=== PATIENT | female | born 1955 | race Two or more races ===

== ENCOUNTER 2016-04-08 18:48 | Emergency (ER) | payer OTHER ==
[~2016-04-08] VITALS: Ht 162.6 cm; Wt 81.6 kg
[~2016-04-08 18:48] MED LIST: ASPI81TA2 PO; ATOR40TA59 PO; CLOP75TA27 PO; DESV50TA PO; HYDR-971 PO; ISOS30TA4 PO; LOSA50TA6 PO; METO10TA81 PO; METO25TA9 PO; MONT10TA9 PO; NITR0.4T6 SL; NITR100C62 PO; NITR100C63 PO; RANI150T2 PO; TIOT18CA IH; TRAM50TA PO; XOPENEX HFA15 GM IH; [UNRECOGNIZED DRUG - OTHER]; renexa PO
[2016-04-08 19:21] VITALS: BP 150/93
[2016-04-08] MEDS ORDERED: IPRATRPIUM/ALBUTEROL 0.5/2.5MG 3 ML NEBU. NEB PRN (20:45)
[2016-04-08] MEDS ORDERED: methylPREDNISolone SOD SUCC PF 125 MG/2 ML VIAL. IV ONE (21:00)
--- NOTE | 2016-04-08 22:15 | PHYS DOC ---
General Chief Complaint: SHORTNESS OF BREATH Stated Complaint: COUGHING SOA Time Seen by MD: 20:20 Source: patient Problems: History of Present Illness Initial Comments Patient here for chest discomfort shortness of breath. Patient says it started Friday when she was in [place]. She went to a local ER there ever received morphine for chest discomfort, and told her problems were related to altitude. She is here now but still continues to Of diffuse soreness and muscle aches throughout the chest as well as shortness of breath. She says her pain is really not coming from her heart as far she can tell, is really more from just the trouble breathing or shortness of breath. She's had no distinct fever or chills. There is no runny nose. She does have some earache and sore throat especially with cough. She has a very copious dry cough. There is no other chest discomfort as described. She's had no nausea vomiting or abdominal pain. No change amount of bladder habits. She denies any acute focal extremity or neurologic complaints. Patient is been using albuterol neurologic treatments home without help. She notes no other increasing or decreasing factors noted nothing else for this home. She has grandchildren at home have similar URI symptoms. Patient states when she gets like this usually she does much better when she gets a shot of steroids. Patient's past medical history is remarkable for asthma, COPD, hypertension, depression, and she has a stent in her heart. She is currently a nonsmoker and nonuser of ethanol. Allergies: Coded Allergies: No Known Drug Allergies (Unverified , 04/01/14) Past Medical History Medical History: asthma, COPD, heart disease, hypertension Surgical History: no surgical history Psychosocial History: depression Family History Significant Family History: no pertinent family hx Social History Smoker: non-smoker Alcohol: none Review of Systems All Other Systems: Reviewed and Negative Physical Exam General Appearance: WD/WN, mild distress Ear, Nose, Throat: normal ENT inspection, normal pharynx Neck: full range of motion, supple, normal inspection Respiratory: lungs clear, no respiratory distress, no accessory muscle use Cardiovascular: regular rate, rhythm, no edema, no gallop Gastrointestinal: non tender, soft, no organomegaly Back: no CVA tenderness, no vertebral tenderness Extremities: non-tender, normal inspection, no pedal edema Neurologic/Psychiatric: alert, normal mood/affect, oriented x 3 Skin: normal color Lymphatic: no adenopathy Comments Generally this is a well-developed well-nourished female who looks to be mildly uncomfortable, and will with severe cough. Vitals are as noted. Pertinent findings on physical exam shows the ears and throat to be clear. Chest shows diminished breath sounds throughout. No focal wheezes rales or rhonchi. There is no retractions or tachypnea. She verbalizes. She is no acute respiratory distress. Cardiovascular exam shows regular rate and rhythm without murmur. The abdomen is soft and nontender without masses or organomegaly. There is no perineal findings. Back shows no CVA tenderness. X-rays show no redness cord asymmetry or signs of DVT. Neurologic exam finds patient awake alert and cooperative. Remainder of physical exam is clinically unremarkable. Orders, Labs, Meds Old charts note multiple prior ER visits for variety of issues including hypokalemia, asthma, flank pain, back pain, UTI, COPD, an insect bite. She is most recently admitted to the hospital in March 2014 for chest pain. She had negative cardiac enzymes, she had a negative echocardiogram. CT scan shows small hiatal hernia. CT scan of the head shows a small meningioma. Discharge diagnosis was of atypical chest pain as well as hypertension and depression. EKG shows a sinus rhythm at 95. Normal axis. No acute ST or T-wave changes. Chest x-ray shows no acute changes per the emergency physician. 2200 Patient resting comfortably ER. She says she feels much better looks much more comfortable as well. Her breath sounds are much improved as well. She says that she usually gets much better when given steroids as she was tonight. I discussed with the patient is sounds like she probably had for baseline asthma or COPD with a superimposed viral URI. I discussed with her that she feels better, I think we can certainly O go home. She is fairly no acute respiratory distress and is very agreeable to discharge. She uses albuterol home and I will go ahead and write her prescription DuoNeb solution to trial. She does not use steroids. I'll go ahead and give her 5 days worth of redness own. We'll also prescribe some Tussionex for her cough and URI symptoms, as I think that most of her chest soreness and achiness is related increased work of breathing and cough. She says this is much improved after her nebulizer treatments as well. She does voice understanding of the need to follow up with primary care or return to the ER sooner as needed if worse in any way. She looks well, in no acute discomfort or distress, and okay for discharge home at this time. RAYRAY KRAMER MD Apr 08, 2016 20:36
--- NOTE | 2016-04-08 23:25 | EKG ---
[address] [address] Test Date: 2016-04-08 Test Time: 19:36:20 Pat Name: SHIRA SARAVIA Department: Room: Gender: F Weather Algorithm Scientist: MARYANNE : 1955 Requested By: RAYRAY KRAMER Order Number: [id number] Reading MD: Adryan Styles Measurements Intervals [place] Rate: 95 P: -30 [place]: 134 QRS: 4 QRSD: 74 T: 34 QT: 328 QTc: 415 Interpretive Statements SINUS RHYTHM Electronically Signed On 04-09-2016 7:45:54 SQL ARCHITECT by Adryan Styles
--- NOTE | 2016-04-09 07:51 | RAD ---
Exam performed: One view chest. Indication: Cough, congestion, shortness of air and chest discomfort today Date of Service: 04/08/2016 10:36 PM Comparison: None available. Single AP upright portable view chest findings: Cardiomediastinal silhouette is within limits of normal. No acute infiltrates, effusion or pneumothorax is detected. The bony structures are normal. Impression: No acute cardiopulmonary process is detected.
== END 2016-04-08 22:30 | disposition home or self-care (01) ==
LOC: ER 18:54
DX: J06.9 Acute upper respiratory infection, unspecified (principal); R07.89 Other chest pain; J45.909 Unspecified asthma, uncomplicated; J44.9 Chronic obstructive pulmonary disease, unspecified; I10 Essential (primary) hypertension; H92.09 Otalgia, unspecified ear
CPT/HCPCS: 71010; 93005; 94640; 96374; 99284; J2930; J7620

== ENCOUNTER 2016-10-01 12:45 | Emergency (ER) | payer OTHER ==
[~2016-10-01 12:45] MED LIST changes: +ASPI-630 PO; -ASPI81TA2 PO; -CLOP75TA27 PO; +CLOP75TA57 PO; +NITR0.4T22 SL; -NITR0.4T6 SL
[2016-10-01] MEDS: ASPIRIN 81 MG TAB.CHEW PO ONE (13:00)
[2016-10-01 13:18] LABS: BASO # 0.1 x10^3/uL (0.0-0.2); BASO % 0 % (0-3); EOS % 0 % (0-3); HEMATOCRIT 38.6 % (36.0-47.0); HEMOGLOBIN 12.1 g/dL (12.0-15.5); LYMPH # 1.8 x10^3/uL (1.0-4.8); LYMPH % 11 % (24-48); MEAN CORPUSCULAR HEMOGLOBIN 25 pg (25-35); MEAN CORPUSCULAR HGB CONC 32 g/dL (31-37); MEAN CORPUSCULAR VOLUME 80 fL (79-100); MONO # 0.5 x10^3/uL (0.0-1.1); MONO % 3 % (0-9); NEUT # 13.7 x10^3uL (1.8-7.7); NEUT % 85 % (31-73); PLATELET COUNT 325 x10^3/uL (140-400); RED BLOOD COUNT 4.82 x10^6/uL (3.50-5.40); RED CELL DISTRIBUTION WIDTH 22.5 % (11.5-14.5); WHITE BLOOD COUNT 16.1 x10^3/uL (4.0-11.0)
--- NOTE | 2016-10-01 13:18 | PHYS DOC ---
Past History Past Medical History: Asthma, CAD, COPD Past Surgical History: Other Smoking: Cigarettes, Less than 1pk/day Alcohol Use: None Drug Use: None Adult General HPI HPI Patient is a 61 year old F who presents with chest pain and a headache. Patient states that this morning she woke up and was having chest heaviness and pressure in the central hard of her chest that was nonradiating and has a day progressed she developed a headache. Patient denies any shortness of breath. Patient denies any fevers. Patient denies any nausea/vomiting/diarrhea. Patient states the chest pain does not get worse with exertion. She states she has a previous stent that splint placed which was a couple years ago and is currently on Plavix. Review of Systems Review of Systems GEN: Denies fevers, chills, sweats HEENT: Denies blurred vision, sore throat CV: chest pain RESP: Denies shortness of air, cough GI: Denies n/v/d NEURO: Denies confusion, dizziness MSK: Denies weakness, joint pain/swelling Current Medications Current Medications Current Medications Medications (Trade) Dose Ordered Sig/Kian Start Time Stop Time Status Last Admin Dose Admin Aspirin (Children'S Aspirin) 324 mg 1X ONCE 10/01/16 13:10 10/01/16 13:11 DC Iohexol (Omnipaque 300 Mg/ml) 75 ml 1X ONCE 10/01/16 13:30 10/01/16 13:31 Allergies Allergies Allergies Coded Allergies Type Severity Reaction Last Updated Verified No Known Drug Allergies 04/01/14 No Physical Exam Physical Exam GEN.: No apparent distress. Alert and oriented. HEENT: Head is normocephalic, atraumatic NECK: Supple. LUNGS: CTAB. HEART: RRR, S1, S2 present. Peripheral pulses intact ABDOMEN: Soft, nontender. Positive bowel sounds. EXTREMITIES: Without any cyanosis. NEUROLOGIC: Normal speech, normal tone PSYCHIATRIC: Normal affect, normal mood. SKIN: No ulcerations Current Patient Data Vital Signs Laboratory Tests Test 10/01/16 13:08 White Blood Count 16.1 x10^3/uL Red Blood Count 4.82 x10^6/uL Hemoglobin 12.1 g/dL Hematocrit 38.6 % Mean Corpuscular Volume 80 fL Mean Corpuscular Hemoglobin 25 pg Mean Corpuscular Hemoglobin Concent 32 g/dL Red Cell Distribution Width 22.5 % Platelet Count 325 x10^3/uL Neutrophils (%) (Auto) 85 % Lymphocytes (%) (Auto) 11 % Monocytes (%) (Auto) 3 % Eosinophils (%) (Auto) 0 % Basophils (%) (Auto) 0 % Neutrophils # (Auto) 13.7 x10^3uL Lymphocytes # (Auto) 1.8 x10^3/uL Monocytes # (Auto) 0.5 x10^3/uL Eosinophils # (Auto) 0.0 x10^3/uL Basophils # (Auto) 0.1 x10^3/uL Segmented Neutrophils % 81 % Band Neutrophils % 6 % Lymphocytes % 11 % Monocytes % 2 % Platelet Estimate Adequate Sodium Level 143 mmol/L Potassium Level 4.1 mmol/L Chloride Level 106 mmol/L Carbon Dioxide Level 24 mmol/L Anion Gap 13 Blood Urea Nitrogen 16 mg/dL Creatinine 1.2 mg/dL Estimated GFR (Cockcroft-Gault) 46.0 BUN/Creatinine Ratio 13 Glucose Level 143 mg/dL Calcium Level 9.1 mg/dL Total Bilirubin 0.2 mg/dL Aspartate Amino Transf (AST/SGOT) 13 U/L Alanine Aminotransferase (ALT/SGPT) 31 U/L Alkaline Phosphatase 104 U/L Troponin I Quantitative < 0.017 ng/mL Total Protein 6.7 g/dL Albumin 3.9 g/dL Albumin/Globulin Ratio 1.4 Current Medications Medications (Trade) Dose Ordered Sig/Kian Route PRN Reason Start Time Stop Time Status Last Admin Dose Admin Aspirin (Children'S Aspirin) 324 mg 1X ONCE PO 10/01/16 13:10 10/01/16 13:11 DC 10/01/16 13:00 Iohexol (Omnipaque 300 Mg/ml) 75 ml 1X ONCE IV 10/01/16 13:30 10/01/16 13:31 DC Morphine Sulfate (Morphine 4mg Syringe) 4 mg 1X ONCE IV 10/01/16 14:00 10/01/16 14:01 DC 10/01/16 13:51 EKG EKG 1258: EKG shows normal sinus rhythm rate of 95 no STEMI [] Radiology/Procedures Radiology/Procedures History: Chest pain Comparison is made to a study from 04/08/2016. The heart appears to be within normal limits in size. There is tortuosity of the thoracic aorta. The pulmonary vascularity is normal. No pulmonary infiltrates are seen. There is no evidence of pleural fluid. IMPRESSION: 1. Mild tortuosity of the thoracic aorta. 2. No acute cardiopulmonary abnormality is detected.[] CTA of the chest with contrast, 10/01/2016: History: Chest pain Multidetector CT imaging was performed following an IV bolus injection of iodinated contrast material. Multiplanar reconstructions were produced including coronal MIP images. The central pulmonary arteries are well opacified and no filling defects are seen to suggest pulmonary emboli. There is mild calcific plaquing of the thoracic aorta without evidence of aneurysm. There are mild scattered coronary artery calcifications. No mediastinal or hilar adenopathy is seen. Mild bibasilar and dependent linear and groundglass opacities are probably due to atelectasis and/or scarring. No pulmonary mass or significant consolidation is seen. There is no evidence of pleural fluid. IMPRESSION: 1. No CT evidence of central pulmonary emboli. 2. Mild calcific plaquing of the aorta and coronary arteries. Course & Med Decision Making Course & Med Decision Making Pertinent Labs and Imaging studies reviewed. (See chart for details) ED course: Patient was seen and examined the emergency room CBC, CMP, troponin, EKG, chest x-ray, CT angios of the chest were ordered 1444: Patient was reexamined and chest pain and headache and resolved and the patient is pain-free. Recommended based on patient's cardiac risk factors to be admitted hospital for further cardiac workup which will include serial troponins and serial EKGs and the possible need for a provocative test such as a stress test or heart catheterization. Patient declined admission under seen all risks including and disability elected go home and follow-up with her family doctor. MDM: After reviewing the chart, CC/HPI/PMH, physical exam, [lab results], [ radiological results], I do not believe the patient having acute LA, PE, thoracic aortic dissection. Given the patient's significant cardiac risk factors I recommended patient be admitted hospital for cardiac workup in which she declined understanding all the risks including and disability. Strongly Urged the patient that his symptoms get worse to return to the emergency room immediately. Additional verbal discharge instructions were provided to the patient and that if symptoms get worse or any new symptoms arise that are worrisome to the patient she is to return to the emergency room immediately [] Dragon Disclaimer Dragon Disclaimer This chart was dictated in whole or in part using Voice Recognition software in a busy, high-work load, and often noisy Emergency Department environment. It may contain unintended and wholly unrecognized errors or omissions. Departure Departure: Impression: Primary Impression: Chest pain Additional Impression: Headache Disposition: 01 HOME, SELF-CARE Condition: IMPROVED Referrals: ELTON PECK DO (PCP) Patient Instructions: Chest Pain (Nonspecific), [id number] Additional Instructions: Please follow up with her family doctor one to 2 days Problem Qualifiers ROOPA NEWSOME DO Oct 01, 2016 13:18
[2016-10-01] MEDS ORDERED: IOHEXOL 300 MG/ML 75 ML VIAL. IV ONE (13:30)
[2016-10-01 13:32] LABS: ALBUMIN 3.9 g/dL (3.4-5.0); ALBUMIN/GLOBULIN RATIO 1.4 (1.0-1.7); CALCIUM 9.1 mg/dL (8.5-10.1); CREATININE 1.2 mg/dL (0.6-1.0); POTASSIUM 4.1 mmol/L (3.5-5.1); TOTAL BILIRUBIN 0.2 mg/dL (0.2-1.0); TOTAL PROTEIN 6.7 g/dL (6.4-8.2)
[2016-10-01] MEDS: MORPHINE SULFATE 4 MG/ML DISP.SYRIN. IV ONE (13:51)
[2016-10-01 13:55] VITALS: BP 127/90
[2016-10-01 14:01] LABS: % BANDS 6 % (0-9); % LYMPHS 11 % (24-48); % MONOS 2 % (0-10); % SEGS 81 % (35-66); PLT ESTIMATE ADEQUATE (ADEQUATE)
--- NOTE | 2016-10-01 14:38 | RAD ---
CTA of the chest with contrast, 10/01/2016: History: Chest pain Multidetector CT imaging was performed following an IV bolus injection of iodinated contrast material. Multiplanar reconstructions were produced including coronal MIP images. The central pulmonary arteries are well opacified and no filling defects are seen to suggest pulmonary emboli. There is mild calcific plaquing of the thoracic aorta without evidence of aneurysm. There are mild scattered coronary artery calcifications. No mediastinal or hilar adenopathy is seen. Mild bibasilar and dependent linear and groundglass opacities are probably due to atelectasis and/or scarring. No pulmonary mass or significant consolidation is seen. There is no evidence of pleural fluid. IMPRESSION: 1. No CT evidence of central pulmonary emboli. 2. Mild calcific plaquing of the aorta and coronary arteries. PQRS Compliance Statement: One or more of the following individualized dose reduction techniques were utilized for this examination: 1. Automated exposure control 2. Adjustment of the mA and/or kV according to patient size 3. Use of iterative reconstruction technique
--- NOTE | 2016-10-01 15:16 | EKG ---
[address] [address] Test Date: 2016-10-01 Test Time: 12:55:53 Pat Name: SHIRA SARAVIA Department: Room: Gender: F Applications Developer: DEVIN : 1955 Requested By: ROOPA NEWSOME Order Number: [id number] Reading MD: Adryan Styles Measurements Intervals [place] Rate: 95 P: 28 MS: 172 QRS: 0 QRSD: 78 T: 4 QT: 354 QTc: 448 Interpretive Statements SINUS RHYTHM Electronically Signed On 10-03-2016 8:49:55 CDT by Adryan Styles
== END 2016-10-01 15:04 | disposition home or self-care (01) ==
LOC: ER 12:45
DX: R07.89 Other chest pain (principal); R51 Headache; I25.10 Atherosclerotic heart disease of native coronary artery without angina pectoris; J44.9 Chronic obstructive pulmonary disease, unspecified; F17.210 Nicotine dependence, cigarettes, uncomplicated
CPT/HCPCS: 36415; 71010; 71275; 80053; 84484; 85007; 85027; 93005; 96374; 99285; J2270

== ENCOUNTER 2017-01-07 20:45 | Emergency (ER) | payer OTHER ==
[~2017-01-07] VITALS: Ht 162.6 cm; Wt 84.1 kg
[~2017-01-07 20:45] MED LIST changes: +METO-239 PO; -METO25TA9 PO
[2017-01-07] MEDS ORDERED: DEXAMETHASONE 4 MG TABLET PO ONE (21:45)
[2017-01-07 22:24] LABS: BASO # 0.1 x10^3/uL (0.0-0.2); BASO % 1 % (0-3); EOS # 0.2 x10^3/uL (0.0-0.7); EOS % 3 % (0-3); HEMATOCRIT 39.9 % (36.0-47.0); HEMOGLOBIN 13.7 g/dL (12.0-15.5); LYMPH % 28 % (24-48); MEAN CORPUSCULAR HEMOGLOBIN 31 pg (25-35); MEAN CORPUSCULAR HGB CONC 34 g/dL (31-37); MEAN CORPUSCULAR VOLUME 91 fL (79-100); MONO # 0.5 x10^3/uL (0.0-1.1); MONO % 8 % (0-9); NEUT # 4.4 x10^3uL (1.8-7.7); NEUT % 61 % (31-73); PLATELET COUNT 320 x10^3/uL (140-400); RED BLOOD COUNT 4.38 x10^6/uL (3.50-5.40); RED CELL DISTRIBUTION WIDTH 16.6 % (11.5-14.5); WHITE BLOOD COUNT 7.1 x10^3/uL (4.0-11.0)
[2017-01-07] MEDS ORDERED: methylPREDNISolone SOD SUCC PF 125 MG/2 ML VIAL. IV ONE (22:30)
[2017-01-07] MEDS ORDERED: IPRATRPIUM/ALBUTEROL 0.5/2.5MG 3 ML NEBU. NEB ONE (22:30)
[2017-01-07 22:41] LABS: CALCIUM 9.2 mg/dL (8.5-10.1); CREATININE 1.4 mg/dL (0.6-1.0); GFR 38.5; POTASSIUM 3.8 mmol/L (3.5-5.1)
[2017-01-07] MEDS ORDERED: methylPREDNISolone SOD SUCC PF 125 MG/2 ML VIAL. ONE (23:16)
[2017-01-07] MEDS ORDERED: ACETAMINOPHEN 500 MG TABLET PO ONE (23:30)
--- NOTE | 2017-01-07 23:44 | ED.ADGEN ---
Past History Past Medical History: Asthma, COPD Past Surgical History: Other Smoking: Cigarettes, Less than 1pk/day Alcohol Use: None Drug Use: None Adult General HPI HPI Patient is a 61-year-old woman, with a history of COPD, CAD, status post placement of one stent several years ago, who presents to the emergency department with a complaint of chest tightness for the past 5 days. Patient states that she's been experiencing "my bronchials getting tighter", with development of chest pain over the past 5 days. She denies any fevers or chills , states she is expressing an operative cough, and pain that radiates from the front of her chest through the size. She states that her used a new lacquer, on Friday, and she believes may have triggered her symptoms, along with the recent weather changes. She denies any nausea or vomiting, any focal weakness, numbness or tingling, states she has typical mild swelling of the extremities for which she takes diuretics, but no change of her typical. No history of DVT or PE, no recent travel or surgery, no urinary complaints. Patient states she is experiencing back pain and headache currently. No neck pain. No injuries. No drugs or alcohol. Patient states his used her albuterol neb at home without relief. Last dose of medication was about 5 hours prior to arrival in the ED. She states previously she's been treated with steroids and with DuoNeb with good effect. Review of Systems Review of Systems Constitutional: Denies fever or chills [] Eyes: Denies change in visual acuity, redness, or eye pain [] HENT: Denies nasal congestion or sore throat [] Respiratory: Cough is nonproductive, shortness of breath with chest tightness. Cardiovascular: No additional information not addressed in HPI [] GI: Denies abdominal pain, nausea, vomiting, bloody stools or diarrhea [] : Denies dysuria or hematuria [] Musculoskeletal: Denies back pain or joint pain [] Integument: Denies rash or skin lesions [] Neurologic: Denies focal weakness or sensory changes, frontal headache. Endocrine: Denies polyuria or polydipsia [] Current Medications Current Medications Current Medications Medications (Trade) Dose Ordered Sig/Kian Start Time Stop Time Status Last Admin Dose Admin Acetaminophen (Tylenol) 1,000 mg 1X ONCE 01/07/17 23:30 01/07/17 23:32 DC 01/07/17 23:28 1,000 MG Albuterol/ Ipratropium (Duoneb) 3 ml 1X ONCE 01/07/17 22:30 01/07/17 22:31 DC 01/07/17 22:30 3 ML Dexamethasone (Decadron) 4 mg 1X ONCE 01/07/17 21:45 01/07/17 21:53 DC Methylprednisolone Sodium Succinate (SOLU-Medrol 125MG VIAL) 125 mg STK-MED ONCE 01/07/17 23:16 01/07/17 23:17 DC Allergies Allergies Allergies Coded Allergies Type Severity Reaction Last Updated Verified No Known Drug Allergies 04/01/14 No Physical Exam Physical Exam Constitutional: Well developed, well nourished, no acute distress, non-toxic appearance. [] HENT: Normocephalic, atraumatic, bilateral external ears normal, oropharynx moist, no oral exudates, nose normal. [] Eyes: PERRLA, EOMI, conjunctiva normal, no discharge. [] Neck: Normal range of motion, no tenderness, supple, no stridor. [] Cardiovascular:Heart rate regular rhythm, no murmur, S1, S2. No rubs or gallops. [] Lungs & Thorax: Mildly diminished breath sounds at bases, no rhonchi, rales, or significant wheezing identified. No chest wall crepitus. Patient states that she has tenderness throughout her entire back and anterior chest.[] No lesions identified. Abdomen: Bowel sounds normal, soft, no tenderness, no rebound, no rigidity, no guarding, no masses, no pulsatile masses. [] Skin: Warm, dry, no erythema, no rash. [] Back: No tenderness, no CVA tenderness. [] Extremities: No tenderness, no cyanosis, no clubbing, ROM intact, no edema. Negative Homans sign.[] Neurologic: Alert and oriented X 3, normal motor function, normal sensory function, no focal deficits noted. [] Psychologic: Affect normal, judgement normal, mood normal. [] Current Patient Data Vital Signs Vital Signs Date Time Temp Pulse Resp B/P (MAP) Pulse Ox O2 Delivery O2 Flow Rate FiO2 01/07/17 21:47 98.0 89 22 100 Room Air Lab Results Laboratory Tests Test 01/07/17 22:05 01/08/17 00:54 White Blood Count 7.1 x10^3/uL (4.0-11.0) Red Blood Count 4.38 x10^6/uL (3.50-5.40) Hemoglobin 13.7 g/dL (12.0-15.5) Hematocrit 39.9 % (36.0-47.0) Mean Corpuscular Volume 91 fL (79-100) Mean Corpuscular Hemoglobin 31 pg (25-35) Mean Corpuscular Hemoglobin Concent 34 g/dL (31-37) Red Cell Distribution Width 16.6 % (11.5-14.5) H Platelet Count 320 x10^3/uL (140-400) Neutrophils (%) (Auto) 61 % (31-73) Lymphocytes (%) (Auto) 28 % (24-48) Monocytes (%) (Auto) 8 % (0-9) Eosinophils (%) (Auto) 3 % (0-3) Basophils (%) (Auto) 1 % (0-3) Neutrophils # (Auto) 4.4 x10^3uL (1.8-7.7) Lymphocytes # (Auto) 2.0 x10^3/uL (1.0-4.8) Monocytes # (Auto) 0.5 x10^3/uL (0.0-1.1) Eosinophils # (Auto) 0.2 x10^3/uL (0.0-0.7) Basophils # (Auto) 0.1 x10^3/uL (0.0-0.2) Sodium Level 142 mmol/L (136-145) Potassium Level 3.8 mmol/L (3.5-5.1) Chloride Level 105 mmol/L (98-107) Carbon Dioxide Level 27 mmol/L (21-32) Anion Gap 10 (6-14) Blood Urea Nitrogen 18 mg/dL (7-20) Creatinine 1.4 mg/dL (0.6-1.0) H Estimated GFR (Cockcroft-Gault) 38.5 Glucose Level 147 mg/dL (70-99) H Calcium Level 9.2 mg/dL (8.5-10.1) Troponin I Quantitative < 0.017 ng/mL (0-0.055) QO-Agh-K-Type Natriuretic Peptide 77 pg/mL (0-124) Lipase 121 U/L (73-393) POC Troponin I 0.00 ng/ml (<0.08) EKG EKG EC: Sinus rhythm, heart rate 94 bpm, upright axis, QTC of 448, TN 110, QRS of 78, no ST elevations or depressions, no evidence of acute ST abnormalities. As interpreted by me.[] Radiology/Procedures Radiology/Procedures Chest x-ray: Two-view: Normal cardiopulmonary silhouette, no infiltrates, no effusions, no pneumothorax, no soft tissue or bony abnormalities identified. As interpreted by me.[] Course & Med Decision Making Course & Med Decision Making Pertinent Labs and Imaging studies reviewed. (See chart for details) Patient with oxygen saturations 100%, respiratory rate is in the 20s, mildly labored. No significant wheezing identified. Patient did receive DuoNeb, and Solu-Medrol in the ED. Along with Tylenol for her headache. Reevaluation states that she is still feeling slightly sore in her back, however her chest tightness is resolved, as is her headache. Patient with a heart score of 2, I did discuss these findings with the patient, examination, history, and patient report is consistent with this being an exacerbation of her COPD, do not believe that this is consistent with a concerning cardiac or other pulmonary etiology. Repeat troponin obtained, also negative. I did review the heart score with patient and at bedside, patient states that she is feeling completely better at this time, and is ready to be discharged home. She she does have all medications at home, therefore we will discharge her with a short course of prednisone, patient follow-up with a primary care provider for additional evaluation as needed, and to return to the ED for any new or concerning symptoms as discussed. Patient voiced understanding and agreement with plan as stated, discharged home in stable condition with plan as above. Final Impression Final Impression [] Problems: Dragon Disclaimer Dragon Disclaimer This electronic medical record was generated, in whole or in part, using a voice recognition dictation system. Departure: Impression: Primary Impression: COPD exacerbation Disposition: 01 HOME, SELF-CARE Condition: IMPROVED Scripts Prednisone (PREDNISONE) 20 Mg Tablet 2 TAB PO [id number], #8 TAB Prov: LOUIS PAZ DO 01/08/17 LOUIS PAZ DO Jan 07, 2017 23:44
--- NOTE | 2017-01-08 00:27 | EKG ---
[address] [address] Test Date: 2017-01-07 Test Time: 21:55:47 Pat Name: SHIRA SARAVIA Department: Room: Gender: F Director Apparel: TREVOR : 1955 Requested By: LOUIS PAZ Order Number: [id number] Reading MD: Measurements Intervals [place] Rate: 94 P: 180 NM: 110 QRS: 6 QRSD: 78 T: 24 QT: 354 QTc: 448 Interpretive Statements SINUS RHYTHM NORMAL ECG RI6.01 No previous ECG available for comparison
[2017-01-08] MEDS ORDERED: PRED20TA PO (00:52)
[2017-01-08 01:22] VITALS: BP 109/74
--- NOTE | 2017-01-08 08:41 | RAD ---
Chest, 2 views, 01/07/2017: History: Shortness of breath, chest pain Comparison is made to a study from 10/01/2016. The heart size and pulmonary vascularity are normal. There is mild tortuosity of the thoracic aorta. No pulmonary infiltrates are seen. There is no evidence of pleural fluid. IMPRESSION: 1. Tortuous aorta. 2. No acute abnormality is detected.
== END 2017-01-08 01:13 | disposition home or self-care (01) ==
LOC: ER 20:45
DX: J44.1 Chronic obstructive pulmonary disease with (acute) exacerbation (principal); M54.9 Dorsalgia, unspecified; R51 Headache; I25.10 Atherosclerotic heart disease of native coronary artery without angina pectoris; F17.210 Nicotine dependence, cigarettes, uncomplicated
CPT/HCPCS: 36415; 71020; 80048; 83690; 83880; 84484; 85025; 93005; 94640; 96374; 99285; J2930; J7620

== ENCOUNTER 2017-03-21 11:33 | Emergency (ER) | payer OTHER ==
[~2017-03-21] VITALS: Ht 154.9 cm; Wt 83.9 kg
[~2017-03-21 11:33] MED LIST changes: +PRED20TA PO
[2017-03-21 12:30] LABS: BASO # 0.1 x10^3/uL (0.0-0.2); BASO % 1 % (0-3); EOS # 0.1 x10^3/uL (0.0-0.7); EOS % 2 % (0-3); HEMATOCRIT 41.4 % (36.0-47.0); LYMPH # 2.8 x10^3/uL (1.0-4.8); LYMPH % 40 % (24-48); MEAN CORPUSCULAR HEMOGLOBIN 31 pg (25-35); MEAN CORPUSCULAR HGB CONC 34 g/dL (31-37); MEAN CORPUSCULAR VOLUME 91 fL (79-100); MONO # 0.5 x10^3/uL (0.0-1.1); MONO % 7 % (0-9); NEUT # 3.5 x10^3uL (1.8-7.7); NEUT % 50 % (31-73); PLATELET COUNT 427 x10^3/uL (140-400); RED BLOOD COUNT 4.55 x10^6/uL (3.50-5.40); RED CELL DISTRIBUTION WIDTH 15.3 % (11.5-14.5)
[2017-03-21] MEDS ORDERED: PROCHLORPERAZINE 10 MG/2 ML VIAL. IV ONE (12:30)
[2017-03-21] MEDS ORDERED: ACETAMINOPHEN 500 MG TABLET PO ONE (12:30)
--- NOTE | 2017-03-21 12:31 | EKG ---
[address] [address] Test Date: 2017-03-21 Test Time: 12:08:46 Pat Name: SHIRA SARAVIA Department: Room: Gender: F Surveillance Director: DEVIN : 1955 Requested By: WILLIAMS GABRIEL Order Number: [id number] Reading MD: Ravi Bui Measurements Intervals [place] Rate: 88 P: -22 [place]: 150 QRS: 0 QRSD: 76 T: 34 QT: 372 QTc: 454 Interpretive Statements SINUS RHYTHM LEFTWARD AXIS NO SPECIFIC ECG ABNORMALITIES Electronically Signed On 03-25-2017 16:30:35 LEGISLATIVE ASSISTANT by Ravi Bui
[2017-03-21 12:38] LABS: ALBUMIN/GLOBULIN RATIO 1.1 (1.0-1.7); CALCIUM 9.6 mg/dL (8.5-10.1); GFR 56.7; POTASSIUM 3.9 mmol/L (3.5-5.1); TOTAL BILIRUBIN 0.4 mg/dL (0.2-1.0); TOTAL PROTEIN 7.5 g/dL (6.4-8.2)
--- NOTE | 2017-03-21 14:05 | PHYS DOC ---
Past History Past Medical History: Asthma, COPD Past Surgical History: Other Smoking: Cigarettes, Less than 1pk/day Alcohol Use: None Drug Use: None Adult General Chief Complaint Chief Complaint: MULTIPLE COMPLAINTS HPI HPI Patient is a 61 year old F who presents with headache and tingling of the lower extremities bilaterally below the knee. She states that these symptoms started yesterday. The tingling in her lower extremities was associated with tingling in the hands and was present prior to the development of her headache. Her headache is bilateral temporal and dull in nature. She feels that her headache is constant with fluctuating intensity. She does have a history of headaches that recur weekly to monthly however she states that those headaches are more generalized and less intense. She did travel to [place] recently and did not have any symptoms other than mild leg swelling which resolved during her trip. She denied any other associated symptoms. She denies any other exacerbating or alleviating factors. Review of Systems Review of Systems Constitutional: Denies fever or chills [] Eyes: Denies change in visual acuity, redness, or eye pain [] HENT: Denies nasal congestion or sore throat [] Respiratory: Denies cough or shortness of breath [] Cardiovascular: No additional information not addressed in HPI [] GI: Denies abdominal pain, nausea, vomiting, bloody stools or diarrhea [] : Denies dysuria or hematuria [] Musculoskeletal: Denies back pain or joint pain [] Integument: Denies rash or skin lesions [] Neurologic: Denies focal weakness Endocrine: Denies polyuria or polydipsia [] All other systems were reviewed and found to be within normal limits, except as documented in this note. Family History Family History No pertinent family medical history was reported Current Medications Current Medications Current medications were reviewed Current Medications Medications (Trade) Dose Ordered Sig/Kian Start Time Stop Time Status Last Admin Dose Admin Acetaminophen (Tylenol) 1,000 mg 1X ONCE 03/21/17 12:30 03/21/17 12:31 DC 03/21/17 12:23 1,000 MG Prochlorperazine Edisylate (Compazine) 10 mg 1X ONCE 03/21/17 12:30 03/21/17 12:31 DC 03/21/17 12:23 10 MG Allergies Allergies Allergies Coded Allergies Type Severity Reaction Last Updated Verified No Known Drug Allergies 1/23/15 No Physical Exam Physical Exam Constitutional: Well developed, well nourished, no acute distress, non-toxic appearance. [] HENT: Normocephalic, atraumatic, Eyes: EOMI, conjunctiva normal, no discharge. [] Neck: Normal range of motion, no tenderness, supple, no stridor. [] Cardiovascular:Heart rate regular rhythm, no murmur [] Lungs & Thorax: Bilateral breath sounds clear to auscultation [] Abdomen: Bowel sounds normal, soft, no tenderness, no masses, no pulsatile masses. [] Skin: Warm, dry, no erythema, no rash. [] Back: No tenderness, no CVA tenderness. [] Extremities: No tenderness, no cyanosis, no clubbing, ROM intact, no edema. [] Neurologic: Alert and oriented X 3, normal motor function, normal sensory function, no focal deficits noted. [] Normal reflexes in the lower extremity is bilaterally Psychologic: Affect normal, judgement normal, mood normal. [] Current Patient Data Vital Signs Vital Signs Date Time Temp Pulse Resp B/P (MAP) Pulse Ox O2 Delivery O2 Flow Rate FiO2 03/21/17 13:37 91 18 105/69 (81) 99 Room Air 03/21/17 13:04 98.1 Lab Results Laboratory Tests Test 03/21/17 12:00 White Blood Count 7.0 x10^3/uL (4.0-11.0) Red Blood Count 4.55 x10^6/uL (3.50-5.40) Hemoglobin 14.0 g/dL (12.0-15.5) Hematocrit 41.4 % (36.0-47.0) Mean Corpuscular Volume 91 fL (79-100) Mean Corpuscular Hemoglobin 31 pg (25-35) Mean Corpuscular Hemoglobin Concent 34 g/dL (31-37) Red Cell Distribution Width 15.3 % (11.5-14.5) H Platelet Count 427 x10^3/uL (140-400) H Neutrophils (%) (Auto) 50 % (31-73) Lymphocytes (%) (Auto) 40 % (24-48) Monocytes (%) (Auto) 7 % (0-9) Eosinophils (%) (Auto) 2 % (0-3) Basophils (%) (Auto) 1 % (0-3) Neutrophils # (Auto) 3.5 x10^3uL (1.8-7.7) Lymphocytes # (Auto) 2.8 x10^3/uL (1.0-4.8) Monocytes # (Auto) 0.5 x10^3/uL (0.0-1.1) Eosinophils # (Auto) 0.1 x10^3/uL (0.0-0.7) Basophils # (Auto) 0.1 x10^3/uL (0.0-0.2) Sodium Level 141 mmol/L (136-145) Potassium Level 3.9 mmol/L (3.5-5.1) Chloride Level 103 mmol/L (98-107) Carbon Dioxide Level 26 mmol/L (21-32) Anion Gap 12 (6-14) Blood Urea Nitrogen 12 mg/dL (7-20) Creatinine 1.0 mg/dL (0.6-1.0) Estimated GFR (Cockcroft-Gault) 56.7 BUN/Creatinine Ratio 12 (6-20) Glucose Level 110 mg/dL (70-99) H Lactic Acid Level 2.5 mmol/L (0.4-2.0) H Calcium Level 9.6 mg/dL (8.5-10.1) Total Bilirubin 0.4 mg/dL (0.2-1.0) Aspartate Amino Transferase (AST) 24 U/L (15-37) Alanine Aminotransferase (ALT) 48 U/L (14-59) Alkaline Phosphatase 85 U/L (46-116) Total Protein 7.5 g/dL (6.4-8.2) Albumin 4.0 g/dL (3.4-5.0) Albumin/Globulin Ratio 1.1 (1.0-1.7) EKG EKG Normal sinus rhythm. No QRS interval changes. No ST segment changes noted. Radiology/Procedures Radiology/Procedures Imaging was declined Course & Med Decision Making Course & Med Decision Making Pertinent Labs and Imaging studies reviewed. (See chart for details) [] Dragon Disclaimer Dragon Disclaimer This electronic medical record was generated, in whole or in part, using a voice recognition dictation system. Departure Departure: Impression: Primary Impression: Headache Disposition: 01 HOME, SELF-CARE Condition: STABLE Referrals: ELTON PECK DO (PCP) Patient Instructions: Migraine Headache Additional Instructions: Leydi was seen in the emergency department for headache and tingling in her hands and feet. No emergency medical condition was found on history or physical exam. She did have normal labs. Her symptoms did improve with Tylenol. She is advised follow-up with her primary care doctor in the next 3-5 days. She is also advised to return to the emergency room if she develops now worsening symptoms, in particular weakness or shortness of breath Problem Qualifiers Primary Impression: Headache Headache type: unspecified Headache chronicity pattern: unspecified pattern Intractability: not intractable Qualified Codes: R51 - Headache WILLIAMS GABRIEL MD Mar 21, 2017 14:05
[2017-03-21 14:30] VITALS: BP 119/87
== END 2017-03-21 14:30 | disposition home or self-care (01) ==
LOC: ER 11:33
DX: R51 Headache (principal); R20.2 Paresthesia of skin; J44.9 Chronic obstructive pulmonary disease, unspecified; F17.210 Nicotine dependence, cigarettes, uncomplicated
CPT/HCPCS: 36415; 80053; 83605; 85025; 93005; 96374; 99285; J0780

== ENCOUNTER → 2017-05-06 | Outpatient (CLI) | payer OTHER | END | disposition home or self-care (01) | LOC: SURG 12:27 | PROVIDERS: ATTEND Anesthesiology | DX: M51.36 Other intervertebral disc degeneration, lumbar region (principal); M47.816 Spondylosis without myelopathy or radiculopathy, lumbar region; J44.9 Chronic obstructive pulmonary disease, unspecified; Z87.891 Personal history of nicotine dependence | CPT/HCPCS: 99204 ==

== ENCOUNTER 2018-03-06 11:40 | Inpatient (IN) | payer OTHER ==
[~2018-03-06] VITALS: Ht 162.6 cm; Wt 86.2 kg
[~2018-03-06 11:40] MED LIST changes: +HYDR-3165 PO; -HYDR-971 PO; -LOSA50TA6 PO; +LOSA50TA86 PO
--- NOTE | 2018-03-06 11:55 | PHYS DOC ---
Past History Past Medical History: Asthma, CAD, COPD, High Cholesterol, Hypertension Past Surgical History: Other Smoking: Quit Greater Than 1 Year Alcohol Use: None Drug Use: None Adult General Chief Complaint Chief Complaint: CHEST PAIN HPI HPI Patient is a 62 year old female who presents with complaining of chest pain and palpitation. Patient states she has had left upper chest sharp pain with radiation to left shoulder for the last 4 days as a constant pain with shortness of breath, nausea, agitation. Patient rated her pain 7/10 and states the pain getting worse with activity. Patient had Patient was seen by her seo manager today because of this pain and has abnormal EKG and sent here for evaluation. Patient had a recent air traveling by airplane to [place] but denies leg pain and history of DVT and PE. Patient has history of coronary artery disease and stent placement, hypertension, dyslipidemia, family history of coronary artery disease. Review of Systems Review of Systems Constitutional: Denies fever or chills [] Eyes: Denies change in visual acuity, redness, or eye pain [] HENT: Denies nasal congestion or sore throat [] Respiratory: Denies cough, reports shortness of breath [] Cardiovascular: No additional information not addressed in HPI [] GI: Denies abdominal pain, nausea, vomiting, bloody stools or diarrhea [] : Denies dysuria or hematuria [] Musculoskeletal: Denies back pain or joint pain [] Integument: Denies rash or skin lesions [] Neurologic: Denies headache, focal weakness or sensory changes [] Endocrine: Denies polyuria or polydipsia [] All other systems were reviewed and found to be within normal limits, except as documented in this note. Allergies Allergies Allergies Coded Allergies Type Severity Reaction Last Updated Verified No Known Drug Allergies 04/01/14 No Physical Exam Physical Exam Constitutional: Well developed, well nourished, mild distress, non-toxic appearance. [] HENT: Normocephalic, atraumatic, oropharynx moist, no oral exudates, nose normal. [] Eyes: PERRLA, EOMI, conjunctiva normal, no discharge. [] Neck: Normal range of motion, no tenderness, supple, no stridor. [] Cardiovascular:Heart rate regular rhythm, no murmur [] Lungs & Thorax: Bilateral breath sounds clear to auscultation, left chest wall reproducible pain[] Abdomen: Bowel sounds normal, soft, no tenderness, no masses, no pulsatile masses. [] Skin: Warm, dry, no erythema, no rash. [] Back: No tenderness, no CVA tenderness. [] Extremities: No tenderness, no cyanosis, no clubbing, ROM intact, no edema. [] Neurologic: Alert and oriented X 3, normal motor function, normal sensory function, no focal deficits noted. [] Psychologic: Affect normal, judgement normal, mood normal. [] EKG EKG EKG interpreted by me. EKG at 1152 showed normal sinus rhythm at rate of 76, PACs, left conroy axis, no acute ST and T-wave abnormalities. Radiology/Procedures Radiology/[place] [address] IMAGING REPORT Signed PATIENT: SHIRA SARAVIA ACCOUNT: [id number] : 1955 LOCATION: ER AGE: 62 SEX: F EXAM STATUS: REG ER ORD. PHYSICIAN: AIMEE SPENCER MD REASON: palpitation PROCEDURE: PORTABLE CHEST 1V EXAM: CHEST 1 VIEW History: Heart palpitations COMPARISON: 01/07/2017 TECHNIQUE: Single portable radiograph of the chest FINDINGS: The cardiac silhouette is unremarkable. The lungs are clear bilaterally. The costophrenic sulci are clear and well demarcated. Cardiac heart monitor identified. IMPRESSION: No radiographic evidence of an acute cardiopulmonary process. Electronically signed by: Avelino Flores MD (03/06/2018 12:13 PM) [place] [id number] DICTATED AND SIGNED BY: AVELINO FLORES MD DATE: 03/06/18 1211 CC: AIMEE SPENCER MD; ELTON PECK DO ~ Course & Med Decision Making Course & Med Decision Making Pertinent Labs and Imaging studies reviewed. (See chart for details) Evaluation of patient in ER showed 62-year-old female patient with multiple cardiac affect and complaining of chest pain for the last 4 days with shortness of breath and palpitation and history of recent traveling by airplane. Patient had unremarkable EKG and labs and d-dimer. Because of multiple cardiac risk factor plan to admit patient. Patient did not want transfer to [facility] as recommended by her seo manager and wants to stay in this hospital. Dr. Mckenzie accepted admission at 1345. Dragon Disclaimer Dragon Disclaimer This electronic medical record was generated, in whole or in part, using a voice recognition dictation system. Departure Departure: Impression: Primary Impression: Acute chest pain Disposition: ADMITTED INPATIENT (at 1345) Admitting Physician: Shayne Mckenzie (Dr. Leonardo accepted admission at 1345) Condition: IMPROVED Referrals: ELTON PECK DO (PCP) AIMEE SPENCER MD Mar 06, 2018 11:55
[2018-03-06 12:10] LABS: BASO # 0.1 x10^3/uL (0.0-0.2); BASO % 1 % (0-3); EOS % 0 % (0-3); HEMOGLOBIN 13.4 g/dL (12.0-15.5); LYMPH # 1.9 x10^3/uL (1.0-4.8); LYMPH % 27 % (24-48); MEAN CORPUSCULAR HEMOGLOBIN 29 pg (25-35); MEAN CORPUSCULAR HGB CONC 33 g/dL (31-37); MEAN CORPUSCULAR VOLUME 87 fL (79-100); MONO # 0.5 x10^3/uL (0.0-1.1); MONO % 7 % (0-9); NEUT # 4.4 x10^3uL (1.8-7.7); NEUT % 64 % (31-73); PLATELET COUNT 376 x10^3/uL (140-400); RED BLOOD COUNT 4.62 x10^6/uL (3.50-5.40); RED CELL DISTRIBUTION WIDTH 17.5 % (11.5-14.5); WHITE BLOOD COUNT 6.9 x10^3/uL (4.0-11.0)
[2018-03-06 12:30] LABS: ALBUMIN 3.8 g/dL (3.4-5.0); ALBUMIN/GLOBULIN RATIO 1.1 (1.0-1.7); CREATININE 1.3 mg/dL (0.6-1.0); GFR 41.8; MAGNESIUM 1.8 mg/dL (1.8-2.4); POTASSIUM 3.6 mmol/L (3.5-5.1); TOTAL BILIRUBIN 0.4 mg/dL (0.2-1.0); TOTAL PROTEIN 7.3 g/dL (6.4-8.2)
[2018-03-06] MEDS ORDERED: ASPIRIN 81 MG TAB.CHEW PO ONE (12:50)
[2018-03-06] MEDS ORDERED: KETOROLAC 30 MG/ML VIAL. IV ONE (13:40)
--- NOTE | 2018-03-06 13:58 | RAD ---
EXAM: CHEST 1 VIEW History: Heart palpitations COMPARISON: 01/07/2017 TECHNIQUE: Single portable radiograph of the chest FINDINGS: The cardiac silhouette is unremarkable. The lungs are clear bilaterally. The costophrenic sulci are clear and well demarcated. Cardiac heart monitor identified. IMPRESSION: No radiographic evidence of an acute cardiopulmonary process. Electronically signed by: Avelino Flores MD (03/06/2018 12:13 PM) [place] [id number]
[2018-03-06 16:08] VITALS: BP 125/72
[2018-03-06] MEDS ORDERED: NITROGLYCERIN SUBLINGUAL 0.4 MG BOTTLE OF 25. SL PRN ×2 (16:45)
[2018-03-06] MEDS ORDERED: traMADol 50 MG TABLET PO PRN (16:45)
[2018-03-06] MEDS ORDERED: NON FORMULARY ITEM (Levalbuterol Tartrate (Xopenex Hfa) 2 PUFF) IH SCH (16:45)
--- NOTE | 2018-03-06 17:05 | HP ---
ADMIT DATE: 03/06/2018 HISTORY OF PRESENT ILLNESS: The patient is a 62-year-old female patient originally from is [place] and who apparently was seen at her reference data expert's office complaining of chest pain that associated with palpitation and shortness of breath. The pain started on when she was in [place], for which she took sublingual nitroglycerin. She flow last night and back home. She was seen by her reference data expert today because of this pain and she has an abnormal EKG and therefore she was sent to Emergency [facility] of [facility] for evaluation. The patient did have a recent traveling by airplane from [place], but denies any leg pain on history of DVT or PE. Did have history of coronary artery disease and stent deployment. Other medical problems include hypertension and hyperlipidemia. She was extensively evaluated in the Emergency Room. She had an EKG and lab work including cardiac enzyme, which was troponin less than 0.017. Her D-dimer was less than 0.19 and the patient was admitted to be monitored to do two more sets of cardiac enzyme, check a lipid profile to consult the cardiology team. PAST MEDICAL HISTORY: Significant for hypertension, hyperlipidemia, chronic obstructive pulmonary disease, morbid obesity with obstructive sleep apnea, recurrent UTIs, had had a stress test done about 8 months ago, it was unremarkable. PAST SURGICAL HISTORY: Significant for bilateral cataract extraction, 2 C-sections, tummy tuck, breast reduction surgery, total abdominal hysterectomy, bilateral salpingo-oophorectomy. She has had colonoscopy and polypectomy. She has also had internal and external hemorrhoids. ALLERGIES: She has no known drug allergies. MEDICATIONS: She gets her medication from [facility] and from [facility]. Unfortunately, she did not have her list of medication with her. We have to call [facility] and probably will not be able to get anything from [place]. FAMILY HISTORY: She has 1 older sister at age of 33 because of lung cancer. One younger sister to 5 years old because of typhoid fever. Her father in his 80s because of lymphoma/leukemia. Her mother in her 80s because of end-stage renal disease. SOCIAL HISTORY: She is , has 3 biological daughter and one adopted daughter. Has no son. She quit smoking 4 years ago. She used to smoke a pack a day and smoked for almost 40 years. She does drinks alcohol occasionally. Does not use any drugs. REVIEW OF SYSTEMS: The patient denied any blurring of vision, cataract, glaucoma or macular degeneration. Denied any earache, tinnitus or sensorineural deafness. Denied any nosebleeds, stuffy nose or postnasal drip. Denied any sore throat, sore tongue, toothache, hoarseness of voice or difficulty swallowing. Denied any nausea, vomiting, diarrhea or constipation. Denied any hematemesis, melena or hematochezia. Denied any dysuria, frequency or hematuria. Did complain of chest pain that comes and goes and is not associated with exertion. It is associated with some shortness of breath, but no nausea, no vomiting, no diaphoresis and no radiation. PHYSICAL EXAMINATION: GENERAL: On examining her, she was resting slightly propped up in bed, in no apparent respiratory distress. No pallor, jaundice, cyanosis, or thyromegaly. No jugular venous distension. No limb edema. VITAL SIGNS: Her heart rate was 78, blood pressure was 122/82, temperature was 97.9, respiratory rate 20, and oxygen saturation was 99%. HEAD, EYES, EARS, NOSE, AND THROAT: Showed normocephalic, atraumatic. NECK: Supple. HEART: Showed normal first and second heart sounds. No gallop, rub or murmur. CHEST: Clear to auscultation. No crepitation or rhonchi. ABDOMEN: Distended, soft, nontender. No guarding or rigidity. No organomegaly. All hernial orifice intact. Bowel sounds normal. NEUROLOGIC: She is awake, alert, responding appropriately. All cranial nerves intact. EXTREMITIES: She moves extremities without difficulty. She ambulates without assistance or assistive devices. LABORATORY DATA: Showed a white cell count of 6900, hemoglobin 13.4, hematocrit 40, MCV 87 and platelet count of 376,000. Her chemistry showed a serum sodium 140, potassium 3.6, chloride 102, bicarbonate 27, anion gap of 11, BUN 17, creatinine 1.3, estimated GFR was 41 mL per minute. Her glucose was 91, calcium was 9. Total magnesium was 1.8. Total bilirubin, AST, ALT, alkaline phosphatase were normal. Total protein was 7.3, albumin was 3.8. Her troponin was less than 0.017. Her prothrombin time was 10.4, INR of 1. She has had a chest x-ray, which showed the cardiac silhouette is unremarkable. The lungs are clear bilaterally. Costophrenic sulci are clear and well demarcated. Heart monitor identified. IMPRESSION: In summary, this is a well-developed, well-nourished 62-year-old [place] female patient, who came in with episodes of palpitation associated with chest pain and shortness of breath that comes and goes, is not associated with any exertion. There is no vomiting. There is no nausea, vomiting, no diaphoresis. She pain has responded to sublingual nitroglycerin. She was given 4 aspirin tablets in the Emergency Room as well as Toradol injection. PLAN: My plan is to continue with all her medication once we get the list. We need to check her urine and send urine for culture and sensitivity. We do two sets of cardiac enzymes, check his lipid profile tomorrow and consult the cardiology team. SOLO AGUIRRE MD DR: FLAKO/viv JOB#: [id number] / [id number]
[2018-03-06] MEDS ORDERED: ALBUTEROL SULFATE 2.5 MG/3 ML NEBU. NEB PRN (17:15)
[2018-03-06] MEDS: METOCLOPRAMIDE 10 MG TABLET PO SCH ×2 (17:23→21:01)
--- NOTE | 2018-03-06 19:31 | EKG ---
[address] [address] Test Date: 2018-03-06 Test Time: 11:52:22 Pat Name: SHIRA SARAVIA Department: Room: 113 A Gender: F Product Director: : 1955 Requested By: AIMEE SPENCER Order Number: [id number] Reading MD: Andrea Marti Measurements Intervals [place] Rate: 76 P: 0 [place]: 158 QRS: -1 QRSD: 78 T: 21 QT: 398 QTc: 452 Interpretive Statements SINUS RHYTHM ATRIAL PREMATURE COMPLEX(ES) LEFTWARD AXIS OTHERWISE NORMAL ECG RI6.01 Unconfirmed report Compared to ECG 03/21/2017 12:08:46 No significant changes Electronically Signed On 03-11-2018 15:16:25 EQUITY MANAGER by Andrea Marti
[2018-03-06 19:45] VITALS: BP 103/68
[2018-03-06] MEDS ORDERED: ATORVASTATIN CALCIUM 20 MG TABLET PO SCH (21:00)
[2018-03-06] MEDS: RANOLAZINE 500 MG TAB.ER.12H PO SCH (21:01)
[2018-03-06] MEDS: FAMOTIDINE 20 MG TABLET PO SCH (21:01)
[2018-03-06 22:45] VITALS: BP 94/62
[2018-03-07 00:15] LABS: BACTERIA,URINE MANY /HPF (0-FEW); BILIRUBIN,URINE NEG (NEG); CLARITY,URINE HAZY; COLOR,URINE YELLOW; GLUCOSE,URINE NEG (NEG); NITRITE,URINE NEG (NEG); UROBILINOGEN,URINE 0.2 mg/dL (0.2 mg/dL)
[2018-03-07 00:16] LABS: SQUAMOUS EPITHELIAL CELL,UR MOD /LPF
[2018-03-07 05:33] VITALS: BP 111/72
[2018-03-07 07:02] LABS: CALCIUM 8.9 mg/dL (8.5-10.1); CREATININE 1.3 mg/dL (0.6-1.0); GFR 41.8; POTASSIUM 3.7 mmol/L (3.5-5.1)
[2018-03-07] MEDS ORDERED: ASPIRIN 81 MG TAB.CHEW PO SCH (08:00)
[2018-03-07] MEDS ORDERED: predniSONE 20 MG TABLET PO SCH (08:00)
[2018-03-07] MEDS ORDERED: NON FORMULARY ITEM (Desvenlafaxine Succinate (Pristiq Er) 1 TAB) PO SCH (09:00)
[2018-03-07] MEDS ORDERED: CLOPIDOGREL BISULFATE 75 MG TABLET PO SCH (09:00)
[2018-03-07] MEDS ORDERED: METOPROLOL SUCC 24HR ER 25 MG TAB.ER.24H. PO SCH (09:00)
[2018-03-07] MEDS ORDERED: LOSARTAN 50 MG TABLET. PO SCH (09:00)
[2018-03-07] MEDS ORDERED: MONTELUKAST 10 MG TABLET. PO SCH (09:00)
[2018-03-07] MEDS ORDERED: NON FORMULARY ITEM (Tiotropium Bromide (Spiriva) 1 CAP) IH SCH (09:00)
[2018-03-07] MEDS: FAMOTIDINE 20 MG TABLET PO SCH (09:24)
[2018-03-07] MEDS: RANOLAZINE 500 MG TAB.ER.12H PO SCH (09:25)
[2018-03-07] MEDS: METOCLOPRAMIDE 10 MG TABLET PO SCH (09:25)
[2018-03-07 09:53] LABS: THYROID STIM HORMONE (TSH) 0.715 uIU/mL (0.358-3.740)
[2018-03-07 11:14] VITALS: BP 115/81
--- NOTE | 2018-03-07 14:33 | PDOC2 ---
CONSULT Date of Admission DATE: 03/07/18 TIME: 14:24 Reason for Consult: Palpitations Referring Physician: Dr. Mckenzie Chief Complaint Palpitations Source: Chart review, Patient History of Present Illness 62-year-old female with history of coronary artery disease s/p PCI/stent to LAD in 2014 being followed by [facility] cardiology presented with intermittent episodes of palpitations that started on when she was in [place] and got worse when she got back home. Her palpitations were associated with a tingling sensation in her chest but she denied any pain as such. She also denied any orthopnea/PND or syncope. She was apparently seen in her jailer chief office and was sent to ED since she had PVCs. Past Medical History Coronary artery disease s/p PCI/stent to LAD in 2014 Hypertension Hyperlipidemia COPD Obstructive sleep apnea Past Surgical History Bilateral cataract extraction section Hysterectomy Breast reduction surgery Family History No history of premature coronary disease Social History Patient quit smoking 4 years ago and admitted to social intake of alcohol. She denied any excessive caffeine intake or any illicit drug use Current Medications Current Medications Aspirin (Children'S Aspirin) 324 mg 1X ONCE PO Last administered on at 12:34; Start 03/06/18 at 12:50; Stop 03/06/18 at 12:51; Status DC Ketorolac Tromethamine (Toradol 30mg Vial) 30 mg 1X ONCE IV Last administered on 03/06/18at 13:37; Start 03/06/18 at 13:40; Stop 03/06/18 at 13:41; Status DC Fentanyl Citrate (Fentanyl 2ml Vial) 50 mcg Q3H PRN IV PAIN Last administered on 03/06/18at 17:04; Start 03/06/18 at 16:45; Stop 03/07/18 at 14:03; Status DC Nitroglycerin (Nitrostat) 0.4 mg PRN Q5MIN PRN SL CHEST PAIN; Start 03/06/18 at 16:45; Status UNV Clopidogrel Bisulfate (Plavix) 75 mg DAILY PO ; Start 03/07/18 at 09:00; Stop 03/07/18 at 09:00; Status DC Losartan Potassium (Cozaar) 50 mg DAILY PO Last administered on 03/07/18at 09: 24; Start 03/07/18 at 09:00; Stop 03/07/18 at 14:03; Status DC Metoprolol Succinate (Toprol Xl) 100 mg DAILY PO Last administered on at 09:23; Start 03/07/18 at 09:00; Stop 03/07/18 at 14:03; Status DC Nitroglycerin (Nitrostat) 0.4 mg PRN Q5MIN PRN SL CHEST PAIN; Start 03/06/18 at 16:45; Stop 03/07/18 at 14:03; Status DC Prednisone (Prednisone) 40 mg DAILYWBKFT PO ; Start 03/07/18 at 08:00; Stop at 08:00; Status DC Tramadol HCl (Ultram) 50 mg Q5H PRN PO SEVERE PAIN Last administered on at 09:34; Start 03/06/18 at 16:45; Stop 03/07/18 at 14:03; Status DC Aspirin (Children'S Aspirin) 81 mg DAILYWBKFT PO Last administered on at 09:24; Start 03/07/18 at 08:00; Stop 03/07/18 at 14:03; Status DC Atorvastatin Calcium (Lipitor) 40 mg QHS PO Last administered on 03/06/18at 21: 01; Start 03/06/18 at 21:00; Stop 03/07/18 at 14:03; Status DC Non-Formulary Medication (Desvenlafaxine Succinate (Pristiq Er)) 1 tab DAILY PO ; Start 03/07/18 at 09:00; Stop 03/07/18 at 09:00; Status DC Non-Formulary Medication (Levalbuterol Tartrate (Xopenex Hfa)) 2 puff PRN Q4- 6HRS IH ; Start 03/06/18 at 16:45; Status UNV Metoclopramide HCl (Reglan) 10 mg QID PO Last administered on 03/07/18at 09:25 ; Start 03/06/18 at 17:00; Stop 03/07/18 at 14:03; Status DC Montelukast Sodium (Singulair) 10 mg DAILY PO Last administered on 03/07/18at 09:24; Start 03/07/18 at 09:00; Stop 03/07/18 at 14:03; Status DC Famotidine (Pepcid) 20 mg BID PO Last administered on 03/07/18at 09:24; Start 03/06/18 at 21:00; Stop 03/07/18 at 14:03; Status DC Non-Formulary Medication (Tiotropium [place] (Spiriva)) 1 cap DAILY IH ; Start 03/07/18 at 09:00; Stop 03/07/18 at 09:00; Status DC Ranolazine (Ranexa) 500 mg BID PO Last administered on 03/07/18at 09:25; Start 03/06/18 at 21:00; Stop 03/07/18 at 14:03; Status DC Albuterol Sulfate (Ventolin) 2.5 mg PRN Q4HRS PRN NEB SHORTNESS OF BREATH; Start 03/06/18 at 17:15; Stop 03/07/18 at 14:03; Status DC Active Scripts Active Prednisone 20 Mg Tablet 2 Tab PO DAILYWBKFT Xopenex Hfa (Levalbuterol Tartrate) 15 Gm Hfa.aer.ad 2 Puff IH PRN Q4-6HRS Tramadol Hcl (Tramadol HCl) 50 Mg Tablet 50 Mg PO Q4-6HRS PRN Reported Montelukast Sodium Tablet (Montelukast Sodium) 10 Mg Tablet 1 Tab PO DAILY last dose this morning next dose due tomorrow TIME: NEXT DOSE DUE: DATE: TIME: Losartan Potassium (Losartan Potassium) 50 Mg Tablet 1 Tab PO DAILY last dose this morning next dose due tomorrow TIME: NEXT DOSE DUE: DATE: TIME: Spiriva (Tiotropium [place]) 18 Mcg Cap.w.dev 1 Cap IH DAILY not given this admit may resume TIME: NEXT DOSE DUE: DATE: TIME: [renexa] 500 Mg PO BID last dose this morning next dose tonight TIME: NEXT DOSE DUE: DATE: TIME: Aspirin 81 Mg Tab.chew 1 Tab PO DAILY last dose this morning next dose due tomorrow TIME: NEXT DOSE DUE: DATE: TIME: Ranitidine Hcl 150 Mg Tablet 1 Tab PO BID last dose this morning next dose due tonight TIME: NEXT DOSE DUE: DATE: TIME: Reglan (Metoclopramide Hcl) 10 Mg Tablet 1 Tab PO QID last dose this morning next dose due this evening TIME: NEXT DOSE DUE: DATE: TIME: Atorvastatin Calcium 40 Mg Tablet 1 Tab PO HS last dose last night next dose due tonight TIME: NEXT DOSE DUE: DATE: TIME: Plavix (Clopidogrel Bisulfate) 75 Mg Tablet 1 Tab PO DAILY last dose this morning next dose due tomorrow TIME: NEXT DOSE DUE: DATE: TIME: NITROGLYCERIN SubLingual (Nitroglycerin) 0.4 Mg Tab.subl 0.4 Mg SL PRN Q5MIN PRN use as needed for chest pain DATE: TIME: NEXT DOSE DUE: DATE: TIME: Metoprolol Succinate ( Xl ) (Metoprolol Succinate) 25 Mg Tab.er.24h 100 Mg PO DAILY last dose this morning next dose due tomorrow TIME: NEXT DOSE DUE: DATE: TIME: Pristiq Er (Desvenlafaxine Succinate) 50 Mg Tab.er.24h 1 Tab PO DAILY last dose this morning next dose due tomorrow TIME: NEXT DOSE DUE: DATE: TIME: Allergies: Coded Allergies: gluten (Verified Allergy, Intermediate, 03/06/18) PSYCHOLOGICAL ROS: No: Hallucinations Eyes: No: Loss of vision HEENT: No: Epistaxis Respiratory: No: Hemoptysis, Shortness of breath Cardiovascular: yes: Palpitations; No: Chest Pain Gastrointestinal: No: Vomiting, Diarrhea Genitourinary: No: Incontinence Neurological: No: Seizures Skin: No: Rash General: Alert, Oriented X3 HEENT: Atraumatic, PERRLA Lungs: Clear to auscultation Heart: Regular rate Abdomen: Soft Extremities: No edema Psych/Mental Status: Mood NL VITALS Vital Signs Date Time Temp Pulse Resp B/P (MAP) Pulse Ox O2 Delivery O2 Flow Rate FiO2 03/07/18 11:14 97.8 73 20 115/81 (92) 96 03/07/18 08:00 Nasal Cannula 4.0 Labs Laboratory Tests Test 03/06/18 12:00 03/06/18 17:15 03/06/18 20:45 03/06/18 23:15 White Blood Count 6.9 x10^3/uL (4.0-11.0) Red Blood Count 4.62 x10^6/uL (3.50-5.40) Hemoglobin 13.4 g/dL (12.0-15.5) Hematocrit 40.0 % (36.0-47.0) Mean Corpuscular Volume 87 fL (79-100) Mean Corpuscular Hemoglobin 29 pg (25-35) Mean Corpuscular Hemoglobin Concent 33 g/dL (31-37) Red Cell Distribution Width 17.5 % (11.5-14.5) Platelet Count 376 x10^3/uL (140-400) Neutrophils (%) (Auto) 64 % (31-73) Lymphocytes (%) (Auto) 27 % (24-48) Monocytes (%) (Auto) 7 % (0-9) Eosinophils (%) (Auto) 0 % (0-3) Basophils (%) (Auto) 1 % (0-3) Neutrophils # (Auto) 4.4 x10^3uL (1.8-7.7) Lymphocytes # (Auto) 1.9 x10^3/uL (1.0-4.8) Monocytes # (Auto) 0.5 x10^3/uL (0.0-1.1) Eosinophils # (Auto) 0.0 x10^3/uL (0.0-0.7) Basophils # (Auto) 0.1 x10^3/uL (0.0-0.2) Prothrombin Time 10.4 SEC (9.4-11.4) Prothromb Time International Ratio 1.0 (0.9-1.1) D-Dimer (Patricia) < 0.19 mg/L (0.00-0.50) Sodium Level 140 mmol/L (136-145) Potassium Level 3.6 mmol/L (3.5-5.1) Chloride Level 102 mmol/L (98-107) Carbon Dioxide Level 27 mmol/L (21-32) Anion Gap 11 (6-14) Blood Urea Nitrogen 17 mg/dL (7-20) Creatinine 1.3 mg/dL (0.6-1.0) Estimated GFR (Cockcroft-Gault) 41.8 BUN/Creatinine Ratio 13 (6-20) Glucose Level 91 mg/dL (70-99) Calcium Level 9.0 mg/dL (8.5-10.1) Magnesium Level 1.8 mg/dL (1.8-2.4) Total Bilirubin 0.4 mg/dL (0.2-1.0) Aspartate Amino Transf (AST/SGOT) 18 U/L (15-37) Alanine Aminotransferase (ALT/SGPT) 34 U/L (14-59) Alkaline Phosphatase 98 U/L (46-116) Creatine Kinase 155 U/L (26-192) Troponin I Quantitative < 0.017 ng/mL (0-0.055) < 0.017 ng/mL (0-0.055) < 0.017 ng/mL (0-0.055) TZ-Nug-R-Type Natriuretic Peptide 19 pg/mL (0-124) Total Protein 7.3 g/dL (6.4-8.2) Albumin 3.8 g/dL (3.4-5.0) Albumin/Globulin Ratio 1.1 (1.0-1.7) Urine Collection Type Unknown Urine Color Yellow Urine Clarity Hazy Urine pH 5.5 Urine Specific Morganza >=1.030 Urine Protein Neg (NEG-TRACE) Urine Glucose (UA) Neg mg/dL (NEG) Urine Ketones (Stick) Trace mg/dL (NEG) Urine Blood Trace (NEG) Urine Nitrite Neg (NEG) Urine Bilirubin Neg (NEG) Urine Urobilinogen Dipstick 0.2 mg/dL (0.2 mg/dL) Urine Leukocyte Esterase Trace (NEG) Urine RBC 1-2 /HPF (0-2) Urine WBC 5-10 /HPF (0-4) Urine Squamous Epithelial Cells Mod /LPF Urine Bacteria Many /HPF (0-FEW) Test 03/07/18 05:50 Sodium Level 144 mmol/L (136-145) Potassium Level 3.7 mmol/L (3.5-5.1) Chloride Level 105 mmol/L (98-107) Carbon Dioxide Level 31 mmol/L (21-32) Anion Gap 8 (6-14) Blood Urea Nitrogen 24 mg/dL (7-20) Creatinine 1.3 mg/dL (0.6-1.0) Estimated GFR (Cockcroft-Gault) 41.8 Glucose Level 86 mg/dL (70-99) Calcium Level 8.9 mg/dL (8.5-10.1) Triglycerides Level 86 mg/dL (0-150) Cholesterol Level 157 mg/dL (0-200) LDL Cholesterol, Calculated 66 mg/dL (0-100) VLDL Cholesterol, Calculated 17 mg/dL (0-40) Non-HDL Cholesterol Calculated 83 mg/dL (0-129) HDL Cholesterol 74 mg/dL (40-60) Cholesterol/HDL Ratio 2.0 Thyroid Stimulating Hormone (TSH) 0.715 uIU/mL (0.358-3.740) Assessment/Plan 1. Palpitations most probably secondary to benign PVCs. Telemetry showed sinus rhythm, few PACs and PVCs without any significant arrhythmias. Cardiac enzymes negative.Recent Lexiscan nuclear stress test 8 months ago was apparently negative. Patient has been given an event monitor by her primary jailer chief office. She was advised to complete the monitoring period and follow-up with their office. 2. Coronary artery disease s/p PCI/stent to LAD, clinically stable and chest pain-free. Continue current secondary prevention measures. 3. Hypertension: Controlled 4. Hyperlipidemia: Continue statin therapy Thank you for your consultation VADIM KEYES MD Mar 07, 2018 14:33
--- NOTE | 2018-03-07 15:09 | DS ---
DATE OF DISCHARGE: 03/07/2018 HOSPITAL COURSE: The patient is a 62-year-old female patient who was admitted with intermittent palpitation and chest discomfort and she was seen actually at her senior clinical data analyst's office and she was sent to the Emergency Room and was admitted to rule out myocardial infarction. She has 3 sets of cardiac enzymes that were all negative with troponin to be less than 0.017. She was seen in consultation by the senior clinical data analyst who recommended that she continue on the heart monitor that was issued by her senior clinical data analyst and to follow him in their clinic. PHYSICAL EXAMINATION: GENERAL: When I examined her today, she looked well and was clearly in no apparent respiratory distress. No pallor, jaundice, cyanosis, or thyromegaly. No jugular venous distention. No limb edema. VITAL SIGNS: Her heart rate was 73, blood pressure was 115/81, temperature was 97.8, respiratory rate was 20, and oxygen saturation was 96% on room air. HEAD, EYES, EARS, NOSE AND THROAT: Showed normocephalic, atraumatic. NECK: Supple. HEART: Showed normal first and second heart sounds with no gallop, rub, or murmur. CHEST: Clear to auscultation. No crepitation or rhonchi. ABDOMEN: Distended, soft, nontender. No guarding or rigidity. No organomegaly. All hernial orifices intact. Bowel sounds normal. NEUROLOGIC: She was awake, alert, responding appropriately. All cranial nerves intact. She moves extremities without difficulty. She ambulates without assistance or assistive devices. LABORATORY DATA: Her lab work showed a serum sodium of 144, potassium 3.7, chloride 105, bicarbonate 31, anion gap of 8, BUN 24, creatinine 1.3, estimated GFR was 41 mL per minute. Glucose was 86, calcium was 8.9. Her serum triglycerides were 86%, total cholesterol 157, LDL cholesterol was 66, VLDL was 17, HDL cholesterol was 74 and the ratio was 2. Her TSH was 0.715. Her white cell count was 6900, hemoglobin 13, hematocrit 40, MCV 87, and platelet count 376,000. DISCHARGE MEDICATIONS: She was discharged home to continue on following medications: Aspirin 81 mg once a day, atorvastatin 40 mg at bedtime, Plavix 75 mg once a day, Pristiq 50 mg once a day, Xopenex 2 puffs every 4-6 hours, losartan potassium 50 mg once a day, metoclopramide for Reglan 10 mg 4 times a day, metoprolol succinate 25 mg once a day, montelukast for Singulair 10 mg at bedtime, nitroglycerin 0.4 mg sublingually every 5 minutes as needed, prednisone 40 mg daily with breakfast, ranitidine 150 mg twice a day, Ranexa 500 mg twice a day, tiotropium bromide, Spiriva HandiHaler 1 inhalation once a day, and tramadol 50 mg p.o. q.4-6 hourly. FINAL DISCHARGE DIAGNOSES: Intermittent palpitation with chest discomfort. Other medical problems include hypertension, hyperlipidemia, chronic obstructive pulmonary disease, morbid obesity, obstructive sleep apnea, recurrent urinary tract infection. The patient was ruled out for myocardial infarction. Heart monitor should continue and should follow up with her senior clinical data analyst. SOLO AGUIRRE MD DR: FLAKO/viv JOB#: [id number] / [id number]
== END 2018-03-07 14:03 | disposition home or self-care (01) | DRG 313 ==
LOC: ER 11:40 → 1 SOUTH 14:45
PROVIDERS: ADMIT Internal Medicine; ATTEND Internal Medicine
DX: R07.89 Other chest pain (principal); E66.01 Morbid (severe) obesity due to excess calories; E78.00 Pure hypercholesterolemia, unspecified; E78.5 Hyperlipidemia, unspecified; G47.33 Obstructive sleep apnea (adult) (pediatric); I10 Essential (primary) hypertension; I25.10 Atherosclerotic heart disease of native coronary artery without angina pectoris; I49.3 Ventricular premature depolarization; J44.9 Chronic obstructive pulmonary disease, unspecified; Z80.1 Family history of malignant neoplasm of trachea, bronchus and lung; Z87.440 Personal history of urinary (tract) infections; Z87.891 Personal history of nicotine dependence; Z90.710 Acquired absence of both cervix and uterus; Z95.5 Presence of coronary angioplasty implant and graft; Z98.41 Cataract extraction status, right eye; Z98.42 Cataract extraction status, left eye; Z88.8 Allergy status to other drugs, medicaments and biological substances; Z68.32 Body mass index [BMI] 32.0-32.9, adult
CPT/HCPCS: 36415; 71045; 80048; 80053; 80061; 81001; 82550; 83735; 83880; 84443; 84484; 85025; 85379; 85610; 87086; 87186; 93005; 96374; J1885; J3010; J8597; 99285-25

== ENCOUNTER 2018-04-07 16:18 | Inpatient (IN) | payer OTHER ==
[~2018-04-07] VITALS: Ht 162.6 cm; Wt 89.4 kg
[2018-04-07 16:49] LABS: BASO % 1 % (0-3); EOS % 0 % (0-3); HEMATOCRIT 35.9 % (36.0-47.0); HEMOGLOBIN 11.7 g/dL (12.0-15.5); LYMPH % 14 % (24-48); MEAN CORPUSCULAR HEMOGLOBIN 28 pg (25-35); MEAN CORPUSCULAR HGB CONC 32 g/dL (31-37); MEAN CORPUSCULAR VOLUME 86 fL (79-100); MONO # 0.1 x10^3/uL (0.0-1.1); MONO % 1 % (0-9); NEUT # 5.9 x10^3uL (1.8-7.7); NEUT % 84 % (31-73); PLATELET COUNT 392 x10^3/uL (140-400); RED BLOOD COUNT 4.17 x10^6/uL (3.50-5.40); RED CELL DISTRIBUTION WIDTH 16.7 % (11.5-14.5)
[2018-04-07] MEDS ORDERED: ASPIRIN 81 MG TAB.CHEW PO ONE (17:00)
[2018-04-07] MEDS ORDERED: LORazepam 2 MG/ML VIAL IV ONE (17:00)
[2018-04-07 17:11] LABS: ALBUMIN 3.7 g/dL (3.4-5.0); CALCIUM 8.8 mg/dL (8.5-10.1); CREATININE 1.2 mg/dL (0.6-1.0); GFR 45.7; POTASSIUM 3.9 mmol/L (3.5-5.1); TOTAL BILIRUBIN 0.3 mg/dL (0.2-1.0); TOTAL PROTEIN 7.3 g/dL (6.4-8.2)
--- NOTE | 2018-04-07 17:27 | PHYS DOC ---
Past History Past Medical History: Asthma, CAD, COPD, High Cholesterol, Hypertension Past Surgical History: Other Smoking: Quit Greater Than 1 Year Alcohol Use: None Drug Use: None Adult General Chief Complaint Chief Complaint: CHEST PAIN HPI HPI Patient is a 63 year old female who presents with complaining of chest pain and palpitation. Patient complaining of sudden onset of nonexertional substernal pressure and sharp and aching pain with radiation to her back about 45 minutes prior to arrival associated with palpitation, dizziness, nausea. Patient states the pain radiated to her head and rated her chest pain 8/10 and her headache 9/ 10. Patient denies focal neuro deficit, fever and chills, vomiting and diarrhea. Patient states she has history of the same chest pain previously. Patient had history of coronary artery disease and stent placement and hypertension and anxiety. Review of Systems Review of Systems Constitutional: Denies fever or chills [] Eyes: Denies change in visual acuity, redness, or eye pain [] HENT: Denies nasal congestion or sore throat [] Respiratory: Denies cough, reports shortness of breath [] Cardiovascular: No additional information not addressed in HPI [] GI: Denies abdominal pain, vomiting, bloody stools or diarrhea , reports nausea [] : Denies dysuria or hematuria [] Musculoskeletal: Denies back pain or joint pain [] Integument: Denies rash or skin lesions [] Neurologic: Reports headache, denies focal weakness or sensory changes [] Endocrine: Denies polyuria or polydipsia [] All other systems were reviewed and found to be within normal limits, except as documented in this note. Current Medications Current Medications Current Medications Medications (Trade) Dose Ordered Sig/Kian Start Time Stop Time Status Last Admin Dose Admin Aspirin (Children'S Aspirin) 324 mg 1X ONCE 04/07/18 17:00 04/07/18 17:01 DC 04/07/18 16:43 324 MG Lorazepam (Ativan) 1 mg 1X ONCE 04/07/18 17:00 04/07/18 17:01 DC 04/07/18 16:46 1 MG Allergies Allergies Allergies Coded Allergies Type Severity Reaction Last Updated Verified gluten Allergy Intermediate 03/06/18 Yes Physical Exam Physical Exam Constitutional: Well nourished, moderate distress, non-toxic appearance anxious. [] HENT: Normocephalic, atraumatic, oropharynx moist, no oral exudates, nose normal. [] Eyes: PERRLA, EOMI, conjunctiva normal, no discharge. [] Neck: Normal range of motion, no tenderness, supple, no stridor. [] Cardiovascular: Sinus tachycardia, no murmur [] Lungs & Thorax: Bilateral breath sounds clear to auscultation, reproducible substernal chest pain Abdomen: Bowel sounds normal, soft, no tenderness, no masses, no pulsatile masses. [] Skin: Warm, dry, no erythema, no rash. [] Back: No tenderness, no CVA tenderness. [] Extremities: No tenderness, no cyanosis, no clubbing, ROM intact, no edema. [] Neurologic: Alert and oriented X 3, normal motor function, normal sensory function, no focal deficits noted. [] Psychologic: Affect anxious, judgement normal, mood normal. [] Current Patient Data Lab Results Laboratory Tests Test 04/07/18 16:35 White Blood Count 7.0 x10^3/uL (4.0-11.0) Red Blood Count 4.17 x10^6/uL (3.50-5.40) Hemoglobin 11.7 g/dL (12.0-15.5) L Hematocrit 35.9 % (36.0-47.0) L Mean Corpuscular Volume 86 fL (79-100) Mean Corpuscular Hemoglobin 28 pg (25-35) Mean Corpuscular Hemoglobin Concent 32 g/dL (31-37) Red Cell Distribution Width 16.7 % (11.5-14.5) H Platelet Count 392 x10^3/uL (140-400) Neutrophils (%) (Auto) 84 % (31-73) H Lymphocytes (%) (Auto) 14 % (24-48) L Monocytes (%) (Auto) 1 % (0-9) Eosinophils (%) (Auto) 0 % (0-3) Basophils (%) (Auto) 1 % (0-3) Neutrophils # (Auto) 5.9 x10^3uL (1.8-7.7) Lymphocytes # (Auto) 1.0 x10^3/uL (1.0-4.8) Monocytes # (Auto) 0.1 x10^3/uL (0.0-1.1) Eosinophils # (Auto) 0.0 x10^3/uL (0.0-0.7) Basophils # (Auto) 0.0 x10^3/uL (0.0-0.2) Prothrombin Time 10.3 SEC (9.4-11.4) Prothrombin Time INR 1.0 (0.9-1.1) Sodium Level 142 mmol/L (136-145) Potassium Level 3.9 mmol/L (3.5-5.1) Chloride Level 102 mmol/L (98-107) Carbon Dioxide Level 29 mmol/L (21-32) Anion Gap 11 (6-14) Blood Urea Nitrogen 9 mg/dL (7-20) Creatinine 1.2 mg/dL (0.6-1.0) H Estimated GFR (Cockcroft-Gault) 45.7 BUN/Creatinine Ratio 8 (6-20) Glucose Level 177 mg/dL (70-99) H Calcium Level 8.8 mg/dL (8.5-10.1) Total Bilirubin 0.3 mg/dL (0.2-1.0) Aspartate Amino Transferase (AST) 21 U/L (15-37) Alanine Aminotransferase (ALT) 41 U/L (14-59) Alkaline Phosphatase 101 U/L (46-116) Creatine Kinase 191 U/L (26-192) Troponin I Quantitative < 0.017 ng/mL (0-0.055) YM-Qhg-N-Type Natriuretic Peptide 75 pg/mL (0-124) Total Protein 7.3 g/dL (6.4-8.2) Albumin 3.7 g/dL (3.4-5.0) Albumin/Globulin Ratio 1.0 (1.0-1.7) EKG EKG EKG interpreted by me. EKG at 1639 showed sinus tachycardia rate of 107, normal intervals and axis, no acute ST and T-wave abnormalities. Radiology/Procedures Radiology/Procedures [address] [address] IMAGING REPORT Signed PATIENT: SHIRA SARAVIA ACCOUNT: [id number] : 1955 LOCATION: ER AGE: 63 SEX: F EXAM STATUS: REG ER ORD. PHYSICIAN: AIMEE SPENCER MD REASON: chest pain and palpitation PROCEDURE: PORTABLE CHEST 1V PROCEDURE: PORTABLE CHEST 1V CLINICAL INDICATION: CHEST PAIN, HEART PALPITATION COMPARISON: 03/06/2018 FINDINGS: No pneumothorax identified. Cardiac and mediastinal contours unremarkable. No pulmonary consolidation or acute airspace disease. No acute osseous abnormalities identified. IMPRESSION: No pulmonary consolidation or acute airspace disease. Electronically signed by: Wilson Henderson DO (04/07/2018 5:31 PM) [facility] DICTATED AND SIGNED BY: WILSON HENDERSON DO DATE: 04/07/18 173 CC: AIMEE SPENCER MD; ELTON PECK DO ~ Course & Med Decision Making Course & Med Decision Making Pertinent Labs and Imaging studies reviewed. (See chart for details) Evaluation of patient in ER showed 63-year-old female patient with history of hypertension, coronary artery disease presented to ER with complaining of chest pain and palpitations. Patient was anxious and had tachycardia that improved with Ativan. Patient states her chest pain and headache improved but continued to have intermittent episodes of tachycardia. Labs was unremarkable except for mild renal insufficiency. Plan to admit patient with diagnosis of acute chest pain. Dr Mckenzie accepted admission at 1710. Dragon Disclaimer Dragon Disclaimer This electronic medical record was generated, in whole or in part, using a voice recognition dictation system. Departure Departure: Impression: Primary Impression: Acute chest pain Additional Impressions: Sinus tachycardia Anxiety History of coronary artery disease Renal insufficiency Disposition: ADMITTED INPATIENT (at 1731) Admitting Physician: Shayne Mckenzie (accepted admission at 1730) Condition: IMPROVED Referrals: ELTON PECK DO (PCP) Problem Qualifiers AIMEE SPENCER MD Apr 07, 2018 17:27
[2018-04-07] MEDS ORDERED: IV NORMAL SALINE 500ML 500 ML IV ONE (17:30)
[2018-04-07] MEDS ORDERED: HYDROcodone/APAP 5/325MG 1 TAB TABLET PO ONE (17:30)
--- NOTE | 2018-04-07 17:36 | RAD ---
PROCEDURE: PORTABLE CHEST 1V CLINICAL INDICATION: CHEST PAIN, HEART PALPITATION COMPARISON: 03/06/2018 FINDINGS: No pneumothorax identified. Cardiac and mediastinal contours unremarkable. No pulmonary consolidation or acute airspace disease. No acute osseous abnormalities identified. IMPRESSION: No pulmonary consolidation or acute airspace disease. Electronically signed by: Wilson Henderson DO (04/07/2018 5:31 PM) [facility]
--- NOTE | 2018-04-07 18:01 | EKG ---
[address] [address] Test Date: 2018-04-07 Test Time: 16:39:39 Pat Name: SHIRA SARAVIA Department: Room: Gender: F Branch Sales Manager: DEVIN : 1955 Requested By: AIMEE SPENCER Order Number: [id number] Reading MD: Andrea Marti Measurements Intervals [place] Rate: 107 P: 66 SC: 146 QRS: 23 QRSD: 76 T: 56 QT: 336 QTc: 454 Interpretive Statements SINUS TACHYCARDIA LOW LIMB LEAD VOLTAGE Electronically Signed On 04-13-2018 9:25:14 IMPLEMENTATION MANAGER by Andrea Marti
[2018-04-07] MEDS ORDERED: LIFI1DRO OP (18:11)
[2018-04-07] MEDS ORDERED: PANT40TA5 PO (18:11)
[2018-04-07] MEDS ORDERED: ISOS30TA4 PO (18:11)
[2018-04-07] MEDS ORDERED: XOPENEX HFA15 GM IH (18:14)
[2018-04-07 19:26] VITALS: BP 120/81
[2018-04-07 22:24] VITALS: BP 136/96
[2018-04-07] MEDS: LORazepam 0.5 MG TABLET PO PRN (23:07)
[2018-04-08] MEDS ORDERED: CEPH-264 PO (00:49)
[2018-04-08] MEDS ORDERED: TRIA1CAP3 PO (00:49)
[2018-04-08] MEDS ORDERED: GUAI600T47 PO (00:49)
[2018-04-08] MEDS ORDERED: METH4TAB6 PO (00:49)
[2018-04-08 05:12] VITALS: BP 113/72
[2018-04-08] MEDS: ACETAMINOPHEN 325 MG TABLET PO PRN (08:40)
[2018-04-08] MEDS: LORazepam 0.5 MG TABLET PO PRN (08:40)
--- NOTE | 2018-04-08 09:10 | PDOC2 ---
CONSULT Date of Admission DATE: 04/08/18 TIME: 09:08 Reason for Consult: cp History of Present Illness Ms Santos is a 63 year old female with a history of coronary artery disease s/ p PCI/Stent to LAD in 2014, hypertension, hyperlipidemia, who has previously followed with Dr Sotelo at [facility]. She presents to the hospital with complaints of chest pain and palpitations. She describes a sensation of rapid heart beat followed by a pounding that occurs both with exertion and at rest. She states the symptoms started occuring about Christian time while traveling to [place], and has become progressively worse. She describes associated pain in her midsternal and epigastric area. She did recently undergo an extended holter (ZIO) which revealed isolated PVCs. She reports that she did have symptoms during the patch but was told no need to record them as they were occurring repeatedly. Most recently she was advised to double her metoprolol dose but reports that this has not improved her symptoms. She denies congestive symptoms, lightheadedness or syncope. She states when the palpitations start and are associated by the chest pain she then starts to have radiation up into her head and causing headache. She is tearful and saying she is unable to function with these symptoms. Her most recent cardiac cath was in September 2014 and revealed patent LAD stent and otherwise moderate disease. Her most recent echocardiogram was in October of 2017 and revealed normal LV function. Her most recent MPI was also in October of 2017 and revealed normal perfusion. Cardiovascular: CAD, HTN, hyperipidemia Pulmonary: COPD, Other (emphysema, ANI on CPAP) CENTRAL NERVOUS SYSTEM: Migraine (cluster headaches) GI: GERD Heme/Onc: Iron deficiency Anemia Psych: Anxiety, Depression Renal/: UTI Past Surgical History: Cataract Removal, , Tubal Ligation, Hysterectomy Family History no premature coronary disease Social History prior smoker with 30 pack year history, no significant ETOH, no illicit drugs Current Medications Current Medications Aspirin (Children'S Aspirin) 324 mg 1X ONCE PO Last administered on 04/07/18at 16:43; Start 04/07/18 at 17:00; Stop 04/07/18 at 17:01; Status DC Lorazepam (Ativan) 1 mg 1X ONCE IV Last administered on 04/07/18at 16:46; Start 04/07/18 at 17:00; Stop 04/07/18 at 17:01; Status DC Sodium Chloride 500 ml @ 0 mls/hr 1X ONCE IV Last administered on 04/07/18at 18 :11; Start 04/07/18 at 17:30; Stop 04/07/18 at 17:31; Status DC Acetaminophen/ Hydrocodone Bitart (Lortab 5/325) 1 tab 1X ONCE PO Last administered on 04/07/18at 18:13; Start 04/07/18 at 17:30; Stop 04/07/18 at 17:31 ; Status DC Lorazepam (Ativan) 0.5 mg PRN Q6HRS PRN PO ANXIETY / AGITATION Last administered on 04/08/18at 08:40; Start 04/07/18 at 22:45 Acetaminophen (Tylenol) 650 mg PRN Q4HRS PRN PO PAIN / TEMP Last administered on 04/08/18at 08:40; Start 04/07/18 at 22:00 Active Scripts Active Reported Methylprednisolone 4 Mg Tab.ds.pk 5 PO UD Mucinex (Guaifenesin) 600 Mg Tablet.er 1 Tab PO BID Keflex (Cephalexin) 500 Mg Capsule 1 Cap PO TID 10 Days Triamterene-Hctz 37.5-25 Mg Cp (Triamterene/Hydrochlorothiazid) 1 Each Capsule 1 Cap PO DAILY Xopenex Hfa (Levalbuterol Tartrate) 15 Gm Hfa.aer.ad 2 Puff IH PRN Q4-6HRS Isosorbide Mononitrate Er (Isosorbide Mononitrate) 30 Mg Tab.er.24h 1 Tab PO DAILY Pantoprazole Sodium 40 Mg Tablet.dr 1 Tab PO DAILY06 Xiidra (Lifitegrast) 1 Each Droperette 1 Each OP BID Aspirin 81 Mg Tab.chew 1 Tab PO DAILY Reglan (Metoclopramide Hcl) 10 Mg Tablet 1 Tab PO BID Atorvastatin Calcium 40 Mg Tablet 1 Tab PO HS Metoprolol Succinate ( Xl ) (Metoprolol Succinate) 25 Mg Tab.er.24h 100 Mg PO BID Pristiq Er (Desvenlafaxine Succinate) 50 Mg Tab.er.24h 1 Tab PO DAILY Allergies: Coded Allergies: gluten (Verified Allergy, Intermediate, 03/06/18) Review of System as per HPI or negative General: Alert, Oriented X3, Cooperative, No acute distress HEENT: Atraumatic, EOMI, Mucous membr. moist/pink Lungs: Clear to auscultation, Normal air movement Heart: Normal S1, Normal S2, Other (no gallops, clicks or rubs, no signficant murmurs) Abdomen: Normal bowel sounds, Soft, No tenderness Extremities: No cyanosis, No edema, Normal pulses Neuro: Normal speech, Strength at 5/5 X4 ext Psych/Mental Status: Mental status NL, Other (anxious, tearful) VITALS Vital Signs Date Time Temp Pulse Resp B/P (MAP) Pulse Ox O2 Delivery O2 Flow Rate FiO2 04/08/18 05:12 98.1 107 18 113/72 (86) 95 Nasal Cannula 2.0 Labs Laboratory Tests Test 04/07/18 16:35 04/07/18 20:40 04/07/18 23:15 White Blood Count 7.0 x10^3/uL (4.0-11.0) Red Blood Count 4.17 x10^6/uL (3.50-5.40) Hemoglobin 11.7 g/dL (12.0-15.5) Hematocrit 35.9 % (36.0-47.0) Mean Corpuscular Volume 86 fL (79-100) Mean Corpuscular Hemoglobin 28 pg (25-35) Mean Corpuscular Hemoglobin Concent 32 g/dL (31-37) Red Cell Distribution Width 16.7 % (11.5-14.5) Platelet Count 392 x10^3/uL (140-400) Neutrophils (%) (Auto) 84 % (31-73) Lymphocytes (%) (Auto) 14 % (24-48) Monocytes (%) (Auto) 1 % (0-9) Eosinophils (%) (Auto) 0 % (0-3) Basophils (%) (Auto) 1 % (0-3) Neutrophils # (Auto) 5.9 x10^3uL (1.8-7.7) Lymphocytes # (Auto) 1.0 x10^3/uL (1.0-4.8) Monocytes # (Auto) 0.1 x10^3/uL (0.0-1.1) Eosinophils # (Auto) 0.0 x10^3/uL (0.0-0.7) Basophils # (Auto) 0.0 x10^3/uL (0.0-0.2) Prothrombin Time 10.3 SEC (9.4-11.4) Prothromb Time International Ratio 1.0 (0.9-1.1) Sodium Level 142 mmol/L (136-145) Potassium Level 3.9 mmol/L (3.5-5.1) Chloride Level 102 mmol/L (98-107) Carbon Dioxide Level 29 mmol/L (21-32) Anion Gap 11 (6-14) Blood Urea Nitrogen 9 mg/dL (7-20) Creatinine 1.2 mg/dL (0.6-1.0) Estimated GFR (Cockcroft-Gault) 45.7 BUN/Creatinine Ratio 8 (6-20) Glucose Level 177 mg/dL (70-99) Calcium Level 8.8 mg/dL (8.5-10.1) Total Bilirubin 0.3 mg/dL (0.2-1.0) Aspartate Amino Transf (AST/SGOT) 21 U/L (15-37) Alanine Aminotransferase (ALT/SGPT) 41 U/L (14-59) Alkaline Phosphatase 101 U/L (46-116) Creatine Kinase 191 U/L (26-192) Troponin I Quantitative < 0.017 ng/mL (0-0.055) < 0.017 ng/mL (0-0.055) < 0.017 ng/mL (0-0.055) HV-Mpn-H-Type Natriuretic Peptide 75 pg/mL (0-124) Total Protein 7.3 g/dL (6.4-8.2) Albumin 3.7 g/dL (3.4-5.0) Albumin/Globulin Ratio 1.0 (1.0-1.7) Images CXR - no acute abn Assessment/Plan 1. palpitations, known PVCs - Increase beta baudilio as tolerated, consider antiarrhythmic, ? Loop recorder. Repeat limited echo for LVEF. 2. chest pain, atypical - CE negative x 3, MS ruled out. Continue beta blockers , aspirin, statin. 3. CAD s/p PCI stent to LAD in 2014 - recent normal perfusion by MPI, recent normal LVEF,wall motion by echo. 4. hypertension - controlled on current medication. 5. CKD stage 3 - monitor 6. hyperlipidemia - check lipids. CAYDEN SHEPPARD APRN Apr 08, 2018 09:10
[2018-04-08] MEDS: DESVENLAFAXINE SUCCINATE 25 MG TAB.ER.24H PO SCH (10:00)
[2018-04-08] MEDS ORDERED: NON FORMULARY ITEM (Levalbuterol Tartrate (Xopenex Hfa) 2 PUFF) IH SCH (10:00)
[2018-04-08 10:05] LABS: MAGNESIUM 1.9 mg/dL (1.8-2.4)
[2018-04-08] MEDS ORDERED: ALBUTEROL SULFATE 2.5 MG/3 ML NEBU. NEB PRN (10:15)
[2018-04-08 10:42] VITALS: BP 133/92
[2018-04-08] MEDS: ISOSORBIDE MONONITRATE ER 30 MG TAB.ER.24H PO SCH (10:45)
[2018-04-08] MEDS: CEPHALEXIN 250 MG CAPSULE PO SCH ×3 (10:46→21:24)
[2018-04-08] MEDS: TRIAMTERENE/HCTZ 37.5/25MG TABLET. PO SCH (10:46)
[2018-04-08] MEDS: PANTOPRAZOLE 40 MG TABLET. PO SCH (10:47)
[2018-04-08] MEDS: ASPIRIN 81 MG TAB.CHEW PO SCH (10:47)
[2018-04-08] MEDS: METOPROLOL SUCC 24HR ER 25 MG TAB.ER.24H. PO SCH ×2 (10:47→21:27)
[2018-04-08] MEDS: METOCLOPRAMIDE 10 MG TABLET PO SCH ×2 (10:48→21:27)
--- NOTE | 2018-04-08 11:13 | HP ---
ADMIT DATE: 04/07/2018 HISTORY OF PRESENT ILLNESS: The patient is a 63-year-old female patient who came to the Emergency Room complaining of chest pain and palpitations. The pain is nonexertional, substernal, epigastric, pressure and sharp with aching pain, with radiation to her back about 45 minutes prior to arrival, associated with palpitation, dizziness, nausea. She stated that the pain radiated to her head and rated her pain about 8/10 in severity. She denies any focal neurological deficits, fever, chills, vomiting, or diarrhea. She was actually admitted to this hospital with similar pain on 03/06/2018. She has had her lab work done and initial troponin was less than 0.017. Her EKG showed that she was in sinus tachycardia with a heart rate of 107 beats per minute, normal intervals and axis, no acute ST-T changes. Her chest x-ray was unremarkable and showed no pulmonary consolidation or acute airspace disease and was admitted to do 2 more sets of cardiac enzymes and to consult the Cardiology team. PAST MEDICAL HISTORY: Significant for hypertension, hyperlipidemia, chronic obstructive pulmonary disease, morbid obesity, obstructive sleep apnea, recurrent UTIs. She apparently has a stress test done about 8 months ago that was unremarkable. PAST SURGICAL HISTORY: Significant for bilateral cataract extraction, 2 C-sections, tummy tuck, breast reduction surgery, total abdominal hysterectomy, bilateral salpingo-oophorectomy. She also had colonoscopy and polypectomy. She underwent cardiac catheterization with stent deployment in 2013. ALLERGIES: She has no known drug allergies. MEDICATIONS: She is currently on following medications: She is on Keflex 500 mg 3 times a day, Xopenex 2 puffs every 4-6 hours, atorvastatin calcium 40 mg at bedtime, isosorbide mononitrate 30 mg daily. She is on metoprolol succinate 100 mg twice a day, aspirin 81 mg once a day, Pristiq extended release 50 mg once a day, triamterene/hydrochlorothiazide 37.5/25 one tablet once a day, Mucinex 600 mg twice a day, lifitegrast 1 drop to both eyes, Protonix 40 mg once a day, metoclopramide 10 mg twice a day, methylprednisolone 5 mg as Medrol Dosepak. FAMILY HISTORY: She has 1 older sister who at age of 33 because of lung cancer. One younger sister at the age of 5 years because of typhoid fever. Her father in his 80s because of lymphoma and leukemia. Her mother in her 80s because of end-stage renal disease. SOCIAL HISTORY: She is , has 3 biological daughters and one adopted daughter, has no sons. She quit smoking about 4 years ago. She used to smoke a pack a day and smoked for almost 40 years. She does drink alcohol occasionally. Does not use any drugs. REVIEW OF SYSTEMS: As per history of present illness. PHYSICAL EXAMINATION: GENERAL: On arrival to the Emergency Room yesterday, she was apparently somewhat pale, but no jaundice or cyanosis. No lymphadenopathy, no thyromegaly. No jugular venous distension. No limb edema. VITAL SIGNS: Her heart rate was 115, blood pressure was 120/63. Her temperature was 98.3, respiratory rate was 18 and oxygen saturation was 96% on room air. HEAD, EYES, EARS, NOSE AND THROAT: Showed normocephalic, atraumatic. NECK: Supple. HEART: Showed normal first and second heart sounds with no gallop, rub or murmur. CHEST: Clear to auscultation. No crepitation or rhonchi. ABDOMEN: Distended, soft, nontender. NEUROLOGIC: She is awake, alert, responding appropriately. All cranial nerves intact. EXTREMITIES: She moves extremities without difficulty. She ambulates without assistance or assistive devices. LABORATORY DATA: Yesterday showed a white cell count 7000, hemoglobin 11.7, hematocrit 35.9, MCV 86 and a platelet count of 392,000. Manual differential showed 84% polymorphs, 14% lymphocytes and 1% monocytes. Her chemistry showed serum sodium 142, potassium 3.9, chloride 102, bicarbonate 29, anion gap of 11, BUN 9, creatinine 1.2, estimated GFR was 45 mL per minute. Her glucose was 77, calcium was 8.8. Total bilirubin, AST, ALT, alkaline phosphatase were normal. Total CK was 191. Her first set of troponin was less than 0.017. Total protein was 7.3, albumin 3.7. Her prothrombin time was 10.3, INR of 1. DIAGNOSTIC DATA: She did have a chest x-ray, which showed that the patient has no pneumothorax. Cardiac and mediastinal contours unremarkable. No pulmonary consolidation or acute airspace disease, no acute osseous abnormality identified. PLAN: The patient was admitted to do 2 more sets of cardiac enzymes, fasting lipid profile as well as consult the Cardiology team. We will continue with all her current medication and decide on further management according to the finding. SOLO AGUIRRE MD DR: FLAKO/viv JOB#: [id number] / [id number]
--- NOTE | 2018-04-08 13:56 | CARD ---
MR#: [id number] Date of Study: 04/08/2018 Ordering Physician: CAYDEN SHEPPARD, Referring Physician: SOLO AGUIRRE Tech: Beth Almazan RUST APPROVED REPORT EXAM: Two-dimensional and M-mode echocardiogram with Doppler and color Doppler. Other Information Quality : Technically LimitedHR: 90bpm Rhythm : NSRTechnically limited study due to body habitus. INDICATION Eval LVEF 2D DIMENSIONS RVDd2.9 (2.9-3.5cm)Left Atrium(2D)3.0 (1.6-4.0cm) IVSd1.2 (0.7-1.1cm)Aortic Root(2D)2.5 (2.0-3.7cm) LVDd3.6 (3.9-5.9cm)LVOT Diameter2.0 (1.8-2.4cm) PWd0.9 (0.7-1.1cm)LVDs2.4 (2.5-4.0cm) FS (%) 32.0 %SV32.9 ml LVEF(%)61.1 (>50%) Aortic Valve AoV Peak Rik.111.0cm/sAoV VTI19.0cm AO Peak GR.4.9mmHgLVOT Peak Rik.82.1cm/s LVOT VTI 18.86cmAO Mean GR.3mmHg LORE (VMAX)2.12sn5VAT (VTI)3.08cm2 Mitral Valve MV E Omcujhvl78.9cm/sMV E Peak Gr.7mmHg MV DECEL [id number] A Hoziqkzf671.1cm/s MV E Mean Gr.3mmHgE/A Ratio0.6 MV A [id number] Pulmonary Valve PV Peak Fkbtljnd63.4cm/sPV Peak Grad.4mmHg LEFT VENTRICLE The left ventricle cavity is small. Proximal septal thickening is noted. The left ventricular systoli c function is normal. The Ejection Fraction is 55-60%. There is normal LV segmental wall motion. Mendoza smitral Doppler flow pattern is Grade I-abnormal relaxation pattern. RIGHT VENTRICLE The right ventricle is normal size. There is normal right ventricular wall thickness. The right ventr icular systolic function is normal. ATRIA The left atrium size is normal. The right atrium size is normal. The interatrial septum is intact wit h no evidence for an atrial septal defect or patent foramen ovale as noted on 2-D or Doppler imaging. AORTIC VALVE The aortic valve is not well visualized. Doppler and Color Flow revealed no significant aortic regurg itation. There is no significant aortic valvular stenosis. MITRAL VALVE The mitral valve is normal in structure and function. There is no evidence of mitral valve prolapse. There is no mitral valve stenosis. Doppler and Color Flow revealed no mitral valve regurgitation note d. TRICUSPID VALVE The tricuspid valve is normal in structure and function. Doppler and Color Flow revealed no tricuspid valve regurgitation noted. There is no tricuspid valve prolapse or vegetation. There is no tricuspid valve stenosis. PULMONIC VALVE The pulmonic valve is not well visualized. GREAT VESSELS The aortic root is normal in size. The ascending aorta is normal in size. The IVC is normal in size a nd collapses >50% with inspiration. PERICARDIAL EFFUSION There is no evidence of significant pericardial effusion. Critical Notification Critical Value: No <Conclusion> The left ventricular systolic function is normal. The Ejection Fraction is 55-60%. There is normal LV segmental wall motion. Transmitral Doppler flow pattern is Grade I-abnormal relaxation pattern. No significant valvular abnormalities. There is no evidence of significant pericardial effusion. Signed by : Ravi Bui, Electronically Approved : 04/08/2018 13:53:56
[2018-04-08 14:34] VITALS: BP 120/81
[2018-04-08 17:02] LABS: THYROID STIM HORMONE (TSH) 0.423 uIU/mL (0.358-3.740)
[2018-04-08] MEDS: DRONEDARONE HCL 400 MG TABLET PO SCH (19:47)
[2018-04-08 19:51] VITALS: BP 123/76
[2018-04-08] MEDS ORDERED: ATORVASTATIN CALCIUM 20 MG TABLET PO SCH (21:00)
[2018-04-08] MEDS: NON FORMULARY ITEM (Lifitegrast (Xiidra) 1 EACH) OP SCH (21:00)
[2018-04-08 22:20] VITALS: BP 133/89
--- NOTE | 2018-04-08 22:33 | PN ---
DATE: 04/08/2018 SUBJECTIVE: The patient was admitted yesterday with chest pain that is nonexertional, associated with some nausea, but no vomiting, some shortness of breath, radiating to her head. She has also complained of headache. She also stated that she has a UTI for which she was started recently on oral Keflex. She has had 3 sets of cardiac enzymes that ruled out myocardial infarction and she was seen by the Cardiology team who apparently was planning to do an echocardiogram and perhaps a limited stress test. OBJECTIVE: GENERAL: When I examined her today, she looked well and was clearly in no apparent respiratory distress, pale, but no jaundice, cyanosis, or thyromegaly. No jugular venous distension. No limb edema. VITAL SIGNS: Her heart rate was 107, blood pressure was 113/72, temperature was 98.1, respiratory rate was 18, and oxygen saturation was 95% on 2 liters of oxygen. The rest of clinical exam stable, has not really changed. As I stated she has 2 more sets of cardiac enzymes that were negative. She continued to complain of pain and palpitation. We ordered magnesium as well as thyroid function test, as well as serum lipase and lipid profile. ASSESSMENT AND PLAN: In summary, this is a 63-year-old female patient who was admitted with chest pain, so far myocardial infarction was ruled out and she has multiple other medical problems including: A. Hypertension. B. Hyperlipidemia. C. Chronic obstructive pulmonary disease. D. Morbid obesity, obstructive sleep apnea. E. She is known to have coronary artery disease, status post PTCA with stent deployment in 2013. She is scheduled for limited echo and obviously we will await the result of her serum lipase and amylase and we will start her also on a proton pump inhibitor. SOLO AGUIRRE MD DR: FLAKO/viv JOB#: [id number] / [id number]
[2018-04-09 05:46] VITALS: BP 117/76
[2018-04-09 06:20] LABS: CALCIUM 8.7 mg/dL (8.5-10.1); GFR 56.4; POTASSIUM 3.9 mmol/L (3.5-5.1)
[2018-04-09] MEDS: METOCLOPRAMIDE 10 MG TABLET PO SCH (08:43)
[2018-04-09] MEDS: TRIAMTERENE/HCTZ 37.5/25MG TABLET. PO SCH (08:43)
[2018-04-09] MEDS: ISOSORBIDE MONONITRATE ER 30 MG TAB.ER.24H PO SCH (08:44)
[2018-04-09] MEDS: ASPIRIN 81 MG TAB.CHEW PO SCH (08:44)
[2018-04-09] MEDS: METOPROLOL SUCC 24HR ER 25 MG TAB.ER.24H. PO SCH (08:44)
[2018-04-09] MEDS: NON FORMULARY ITEM (Lifitegrast (Xiidra) 1 EACH) OP SCH (08:45)
[2018-04-09] MEDS: DRONEDARONE HCL 400 MG TABLET PO SCH (08:46)
[2018-04-09] MEDS: PANTOPRAZOLE 40 MG TABLET. PO SCH (08:46)
[2018-04-09] MEDS: DESVENLAFAXINE SUCCINATE 25 MG TAB.ER.24H PO SCH (08:47)
[2018-04-09] MEDS: CEPHALEXIN 250 MG CAPSULE PO SCH (08:49)
[2018-04-09] MEDS: ACETAMINOPHEN 325 MG TABLET PO PRN (08:50)
[2018-04-09] MEDS ORDERED: LACTOBACILLUS RHAMNOSUS GG 1 CAPSULE. PO SCH (09:00)
--- NOTE | 2018-04-09 09:49 | PDOC ---
PROGRESS NOTES Assessment 1. palpitations, known PVCs - Continue beta blockers, continue multaq, follow up 4 weeks in office. 2. chest pain, atypical - CE negative x 3, AK ruled out. LVEF and wall motion normal by echo. Continue beta blockers, aspirin, statin. 3. CAD s/p PCI stent to LAD in 2014 - recent normal perfusion by MPI, recent normal LVEF,wall motion by echo. Currently angina free. Continue medical therapy. 4. hypertension - well controlled on current medication. Mild diastolic dysfunction. Re-evaluate outpatient and consider low dose ACEI/ARB if pressure tolerates as beta blockers just increased. 5. CKD stage 3 - stable, monitor 6. hyperlipidemia - at goal, continue statin. Follow up May 13 at 2pm Subjective feeling better, no chest pain, less palpitations, no dyspnea, no lightheadedness , no syncope Objective tele - sinus rhythm, sinus tachycardia. 2 isolated PVCs since 1800 last night. Vital Signs Date Time Temp Pulse Resp B/P (MAP) Pulse Ox O2 Delivery O2 Flow Rate FiO2 04/09/18 08:46 75 117/76 04/09/18 05:46 98.1 20 96 Nasal Cannula 2.0 Intake and Output 04/09/18 07:01 Intake Total 750 ml Balance 750 ml Intake Oral 750 ml Physical Exam General: Alert, Oriented X3, Cooperative, No acute distress HEENT: Atraumatic, EOMI, Mucous membr. moist/pink Lungs: Clear to auscultation, Normal air movement Heart: Normal S1, Normal S2, Other (no gallops, clicks or rubs, no significant murmurs) Abdomen: Normal bowel sounds, Soft, No tenderness Extremities: No cyanosis, No edema, Normal pulses Neuro: Normal speech, Strength at 5/5 X4 ext Psych/Mental Status: Mental status NL, mood appropriate. Review of Relevant I have reviewed the following items feliberto (where applicable) has been applied. Labs Laboratory Tests Test 04/07/18 16:35 04/07/18 20:40 04/07/18 23:15 04/08/18 09:48 White Blood Count 7.0 x10^3/uL (4.0-11.0) Red Blood Count 4.17 x10^6/uL (3.50-5.40) Hemoglobin 11.7 g/dL (12.0-15.5) Hematocrit 35.9 % (36.0-47.0) Mean Corpuscular Volume 86 fL (79-100) Mean Corpuscular Hemoglobin 28 pg (25-35) Mean Corpuscular Hemoglobin Concent 32 g/dL (31-37) Red Cell Distribution Width 16.7 % (11.5-14.5) Platelet Count 392 x10^3/uL (140-400) Neutrophils (%) (Auto) 84 % (31-73) Lymphocytes (%) (Auto) 14 % (24-48) Monocytes (%) (Auto) 1 % (0-9) Eosinophils (%) (Auto) 0 % (0-3) Basophils (%) (Auto) 1 % (0-3) Neutrophils # (Auto) 5.9 x10^3uL (1.8-7.7) Lymphocytes # (Auto) 1.0 x10^3/uL (1.0-4.8) Monocytes # (Auto) 0.1 x10^3/uL (0.0-1.1) Eosinophils # (Auto) 0.0 x10^3/uL (0.0-0.7) Basophils # (Auto) 0.0 x10^3/uL (0.0-0.2) Prothrombin Time 10.3 SEC (9.4-11.4) Prothromb Time International Ratio 1.0 (0.9-1.1) Sodium Level 142 mmol/L (136-145) Potassium Level 3.9 mmol/L (3.5-5.1) Chloride Level 102 mmol/L (98-107) Carbon Dioxide Level 29 mmol/L (21-32) Anion Gap 11 (6-14) Blood Urea Nitrogen 9 mg/dL (7-20) Creatinine 1.2 mg/dL (0.6-1.0) Estimated GFR (Cockcroft-Gault) 45.7 BUN/Creatinine Ratio 8 (6-20) Glucose Level 177 mg/dL (70-99) Calcium Level 8.8 mg/dL (8.5-10.1) Total Bilirubin 0.3 mg/dL (0.2-1.0) Aspartate Amino Transf (AST/SGOT) 21 U/L (15-37) Alanine Aminotransferase (ALT/SGPT) 41 U/L (14-59) Alkaline Phosphatase 101 U/L (46-116) Creatine Kinase 191 U/L (26-192) Troponin I Quantitative < 0.017 ng/mL (0-0.055) < 0.017 ng/mL (0-0.055) < 0.017 ng/mL (0-0.055) ZZ-Bgf-Q-Type Natriuretic Peptide 75 pg/mL (0-124) Total Protein 7.3 g/dL (6.4-8.2) Albumin 3.7 g/dL (3.4-5.0) Albumin/Globulin Ratio 1.0 (1.0-1.7) Magnesium Level 1.9 mg/dL (1.8-2.4) Triglycerides Level 85 mg/dL (0-150) Cholesterol Level 169 mg/dL (0-200) LDL Cholesterol, Calculated 76 mg/dL (0-100) VLDL Cholesterol, Calculated 17 mg/dL (0-40) Non-HDL Cholesterol Calculated 93 mg/dL (0-129) HDL Cholesterol 76 mg/dL (40-60) Cholesterol/HDL Ratio 2.0 Lipase 58 U/L (73-393) Thyroid Stimulating Hormone (TSH) 0.423 uIU/mL (0.358-3.740) Test 04/09/18 05:50 Sodium Level 141 mmol/L (136-145) Potassium Level 3.9 mmol/L (3.5-5.1) Chloride Level 103 mmol/L (98-107) Carbon Dioxide Level 28 mmol/L (21-32) Anion Gap 10 (6-14) Blood Urea Nitrogen 18 mg/dL (7-20) Creatinine 1.0 mg/dL (0.6-1.0) Estimated GFR (Cockcroft-Gault) 56.4 Glucose Level 101 mg/dL (70-99) Calcium Level 8.7 mg/dL (8.5-10.1) Medications Current Medications Aspirin (Children'S Aspirin) 324 mg 1X ONCE PO Last administered on 04/07/18at 16:43; Start 04/07/18 at 17:00; Stop 04/07/18 at 17:01; Status DC Lorazepam (Ativan) 1 mg 1X ONCE IV Last administered on 04/07/18at 16:46; Start 04/07/18 at 17:00; Stop 04/07/18 at 17:01; Status DC Sodium Chloride 500 ml @ 0 mls/hr 1X ONCE IV Last administered on 04/07/18 18 :11; Start 04/07/18 at 17:30; Stop 04/07/18 at 17:31; Status DC Acetaminophen/ Hydrocodone Bitart (Lortab 5/325) 1 tab 1X ONCE PO Last administered on 04/07/18 18:13; Start 04/07/18 at 17:30; Stop 04/07/18 at 17:31 ; Status DC Lorazepam (Ativan) 0.5 mg PRN Q6HRS PRN PO ANXIETY / AGITATION Last administered on 04/08/18 08:40; Start 04/07/18 at 22:45 Acetaminophen (Tylenol) 650 mg PRN Q4HRS PRN PO PAIN / TEMP Last administered on 04/09/18 08:50; Start 04/07/18 at 22:00 Guaifenesin (Mucinex Er) 600 mg BID PO Last administered on 04/09/18 08:44; Start 04/08/18 at 10:00 Isosorbide Mononitrate (Imdur) 30 mg DAILY PO Last administered on 04/09/18 08 :44; Start 04/08/18 at 10:00 Metoprolol Succinate (Toprol Xl) 100 mg BID PO Last administered on 04/09/18 08:44; Start 04/08/18 at 10:00 Aspirin (Children'S Aspirin) 81 mg DAILYWBKFT PO Last administered on 08:44; Start 04/08/18 at 10:00 Atorvastatin Calcium (Lipitor) 40 mg QHS PO Last administered on 04/08/18at 21: 25; Start 04/08/18 at 21:00 Desvenlafaxine Succinate (Pristiq) 50 mg DAILY PO Last administered on 08:47; Start 04/08/18 at 10:00 Non-Formulary Medication (Levalbuterol Tartrate (Xopenex Hfa)) 2 puff PRN Q4- 6HRS IH ; Start 04/08/18 at 10:00; Status UNV Non-Formulary Medication (Lifitegrast (Xiidra)) 1 each BID OP ; Start 04/08/18 at 21:00; Status UNV Metoclopramide HCl (Reglan) 10 mg BID PO Last administered on 04/09/18 08:43; Start 04/08/18 at 10:00 Pantoprazole Sodium (Protonix) 40 mg DAILYAC PO Last administered on 04/09/18 08:46; Start 04/08/18 at 10:00 Triamterene/HCTZ (Maxzide 37.5/ 25mg) 1 tab DAILY PO Last administered on 08:43; Start 04/08/18 at 10:00 Cephalexin HCl (Keflex) 500 mg TID PO Last administered on 04/09/18 08:49; Start 04/08/18 at 10:00 Albuterol Sulfate (Ventolin) 2.5 mg PRN Q4HRS PRN NEB SHORTNESS OF BREATH; Start 04/08/18 at 10:15 Dronedarone (Multaq) 400 mg BIDWMEALS PO Last administered on 04/09/18 08:46; Start 04/08/18 at 19:15 Lactobacillus Rhamnosus (Culturelle) 1 cap BID PO Last administered on at 08:45; Start 04/09/18 at 09:00 Active Scripts Active Reported Methylprednisolone 4 Mg Tab.ds.pk 5 PO UD LAST DOSE GIVEN: DATE: TODAY TIME: AM NEXT DOSE DUE: DATE: TOMORROW TIME: AM Mucinex (Guaifenesin) 600 Mg Tablet.er 1 Tab PO BID LAST DOSE GIVEN: DATE: TODAY TIME: AM NEXT DOSE DUE: DATE: TODAY TIME: PM Keflex (Cephalexin) 500 Mg Capsule 1 Cap PO TID 10 Days LAST DOSE GIVEN: DATE: TODAY TIME: AFTERNOON NEXT DOSE DUE: DATE: TODAY TIME: PM Triamterene-Hctz 37.5-25 Mg Cp (Triamterene/Hydrochlorothiazid) 1 Each Capsule 1 Cap PO DAILY LAST DOSE GIVEN: DATE: TODAY TIME: AM NEXT DOSE DUE: DATE: TOMORROW TIME:AM Xopenex Hfa (Levalbuterol Tartrate) 15 Gm Hfa.aer.ad 2 Puff IH PRN Q4-6HRS NOT GIVEN IN THE HOSPITAL NEXT DOSE DUE: DATE: TODAY TIME: IF AND WHEN NEEDED Isosorbide Mononitrate Er (Isosorbide Mononitrate) 30 Mg Tab.er.24h 1 Tab PO DAILY LAST DOSE GIVEN: DATE: TODAY TIME: AM NEXT DOSE DUE: DATE: TOMORROW TIME: AM Pantoprazole Sodium 40 Mg Tablet.dr 1 Tab PO DAILY06 LAST DOSE GIVEN: DATE: TODAY TIME: BEFORE BREAKFAST NEXT DOSE DUE: DATE: TOMORROW TIME: BEFORE BREAKFAST Xiidra (Lifitegrast) 1 Each Droperette 1 Each OP BID LAST DOSE GIVEN: DATE: TIME: AM NEXT DOSE DUE: DATE: TODAY TIME: PM Aspirin 81 Mg Tab.chew 1 Tab PO DAILY LAST DOSE GIVEN: DATE: TODAY TIME: AM NEXT DOSE DUE: DATE: TOMORROW TIME: AM Reglan (Metoclopramide Hcl) 10 Mg Tablet 1 Tab PO BID LAST DOSE GIVEN: DATE: TODAY TIME: AM NEXT DOSE DUE: DATE: TODAY TIME: PM Atorvastatin Calcium 40 Mg Tablet 1 Tab PO HS LAST DOSE GIVEN: DATE: YESTER TIME: AT BEDTIME NEXT DOSE DUE: DATE: TIME: AT BEDTIME Metoprolol Succinate ( Xl ) (Metoprolol Succinate) 25 Mg Tab.er.24h 100 Mg PO BID LAST DOSE GIVEN: DATE: TODAY TIME: AM NEXT DOSE DUE: DATE: TODAY TIME: PM Pristiq Er (Desvenlafaxine Succinate) 50 Mg Tab.er.24h 1 Tab PO DAILY LAST DOSE GIVEN: DATE: TODAY TIME: AM NEXT DOSE DUE: DATE: TOM TIME: AM Vitals/I & O Vital Sign - Last 24 Hours 04/08/18 04/08/18 04/08/18 04/08/18 10:42 10:45 10:47 14:34 Temp 97.7 98.3 Pulse 101 98 101 92 Resp 20 20 B/P (MAP) 133/92 (106) 133/92 133/92 120/81 (94) Pulse Ox 97 91 O2 Delivery Room Air Room Air 04/08/18 04/08/18 04/08/18 04/08/18 19:47 19:51 21:27 22:20 Temp 97.8 98.1 Pulse 92 96 96 101 Resp 18 18 B/P (MAP) 120/81 123/76 (92) 123/76 133/89 (104) Pulse Ox 95 97 O2 Delivery Room Air Nasal Cannula O2 Flow Rate 2.0 04/09/18 04/09/18 04/09/18 04/09/18 05:46 08:44 08:44 08:46 Temp 98.1 Pulse 75 75 75 75 Resp 20 B/P (MAP) 117/76 (90) 117/76 117/76 117/76 Pulse Ox 96 O2 Delivery Nasal Cannula O2 Flow Rate 2.0 Intake and Output 04/08/18 04/08/18 04/09/18 15:01 23:01 07:01 Intake Total 240 ml 510 ml Balance 240 ml 510 ml CAYDEN [employer] ASST Apr 09, 2018 09:49
[2018-04-09 10:36] VITALS: BP 105/65
[2018-04-09] MEDS: LORazepam 0.5 MG TABLET PO PRN (12:11)
[2018-04-09] MEDS ORDERED: DRON400T PO (12:12)
--- NOTE | 2018-04-09 13:04 | DS ---
DATE OF DISCHARGE: 04/09/2018 HOSPITAL COURSE: The patient is a 63-year-old female patient, who came and was admitted with a complaint of palpitation and chest pain, mostly nonexertional substernal epigastric pressure, sharp, described as a pressure and sharp and aching pain, with radiation to her back and also to her head associated with dizziness and nausea. She has had 3 sets of cardiac enzymes that have ruled out myocardial infarction. She has had an echocardiogram done, which showed that she has left ventricular systolic function with normal ejection fraction of 55%-60%. There is normal left ventricular segmental wall motion. Transmitral Doppler flow pattern is grade 1, abnormal relaxation pattern. No significant valvular abnormalities. There is no evidence of significant pericardial effusion. Because of the frequent PVCs, she was started on Multaq and advised to continue with beta blockers and she will be discharged to follow with the Cardiology office in 4 weeks' time. PHYSICAL EXAMINATION: GENERAL: When I saw her today, she looked well and was clearly in no apparent respiratory distress. No pallor, jaundice, cyanosis or thyromegaly. No jugular venous distention. No limb edema. VITAL SIGNS: Her heart rate was 64, blood pressure was 105/65, temperature was 97.5, respiratory rate 20, and oxygen saturation was 96% on 2 liters of oxygen. HEAD, EYES, EARS, NOSE AND THROAT: Showed normocephalic, atraumatic. NECK: Supple. HEART: Showed normal first and second heart sounds. No gallop, rub or murmur. CHEST: Clear to auscultation. No crepitation or rhonchi. ABDOMEN: Distended, soft, nontender. NEUROLOGIC: She is awake, alert, responding appropriately. Cranial nerves are intact. EXTREMITIES: She moves extremities without difficulty. She ambulates without assistance or assistive devices. Her intake and output are incompletely recorded. LABORATORY DATA: This morning showed a serum sodium of 141, potassium 3.9, chloride 103, bicarbonate 28, anion gap of 10, BUN 18, creatinine 1, estimated GFR was 56 mL per minute. Her glucose was 101, calcium was 8.7, magnesium was 1.9. Her serum triglycerides were 85, total cholesterol 169, LDL was 76, VLDL was 17, and HDL cholesterol was 76, the ratio was 2. Her lipase was only 58. TSH was normal at 0.423. Her white cell count was 7000, hemoglobin 12, hematocrit 36, MCV 86 and platelet count of 392,000. Her prothrombin time was 10.3, INR of 1. DISCHARGE MEDICATIONS: The patient was discharged home to continue on lactobacillus rhamnosus 1 capsule twice a day, Xiidra 1 drop to both eyes twice a day, atorvastatin calcium 40 mg at bedtime, dronedarone for Multaq 400 mg twice a day, albuterol sulfate 2.5 mg by nebulizer every 4 hours, cephalexin 500 mg 3 times a day, triamterene/hydrochlorothiazide 37.5/25 one tablet once a day, Protonix 40 mg daily, metoclopramide 10 mg twice a day, Pristiq 50 mg daily, aspirin 81 mg once a day, metoprolol succinate 100 mg twice a day, isosorbide mononitrate 30 mg daily, Mucinex 600 mg twice a day, Tylenol 650 mg every 4 hours. FINAL DISCHARGE DIAGNOSES: 1. Palpitation with associated chest pain for which to continue beta blockers, Multaq was added and she will follow with Cardiology team at the office in 4 weeks' time 2. Chest pain, atypical. Cardiac enzymes were negative. Her left ventricular ejection fraction and wall motion were normal by echocardiogram. 3. Coronary artery disease, status post percutaneous coronary intervention, stent deployment to left anterior descending in 2014. She has had normal nuclear stress test. 4. Hypertension, well controlled. 5. Chronic kidney disease, stable. 6. Hyperlipidemia, well controlled on current dose of atorvastatin. SOLO AGUIRRE MD DR: FLAKO/viv JOB#: [id number] / [id number]
[2018-04-09 20:09] LABS: HEMOGLOBIN A1C 5.8 % (4.8-5.6)
== END 2018-04-09 13:45 | disposition home or self-care (01) | DRG 309 ==
LOC: ER 16:18 → 1 SOUTH 17:31
PROVIDERS: ADMIT Internal Medicine; ATTEND Internal Medicine
DX: I49.3 Ventricular premature depolarization (principal); N39.0 Urinary tract infection, site not specified; E66.01 Morbid (severe) obesity due to excess calories; Z68.33 Body mass index [BMI] 33.0-33.9, adult; E78.00 Pure hypercholesterolemia, unspecified; E78.5 Hyperlipidemia, unspecified; F32.9 Major depressive disorder, single episode, unspecified; F41.9 Anxiety disorder, unspecified; G44.009 Cluster headache syndrome, unspecified, not intractable; G47.33 Obstructive sleep apnea (adult) (pediatric); I12.9 Hypertensive chronic kidney disease with stage 1 through stage 4 chronic kidney disease, or unspecified chronic kidney disease; I25.10 Atherosclerotic heart disease of native coronary artery without angina pectoris; J44.9 Chronic obstructive pulmonary disease, unspecified; K21.9 Gastro-esophageal reflux disease without esophagitis; N18.3 Chronic kidney disease, stage 3 (moderate); Z80.1 Family history of malignant neoplasm of trachea, bronchus and lung; Z80.6 Family history of leukemia; Z80.7 Family history of other malignant neoplasms of lymphoid, hematopoietic and related tissues; Z87.891 Personal history of nicotine dependence; Z90.710 Acquired absence of both cervix and uterus; Z95.5 Presence of coronary angioplasty implant and graft; Z98.41 Cataract extraction status, right eye; Z98.42 Cataract extraction status, left eye; Z88.8 Allergy status to other drugs, medicaments and biological substances
CPT/HCPCS: 36415; 71045; 80048; 80053; 80061; 82550; 83036; 83690; 83735; 83880; 84443; 84484; 85025; 85610; 93005; 93306; 96361; 96374; J2060; J7040; J8597; 99285-25

== ENCOUNTER 2018-05-05 16:37 | Emergency (ER) | payer OTHER ==
[~2018-05-05] VITALS: Ht 165.1 cm; Wt 92.5 kg
[~2018-05-05 16:37] MED LIST changes: +CEPH-264 PO; +DRON400T PO; +GUAI600T47 PO; +LIFI1DRO OP; +METH4TAB6 PO; +PANT40TA5 PO; +TRIA1CAP3 PO
[2018-05-05 17:31] LABS: BACTERIA,URINE MANY /HPF (0-FEW); BILIRUBIN,URINE NEG (NEG); CLARITY,URINE HAZY; COLOR,URINE STRAW; GLUCOSE,URINE NEG (NEG); HYALINE CASTS, URINE OCC /HPF; NITRITE,URINE NEG (NEG); SQUAMOUS EPITHELIAL CELL,UR FEW /LPF; UROBILINOGEN,URINE 0.2 mg/dL (0.2 mg/dL); YEAST,URINE PRESENT /HPF
--- NOTE | 2018-05-05 17:36 | RAD ---
PQRS Compliance statement: One or more of the following individualized dose reduction techniques were utilized for this examination: 1. Automated exposure control. 2. Adjustment of the mA and/or kV according to patient size. 3. Use of iterative reconstruction technique. Indication:DIZZINESS FOR SEVERAL WEEKS TECHNIQUE: CT head without IV contrast COMPARISON:01/11/2016 FINDINGS: No pathologic extra-axial or intra-axial fluid collection. The ventricles and basal cisterns are within normal limits. No acute intracranial bleed. No focal loss of wooten-white differentiation. Visualized orbits within normal limits. No suspicious bony lesion. Visualized paranasal sinuses and mastoid air cells are clear. IMPRESSION: No acute intracranial process. If concern for acute ischemic stroke is high, please consider MRI brain. Electronically signed by: Wilson Henderson DO (05/05/2018 5:33 PM) [facility]
[2018-05-05 18:10] LABS: BASO # 0.1 x10^3/uL (0.0-0.2); BASO % 1 % (0-3); EOS # 0.2 x10^3/uL (0.0-0.7); EOS % 3 % (0-3); HEMATOCRIT 31.2 % (36.0-47.0); HEMOGLOBIN 10.2 g/dL (12.0-15.5); LYMPH # 2.7 x10^3/uL (1.0-4.8); LYMPH % 40 % (24-48); MEAN CORPUSCULAR HEMOGLOBIN 27 pg (25-35); MEAN CORPUSCULAR HGB CONC 33 g/dL (31-37); MEAN CORPUSCULAR VOLUME 83 fL (79-100); MONO # 0.6 x10^3/uL (0.0-1.1); MONO % 10 % (0-9); NEUT # 3.1 x10^3uL (1.8-7.7); NEUT % 46 % (31-73); PLATELET COUNT 401 x10^3/uL (140-400); RED BLOOD COUNT 3.77 x10^6/uL (3.50-5.40); RED CELL DISTRIBUTION WIDTH 17.5 % (11.5-14.5); WHITE BLOOD COUNT 6.6 x10^3/uL (4.0-11.0)
[2018-05-05] MEDS ORDERED: IV NORMAL SALINE 1,000ML 1,000 ML IV ONE (18:15)
--- NOTE | 2018-05-05 18:26 | EKG ---
[address] [address] Test Date: 2018-05-05 Test Time: 17:07:23 Pat Name: SHIRA SARAVIA Department: Room: Gender: F Can Inspector: DEVIN : 1955 Requested By: AIMEE SPENCER Order Number: [id number] Reading MD: Ravi Bui Measurements Intervals [place] Rate: 81 P: -24 UT: 164 QRS: 7 QRSD: 86 T: 29 QT: 414 QTc: 481 Interpretive Statements SINUS RHYTHM ATRIAL PREMATURE COMPLEX(ES) PROLONGED QT Electronically Signed On 05-12-2018 11:02:28 ROOM INSPECTOR by Ravi Bui
[2018-05-05 18:31] LABS: ALBUMIN 3.6 g/dL (3.4-5.0); ALBUMIN/GLOBULIN RATIO 1.3 (1.0-1.7); CALCIUM 8.7 mg/dL (8.5-10.1); CREATININE 1.4 mg/dL (0.6-1.0); GFR 38.2; MAGNESIUM 1.9 mg/dL (1.8-2.4); POTASSIUM 3.1 mmol/L (3.5-5.1); TOTAL BILIRUBIN 0.3 mg/dL (0.2-1.0); TOTAL PROTEIN 6.4 g/dL (6.4-8.2)
--- NOTE | 2018-05-05 18:40 | PHYS DOC ---
Past History Past Medical History: Asthma, CAD, COPD, High Cholesterol, Hypertension Past Surgical History: Other Smoking: Quit Greater Than 1 Year Alcohol Use: None Drug Use: None Adult General Chief Complaint Chief Complaint: DIZZY/LIGHT HEADED HPI HPI Patient is a 63 year old female with a PMH of HTN, CAD, COPD, asthma, high cholesterol, and irregular heart beat who presents with intermittent dizziness for the past week. She was told to come to ED by her family doctor. Patient reports initially episodes occurred when she would bend forward or get up from sitting but have progressed and are now happening even when she is sitting. The episodes don't last long and resolve on their own. She says she feels "a head adam" and light headed with some mild disequilibrium when it occurs. Associated symptoms include shortness of breath. Episodes often followed by onset of a bitemporal headache. Additionally she reports a feeling of generalized weakness since the dizziness started. She was diagnosed about a month ago with "an irregular heart beat" per patient and she was started on medication about 10 days ago. She has a history of CAD s/p stent placement. She denies chest pain, vision change, syncope, diaphoresis, nausea, vomiting, diarrhea, and numbness/ tingling. Patient reports blood work done on 04/28 that showed decreased kidney function and low potassium. Review of Systems Review of Systems Constitutional: Denies fever or chills [] Eyes: Denies change in visual acuity, redness, or eye pain [] HENT: Denies nasal congestion or sore throat [] Respiratory: Reports shortness of breath [] GI: Denies abdominal pain, nausea, vomiting, bloody stools or diarrhea [] : Denies dysuria or hematuria [] Musculoskeletal: Denies back pain or joint pain [] Integument: Denies rash or skin lesions [] Neurologic:Reports headache, denies sensory changes [] Complete systems were reviewed and found to be within normal limits, except as documented in this note. Current Medications Current Medications Current Medications Medications (Trade) Dose Ordered Sig/Kian Start Time Stop Time Status Last Admin Dose Admin Sodium Chloride 1,000 ml @ 1,000 mls/hr 1X ONCE 05/05/18 18:15 05/05/18 19:14 Allergies Allergies Allergies Coded Allergies Type Severity Reaction Last Updated Verified gluten Allergy Intermediate 03/06/18 Yes Physical Exam Physical Exam Constitutional: Well developed, well nourished, no acute distress, non-toxic appearance. [] HENT: Normocephalic, atraumatic, oropharynx moist, no oral exudates, nose normal. [] Eyes: PERRL, EOMI, conjunctiva normal, no discharge, no nystagmus. [] Neck: Normal range of motion, no tenderness, supple, no meningeal signs Cardiovascular: Heart rate regular rhythm, no murmur [] Lungs & Thorax: Bilateral breath sounds clear to auscultation [] Abdomen: Soft, no tenderness Skin: Warm, dry, no erythema, no rash. [] Back: No tenderness, no CVA tenderness. [] Extremities: No tenderness, no cyanosis, no clubbing, ROM intact, no edema. [] Neurologic: Alert and oriented X 3, normal motor function, normal sensory function, no focal deficits noted. [] Psychologic: Affect normal, judgement normal, mood normal. [] Current Patient Data Lab Results Laboratory Tests Test 05/05/18 16:47 05/05/18 17:25 Urine Collection Type Unknown Urine Color Straw Urine Clarity Hazy Urine pH 5.5 Urine Specific [place] <=1.005 Urine Protein Neg (NEG-TRACE) Urine Glucose (UA) Neg mg/dL (NEG) Urine Ketones (Stick) Neg mg/dL (NEG) Urine Blood Small (NEG) Urine Nitrite Neg (NEG) Urine Bilirubin Neg (NEG) Urine Urobilinogen Dipstick 0.2 mg/dL (0.2 mg/dL) Urine Leukocyte Esterase Mod (NEG) Urine RBC 6-10 /HPF (0-2) Urine WBC 5-10 /HPF (0-4) Urine Squamous Epithelial Cells Few /LPF Urine Bacteria Many /HPF (0-FEW) Urine Hyaline Casts Occ /HPF Urine Yeast Present /HPF White Blood Count 6.6 x10^3/uL (4.0-11.0) Red Blood Count 3.77 x10^6/uL (3.50-5.40) Hemoglobin 10.2 g/dL (12.0-15.5) L Hematocrit 31.2 % (36.0-47.0) L Mean Corpuscular Volume 83 fL (79-100) Mean Corpuscular Hemoglobin 27 pg (25-35) Mean Corpuscular Hemoglobin Concent 33 g/dL (31-37) Red Cell Distribution Width 17.5 % (11.5-14.5) H Platelet Count 401 x10^3/uL (140-400) H Neutrophils (%) (Auto) 46 % (31-73) Lymphocytes (%) (Auto) 40 % (24-48) Monocytes (%) (Auto) 10 % (0-9) H Eosinophils (%) (Auto) 3 % (0-3) Basophils (%) (Auto) 1 % (0-3) Neutrophils # (Auto) 3.1 x10^3uL (1.8-7.7) Lymphocytes # (Auto) 2.7 x10^3/uL (1.0-4.8) Monocytes # (Auto) 0.6 x10^3/uL (0.0-1.1) Eosinophils # (Auto) 0.2 x10^3/uL (0.0-0.7) Basophils # (Auto) 0.1 x10^3/uL (0.0-0.2) EKG EKG @17:07 NSR with baseline HR of 81 bpm QRS: 86 ms QT/QTc: 414/481 ms Radiology/Procedures Radiology/Procedures [] Impressions: PROCEDURE: CT HEAD WO CONTRAST PQRS Compliance statement: One or more of the following individualized dose reduction techniques were utilized for this examination: 1. Automated exposure control. 2. Adjustment of the mA and/or kV according to patient size. 3. Use of iterative reconstruction technique. Indication:DIZZINESS FOR SEVERAL WEEKS TECHNIQUE: CT head without IV contrast COMPARISON:01/11/2016 FINDINGS: No pathologic extra-axial or intra-axial fluid collection. The ventricles and basal cisterns are within normal limits. No acute intracranial bleed. No focal loss of wooten-white differentiation. Visualized orbits within normal limits. No suspicious bony lesion. Visualized paranasal sinuses and mastoid air cells are clear. IMPRESSION: No acute intracranial process. If concern for acute ischemic stroke is high, please consider MRI brain. Electronically signed by: Wilson Henderson DO (05/05/2018 5:33 PM) [facility] DICTATED AND SIGNED BY: WILSON HENDERSON DO DATE: 05/05/18 [id number] CC: AIMEE SPENCER MD; ELTON PECK DO ~ PROCEDURE: CHEST PA & LATERAL CHEST PA LATERAL CLINICAL INDICATION: Dizziness COMPARISON: 04/07/2018 FINDINGS: Heart is normal in size. Prominent bilateral bronchovascular markings are seen. No focal consolidation. No pneumothorax or effusion. Visualized bony thorax within normal limits. IMPRESSION: Findings suggests mild bronchitis. Electronically signed by: Wilson Henderson DO (05/05/2018 7:52 PM) [facility] DICTATED AND SIGNED BY: WILSON HENDERSON DO DATE: 05/05/181951 CC: AIMEE SPENCER MD; ELTON PECK DO; SWETA SPENCE DO ~ Course & Med Decision Making Course & Med Decision Making Pertinent Labs and Imaging studies reviewed. (See chart for details) Patient present with a week of intermittent dizziness. Her cardiac workup was negative. CT head was negative for acute findings. CXR read as findings suggestive of mild bronchitis which is likely related to her underlying COPD. Lab work showed mild hypokalemia and supplement was given along with fluids. UA showed bacterial and yeast infection. Patient given first dose of ceftriaxone and Fluconazole here and will be discharged with prescriptions. She is to take additional dose of Fluconazole after completing antibiotic. Symptomatic treatment provided with improvement in her headache. Her PCP has already given her a prescription for potassium supplement but we also reviewed diet modifications. Per patient her recent lab work with her PCP concerning for iron deficiency anemia which can certainly be contributing to her symptoms. Iron supplement recommended but that will ultimately be up to her PCP. Patient stable for discharge home with outpatient follow-up with PCP. Discussed findings and plan with patient, who acknowledges understanding and agreement. Dragon Disclaimer Dragon Disclaimer This electronic medical record was generated, in whole or in part, using a voice recognition dictation system. Departure Departure: Impression: Primary Impression: Weakness Additional Impressions: UTI (urinary tract infection) Yeast cystitis Hypokalemia Renal insufficiency Disposition: 01 HOME, SELF-CARE Condition: STABLE Referrals: ELTON PECK DO (PCP) Patient Instructions: Candidal Vulvovaginitis, Stlv-ab-Yndr, Chronic Renal Insufficiency, Hypokalemia-Brief, Potassium Content of Foods, Urinary Tract Infection, [id number], Weakness, Rgvm-[id number]-Rcbd Scripts Fluconazole (DIFLUCAN) 200 Mg Tablet 1 TAB PO DAILY for yeast infection, #1 TAB Take upon completion of your antibiotic therapy Prov: SWETA SPENCE DO 05/05/18 Cephalexin (KEFLEX) 500 Mg Capsule 1 CAP PO TID for UTI for 7 Days, #21 CAP Prov: SWETA SPENCE DO 05/05/18 Problem Qualifiers Additional Impressions: UTI (urinary tract infection) Urinary tract infection type: acute cystitis Hematuria presence: with hematuria Qualified Codes: N30.01 - Acute cystitis with hematuria SWETA SPENCE DO May 05, 2018 18:40
[2018-05-05] MEDS ORDERED: POTASSIUM CHLORIDE 20 MEQ TABLET.ER. PO ONE (18:45)
[2018-05-05] MEDS ORDERED: BUTALB/APAP/CAFEIN 50/325/40MG TABLET. PO ONE (18:45)
[2018-05-05] MEDS ORDERED: FLUCONAZOLE 100 MG TABLET. PO ONE (19:00)
[2018-05-05] MEDS ORDERED: cefTRIAXone SODIUM 1 GM VIAL ONE (19:07)
[2018-05-05] MEDS ORDERED: IV NORMAL SALINE 50ML 50 ML ONE (19:07)
--- NOTE | 2018-05-05 19:55 | RAD ---
CHEST PA LATERAL CLINICAL INDICATION: Dizziness COMPARISON: 04/07/2018 FINDINGS: Heart is normal in size. Prominent bilateral bronchovascular markings are seen. No focal consolidation. No pneumothorax or effusion. Visualized bony thorax within normal limits. IMPRESSION: Findings suggests mild bronchitis. Electronically signed by: Wilson Henderson DO (05/05/2018 7:52 PM) [facility]
[2018-05-05] MEDS ORDERED: FLUC200T PO (21:03)
[2018-05-05] MEDS ORDERED: CEPH-264 PO (21:03)
[2018-05-05 21:10] VITALS: BP 119/78
== END 2018-05-05 21:10 | disposition home or self-care (01) ==
LOC: ER 16:37
DX: B37.41 Candidal cystitis and urethritis (principal); N30.01 Acute cystitis with hematuria; E87.6 Hypokalemia; N28.9 Disorder of kidney and ureter, unspecified; R42 Dizziness and giddiness; I25.10 Atherosclerotic heart disease of native coronary artery without angina pectoris; E78.00 Pure hypercholesterolemia, unspecified; I10 Essential (primary) hypertension; J44.9 Chronic obstructive pulmonary disease, unspecified; Z87.891 Personal history of nicotine dependence; Z88.8 Allergy status to other drugs, medicaments and biological substances
CPT/HCPCS: 36415; 70450; 71046; 80053; 81001; 82550; 83735; 83880; 84484; 85025; 87086; 93005; 96361; 96365; 99284; J0696; J7030

== ENCOUNTER → 2018-07-09 | Outpatient (CLI) | payer OTHER ==
[~2018-07-09] MED LIST changes: +FLUC200T PO; +FURO-69 PO
[2018-07-09 17:39] LABS: BILIRUBIN,URINE NEG (NEG); CLARITY,URINE HAZY; COLOR,URINE YELLOW; GLUCOSE,URINE 100 mg/dL (NEG); NITRITE,URINE NEG (NEG); UROBILINOGEN,URINE 0.2 mg/dL (0.2 mg/dL)
[2018-07-09 17:40] LABS: BACTERIA,URINE FEW /HPF (0-FEW); SQUAMOUS EPITHELIAL CELL,UR OCC /LPF; YEAST,URINE PRESENT /HPF
== END | disposition home or self-care (01) ==
LOC: LAB 16:43
PROVIDERS: ATTEND Nurse Practitioner
DX: R79.89 Other specified abnormal findings of blood chemistry (principal)
CPT/HCPCS: 81001; 87086

== ENCOUNTER 2018-08-03 18:06 | Inpatient (IN) | payer OTHER ==
[~2018-08-03] VITALS: Ht 162.6 cm; Wt 89.8 kg
[~2018-08-03 18:06] MED LIST changes: -FURO-69 PO
--- NOTE | 2018-08-03 18:17 | ED.ADGEN ---
Past History Past Medical History: Angina, Arrhythmia, Constipation, High Cholesterol, Hypertension, UTI, Other Past Surgical History: Hysterectomy Smoking: Quit Greater Than 1 Year Alcohol Use: None Drug Use: None Adult General Chief Complaint Chief Complaint " .. My legs are all swelled up... this started yesterday afternoon.. I do take lasix... 20 mg in morning.. but they are so swollen today... HPI HPI Patient is a 63 year old femlale who presents with above hx and complaints of increased leg edema and pain. Pt. has some increased dyspnea. Patient denies a ny changes in her meds. Patient denies any changes in diet. Patient does take Lasix. Patient does have a history of anemia, hypertension, coronary artery disease with stents, diabetes, elevated cholesterol, hypertension, arrhythmia, angina, COPD. and edema. Patient normally follows at [facility]. No recent travel. No significant ill contacts. Review of Systems Review of Systems Constitutional: Denies fever or chills [] Eyes: Denies change in visual acuity, redness, or eye pain [] HENT: Denies nasal congestion or sore throat [] Respiratory: Denies cough or shortness of breath [] Cardiovascular: No additional information not addressed in HPI [] GI: Complaints of mild abdominal pain, nausea, and constipation. Denies vomi ting, bloody stools or diarrhea [] : Denies dysuria or hematuria [] Musculoskeletal: Denies back pain. The patient []complains of bilateral leg pain and edema Integument: Denies rash or skin lesions [] Neurologic: Denies headache, focal weakness or sensory changes [] Endocrine: Denies polyuria or polydipsia [] All other systems were reviewed and found to be within normal limits, except as documented in this note. Family History Family History Noncontributory Current Medications Current Medications Current Medications Medications (Trade) Dose Ordered Sig/Kian Start Time Stop Time Status Last Admin Dose Admin Aspirin (Children'S Aspirin) 324 mg 1X ONCE 08/03/18 18:45 08/03/18 18:46 DC 08/03/18 18:46 324 MG Furosemide (Lasix) 20 mg 1X ONCE 08/03/18 18:45 08/03/18 18:46 DC 08/03/18 18:44 20 MG Allergies Allergies Allergies Coded Allergies Type Severity Reaction Last Updated Verified gluten Allergy Intermediate 03/06/18 Yes Physical Exam Physical Exam Constitutional: Moderately acute distress, non-toxic appearance. Patient prefers to go by the name Cony RENDON: Normocephalic, atraumatic, bilateral external ears normal, oropharynx moist, no oral exudates, nose normal. [] Eyes: PERRLA, EOMI, conjunctiva normal, no discharge. [] Neck: Normal range of motion, no tenderness, supple, no stridor. [] Cardiovascular:Heart rate regular rhythm, no murmur []PMI slightly to the left Lungs & Thorax: Bilateral breath sounds equal at apexes on auscultation [Few scattered wheezes. Abdomen: Bowel sounds normal, soft, no tenderness, no masses, no pulsatile masses. [] Skin: Warm, dry, no erythema, no rash. [] Back: No tenderness, no CVA tenderness. [] Extremities: No tenderness, no cyanosis, no clubbing, ROM intact, bilateral 2+ edema to mid adan. No cording appreciated. Neurologic: Alert and oriented X 3, normal motor function, normal sensory function, no focal deficits noted. [] Psychologic: Affect anxious, judgement normal, mood normal. [] Current Patient Data Vital Signs Vital Signs Date Time Temp Pulse Resp B/P (MAP) Pulse Ox O2 Delivery O2 Flow Rate FiO2 08/03/18 19:48 85 20 93/59 (70) 97 Room Air 08/03/18 18:15 98.2 Lab Results Laboratory Tests Test 08/03/18 18:25 08/03/18 18:42 White Blood Count 5.5 x10^3/uL (4.0-11.0) Red Blood Count 3.84 x10^6/uL (3.50-5.40) Hemoglobin 10.2 g/dL (12.0-15.5) L Hematocrit 31.3 % (36.0-47.0) L Mean Corpuscular Volume 81 fL (79-100) Mean Corpuscular Hemoglobin 27 pg (25-35) Mean Corpuscular Hemoglobin Concent 33 g/dL (31-37) Red Cell Distribution Width 21.9 % (11.5-14.5) H Platelet Count 363 x10^3/uL (140-400) Neutrophils (%) (Auto) 42 % (31-73) Lymphocytes (%) (Auto) 45 % (24-48) Monocytes (%) (Auto) 11 % (0-9) H Eosinophils (%) (Auto) 2 % (0-3) Basophils (%) (Auto) 1 % (0-3) Neutrophils # (Auto) 2.3 x10^3uL (1.8-7.7) Lymphocytes # (Auto) 2.5 x10^3/uL (1.0-4.8) Monocytes # (Auto) 0.6 x10^3/uL (0.0-1.1) Eosinophils # (Auto) 0.1 x10^3/uL (0.0-0.7) Basophils # (Auto) 0.1 x10^3/uL (0.0-0.2) Platelet Estimate Increased (ADEQUATE) Large Platelets Occ Polychromasia Slight Anisocytosis Mod Ovalocytes Occ Prothrombin Time 10.4 SEC (9.4-11.4) Prothrombin Time INR 1.0 (0.9-1.1) PTT 25 SEC (23-33) D-Dimer (Patricia) < 0.19 mg/L (0.00-0.50) Sodium Level 144 mmol/L (136-145) Potassium Level 3.3 mmol/L (3.5-5.1) L Chloride Level 105 mmol/L (98-107) Carbon Dioxide Level 30 mmol/L (21-32) Anion Gap 9 (6-14) Blood Urea Nitrogen 13 mg/dL (7-20) Creatinine 1.3 mg/dL (0.6-1.0) H Estimated GFR (Cockcroft-Gault) 41.6 Glucose Level 86 mg/dL (70-99) Calcium Level 8.8 mg/dL (8.5-10.1) Magnesium Level 1.8 mg/dL (1.8-2.4) Total Bilirubin 0.4 mg/dL (0.2-1.0) Direct Bilirubin 0.1 mg/dL (0.0-0.2) Aspartate Amino Transferase (AST) 20 U/L (15-37) Alanine Aminotransferase (ALT) 37 U/L (14-59) Alkaline Phosphatase 87 U/L (46-116) Creatine Kinase 269 U/L (26-192) H Troponin I Quantitative < 0.017 ng/mL (0-0.055) TT-Npm-H-Type Natriuretic Peptide 138 pg/mL (0-124) H Total Protein 6.7 g/dL (6.4-8.2) Albumin 3.6 g/dL (3.4-5.0) Lipase 112 U/L (73-393) Urine Collection Type Unknown Urine Color Yellow Urine Clarity Hazy Urine pH 5.5 Urine Specific Orient 1.015 Urine Protein Neg (NEG-TRACE) Urine Glucose (UA) Neg mg/dL (NEG) Urine Ketones (Stick) Neg mg/dL (NEG) Urine Blood Small (NEG) Urine Nitrite Neg (NEG) Urine Bilirubin Neg (NEG) Urine Urobilinogen Dipstick 0.2 mg/dL (0.2 mg/dL) Urine Leukocyte Esterase Trace (NEG) Urine RBC 1-2 /HPF (0-2) Urine WBC 1-4 /HPF (0-4) Urine Squamous Epithelial Cells Occ /LPF Urine Bacteria 0 /HPF (0-FEW) Urine Mucus Slight /LPF Urine Opiates Screen Neg (NEG) Urine Methadone Screen Neg (NEG) Urine Barbiturates Neg (NEG) Urine Phencyclidine Screen Neg (NEG) Urine Amphetamine/Methamphetamine Neg (NEG) Urine Benzodiazepines Screen Neg (NEG) Urine Cocaine Screen Neg (NEG) Urine Cannabinoids Screen Neg (NEG) Urine Ethyl Alcohol Neg (NEG) EKG EKG My interpretation EKG shows a sinus rhythm at 80 bpm. There is mild leftward axis. Slightly prolonged QT interval at 416 ms. QTC is 484. No findings acute STEMI with contralateral changes. Radiology/Procedures Radiology/Procedures []My interpretation of chest x-ray slightly rotated film. No large infiltrate or findings of pneumonia. Similar to x-ray of 27/08/2018. Course & Med Decision Making Course & Med Decision Making Pertinent Labs and Imaging studies reviewed. (See chart for details) patient admitted to Dr. Mckenzie. Pt. has also followed with [facility]. [] Final Impression Final Impression 1. Leg Edema[]/Pain 2. Dyspnea 3. CHF 4. Accelerated HTN 5. Anemia 10.7 6. Hypokalemia 3.3 7. Elevated Creat 1.3 8. DM Hx 9. UTI 10. Elevated CK Dragon Disclaimer Dragon Disclaimer This electronic medical record was generated, in whole or in part, using a voice recognition dictation system. Discharge Summary Visit Information Final Diagnosis Problems Medical Problems: (1) CHF (congestive heart failure) Status: Acute (2) Hypokalemia Status: Acute (3) Leg pain Status: Acute Brief Hospital Course Allergies Allergies Coded Allergies Type Severity Reaction Last Updated Verified gluten Allergy Intermediate 03/06/18 Yes Vital Signs Vital Signs Date Time Temp Pulse Resp B/P (MAP) Pulse Ox O2 Delivery O2 Flow Rate FiO2 08/03/18 19:48 85 20 93/59 (70) 97 Room Air 08/03/18 18:15 98.2 Lab Results Laboratory Tests Test 08/03/18 18:25 08/03/18 18:42 White Blood Count 5.5 x10^3/uL (4.0-11.0) Red Blood Count 3.84 x10^6/uL (3.50-5.40) Hemoglobin 10.2 g/dL (12.0-15.5) Hematocrit 31.3 % (36.0-47.0) Mean Corpuscular Volume 81 fL (79-100) Mean Corpuscular Hemoglobin 27 pg (25-35) Mean Corpuscular Hemoglobin Concent 33 g/dL (31-37) Red Cell Distribution Width 21.9 % (11.5-14.5) Platelet Count 363 x10^3/uL (140-400) Neutrophils (%) (Auto) 42 % (31-73) Lymphocytes (%) (Auto) 45 % (24-48) Monocytes (%) (Auto) 11 % (0-9) Eosinophils (%) (Auto) 2 % (0-3) Basophils (%) (Auto) 1 % (0-3) Neutrophils # (Auto) 2.3 x10^3uL (1.8-7.7) Lymphocytes # (Auto) 2.5 x10^3/uL (1.0-4.8) Monocytes # (Auto) 0.6 x10^3/uL (0.0-1.1) Eosinophils # (Auto) 0.1 x10^3/uL (0.0-0.7) Basophils # (Auto) 0.1 x10^3/uL (0.0-0.2) Platelet Estimate Increased (ADEQUATE) Large Platelets Occ Polychromasia Slight Anisocytosis Mod Ovalocytes Occ Prothrombin Time 10.4 SEC (9.4-11.4) Prothromb Time International Ratio 1.0 (0.9-1.1) Activated Partial Thromboplast Time 25 SEC (23-33) D-Dimer (Patricia) < 0.19 mg/L (0.00-0.50) Sodium Level 144 mmol/L (136-145) Potassium Level 3.3 mmol/L (3.5-5.1) Chloride Level 105 mmol/L (98-107) Carbon Dioxide Level 30 mmol/L (21-32) Anion Gap 9 (6-14) Blood Urea Nitrogen 13 mg/dL (7-20) Creatinine 1.3 mg/dL (0.6-1.0) Estimated GFR (Cockcroft-Gault) 41.6 Glucose Level 86 mg/dL (70-99) Calcium Level 8.8 mg/dL (8.5-10.1) Magnesium Level 1.8 mg/dL (1.8-2.4) Total Bilirubin 0.4 mg/dL (0.2-1.0) Direct Bilirubin 0.1 mg/dL (0.0-0.2) Aspartate Amino Transf (AST/SGOT) 20 U/L (15-37) Alanine Aminotransferase (ALT/SGPT) 37 U/L (14-59) Alkaline Phosphatase 87 U/L (46-116) Creatine Kinase 269 U/L (26-192) Troponin I Quantitative < 0.017 ng/mL (0-0.055) RZ-[id number]-Type Natriuretic Peptide 138 pg/mL (0-124) Total Protein 6.7 g/dL (6.4-8.2) Albumin 3.6 g/dL (3.4-5.0) Lipase 112 U/L (73-393) Urine Collection Type Unknown Urine Color Yellow Urine Clarity Hazy Urine pH 5.5 Urine Specific Orient 1.015 Urine Protein Neg (NEG-TRACE) Urine Glucose (UA) Neg mg/dL (NEG) Urine Ketones (Stick) Neg mg/dL (NEG) Urine Blood Small (NEG) Urine Nitrite Neg (NEG) Urine Bilirubin Neg (NEG) Urine Urobilinogen Dipstick 0.2 mg/dL (0.2 mg/dL) Urine Leukocyte Esterase Trace (NEG) Urine RBC 1-2 /HPF (0-2) Urine WBC 1-4 /HPF (0-4) Urine Squamous Epithelial Cells Occ /LPF Urine Bacteria 0 /HPF (0-FEW) Urine Mucus Slight /LPF Urine Opiates Screen Neg (NEG) Urine Methadone Screen Neg (NEG) Urine Barbiturates Neg (NEG) Urine Phencyclidine Screen Neg (NEG) Urine Amphetamine/Methamphetamine Neg (NEG) Urine Benzodiazepines Screen Neg (NEG) Urine Cocaine Screen Neg (NEG) Urine Cannabinoids Screen Neg (NEG) Urine Ethyl Alcohol Neg (NEG) Brief Hospital Course Ms. Santos is a 63 old female who presented with leg edema and pain. Admitted Dr. Mckenzie Discharge Information Dischare Medications Current Medications Aspirin (Children'S Aspirin) 324 mg 1X ONCE PO Last administered on 08/03/18at 18:46; Admin Dose 324 MG; Start 08/03/18 at 18:45; Stop 08/03/18 at 18:46; Status DC Furosemide (Lasix) 20 mg 1X ONCE IV ; Start 08/03/18 at 18:45; Stop 08/03/18 at 18:46; Status Cancel Furosemide (Lasix) 20 mg 1X ONCE IVP Last administered on 08/03/18at 18:44; Admin Dose 20 MG; Start 08/03/18 at 18:45; Stop 08/03/18 at 18:46; Status DC Active Scripts Active Reported Lasix (Furosemide) 20 Mg Tablet 20 Mg PO DAILY Xopenex Hfa (Levalbuterol Tartrate) 15 Gm Hfa.aer.ad 2 Puff IH PRN Q4-6HRS Isosorbide Mononitrate Er (Isosorbide Mononitrate) 30 Mg Tab.er.24h 1 Tab PO DAILY Pantoprazole Sodium 40 Mg Tablet.dr 1 Tab PO DAILY Aspirin 81 Mg Tab.chew 1 Tab PO DAILY Reglan (Metoclopramide Hcl) 10 Mg Tablet 1 Tab PO BID Atorvastatin Calcium 40 Mg Tablet 1 Tab PO DAILY Metoprolol Succinate ( Xl ) (Metoprolol Succinate) 25 Mg Tab.er.24h 100 Mg PO BID Pristiq Er (Desvenlafaxine Succinate) 50 Mg Tab.er.24h 1 Tab PO DAILY Dragon Disclaimer This chart was dictated in whole or in part using Voice Recognition software in a busy, high-work load, and often noisy Emergency Department environment. It may contain unintended and wholly unrecognized errors or omissions. MARCIA BROWN MD August 03, 2018 18:17
[2018-08-03 18:44] LABS: BASO # 0.1 x10^3/uL (0.0-0.2); BASO % 1 % (0-3); EOS # 0.1 x10^3/uL (0.0-0.7); EOS % 2 % (0-3); HEMATOCRIT 31.3 % (36.0-47.0); HEMOGLOBIN 10.2 g/dL (12.0-15.5); LYMPH # 2.5 x10^3/uL (1.0-4.8); LYMPH % 45 % (24-48); MEAN CORPUSCULAR HEMOGLOBIN 27 pg (25-35); MEAN CORPUSCULAR HGB CONC 33 g/dL (31-37); MEAN CORPUSCULAR VOLUME 81 fL (79-100); MONO # 0.6 x10^3/uL (0.0-1.1); MONO % 11 % (0-9); NEUT # 2.3 x10^3uL (1.8-7.7); NEUT % 42 % (31-73); PLATELET COUNT 363 x10^3/uL (140-400); RED BLOOD COUNT 3.84 x10^6/uL (3.50-5.40); RED CELL DISTRIBUTION WIDTH 21.9 % (11.5-14.5); WHITE BLOOD COUNT 5.5 x10^3/uL (4.0-11.0)
[2018-08-03] MEDS ORDERED: FUROSEMIDE 40 MG/4 ML VIAL IVP ONE (18:45)
[2018-08-03] MEDS ORDERED: FUROSEMIDE 20 MG/2 ML VIAL IV ONE (18:45)
[2018-08-03] MEDS ORDERED: ASPIRIN 81 MG TAB.CHEW PO ONE (18:45)
[2018-08-03 19:01] LABS: BARBITURATES NEG (NEG); BENZODIAZEPINES NEG (NEG); CANNABINOIDS NEG (NEG); COCAINE NEG (NEG); METHADONE NEG (NEG); OPIATES NEG (NEG); PHENCYCLIDINE NEG (NEG)
[2018-08-03 19:02] LABS: AMPHETAMINE/METHAMPHETAMINE NEG (NEG)
[2018-08-03 19:03] LABS: ALBUMIN 3.6 g/dL (3.4-5.0); CALCIUM 8.8 mg/dL (8.5-10.1); CREATININE 1.3 mg/dL (0.6-1.0); DIRECT BILIRUBIN 0.1 mg/dL (0.0-0.2); GFR 41.6; MAGNESIUM 1.8 mg/dL (1.8-2.4); POTASSIUM 3.3 mmol/L (3.5-5.1); TOTAL BILIRUBIN 0.4 mg/dL (0.2-1.0); TOTAL PROTEIN 6.7 g/dL (6.4-8.2)
[2018-08-03 19:06] LABS: BILIRUBIN,URINE NEG (NEG); CLARITY,URINE HAZY; COLOR,URINE YELLOW; GLUCOSE,URINE NEG (NEG); NITRITE,URINE NEG (NEG); UROBILINOGEN,URINE 0.2 mg/dL (0.2 mg/dL)
[2018-08-03 19:07] LABS: BACTERIA,URINE 0 /HPF (0-FEW); SQUAMOUS EPITHELIAL CELL,UR OCC /LPF
[2018-08-03] MEDS ORDERED: ONDANSETRON PF 4 MG/2 ML VIAL. IV PRN (20:30)
[2018-08-03] MEDS ORDERED: IV NORMAL SALINE 50ML 50 ML ONE (20:45)
[2018-08-03] MEDS ORDERED: cefTRIAXone SODIUM 1 GM VIAL ONE (20:45)
[2018-08-03] MEDS ORDERED: ENOXAPARIN ** NOTE DOSE ** SYRINGE SQ ONE (21:00)
[2018-08-03] MEDS: IPRATRPIUM/ALBUTEROL 0.5/2.5MG 3 ML NEBU. NEB SCH (21:00)
[2018-08-03] MEDS ORDERED: POTASSIUM CHLORIDE 20 MEQ/15 ML ORAL LIQUID. PO ONE (21:00)
--- NOTE | 2018-08-03 21:16 | RAD ---
PA and lateral chest radiographs 08/03/2018 CLINICAL HISTORY: Shortness of breath. History of asthma. Coronary artery disease. PA and lateral digital radiographs of the chest were obtained. Comparison study is dated 05/05/2018. The cardiac silhouette is mildly enlarged. The thoracic aorta is tortuous. Atherosclerotic calcification of the thoracic aorta is seen. No acute pulmonary infiltrate is noted. No pneumothorax or pleural effusion is seen. Degenerative changes are seen involving the thoracic spine. IMPRESSION: No acute abnormality is seen. Electronically signed by: Jhonny Black MD (08/03/2018 9:13 PM) [facility]
[2018-08-03 22:18] VITALS: BP 111/74
[2018-08-03 22:27] LABS: PLT ESTIMATE INCREASED (ADEQUATE)
[2018-08-03 22:28] LABS: ANISOCYTOSIS MOD; POLYCHROMASIA SLIGHT
[2018-08-03 22:29] LABS: OVALOCYTES OCC
[2018-08-03] MEDS ORDERED: FURO-69 PO (22:46)
[2018-08-03] MEDS: METOPROLOL SUCC 24HR ER 50 MG TAB.ER.24H. PO SCH (23:18)
[2018-08-03] MEDS: METOCLOPRAMIDE 10 MG TABLET PO SCH (23:18)
[2018-08-03] MEDS: DRONEDARONE HCL 400 MG TABLET PO SCH (23:19)
[2018-08-03] MEDS ORDERED: POTASSIUM CHLORIDE 20 MEQ TABLET.ER. PO ONE (23:30)
[2018-08-03] MEDS: ACETAMINOPHEN 325 MG TABLET PO PRN (23:32)
[2018-08-04 05:32] VITALS: BP 94/61
[2018-08-04 06:48] LABS: BASO % 1 % (0-3); EOS # 0.1 x10^3/uL (0.0-0.7); EOS % 3 % (0-3); HEMATOCRIT 31.9 % (36.0-47.0); HEMOGLOBIN 10.3 g/dL (12.0-15.5); LYMPH # 2.1 x10^3/uL (1.0-4.8); LYMPH % 46 % (24-48); MEAN CORPUSCULAR HEMOGLOBIN 27 pg (25-35); MEAN CORPUSCULAR HGB CONC 32 g/dL (31-37); MEAN CORPUSCULAR VOLUME 82 fL (79-100); MONO # 0.5 x10^3/uL (0.0-1.1); MONO % 10 % (0-9); NEUT # 1.9 x10^3uL (1.8-7.7); NEUT % 41 % (31-73); PLATELET COUNT 335 x10^3/uL (140-400); RED CELL DISTRIBUTION WIDTH 20.7 % (11.5-14.5); WHITE BLOOD COUNT 4.7 x10^3/uL (4.0-11.0)
[2018-08-04 06:59] LABS: CALCIUM 8.8 mg/dL (8.5-10.1); CREATININE 1.2 mg/dL (0.6-1.0); GFR 45.7; POTASSIUM 3.5 mmol/L (3.5-5.1)
--- NOTE | 2018-08-04 07:20 | PDOC2 ---
CARDIAC CONSULT DATE OF CONSULT Date Of Consult DATE: 08/04/18 TIME: 07:12 REASON FOR CONSULT Reason for Consult CHF Dyspnea REFERRING PHYSICIAN Referring Physician Dr. Rodrigues SOURCE Source: Chart review, Patient HPI History of Present Illness This is a 63 yo female who presented secondary to edema in hands, abdomen, and lower extremities. Reports lower extremities/feet are uncomfortable as they are tight. Swelling has been present for the last couple of days. On oral lasix at home- reports compliance with. Has had some mild dyspnea as well. No dizziness, diaphoresis, or nausea/vomiting. Does have history of PVCs and reports occasional palpitations. No fevers/illness recently. No changes in diet at home or recent meal with high sodium intake. Swelling improved with diuresis in ED although swelling does persist. PAST MEDICAL HISTORY Past Medical History Cardiovascular: CAD, HTN, hyperlipidemia Pulmonary: COPD, asthma, Other (ANI on CPAP) CENTRAL NERVOUS SYSTEM: Migraine (cluster headaches) GI: GERD Heme/Onc: Iron deficiency Anemia Psych: Anxiety, Depression Renal/: UTI PAST SURGICAL HISTORY Past Surgical History Cataract Removal, , Tubal Ligation, Hysterectomy, breast reduction FAMILY HISTORY Family History: Other (kidney disease, lymphoma, leukemia, lung CA) SOCIAL HISTORY Smoke: Quit (6 years ago. 30 pack year history) ALCOHOL: none Drugs: None Lives: with Family CURRENT MEDICATIONS Current Medications Current Medications Aspirin (Children'S Aspirin) 324 mg 1X ONCE PO Last administered on 08/03/18at 18:46; Start 08/03/18 at 18:45; Stop 08/03/18 at 18:46; Status DC Furosemide (Lasix) 20 mg 1X ONCE IV ; Start 08/03/18 at 18:45; Stop 08/03/18 at 18:46; Status Cancel Furosemide (Lasix) 20 mg 1X ONCE IVP Last administered on 08/03/18at 18:44; Start 08/03/18 at 18:45; Stop 08/03/18 at 18:46; Status DC Ceftriaxone Sodium 1 gm/ Sodium Chloride 50 ml @ 100 mls/hr 1X ONCE IV Last administered on 08/03/18at 20:52; Start 08/03/18 at 21:00; Stop 08/03/18 at 21:29; Status DC Enoxaparin Sodium (Lovenox 80mg Syringe) 80 mg 1X ONCE SQ Last administered on 08/03/18at 20:53; Start 08/03/18 at 21:00; Stop 08/03/18 at 21:01; Status DC Ondansetron HCl (Zofran) 4 mg PRN Q4HRS PRN IV NAUSEA/VOMITING; Start 08/03/18 at 20:30; Stop 08/04/18 at 20:29 Albuterol/ Ipratropium (Duoneb) 3 ml RTQID NEB ; Start 08/03/18 at 21:00; Stop 08/05/18 at 20:59 Potassium Chloride (KCl Oral Soln) 40 meq 1X ONCE PO ; Start 08/03/18 at 21:00; Stop 08/03/18 at 23:08; Status DC Cephalexin HCl (Keflex) 500 mg TID PO ; Start 08/04/18 at 21:00 Enoxaparin Sodium (Lovenox 80mg Syringe) 80 mg BID SQ ; Start 08/04/18 at 09:00 Sodium Chloride 50 ml @ As Directed STK-MED ONCE .ROUTE ; Start 08/03/18 at 20:45; Stop 08/03/18 at 20:46; Status DC Ceftriaxone Sodium (Rocephin) 1 gm STK-MED ONCE .ROUTE ; Start 08/03/18 at 20:45; Stop 08/03/18 at 20:46; Status DC Dronedarone (Multaq) 400 mg BID PO ; Start 08/03/18 at 23:30 Metoprolol Succinate (Toprol Xl) 100 mg BID PO Last administered on 08/03/18at 23:18; Start 08/03/18 at 23:30 Metoclopramide HCl (Reglan) 10 mg BID PO Last administered on 08/03/18at 23:18; Start 08/03/18 at 23:30 Potassium Chloride (Klor-Con) 40 meq 1X ONCE PO Last administered on 08/03/18at 23:19; Start 08/03/18 at 23:30; Stop 08/03/18 at 23:31; Status DC Acetaminophen (Tylenol) 650 mg PRN Q6HRS PRN PO PAIN / TEMP Last administered on 08/03/18at 23:32; Start 08/03/18 at 23:30 Active Scripts Active Reported Lasix (Furosemide) 20 Mg Tablet 20 Mg PO DAILY Xopenex Hfa (Levalbuterol Tartrate) 15 Gm Hfa.aer.ad 2 Puff IH PRN Q4-6HRS Isosorbide Mononitrate Er (Isosorbide Mononitrate) 30 Mg Tab.er.24h 1 Tab PO DAILY Pantoprazole Sodium 40 Mg Tablet.dr 1 Tab PO DAILY Aspirin 81 Mg Tab.chew 1 Tab PO DAILY Reglan (Metoclopramide Hcl) 10 Mg Tablet 1 Tab PO BID Atorvastatin Calcium 40 Mg Tablet 1 Tab PO DAILY Metoprolol Succinate ( Xl ) (Metoprolol Succinate) 25 Mg Tab.er.24h 100 Mg PO BID Pristiq Er (Desvenlafaxine Succinate) 50 Mg Tab.er.24h 1 Tab PO DAILY ALLERGIES Allergies: Coded Allergies: gluten (Verified Allergy, Intermediate, 03/06/18) ROS Review of Systems 14 point ROS conducted with pertinent positives noted above in HPI. PHYSICAL EXAM General: Alert, Oriented X3, Cooperative, No acute distress HEENT: Atraumatic, Mucous membr. moist/pink Lungs: Clear to auscultation, Normal air movement Heart: Regular rate, Normal S1, Normal S2, No murmurs Abdomen: Soft Extremities: Other (trace LE edema ) Skin: No rashes, No breakdown Neuro: Normal speech, Sensation intact Psych/Mental Status: Mental status NL, Mood NL MUSCULOSKELETAL: Osteoarthritic changes both hands VITALS Vital Signs Vital Signs Date Time Temp Pulse Resp B/P (MAP) Pulse Ox O2 Delivery O2 Flow Rate FiO2 08/04/18 05:32 97.7 64 18 94/61 (72) 98 Nasal Cannula 2.0 LABS LABS Laboratory Tests Test 08/03/18 18:25 08/03/18 18:42 08/04/18 06:02 White Blood Count 5.5 x10^3/uL (4.0-11.0) 4.7 x10^3/uL (4.0-11.0) Red Blood Count 3.84 x10^6/uL (3.50-5.40) 3.90 x10^6/uL (3.50-5.40) Hemoglobin 10.2 g/dL (12.0-15.5) 10.3 g/dL (12.0-15.5) Hematocrit 31.3 % (36.0-47.0) 31.9 % (36.0-47.0) Mean Corpuscular Volume 81 fL (79-100) 82 fL (79-100) Mean Corpuscular Hemoglobin 27 pg (25-35) 27 pg (25-35) Mean Corpuscular Hemoglobin Concent 33 g/dL (31-37) 32 g/dL (31-37) Red Cell Distribution Width 21.9 % (11.5-14.5) 20.7 % (11.5-14.5) Platelet Count 363 x10^3/uL (140-400) 335 x10^3/uL (140-400) Neutrophils (%) (Auto) 42 % (31-73) 41 % (31-73) Lymphocytes (%) (Auto) 45 % (24-48) 46 % (24-48) Monocytes (%) (Auto) 11 % (0-9) 10 % (0-9) Eosinophils (%) (Auto) 2 % (0-3) 3 % (0-3) Basophils (%) (Auto) 1 % (0-3) 1 % (0-3) Neutrophils # (Auto) 2.3 x10^3uL (1.8-7.7) 1.9 x10^3uL (1.8-7.7) Lymphocytes # (Auto) 2.5 x10^3/uL (1.0-4.8) 2.1 x10^3/uL (1.0-4.8) Monocytes # (Auto) 0.6 x10^3/uL (0.0-1.1) 0.5 x10^3/uL (0.0-1.1) Eosinophils # (Auto) 0.1 x10^3/uL (0.0-0.7) 0.1 x10^3/uL (0.0-0.7) Basophils # (Auto) 0.1 x10^3/uL (0.0-0.2) 0.0 x10^3/uL (0.0-0.2) Platelet Estimate Increased (ADEQUATE) Large Platelets Occ Polychromasia Slight Anisocytosis Mod Ovalocytes Occ Prothrombin Time 10.4 SEC (9.4-11.4) Prothromb Time International Ratio 1.0 (0.9-1.1) Activated Partial Thromboplast Time 25 SEC (23-33) D-Dimer (Patricia) < 0.19 mg/L (0.00-0.50) Sodium Level 144 mmol/L (136-145) 146 mmol/L (136-145) Potassium Level 3.3 mmol/L (3.5-5.1) 3.5 mmol/L (3.5-5.1) Chloride Level 105 mmol/L (98-107) 107 mmol/L (98-107) Carbon Dioxide Level 30 mmol/L (21-32) 30 mmol/L (21-32) Anion Gap 9 (6-14) 9 (6-14) Blood Urea Nitrogen 13 mg/dL (7-20) 14 mg/dL (7-20) Creatinine 1.3 mg/dL (0.6-1.0) 1.2 mg/dL (0.6-1.0) Estimated GFR (Cockcroft-Gault) 41.6 45.7 Glucose Level 86 mg/dL (70-99) 90 mg/dL (70-99) Calcium Level 8.8 mg/dL (8.5-10.1) 8.8 mg/dL (8.5-10.1) Magnesium Level 1.8 mg/dL (1.8-2.4) Total Bilirubin 0.4 mg/dL (0.2-1.0) Direct Bilirubin 0.1 mg/dL (0.0-0.2) Aspartate Amino Transf (AST/SGOT) 20 U/L (15-37) Alanine Aminotransferase (ALT/SGPT) 37 U/L (14-59) Alkaline Phosphatase 87 U/L (46-116) Creatine Kinase 269 U/L (26-192) Troponin I Quantitative < 0.017 ng/mL (0-0.055) PS-Tdf-O-Type Natriuretic Peptide 138 pg/mL (0-124) Total Protein 6.7 g/dL (6.4-8.2) Albumin 3.6 g/dL (3.4-5.0) Lipase 112 U/L (73-393) Urine Collection Type Unknown Urine Color Yellow Urine Clarity Hazy Urine pH 5.5 Urine Specific [place] 1.015 Urine Protein Neg (NEG-TRACE) Urine Glucose (UA) Neg mg/dL (NEG) Urine Ketones (Stick) Neg mg/dL (NEG) Urine Blood Small (NEG) Urine Nitrite Neg (NEG) Urine Bilirubin Neg (NEG) Urine Urobilinogen Dipstick 0.2 mg/dL (0.2 mg/dL) Urine Leukocyte Esterase Trace (NEG) Urine RBC 1-2 /HPF (0-2) Urine WBC 1-4 /HPF (0-4) Urine Squamous Epithelial Cells Occ /LPF Urine Bacteria 0 /HPF (0-FEW) Urine Mucus Slight /LPF Urine Opiates Screen Neg (NEG) Urine Methadone Screen Neg (NEG) Urine Barbiturates Neg (NEG) Urine Phencyclidine Screen Neg (NEG) Urine Amphetamine/Methamphetamine Neg (NEG) Urine Benzodiazepines Screen Neg (NEG) Urine Cocaine Screen Neg (NEG) Urine Cannabinoids Screen Neg (NEG) Urine Ethyl Alcohol Neg (NEG) ECHOCARDIOGRAM Echocardiogram <Conclusion> The left ventricular systolic function is normal. The Ejection Fraction is 55-60%. There is normal LV segmental wall motion. Transmitral Doppler flow pattern is Grade I-abnormal relaxation pattern. No significant valvular abnormalities. There is no evidence of significant pericardial effusion. DATE: 04/08/18 1833 ASSESSMENT/PLAN Assessment/Plan 1. LE edema, mild anasarca. CXR without pul edema. NT Pro BNP mildly elevated. Doubt overt HF 2. CAD s/p PCI/stent to LAD 2014. MPI last year with normal perfusion. Recent echo with normal LVEF, wall motion. 3. Hypertension; controlled 4. Hyperlipidemia; statin therapy 5. PVC's; BB and antiarrhythmic therapy 6. CKD 7. Hypokalemia Recommendations Lasix 20mg IV x1 Replace K Continue current secondary prevention measures. Follow up with Dr. Styles next week as scheduled. DIONICIO GARNER APRN August 04, 2018 07:19
[2018-08-04] MEDS ORDERED: FUROSEMIDE 20 MG/2 ML VIAL IVP ONE (07:45)
[2018-08-04] MEDS ORDERED: POTASSIUM CHLORIDE 20 MEQ TABLET.ER. PO ONE (07:45)
[2018-08-04] MEDS: IPRATRPIUM/ALBUTEROL 0.5/2.5MG 3 ML NEBU. NEB SCH ×2 (08:00→09:08)
[2018-08-04] MEDS ORDERED: ASPIRIN ENTERIC COATED 81 MG TABLET.DR. PO SCH (08:00)
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
[2018-08-04] MEDS: METOCLOPRAMIDE 10 MG TABLET PO SCH (08:28)
[2018-08-04] MEDS: DRONEDARONE HCL 400 MG TABLET PO SCH (08:54)
[2018-08-04] MEDS ORDERED: ENOXAPARIN ** NOTE DOSE ** SYRINGE SQ SCH (09:00)
[2018-08-04] MEDS: METOPROLOL SUCC 24HR ER 50 MG TAB.ER.24H. PO SCH (09:00)
[2018-08-04] MEDS: ACETAMINOPHEN 325 MG TABLET PO PRN (10:56)
[2018-08-04 10:58] VITALS: BP 100/69
[2018-08-04 14:51] VITALS: BP 95/68
[2018-08-04 15:56] VITALS: BP_SYST 108; BP_SYST 109; BP_SYST 115; BP_DIAS 76; BP_DIAS 77
--- NOTE | 2018-08-04 17:07 | RAD ---
LEFT LEG VENOUS DOPPLER STUDY: Clinical indications: Left leg swelling and pain. Findings: Duplex sonography (including wooten scale evaluation and color flow and waveform spectral analysis) of the proximal aspect of the greater saphenous vein and the proximal aspect of the profunda femoral vein and the entire length of the common femoral and superficial femoral and popliteal veins and the tibioperoneal trunk and the proximal aspect of the posterior tibial and peroneal veins of the left leg was performed. Normal compressibility, augmentation of color Doppler flow after calf compression, and respiratory variation of Doppler flow is seen. Thus, there are no sonographic findings of deep venous thrombosis within these veins. Impression: There are no sonographic findings of deep venous thrombosis within the veins discussed above of the left lower extremity. RIGHT LEG VENOUS DOPPLER STUDY: Clinical indications: Right leg swelling and pain. Findings: Duplex sonography (including wooten scale evaluation and color flow and waveform spectral analysis) of the proximal aspect of the greater saphenous vein and proximal aspect of the profunda femoral vein and the entire length of the common femoral and superficial femoral and popliteal veins and the tibioperoneal trunk and the proximal aspect of the posterior tibial and peroneal veins of the right leg was performed. Normal compressibility, augmentation of color Doppler flow after calf compression, and respiratory variation of Doppler flow is seen. Thus, there are no sonographic findings of deep venous thrombosis within these veins. Impression: There are no sonographic findings of deep venous thrombosis within the veins discussed above of the right lower extremity. Electronically signed by: Tor Emanuel MD (08/04/2018 5:04 PM) [id number]
--- NOTE | 2018-08-04 18:58 | SSS ---
ADMIT DATE: 08/04/2018 HISTORY OF PRESENT ILLNESS: The patient is a 63-year-old female patient, who came to the Emergency Room complaining of marked swelling of her legs. She also complained that the swelling also involves her hand, abdomen and her right lower extremity and feet are not comfortably as they are tight. Swelling has been present for the past couple of days. She is on oral Lasix at home and said that she is compliant with her medication and also complained of mild dyspnea as well. No dizziness, diaphoresis, nausea or vomiting. Denied any chills, rigors or fever. No change in diet at home. Recent meal with high sodium intake. Swelling has improved with diuretics in the Emergency Room. In fact, by the time I saw her, I could hardly appreciate any swelling. PAST MEDICAL HISTORY: Significant for hypertension, hyperlipidemia, chronic obstructive pulmonary disease, morbid obesity, obstructive sleep apnea and recurrent UTIs. PAST SURGICAL HISTORY: Significant for bilateral cataract extraction, 2 C-sections, tummy tuck, breast reduction surgery, total abdominal hysterectomy, bilateral salpingo-oophorectomy, also had colonoscopy and polypectomy. She underwent cardiac catheterization with stent deployment in 2013. ALLERGIES: She has no known drug allergies. FAMILY HISTORY: She had 1 older sister, who at age 33 because of lung cancer. One younger sister at age of 5 years because of typhoid fever. Her father in his 80s because of lymphoma and leukemia. Her mother in her 80s because of end-stage renal disease, on hemodialysis. SOCIAL HISTORY: She is , has 3 biological daughters and one adopted daughter, has no sons. She quit smoking about 4 years ago. She used to smoke a pack a day and smoked for almost 40 years. She does drink alcohol occasionally. Does not use any drugs. MEDICATIONS: She currently on following medications: She is on aspirin 81 mg once a day, atorvastatin calcium 40 mg at bedtime. She is on Pristiq extended release 50 mg once a day, Multaq 400 mg twice a day, furosemide 20 mg once a day, isosorbide mononitrate 30 mg daily, Xopenex 2 puffs every 4-6 hours, metoclopramide for Reglan 10 mg twice a day, metoprolol succinate 100 mg twice a day, Protonix 40 mg daily. PHYSICAL EXAMINATION: GENERAL: On arrival to the Emergency Room, she looked well and was clearly in no apparent respiratory distress, slightly pale, but no jaundice, cyanosis, or thyromegaly. No jugular venous distension. No limb edema. VITAL SIGNS: Her heart rate was 97, blood pressure was 116/55, temperature was 98.2, respiratory rate 20, and oxygen saturation was 99% on room air. HEAD, EYES, EARS, NOSE, AND THROAT: Showed normocephalic, atraumatic. NECK: Supple. HEART: Showed normal first and second heart sounds. No gallop, rub or murmur. CHEST: Clear to auscultation. No crepitation or rhonchi. ABDOMEN: Distended, soft, nontender. NEUROLOGIC: She was awake, alert, responding appropriately. All cranial nerves intact. EXTREMITIES: She moves extremities without difficulty. She ambulates without assistance or assistive devices. LABORATORY DATA: Showed that her white cell count was 5500, hemoglobin 10, hematocrit 31, MCV 81 and platelet count of 363,000. Her serum sodium was 144, potassium 3.3, chloride 105, bicarbonate 30, anion gap of 9, BUN 13, creatinine 1.3, estimated GFR was 41 mL per minute. Her glucose was 86, calcium was 8.8, magnesium was 1.8. Total bilirubin, AST, ALT, alkaline phosphatase were normal. Her troponin was less than 0.017. Total protein was 6.7, albumin was 3.6, lipase 112 and TSH of 1.2. Her prothrombin time was 10.4, INR of 1, aPTT was 25. D-dimer was less than 0.19. Her chest x-ray showed that the cardiac silhouette is mildly enlarged. The thoracic aorta is tortuous. Atherosclerotic calcification of thoracic aorta is seen. No acute pulmonary infiltrate is noted. No pneumothorax or pleural effusion is seen. Degenerative changes are seen involving the thoracic spine. She apparently was given 20 mg of Lasix IV, together with potassium chloride and another 40 mEq. By the time I saw her this morning, she was actually doing fine. She was lying flat in bed, in no apparent distress. She denied any shortness of breath. Denied any chest pain, orthopnea or paroxysmal nocturnal dyspnea. Denied any cough, phlegm or hemoptysis. When I saw her this afternoon, she looked well and was clearly in no apparent respiratory distress. We did actually orthostatics, which showed no evidence of orthostatic hypotension. I could not really appreciate any swelling of her upper extremities or her lower extremities. She felt fine and decision was made to discharge her home to follow with her primary care physician to continue on all her medication. FINAL DISCHARGE DIAGNOSES: 1. Mild generalized anasarca that has responded to IV diuretics. 2. Coronary artery disease, status post PCI with stent deployment to left anterior descending. Her nuclear stress test last year was normal. 3. Recent echo showed normal left ventricular ejection fraction and normal wall motion. 4. Hypertension, well controlled. 5. Hyperlipidemia, on statin. She is on antiarrhythmic for her premature ventricular contraction. 6. Chronic kidney disease, stable. 7. Hypokalemia, resolved. SOLO AUGIRRE MD DR: [email or web address]/viv JOB#: [id number] / [id number]
[2018-08-04] MEDS ORDERED: CEPHALEXIN 250 MG CAPSULE PO SCH (21:00)
== END 2018-08-04 17:10 | disposition home or self-care (01) | DRG 948 ==
LOC: ER 18:06 → 1 SOUTH 20:00
PROVIDERS: ADMIT Internal Medicine; ATTEND Internal Medicine
DX: R60.1 Generalized edema (principal); I13.0 Hypertensive heart and chronic kidney disease with heart failure and stage 1 through stage 4 chronic kidney disease, or unspecified chronic kidney disease; N39.0 Urinary tract infection, site not specified; E11.22 Type 2 diabetes mellitus with diabetic chronic kidney disease; E78.00 Pure hypercholesterolemia, unspecified; E78.5 Hyperlipidemia, unspecified; E87.6 Hypokalemia; G47.33 Obstructive sleep apnea (adult) (pediatric); I25.10 Atherosclerotic heart disease of native coronary artery without angina pectoris; I49.3 Ventricular premature depolarization; J44.9 Chronic obstructive pulmonary disease, unspecified; K21.9 Gastro-esophageal reflux disease without esophagitis; N18.9 Chronic kidney disease, unspecified; Z80.1 Family history of malignant neoplasm of trachea, bronchus and lung; Z80.6 Family history of leukemia; Z80.7 Family history of other malignant neoplasms of lymphoid, hematopoietic and related tissues; Z87.440 Personal history of urinary (tract) infections; Z87.891 Personal history of nicotine dependence; Z90.710 Acquired absence of both cervix and uterus; Z95.5 Presence of coronary angioplasty implant and graft; Z98.41 Cataract extraction status, right eye; Z98.42 Cataract extraction status, left eye; E66.01 Morbid (severe) obesity due to excess calories; Z68.34 Body mass index [BMI] 34.0-34.9, adult; F32.9 Major depressive disorder, single episode, unspecified; F41.9 Anxiety disorder, unspecified; G43.909 Migraine, unspecified, not intractable, without status migrainosus; Z88.8 Allergy status to other drugs, medicaments and biological substances; D64.9 Anemia, unspecified; Z98.51 Tubal ligation status; Z98.49 Cataract extraction status, unspecified eye; Z82.49 Family history of ischemic heart disease and other diseases of the circulatory system
CPT/HCPCS: 36415; 71046; 80048; 80076; 80307; 81001; 82550; 83690; 83735; 83880; 84443; 84484; 85025; 85379; 85610; 85730; 87086; 93005; 93970; 96365; 96372; 96375; J0696; J1650; J1940; J8597; 99285-25

== ENCOUNTER 2018-10-10 20:32 | Inpatient (IN) | payer OTHER ==
[~2018-10-10] VITALS: Ht 162.6 cm; Wt 88.9 kg
[~2018-10-10 20:32] MED LIST changes: +FURO-69 PO; +MONT10TA80 PO; -MONT10TA9 PO
--- NOTE | 2018-10-10 20:44 | ED.ADGEN ---
Past History Past Medical History: Angina, Arrhythmia, CAD, Constipation, High Cholesterol, Hypertension, UTI, Other Past Surgical History: Angioplasty, Hysterectomy, Other Past Surgical History CADZ, WITH STENT Smoking: Quit Greater Than 1 Year Alcohol Use: None Drug Use: None Adult General Chief Complaint Chief Complaint ".. I ve been having some subjective fevers.. feel hot and sweaty. ... but most of all.. I just extremely fatigued.. I feel short of breath.. feel like I can't do anything.. " HPI HPI Patient is a 63 year old female who presents with above hx and complaints extreme fatigue. Patient does have a history of coronary artery disease with stent �1. Has had history of angina and episodes of dysrhythmia. Patient has history of hypertension. Elevated cholesterol. No history of travel. No specific ill contacts. Has felt like her heart is racing today. Patient normally follows at [place] for her care. Patient is an ex-smoker. Review of Systems Review of Systems Constitutional: Subjective history of fever Eyes: Denies change in visual acuity, redness, or eye pain [] HENT: Denies nasal congestion or sore throat [] Respiratory: Denies cough. Complains of dyspnea Cardiovascular: No additional information not addressed in HPI [] GI: Denies abdominal pain,, vomiting, bloody stools or diarrhea []some complaints of nausea : Complains of mild dysuria Musculoskeletal: Denies back pain or joint pain []complains of generalized weakness Integument: Denies rash or skin lesions [] Neurologic: Denies headache, focal weakness or sensory changes [] Endocrine: Denies polyuria or polydipsia [] All other systems were reviewed and found to be within normal limits, except as documented in this note. Family History Family History Many family members had cancer s Current Medications Current Medications Current Medications Medications (Trade) Dose Ordered Sig/Kian Start Time Stop Time Status Last Admin Dose Admin Acetaminophen (Tylenol) 1,000 mg 1X ONCE 10/10/18 23:45 10/10/18 23:48 DC 10/10/18 23:42 1,000 MG Ceftriaxone Sodium 1 gm/ Sodium Chloride 50 ml @ 100 mls/hr 1X ONCE 10/11/18 00:30 10/11/18 00:59 DC 10/11/18 00:25 100 MLS/HR Ceftriaxone Sodium (Rocephin) 1 gm STK-MED ONCE 10/11/18 00:14 10/11/18 00:15 DC Lactated Ringer's 1,000 ml @ 100 mls/hr Q10H 10/10/18 21:00 10/11/18 06:59 10/10/18 21:20 100 MLS/HR Morphine Sulfate (Morphine 2mg Syringe) 2 mg PRN Q2HR PRN 10/11/18 00:30 10/12/18 00:29 Ondansetron HCl (Zofran) 4 mg PRN Q4HRS PRN 10/11/18 00:30 10/12/18 00:29 Potassium Chloride (Klor-Con) 40 meq 1X ONCE 10/11/18 00:30 10/11/18 00:31 DC 10/11/18 00:24 40 MEQ Sodium Chloride 50 ml @ As Directed STK-MED ONCE 10/11/18 00:16 10/11/18 00:17 DC Allergies Allergies Allergies Coded Allergies Type Severity Reaction Last Updated Verified gluten Allergy Intermediate 03/06/18 Yes Physical Exam Physical Exam Constitutional: Moderately acute distress, non-toxic appearance. [] HENT: Normocephalic, atraumatic, bilateral external ears normal, oropharynx moist, no oral exudates, nose normal. [] Eyes: PERRLA, EOMI, conjunctiva normal, no discharge. [] Neck: Normal range of motion, no tenderness, supple, no stridor. [] More than 17 inches circumference Cardiovascular: Tachycardia Heart rate regular rhythm, no murmur, PMI to the left Lungs & Thorax: Bilateral breath sounds scattered wheezes on auscultation [] Abdomen: Bowel sounds normal, soft, no tenderness, no masses, no pulsatile masses. []Obese. Distended. Old surgery scars Skin: Warm, dry, no erythema, no rash. [] Back: No tenderness, no CVA tenderness. [] Extremities: No tenderness, no cyanosis, no clubbing, ROM intact, no edema. [] No cording in legs Neurologic: Alert and oriented X 3, normal motor function, normal sensory function, no focal deficits noted. [] Psychologic: Affect anxious, judgement normal, mood normal. [] Current Patient Data Vital Signs Vital Signs Date Time Temp Pulse Resp B/P (MAP) Pulse Ox O2 Delivery O2 Flow Rate FiO2 10/10/18 23:19 88 18 122/66 (84) 94 Room Air 10/10/18 20:53 98.1 Lab Results Laboratory Tests Test 10/10/18 21:10 10/10/18 22:15 White Blood Count 6.7 x10^3/uL (4.0-11.0) Red Blood Count 4.37 x10^6/uL (3.50-5.40) Hemoglobin 11.5 g/dL (12.0-15.5) L Hematocrit 35.7 % (36.0-47.0) L Mean Corpuscular Volume 82 fL (79-100) Mean Corpuscular Hemoglobin 26 pg (25-35) Mean Corpuscular Hemoglobin Concent 32 g/dL (31-37) Red Cell Distribution Width 22.1 % (11.5-14.5) H Platelet Count 393 x10^3/uL (140-400) Neutrophils (%) (Auto) 44 % (31-73) Lymphocytes (%) (Auto) 35 % (24-48) Monocytes (%) (Auto) 14 % (0-9) H Eosinophils (%) (Auto) 6 % (0-3) H Basophils (%) (Auto) 2 % (0-3) Neutrophils # (Auto) 2.9 x10^3uL (1.8-7.7) Lymphocytes # (Auto) 2.3 x10^3/uL (1.0-4.8) Monocytes # (Auto) 1.0 x10^3/uL (0.0-1.1) Eosinophils # (Auto) 0.4 x10^3/uL (0.0-0.7) Basophils # (Auto) 0.1 x10^3/uL (0.0-0.2) Platelet Estimate Increased (ADEQUATE) Polychromasia Slight Anisocytosis Slight Erythrocyte Sedimentation Rate 47 (0-25) H Prothrombin Time 10.2 SEC (9.4-11.4) Prothrombin Time INR 1.0 (0.9-1.1) PTT 24 SEC (23-33) D-Dimer (Patricia) < 0.19 mg/L (0.00-0.50) Sodium Level 139 mmol/L (136-145) Potassium Level 3.0 mmol/L (3.5-5.1) L Chloride Level 99 mmol/L (98-107) Carbon Dioxide Level 30 mmol/L (21-32) Anion Gap 10 (6-14) Blood Urea Nitrogen 18 mg/dL (7-20) Creatinine 1.6 mg/dL (0.6-1.0) H Estimated GFR (Cockcroft-Gault) 32.8 Glucose Level 110 mg/dL (70-99) H Calcium Level 9.5 mg/dL (8.5-10.1) Magnesium Level 2.1 mg/dL (1.8-2.4) Total Bilirubin 0.3 mg/dL (0.2-1.0) Direct Bilirubin 0.1 mg/dL (0.0-0.2) Aspartate Amino Transferase (AST) 25 U/L (15-37) Alanine Aminotransferase (ALT) 37 U/L (14-59) Alkaline Phosphatase 79 U/L (46-116) Creatine Kinase 61 U/L (26-192) Troponin I Quantitative < 0.017 ng/mL (0-0.055) EN-Hnr-Q-Type Natriuretic Peptide 95 pg/mL (0-124) Total Protein 6.5 g/dL (6.4-8.2) Albumin 3.5 g/dL (3.4-5.0) Lipase 115 U/L (73-393) Urine Collection Type Unknown Urine Color Yellow Urine Clarity Hazy Urine pH 5.0 Urine Specific [place] 1.020 Urine Protein Neg (NEG-TRACE) Urine Glucose (UA) Neg mg/dL (NEG) Urine Ketones (Stick) Trace mg/dL (NEG) Urine Blood Mod (NEG) Urine Nitrite Neg (NEG) Urine Bilirubin Neg (NEG) Urine Urobilinogen Dipstick 0.2 mg/dL (0.2 mg/dL) Urine Leukocyte Esterase Small (NEG) Urine RBC 1-2 /HPF (0-2) Urine WBC 5-10 /HPF (0-4) Urine Squamous Epithelial Cells Occ /LPF Urine Bacteria Few /HPF (0-FEW) Urine Opiates Screen Neg (NEG) Urine Methadone Screen Neg (NEG) Urine Barbiturates Neg (NEG) Urine Phencyclidine Screen Neg (NEG) Urine Amphetamine/Methamphetamine Neg (NEG) Urine Benzodiazepines Screen Neg (NEG) Urine Cocaine Screen Neg (NEG) Urine Cannabinoids Screen Neg (NEG) Urine Ethyl Alcohol Neg (NEG) EKG EKG My interpretation of EKG shows a sinus rhythm at 94. No findings acute STEMI with contralateral changes. There is some leftward axis. Repeat EKG at 00 19 minutes on 10/11 shows a sinus rhythm at 86 with leftward axis but no findings of acute STEMI or acute interval change from prior EKG[] Radiology/Procedures Radiology/Procedures [][address] [id number] IMAGING REPORT Signed PATIENT: SHIRA SANTOS ACCOUNT: [id number] : 1955 LOCATION: ER AGE: 63 SEX: F EXAM STATUS: REG ER ORD. PHYSICIAN: MARCIA BROWN MD REASON: Fevers, fatigue, chest pain. Hx COPD, asthma PROCEDURE: PORTABLE CHEST 1V Exam: Chest one view INDICATION: Fevers TECHNIQUE: Frontal view of the chest Comparisons: 08/03/2018 FINDINGS: The cardiomediastinal silhouette and pulmonary vessels are within normal limits. The lung and pleural spaces are clear. IMPRESSION: No acute cardiopulmonary process. Electronically signed by: Selwyn Mariscal MD (10/10/2018 9:58 PM) [facility] DICTATED AND SIGNED BY: SELWYN MARISCAL MD DATE: 10/10/182157 CC: MARCIA BROWN MD; ELTON PECK DO ~ Course & Med Decision Making Course & Med Decision Making Pertinent Labs and Imaging studies reviewed. (See chart for details). Discussed with patient options of treatment= patient uncomfortable about returning home. Because of previous cardiac history. Will admit for further evaluation and supplement of her low potassium. With a cardiology consult. Will treat the UTI. Pt. admitted to Dr. Mckenzie and cardiology consult. [] Final Impression Final Impression 1. Extreme Fatigue 2. Hx. CADz with Stent 3. Hypokalemia 3.0 4. UTI 5. HTN[] Dragon Disclaimer Dragon Disclaimer This electronic medical record was generated, in whole or in part, using a voice recognition dictation system. Discharge Summary Visit Information Final Diagnosis Problems Medical Problems: (1) Fever Status: Acute Brief Hospital Course Allergies Allergies Coded Allergies Type Severity Reaction Last Updated Verified gluten Allergy Intermediate 03/06/18 Yes Vital Signs Vital Signs Date Time Temp Pulse Resp B/P (MAP) Pulse Ox O2 Delivery O2 Flow Rate FiO2 10/10/18 23:19 88 18 122/66 (84) 94 Room Air 10/10/18 20:53 98.1 Lab Results Laboratory Tests Test 10/10/18 21:10 10/10/18 22:15 White Blood Count 6.7 x10^3/uL (4.0-11.0) Red Blood Count 4.37 x10^6/uL (3.50-5.40) Hemoglobin 11.5 g/dL (12.0-15.5) Hematocrit 35.7 % (36.0-47.0) Mean Corpuscular Volume 82 fL (79-100) Mean Corpuscular Hemoglobin 26 pg (25-35) Mean Corpuscular Hemoglobin Concent 32 g/dL (31-37) Red Cell Distribution Width 22.1 % (11.5-14.5) Platelet Count 393 x10^3/uL (140-400) Neutrophils (%) (Auto) 44 % (31-73) Lymphocytes (%) (Auto) 35 % (24-48) Monocytes (%) (Auto) 14 % (0-9) Eosinophils (%) (Auto) 6 % (0-3) Basophils (%) (Auto) 2 % (0-3) Neutrophils # (Auto) 2.9 x10^3uL (1.8-7.7) Lymphocytes # (Auto) 2.3 x10^3/uL (1.0-4.8) Monocytes # (Auto) 1.0 x10^3/uL (0.0-1.1) Eosinophils # (Auto) 0.4 x10^3/uL (0.0-0.7) Basophils # (Auto) 0.1 x10^3/uL (0.0-0.2) Platelet Estimate Increased (ADEQUATE) Polychromasia Slight Anisocytosis Slight Erythrocyte Sedimentation Rate 47 (0-25) Prothrombin Time 10.2 SEC (9.4-11.4) Prothromb Time International Ratio 1.0 (0.9-1.1) Activated Partial Thromboplast Time 24 SEC (23-33) D-Dimer (Patricia) < 0.19 mg/L (0.00-0.50) Sodium Level 139 mmol/L (136-145) Potassium Level 3.0 mmol/L (3.5-5.1) Chloride Level 99 mmol/L (98-107) Carbon Dioxide Level 30 mmol/L (21-32) Anion Gap 10 (6-14) Blood Urea Nitrogen 18 mg/dL (7-20) Creatinine 1.6 mg/dL (0.6-1.0) Estimated GFR (Cockcroft-Gault) 32.8 Glucose Level 110 mg/dL (70-99) Calcium Level 9.5 mg/dL (8.5-10.1) Magnesium Level 2.1 mg/dL (1.8-2.4) Total Bilirubin 0.3 mg/dL (0.2-1.0) Direct Bilirubin 0.1 mg/dL (0.0-0.2) Aspartate Amino Transf (AST/SGOT) 25 U/L (15-37) Alanine Aminotransferase (ALT/SGPT) 37 U/L (14-59) Alkaline Phosphatase 79 U/L (46-116) Creatine Kinase 61 U/L (26-192) Troponin I Quantitative < 0.017 ng/mL (0-0.055) YN-Djy-E-Type Natriuretic Peptide 95 pg/mL (0-124) Total Protein 6.5 g/dL (6.4-8.2) Albumin 3.5 g/dL (3.4-5.0) Lipase 115 U/L (73-393) Urine Collection Type Unknown Urine Color Yellow Urine Clarity Hazy Urine pH 5.0 Urine Specific [place] 1.020 Urine Protein Neg (NEG-TRACE) Urine Glucose (UA) Neg mg/dL (NEG) Urine Ketones (Stick) Trace mg/dL (NEG) Urine Blood Mod (NEG) Urine Nitrite Neg (NEG) Urine Bilirubin Neg (NEG) Urine Urobilinogen Dipstick 0.2 mg/dL (0.2 mg/dL) Urine Leukocyte Esterase Small (NEG) Urine RBC 1-2 /HPF (0-2) Urine WBC 5-10 /HPF (0-4) Urine Squamous Epithelial Cells Occ /LPF Urine Bacteria Few /HPF (0-FEW) Urine Opiates Screen Neg (NEG) Urine Methadone Screen Neg (NEG) Urine Barbiturates Neg (NEG) Urine Phencyclidine Screen Neg (NEG) Urine Amphetamine/Methamphetamine Neg (NEG) Urine Benzodiazepines Screen Neg (NEG) Urine Cocaine Screen Neg (NEG) Urine Cannabinoids Screen Neg (NEG) Urine Ethyl Alcohol Neg (NEG) Brief Hospital Course Ms. Santos is a 63 old female who presented with complaints of extreme fatigue, UT(I, Hx. CADz with Stent- Admitted to Dr. Mckenzie with cardiology consult. Discharge Information Condition at Discharge: Improved, Stable Dischare Medications Current Medications Lactated Ringer's 1,000 ml @ 100 mls/hr Q10H IV Last administered on 10/10/18at 21:20; Admin Dose 100 MLS/HR; Start 10/10/18 at 21:00; Stop 10/11/18 at 06:59 Acetaminophen (Tylenol) 1,000 mg 1X ONCE PO Last administered on 10/10/18at 23:42; Admin Dose 1,000 MG; Start 10/10/18 at 23:45; Stop 10/10/18 at 23:48; Stat us DC Potassium Chloride (Klor-Con) 40 meq 1X ONCE PO Last administered on 10/11/18at 00:24; Admin Dose 40 MEQ; Start 10/11/18 at 00:30; Stop 10/11/18 at 00:31; Status DC Ceftriaxone Sodium 1 gm/ Sodium Chloride 50 ml @ 100 mls/hr 1X ONCE IV Last administered on 10/11/18at 00:25; Admin Dose 100 MLS/HR; Start 10/11/18 at 00:30; Stop 10/11/18 at 00:59; Status DC Ceftriaxone Sodium (Rocephin) 1 gm STK-MED ONCE .ROUTE ; Start 10/11/18 at 00:14; Stop 10/11/18 at 00:15; Status DC Sodium Chloride 0 ml @ As Directed STK-MED ONCE .ROUTE ; Start 10/11/18 at 00:14; Stop 10/11/18 at 00:15; Status DC Sodium Chloride 50 ml @ As Directed STK-MED ONCE .ROUTE ; Start 10/11/18 at 00:16; Stop 10/11/18 at 00:17; Status DC Ondansetron HCl (Zofran) 4 mg PRN Q4HRS PRN IV NAUSEA/VOMITING; Start 10/11/18 at 00:30; Stop 10/12/18 at 00:29 Morphine Sulfate (Morphine 2mg Syringe) 2 mg PRN Q2HR PRN IV PAIN; Start 10/11/18 at 00:30; Stop 10/12/18 at 00:29 Active Scripts Active Multaq (Dronedarone Hcl) 400 Mg Tablet 1 Tab PO BID Reported Lasix (Furosemide) 20 Mg Tablet 20 Mg PO DAILY Xopenex Hfa (Levalbuterol Tartrate) 15 Gm Hfa.aer.ad 2 Puff IH PRN Q4-6HRS Isosorbide Mononitrate Er (Isosorbide Mononitrate) 30 Mg Tab.er.24h 1 Tab PO DAILY Pantoprazole Sodium 40 Mg Tablet.dr 1 Tab PO DAILY Aspirin 81 Mg Tab.chew 1 Tab PO DAILY Reglan (Metoclopramide Hcl) 10 Mg Tablet 1 Tab PO BID Metoprolol Succinate ( Xl ) (Metoprolol Succinate) 25 Mg Tab.er.24h 100 Mg PO BID Pristiq Er (Desvenlafaxine Succinate) 50 Mg Tab.er.24h 1 Tab PO DAILY Discharge Summary Visit Information Final Diagnosis Problems Medical Problems: (1) Fever Status: Acute Brief Hospital Course Allergies Allergies Coded Allergies Type Severity Reaction Last Updated Verified gluten Allergy Intermediate 03/06/18 Yes Vital Signs Vital Signs Date Time Temp Pulse Resp B/P (MAP) Pulse Ox O2 Delivery O2 Flow Rate FiO2 10/10/18 23:19 88 18 122/66 (84) 94 Room Air 10/10/18 20:53 98.1 Lab Results Laboratory Tests Test 10/10/18 21:10 10/10/18 22:15 White Blood Count 6.7 x10^3/uL (4.0-11.0) Red Blood Count 4.37 x10^6/uL (3.50-5.40) Hemoglobin 11.5 g/dL (12.0-15.5) Hematocrit 35.7 % (36.0-47.0) Mean Corpuscular Volume 82 fL (79-100) Mean Corpuscular Hemoglobin 26 pg (25-35) Mean Corpuscular Hemoglobin Concent 32 g/dL (31-37) Red Cell Distribution Width 22.1 % (11.5-14.5) Platelet Count 393 x10^3/uL (140-400) Neutrophils (%) (Auto) 44 % (31-73) Lymphocytes (%) (Auto) 35 % (24-48) Monocytes (%) (Auto) 14 % (0-9) Eosinophils (%) (Auto) 6 % (0-3) Basophils (%) (Auto) 2 % (0-3) Neutrophils # (Auto) 2.9 x10^3uL (1.8-7.7) Lymphocytes # (Auto) 2.3 x10^3/uL (1.0-4.8) Monocytes # (Auto) 1.0 x10^3/uL (0.0-1.1) Eosinophils # (Auto) 0.4 x10^3/uL (0.0-0.7) Basophils # (Auto) 0.1 x10^3/uL (0.0-0.2) Platelet Estimate Increased (ADEQUATE) Polychromasia Slight Anisocytosis Slight Erythrocyte Sedimentation Rate 47 (0-25) Prothrombin Time 10.2 SEC (9.4-11.4) Prothromb Time International Ratio 1.0 (0.9-1.1) Activated Partial Thromboplast Time 24 SEC (23-33) D-Dimer (Patricia) < 0.19 mg/L (0.00-0.50) Sodium Level 139 mmol/L (136-145) Potassium Level 3.0 mmol/L (3.5-5.1) Chloride Level 99 mmol/L (98-107) Carbon Dioxide Level 30 mmol/L (21-32) Anion Gap 10 (6-14) Blood Urea Nitrogen 18 mg/dL (7-20) Creatinine 1.6 mg/dL (0.6-1.0) Estimated GFR (Cockcroft-Gault) 32.8 Glucose Level 110 mg/dL (70-99) Calcium Level 9.5 mg/dL (8.5-10.1) Magnesium Level 2.1 mg/dL (1.8-2.4) Total Bilirubin 0.3 mg/dL (0.2-1.0) Direct Bilirubin 0.1 mg/dL (0.0-0.2) Aspartate Amino Transf (AST/SGOT) 25 U/L (15-37) Alanine Aminotransferase (ALT/SGPT) 37 U/L (14-59) Alkaline Phosphatase 79 U/L (46-116) Creatine Kinase 61 U/L (26-192) Troponin I Quantitative < 0.017 ng/mL (0-0.055) ES-Eeu-Z-Type Natriuretic Peptide 95 pg/mL (0-124) Total Protein 6.5 g/dL (6.4-8.2) Albumin 3.5 g/dL (3.4-5.0) Lipase 115 U/L (73-393) Urine Collection Type Unknown Urine Color Yellow Urine Clarity Hazy Urine pH 5.0 Urine Specific [place] 1.020 Urine Protein Neg (NEG-TRACE) Urine Glucose (UA) Neg mg/dL (NEG) Urine Ketones (Stick) Trace mg/dL (NEG) Urine Blood Mod (NEG) Urine Nitrite Neg (NEG) Urine Bilirubin Neg (NEG) Urine Urobilinogen Dipstick 0.2 mg/dL (0.2 mg/dL) Urine Leukocyte Esterase Small (NEG) Urine RBC 1-2 /HPF (0-2) Urine WBC 5-10 /HPF (0-4) Urine Squamous Epithelial Cells Occ /LPF Urine Bacteria Few /HPF (0-FEW) Urine Opiates Screen Neg (NEG) Urine Methadone Screen Neg (NEG) Urine Barbiturates Neg (NEG) Urine Phencyclidine Screen Neg (NEG) Urine Amphetamine/Methamphetamine Neg (NEG) Urine Benzodiazepines Screen Neg (NEG) Urine Cocaine Screen Neg (NEG) Urine Cannabinoids Screen Neg (NEG) Urine Ethyl Alcohol Neg (NEG) Brief Hospital Course Ms. Santos is a 63 old female who presented with Hx. Anu. with stent, extreme fatigue.- Admitted to with cardiology consult. Discharge Information Condition at Discharge: Improved, Stable Dischare Medications Current Medications Lactated Ringer's 1,000 ml @ 100 mls/hr Q10H IV Last administered on 10/10/18at 21:20; Admin Dose 100 MLS/HR; Start 10/10/18 at 21:00; Stop 10/11/18 at 06:59 Acetaminophen (Tylenol) 1,000 mg 1X ONCE PO Last administered on 10/10/18at 23:42; Admin Dose 1,000 MG; Start 10/10/18 at 23:45; Stop 10/10/18 at 23:48; Status DC Potassium Chloride (Klor-Con) 40 meq 1X ONCE PO Last administered on 10/11/18at 00:24; Admin Dose 40 MEQ; Start 10/11/18 at 00:30; Stop 10/11/18 at 00:31; Status DC Ceftriaxone Sodium 1 gm/ Sodium Chloride 50 ml @ 100 mls/hr 1X ONCE IV Last administered on 10/11/18at 00:25; Admin Dose 100 MLS/HR; Start 10/11/18 at 00:30; Stop 10/11/18 at 00:59; Status DC Ceftriaxone Sodium (Rocephin) 1 gm STK-MED ONCE .ROUTE ; Start 10/11/18 at 00:14; Stop 10/11/18 at 00:15; Status DC Sodium Chloride 0 ml @ As Directed STK-MED ONCE .ROUTE ; Start 10/11/18 at 00:14; Stop 10/11/18 at 00:15; Status DC Sodium Chloride 50 ml @ As Directed STK-MED ONCE .ROUTE ; Start 10/11/18 at 00:16 ; Stop 10/11/18 at 00:17; Status DC Ondansetron HCl (Zofran) 4 mg PRN Q4HRS PRN IV NAUSEA/VOMITING; Start 10/11/18 at 00:30; Stop 10/12/18 at 00:29 Morphine Sulfate (Morphine 2mg Syringe) 2 mg PRN Q2HR PRN IV PAIN; Start 10/11/18 at 00:30; Stop 10/12/18 at 00:29 Active Scripts Active Multaq (Dronedarone Hcl) 400 Mg Tablet 1 Tab PO BID Reported Lasix (Furosemide) 20 Mg Tablet 20 Mg PO DAILY Xopenex Hfa (Levalbuterol Tartrate) 15 Gm Hfa.aer.ad 2 Puff IH PRN Q4-6HRS Isosorbide Mononitrate Er (Isosorbide Mononitrate) 30 Mg Tab.er.24h 1 Tab PO DAILY Pantoprazole Sodium 40 Mg Tablet.dr 1 Tab PO DAILY Aspirin 81 Mg Tab.chew 1 Tab PO DAILY Reglan (Metoclopramide Hcl) 10 Mg Tablet 1 Tab PO BID Metoprolol Succinate ( Xl ) (Metoprolol Succinate) 25 Mg Tab.er.24h 100 Mg PO BID Pristiq Er (Desvenlafaxine Succinate) 50 Mg Tab.er.24h 1 Tab PO DAILY Dragon Disclaimer This chart was dictated in whole or in part using Voice Recognition software in a busy, high-work load, and often noisy Emergency Department environment. It may contain unintended and wholly unrecognized errors or omissions. Dragon Disclaimer This chart was dictated in whole or in part using Voice Recognition software in a busy, high-work load, and often noisy Emergency Department environment. It may contain unintended and wholly unrecognized errors or omissions. MARCIA BROWN MD Oct 10, 2018 20:44
[2018-10-10] MEDS ORDERED: IV RINGERS SOLUTION,LACTATED 1,000 ML IV SCH (21:00)
--- NOTE | 2018-10-10 21:22 | EKG ---
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
[2018-10-10 21:34] LABS: BASO # 0.1 x10^3/uL (0.0-0.2); BASO % 2 % (0-3); EOS # 0.4 x10^3/uL (0.0-0.7); EOS % 6 % (0-3); HEMATOCRIT 35.7 % (36.0-47.0); HEMOGLOBIN 11.5 g/dL (12.0-15.5); LYMPH # 2.3 x10^3/uL (1.0-4.8); LYMPH % 35 % (24-48); MEAN CORPUSCULAR HEMOGLOBIN 26 pg (25-35); MEAN CORPUSCULAR HGB CONC 32 g/dL (31-37); MEAN CORPUSCULAR VOLUME 82 fL (79-100); MONO % 14 % (0-9); NEUT # 2.9 x10^3uL (1.8-7.7); NEUT % 44 % (31-73); PLATELET COUNT 393 x10^3/uL (140-400); RED BLOOD COUNT 4.37 x10^6/uL (3.50-5.40); RED CELL DISTRIBUTION WIDTH 22.1 % (11.5-14.5); WHITE BLOOD COUNT 6.7 x10^3/uL (4.0-11.0)
--- NOTE | 2018-10-10 22:01 | RAD ---
Exam: Chest one view INDICATION: Fevers TECHNIQUE: Frontal view of the chest Comparisons: 08/03/2018 FINDINGS: The cardiomediastinal silhouette and pulmonary vessels are within normal limits. The lung and pleural spaces are clear. IMPRESSION: No acute cardiopulmonary process. Electronically signed by: Selwyn Lr MD (10/10/2018 9:58 PM) [facility]
[2018-10-10 22:02] LABS: ALBUMIN 3.5 g/dL (3.4-5.0); CALCIUM 9.5 mg/dL (8.5-10.1); CREATININE 1.6 mg/dL (0.6-1.0); DIRECT BILIRUBIN 0.1 mg/dL (0.0-0.2); GFR 32.8; MAGNESIUM 2.1 mg/dL (1.8-2.4); TOTAL BILIRUBIN 0.3 mg/dL (0.2-1.0); TOTAL PROTEIN 6.5 g/dL (6.4-8.2)
[2018-10-10 22:43] LABS: BARBITURATES NEG (NEG); BENZODIAZEPINES NEG (NEG); CANNABINOIDS NEG (NEG); COCAINE NEG (NEG); METHADONE NEG (NEG); OPIATES NEG (NEG); PHENCYCLIDINE NEG (NEG)
[2018-10-10 22:54] LABS: AMPHETAMINE/METHAMPHETAMINE NEG (NEG)
[2018-10-10 23:15] LABS: BILIRUBIN,URINE NEG (NEG); CLARITY,URINE HAZY; COLOR,URINE YELLOW; GLUCOSE,URINE NEG (NEG); NITRITE,URINE NEG (NEG); UROBILINOGEN,URINE 0.2 mg/dL (0.2 mg/dL)
[2018-10-10 23:16] LABS: BACTERIA,URINE FEW /HPF (0-FEW); SQUAMOUS EPITHELIAL CELL,UR OCC /LPF
[2018-10-10] MEDS ORDERED: ACETAMINOPHEN 500 MG TABLET PO ONE (23:45)
[2018-10-11] MEDS ORDERED: IV NORMAL SALINE 100ML 0 ML ONE (00:14)
[2018-10-11] MEDS ORDERED: cefTRIAXone SODIUM 1 GM VIAL ONE (00:14)
[2018-10-11] MEDS ORDERED: IV NORMAL SALINE 50ML 50 ML ONE (00:16)
--- NOTE | 2018-10-11 00:19 | EKG ---
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
[2018-10-11 00:21] LABS: ANISOCYTOSIS SLIGHT; PLT ESTIMATE INCREASED (ADEQUATE); POLYCHROMASIA SLIGHT
[2018-10-11 00:22] LABS: SEDIMENTATION RATE 47 (0-25)
[2018-10-11] MEDS ORDERED: MORPHINE SULFATE 2 MG/ML DISP.SYRIN. IV PRN (00:30)
[2018-10-11] MEDS ORDERED: ONDANSETRON PF 4 MG/2 ML VIAL. IV PRN (00:30)
[2018-10-11] MEDS ORDERED: POTASSIUM CHLORIDE 20 MEQ TABLET.ER. PO ONE (00:30)
[2018-10-11] MEDS ORDERED: ASPIRIN 325 MG TABLET PO ONE (00:45)
[2018-10-11 01:31] VITALS: BP 116/80
[2018-10-11 05:43] VITALS: BP 105/60
[2018-10-11] MEDS ORDERED: POTASSIUM CHLORIDE 20 MEQ TABLET.ER. PO SCH (09:00)
--- NOTE | 2018-10-11 09:17 | PDOC2 ---
CONSULT Date of Admission DATE: 10/11/18 TIME: 09:17 Reason for Consult: Fatigue Referring Physician: Dr. Mckenzie Chief Complaint Fatigue Source: Chart review, Patient Problem List Problems Medical Problems: (1) Fever Status: Acute History of Present Illness 63-year-old female with history of coronary artery disease s/p PCI/stent to LAD in 2014 presented with generalized fatigue, weakness and not feeling well. She also complained of dyspnea on exertion but denied any chest pain, orthopnea/PND, palpitations or syncope. Past Medical History Coronary artery disease s/p PCI/stent to LAD in 2014 Hypertension Hyperlipidemia COPD Gastroesophageal reflux disease Anxiety/depression Migraine Sleep apnea Past Surgical History Cataract removal section Hysterectomy Tubal ligation Family History Positive for lung cancer, leukemia/lymphoma and kidney disease. Negative for premature coronary artery disease Social History Patient quit smoking 6 years ago and denied any alcohol or drug use Current Medications Current Medications Lactated Ringer's 1,000 ml @ 100 mls/hr Q10H IV Last administered on 10/10/18at 21:20; Start 10/10/18 at 21:00; Stop 10/11/18 at 06:59; Status DC Acetaminophen (Tylenol) 1,000 mg 1X ONCE PO Last administered on 10/10/18at 23:42; Start 10/10/18 at 23:45; Stop 10/10/18 at 23:48; Status DC Potassium Chloride (Klor-Con) 40 meq 1X ONCE PO Last administered on 10/11/18at 00:24; Start 10/11/18 at 00:30; Stop 10/11/18 at 00:31; Status DC Ceftriaxone Sodium 1 gm/ Sodium Chloride 50 ml @ 100 mls/hr 1X ONCE IV Last administered on 10/11/18at 00:25; Start 10/11/18 at 00:30; Stop 10/11/18 at 00:59; Status DC Ceftriaxone Sodium (Rocephin) 1 gm STK-MED ONCE .ROUTE ; Start 10/11/18 at 00:14; Stop 10/11/18 at 00:15; Status DC Sodium Chloride 0 ml @ As Directed STK-MED ONCE .ROUTE ; Start 10/11/18 at 00:14; Stop 10/11/18 at 00:15; Status DC Sodium Chloride 50 ml @ As Directed STK-MED ONCE .ROUTE ; Start 10/11/18 at 00:16; Stop 10/11/18 at 00:17; Status DC Aspirin (D[place]ota Aspirin) 325 mg 1X ONCE PO Last administered on 10/11/18at 00:50; Start 10/11/18 at 00:45; Stop 10/11/18 at 00:46; Status DC Ondansetron HCl (Zofran) 4 mg PRN Q4HRS PRN IV NAUSEA/VOMITING; Start 10/11/18 at 00:30; Stop 10/12/18 at 00:29 Morphine Sulfate (Morphine 2mg Syringe) 2 mg PRN Q2HR PRN IV PAIN; Start 10/11/18 at 00:30; Stop 10/12/18 at 00:29 Albuterol/ Ipratropium (Duoneb) 3 ml RTQID NEB ; Start 10/11/18 at 08:00; Stop 10/12/18 at 07:59 Ceftriaxone Sodium 1 gm/ Sodium Chloride 50 ml @ 100 mls/hr QHS IV ; Start 10/11/18 at 21:00 Potassium Chloride (Klor-Con) 20 meq DAILY PO ; Start 10/11/18 at 09:00 Active Scripts Active Multaq (Dronedarone Hcl) 400 Mg Tablet 1 Tab PO BID Reported Lasix (Furosemide) 20 Mg Tablet 20 Mg PO DAILY Xopenex Hfa (Levalbuterol Tartrate) 15 Gm Hfa.aer.ad 2 Puff IH PRN Q4-6HRS Isosorbide Mononitrate Er (Isosorbide Mononitrate) 30 Mg Tab.er.24h 1 Tab PO DAILY Pantoprazole Sodium 40 Mg Tablet.dr 1 Tab PO DAILY Aspirin 81 Mg Tab.chew 1 Tab PO DAILY Reglan (Metoclopramide Hcl) 10 Mg Tablet 1 Tab PO BID Metoprolol Succinate ( Xl ) (Metoprolol Succinate) 25 Mg Tab.er.24h 100 Mg PO BID Pristiq Er (Desvenlafaxine Succinate) 50 Mg Tab.er.24h 1 Tab PO DAILY Allergies: Coded Allergies: gluten (Verified Allergy, Intermediate, 03/06/18) General: YES: Fatigue, Malaise PSYCHOLOGICAL ROS: No: Hallucinations Eyes: No: Loss of vision HEENT: No: Epistaxis Respiratory: No: Hemoptysis Cardiovascular: No: Chest Pain Gastrointestinal: No: Melena Neurological: No: Seizures Skin: No: Rash General: Alert, Oriented X3 HEENT: Atraumatic, PERRLA Lungs: Clear to auscultation Heart: Regular rate Abdomen: Soft, No tenderness Extremities: No edema Psych/Mental Status: Mood NL VITALS Vital Signs Date Time Temp Pulse Resp B/P (MAP) Pulse Ox O2 Delivery O2 Flow Rate FiO2 10/11/18 05:43 97.8 80 16 105/60 (75) 99 Room Air 10/11/18 02:30 2.0 Labs Laboratory Tests Test 10/10/18 21:10 10/10/18 22:15 10/11/18 00:31 White Blood Count 6.7 x10^3/uL (4.0-11.0) Red Blood Count 4.37 x10^6/uL (3.50-5.40) Hemoglobin 11.5 g/dL (12.0-15.5) Hematocrit 35.7 % (36.0-47.0) Mean Corpuscular Volume 82 fL (79-100) Mean Corpuscular Hemoglobin 26 pg (25-35) Mean Corpuscular Hemoglobin Concent 32 g/dL (31-37) Red Cell Distribution Width 22.1 % (11.5-14.5) Platelet Count 393 x10^3/uL (140-400) Neutrophils (%) (Auto) 44 % (31-73) Lymphocytes (%) (Auto) 35 % (24-48) Monocytes (%) (Auto) 14 % (0-9) Eosinophils (%) (Auto) 6 % (0-3) Basophils (%) (Auto) 2 % (0-3) Neutrophils # (Auto) 2.9 x10^3uL (1.8-7.7) Lymphocytes # (Auto) 2.3 x10^3/uL (1.0-4.8) Monocytes # (Auto) 1.0 x10^3/uL (0.0-1.1) Eosinophils # (Auto) 0.4 x10^3/uL (0.0-0.7) Basophils # (Auto) 0.1 x10^3/uL (0.0-0.2) Platelet Estimate Increased (ADEQUATE) Polychromasia Slight Anisocytosis Slight Erythrocyte Sedimentation Rate 47 (0-25) Prothrombin Time 10.2 SEC (9.4-11.4) Prothromb Time International Ratio 1.0 (0.9-1.1) Activated Partial Thromboplast Time 24 SEC (23-33) D-Dimer (Patricia) < 0.19 mg/L (0.00-0.50) Sodium Level 139 mmol/L (136-145) Potassium Level 3.0 mmol/L (3.5-5.1) Chloride Level 99 mmol/L (98-107) Carbon Dioxide Level 30 mmol/L (21-32) Anion Gap 10 (6-14) Blood Urea Nitrogen 18 mg/dL (7-20) Creatinine 1.6 mg/dL (0.6-1.0) Estimated GFR (Cockcroft-Gault) 32.8 Glucose Level 110 mg/dL (70-99) Calcium Level 9.5 mg/dL (8.5-10.1) Magnesium Level 2.1 mg/dL (1.8-2.4) Total Bilirubin 0.3 mg/dL (0.2-1.0) Direct Bilirubin 0.1 mg/dL (0.0-0.2) Aspartate Amino Transf (AST/SGOT) 25 U/L (15-37) Alanine Aminotransferase (ALT/SGPT) 37 U/L (14-59) Alkaline Phosphatase 79 U/L (46-116) Creatine Kinase 61 U/L (26-192) Troponin I Quantitative < 0.017 ng/mL (0-0.055) < 0.017 ng/mL (0-0.055) XN-Xlk-D-Type Natriuretic Peptide 95 pg/mL (0-124) Total Protein 6.5 g/dL (6.4-8.2) Albumin 3.5 g/dL (3.4-5.0) Lipase 115 U/L (73-393) Urine Collection Type Unknown Urine Color Yellow Urine Clarity Hazy Urine pH 5.0 Urine Specific [place] 1.020 Urine Protein Neg (NEG-TRACE) Urine Glucose (UA) Neg mg/dL (NEG) Urine Ketones (Stick) Trace mg/dL (NEG) Urine Blood Mod (NEG) Urine Nitrite Neg (NEG) Urine Bilirubin Neg (NEG) Urine Urobilinogen Dipstick 0.2 mg/dL (0.2 mg/dL) Urine Leukocyte Esterase Small (NEG) Urine RBC 1-2 /HPF (0-2) Urine WBC 5-10 /HPF (0-4) Urine Squamous Epithelial Cells Occ /LPF Urine Bacteria Few /HPF (0-FEW) Urine Opiates Screen Neg (NEG) Urine Methadone Screen Neg (NEG) Urine Barbiturates Neg (NEG) Urine Phencyclidine Screen Neg (NEG) Urine Amphetamine/Methamphetamine Neg (NEG) Urine Benzodiazepines Screen Neg (NEG) Urine Cocaine Screen Neg (NEG) Urine Cannabinoids Screen Neg (NEG) Urine Ethyl Alcohol Neg (NEG) Assessment/Plan 1. Generalized fatigue and weakness, uncertain etiology. Workup per primary team. Replace potassium. 2. Coronary artery disease s/p PCI/stent to LAD in 2014, clinically stable and chest pain-free. Recent 2-D echo in March 2018 showed normal LV systolic function. MPI October 2017 did not show any significant ischemia. 3. Hypertension: Controlled 4. Hyperlipidemia: Continue statin therapy 5. 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 Chronic diastolic heart failure: Compensated Thank you for your consultation VADIM KEYES MD Oct 11, 2018 09:17
[2018-10-11] MEDS: ACETAMINOPHEN 500 MG TABLET PO PRN ×2 (10:36→16:35)
[2018-10-11] MEDS: IPRATRPIUM/ALBUTEROL 0.5/2.5MG 3 ML NEBU. NEB SCH ×3 (11:05→20:00)
[2018-10-11 11:13] VITALS: BP 128/68
[2018-10-11 14:44] LABS: CREATININE 1.3 mg/dL (0.6-1.0); GFR 41.6; POTASSIUM 3.3 mmol/L (3.5-5.1)
[2018-10-11] MEDS ORDERED: NON FORMULARY ITEM (Levalbuterol Tartrate (Xopenex Hfa) 2 PUFF) IH SCH (14:45)
[2018-10-11] MEDS ORDERED: ALBUTEROL SULFATE 2.5 MG/3 ML NEBU. NEB PRN (15:00)
[2018-10-11 15:35] VITALS: BP 120/82
--- NOTE | 2018-10-11 17:42 | HP ---
ADMIT DATE: 10/11/2018 HISTORY OF PRESENT ILLNESS: The patient is a 63-year-old female patient who came to the Emergency Room complaining of generalized weakness, extremely fatigued, had episodes of sweating and clammy. She did complain of some shortness of breath and feeling dizzy, but denied any chest pain. She felt also that her heart is racing. She was evaluated in the Emergency Room of [facility]. Her EKG showed that she was in sinus rhythm at heart rate of 94 beats per minute, no finding of acute ST segment elevation and there was some leftward axis. Her chest x-ray showed that there was no acute cardiopulmonary process. Her lab work showed that she had hypokalemia with serum potassium of 3, impaired kidney function, serum creatinine 1.6 and her first set of cardiac enzymes showed troponin to be less than 0.017. She was admitted to do 2 more sets of cardiac enzymes, check her fasting lipid profile and consult the Cardiology team. PAST MEDICAL HISTORY: Significant for coronary artery disease, status post PCI with stent deployment to left anterior descending artery in 2014. She is known to have hypertension, hyperlipidemia, chronic obstructive pulmonary disease, gastroesophageal reflux disease, migraine headache, obstructive sleep apnea, anxiety and depression. She is actually on CPAP. She also stated that she has generalized osteoarthritis. PAST SURGICAL HISTORY: Significant for bilateral cataract extraction, 2 C-sections. She has had tummy tuck, breast reduction surgery, full hysterectomy. FAMILY HISTORY: Significant for her sister dying at age of 53 because of lung cancer. Father at the age of 82 because of lymphoma/leukemia. Mother in her 70s because of end-stage renal disease. SOCIAL HISTORY: She is , has 4 daughters. Quit smoking 6 years ago. Drinks alcohol occasionally. Does not use any drugs. ALLERGIES: She is allergic to GLUTEN. MEDICATIONS: She is currently on following medications: She is on Xopenex 2 puffs every 4 hours, Multaq 400 mg twice a day, isosorbide mononitrate 30 mg daily, metoprolol succinate 100 mg twice a day. She is on aspirin 81 mg once a day, Pristiq extended release 50 mg daily, furosemide 20 mg daily. She is on Protonix 40 mg once a day and metoclopramide 10 mg twice a day. REVIEW OF SYSTEMS: The patient denied any blurring of vision. She has had bilateral cataract extraction, but denied any glaucoma or macular degeneration. Denied any earache, tinnitus or sensorineural deafness. Denied any nosebleeds, stuffy nose or postnasal drip. Denied any sore throat, sore tongue, toothache, hoarseness of voice or difficulty swallowing. She denied any nausea, vomiting, diarrhea or constipation. Denied any hematemesis, melena or hematochezia. Denied any dysuria, frequency or hematuria. Denied any chest pain. Did complain of shortness of breath, but denied any orthopnea or paroxysmal nocturnal dyspnea. Denied any cough, phlegm or hemoptysis. Denied any chills, rigors or fever. Did complain of dizziness. PHYSICAL EXAMINATION: GENERAL: On arrival to the Emergency Room, she looked well and was clearly in no apparent respiratory distress. No pallor, jaundice, cyanosis or thyromegaly. No jugular venous distension. No lower limb edema. VITAL SIGNS: Her heart rate was 80, blood pressure was 105/60, temperature was 97.8, respiratory rate was 16 and oxygen saturation was 99% on room air. HEAD, EYES, EARS, NOSE AND THROAT: Showed normocephalic, atraumatic. NECK: Supple. HEART: Showed normal first and second heart sounds. No gallop, rub or murmur. CHEST: Clear to auscultation. No crepitation or rhonchi. ABDOMEN: Distended, soft, nontender. NEUROLOGIC: She was awake, alert, responding appropriately. All cranial nerves intact. EXTREMITIES: She moves extremities without difficulty. She normally ambulates without assistance or assistive devices. LABORATORY DATA: Her lab work this morning showed a white cell count of 6700, hemoglobin 11.5, hematocrit 35.7, MCV 82 and platelet count of 393 with normal manual differential. Her chemistry showed serum sodium 139, potassium 3, chloride 99, bicarbonate 30, anion gap of 10, BUN 18, creatinine was 1.6, estimated GFR was 33 mL per minute. Her glucose 110, calcium was 9.5, magnesium 2.1. Total bilirubin, AST, ALT, alkaline phosphatase were normal. Her first troponin was less than 0.017. Her total protein was 6.5, albumin was 3.5, lipase was 111. TSH was 2.679. Her prothrombin time was 10.2, INR 1, aPTT was 24 and D-dimer was 0.19. Urinalysis showed the urine was yellow, hazy with pH of 5, specific gravity of 1.020. The urine was negative for protein, glucose. There was trace of ketones, moderate amount of blood, negative for nitrite. There was small amount of leukocyte esterase, 1-2 rbc's and 5-10 wbc's, very few bacteria. Her urine toxicology screen was essentially negative. Her chest x-ray showed the cardiomediastinal silhouette and pulmonary vessels are within normal limits. The lungs and pleural spaces are clear. ASSESSMENT: The patient was admitted for extreme weakness and fatigue, not feeling generally well. She has hypokalemia, which will be replenished. The patient has coronary artery disease, status post percutaneous coronary intervention with stent deployment to left anterior descending in 2014. She is clinically stable. Her echocardiogram done in March of this year showed normal left ventricular systolic function and hypertension well controlled. Hyperlipidemia, for which she is on statin. She has also had frequent deep venous thromboses and she is being treated with beta blockers and Multaq. She has also compensated chronic diastolic heart failure. PLAN: My plan is to continue with all her medication and we will replenish her. I will also check her sed rate and CRP as well as TSH and decide on further management accordingly. SOLO AGUIRRE MD DR: FLAKO/viv JOB#: [id number] / [id number]
[2018-10-11 19:30] VITALS: BP 110/76
[2018-10-11] MEDS: METOCLOPRAMIDE 10 MG TABLET PO SCH (20:47)
[2018-10-11] MEDS: POTASSIUM CHLORIDE 20 MEQ TABLET.ER. PO SCH (20:47)
[2018-10-11] MEDS: DRONEDARONE HCL 400 MG TABLET PO SCH (20:48)
[2018-10-11 23:17] VITALS: BP 126/67
[2018-10-12] MEDS: IPRATRPIUM/ALBUTEROL 0.5/2.5MG 3 ML NEBU. NEB SCH (05:36)
[2018-10-12 05:41] VITALS: BP 104/68
[2018-10-12 06:33] LABS: BASO % 1 % (0-3); EOS # 0.4 x10^3/uL (0.0-0.7); EOS % 7 % (0-3); HEMATOCRIT 33.4 % (36.0-47.0); HEMOGLOBIN 10.6 g/dL (12.0-15.5); LYMPH # 1.5 x10^3/uL (1.0-4.8); LYMPH % 29 % (24-48); MEAN CORPUSCULAR HEMOGLOBIN 26 pg (25-35); MEAN CORPUSCULAR HGB CONC 32 g/dL (31-37); MEAN CORPUSCULAR VOLUME 83 fL (79-100); MONO # 0.6 x10^3/uL (0.0-1.1); MONO % 12 % (0-9); NEUT # 2.6 x10^3uL (1.8-7.7); NEUT % 51 % (31-73); PLATELET COUNT 348 x10^3/uL (140-400); RED BLOOD COUNT 4.04 x10^6/uL (3.50-5.40); RED CELL DISTRIBUTION WIDTH 21.1 % (11.5-14.5); WHITE BLOOD COUNT 5.1 x10^3/uL (4.0-11.0)
[2018-10-12 06:42] LABS: C REACTIVE PROTEIN 13.9 mg/L (0-3.3); CALCIUM 9.5 mg/dL (8.5-10.1); CREATININE 1.2 mg/dL (0.6-1.0); GFR 45.7; POTASSIUM 3.7 mmol/L (3.5-5.1)
[2018-10-12] MEDS ORDERED: PANTOPRAZOLE 40 MG TABLET. PO SCH (07:30)
[2018-10-12] MEDS ORDERED: ASPIRIN 81 MG TAB.CHEW PO SCH (08:00)
[2018-10-12] MEDS: METOCLOPRAMIDE 10 MG TABLET PO SCH ×2 (08:09→21:06)
[2018-10-12] MEDS: POTASSIUM CHLORIDE 20 MEQ TABLET.ER. PO SCH ×3 (08:10→21:07)
[2018-10-12] MEDS: DRONEDARONE HCL 400 MG TABLET PO SCH ×2 (08:11→21:05)
[2018-10-12] MEDS ORDERED: FUROSEMIDE 20 MG TABLET PO SCH (09:00)
[2018-10-12] MEDS ORDERED: METOPROLOL SUCC 24HR ER 50 MG TAB.ER.24H. PO SCH (09:00)
[2018-10-12] MEDS ORDERED: ISOSORBIDE MONONITRATE ER 30 MG TAB.ER.24H PO SCH (09:00)
[2018-10-12] MEDS ORDERED: DESVENLAFAXINE SUCCINATE 25 MG TAB.ER.24H PO SCH (09:00)
[2018-10-12] MEDS: ACETAMINOPHEN 500 MG TABLET PO PRN (10:52)
[2018-10-12 11:04] VITALS: BP 112/75
[2018-10-12] MEDS ORDERED: IRON SUCROSE COMPLEX 500 MG in IV NORMAL SALINE 250ML 250 ML IV ONE (15:00)
[2018-10-12] MEDS ORDERED: ACETAMINOPHEN 325 MG TABLET PO ONE ×2 (15:21→15:30)
[2018-10-12] MEDS ORDERED: methylPREDNISolone SOD SUCC PF 125 MG/2 ML VIAL. IV ONE (15:30)
[2018-10-12] MEDS ORDERED: diphenhydrAMINE HCL 25 MG CAPSULE PO ONE (15:30)
[2018-10-12 15:33] VITALS: BP 99/68
[2018-10-12 19:59] VITALS: BP 105/64
[2018-10-12] MEDS ORDERED: LACTOBACILLUS RHAMNOSUS GG 1 CAPSULE. PO SCH (21:00)
[2018-10-12 22:00] VITALS: BP 113/71
--- NOTE | 2018-10-13 02:10 | DS ---
DATE OF DISCHARGE: 10/12/2018 HOSPITAL COURSE: The patient is a 63-year-old female patient who was admitted through the Emergency Room with a complaint of generalized fatigue and weakness, not feeling generally well. She does also complain of shortness of breath on exertion, but denied any chest pain, orthopnea, paroxysmal nocturnal dyspnea. Denied any dizziness, lightheadedness, palpitation or syncope. She was extensively investigated and her lab work showed that she has anemia with hemoglobin 11, hematocrit 35. Her chemistry was mostly unremarkable. Her iron studies showed that her serum iron is low, TIBC was high and iron saturation was low and therefore we treated her with Venofer 100 mg IV as according to her she was not responding to oral iron and she has been following with the Oncology Clinic at [facility] receiving outpatient IV iron therapy. When questioning her this afternoon, she stated that she feels generally well, has more energy today, has been up and about. PHYSICAL EXAMINATION: GENERAL: When I examined her, she looked pale, not jaundiced, cyanosis or thyromegaly. No jugular venous distension. No lower limb edema. VITAL SIGNS: Her heart rate was 85, blood pressure was 99/68, temperature was 97.7, respiratory rate 20, and oxygen saturation was 96%. HEAD, EYES, EARS, NOSE AND THROAT: Showed normocephalic, atraumatic. NECK: Supple. HEART: Showed normal first and second heart sounds with no gallop, rub or murmur. CHEST: Clear to auscultation. No crepitation or rhonchi. ABDOMEN: Distended, soft, nontender. No guarding or rigidity. No organomegaly. All hernial orifices intact. Bowel sounds normal. NEUROLOGIC: She is awake, alert, responding appropriately. All cranial nerves intact. She moves extremities without difficulty. She ambulates without assistance or assistive devices. Her intake over the last 24 hours and output were incompletely recorded. LABORATORY DATA: Her lab work this morning showed a serum sodium 142, potassium 3.7, chloride 105, bicarbonate 31, anion gap of 6, BUN 10, creatinine 1.2, estimated GFR was 45 mL per minute. Her glucose was 99, calcium was 9.5. Serum iron was 40, TIBC was 358. Iron saturation was 11%. Her C-reactive protein was 13.9. Her white cell count was 5000, hemoglobin 10.6, hematocrit 33.4, MCV 83 and platelet count of 348,000 with normal manual differential. DISCHARGE MEDICATIONS: She was discharged home to continue on aspirin 81 mg once a day; Pristiq extended release 50 mg once a day; dronedarone or Multaq 400 mg twice a day; furosemide 20 mg once a day; isosorbide mononitrate 30 mg p.o. daily; Xopenex 2 puffs every 4-6 hours; metoclopramide 10 mg p.o. b.i.d.; metoprolol succinate 25 mg daily, ____ 100 mg twice a day and Protonix 40 mg daily. FINAL DISCHARGE DIAGNOSES: Weakness and easy fatigability, improved. She has coronary artery disease, status post PCI with stent deployment to left anterior descending artery in 2014; hypertension; hyperlipidemia; chronic obstructive pulmonary disease; gastroesophageal reflux disease; migraine headache; obstructive sleep apnea, on CPAP. SOLO AGUIRRE MD DR: FLAKO/viv JOB#: [id number] / [id number]
== END 2018-10-12 22:15 | disposition home or self-care (01) | DRG 641 ==
LOC: ER 20:32 → 1 SOUTH 10-11 00:30
PROVIDERS: ADMIT Internal Medicine; ATTEND Internal Medicine
DX: E87.6 Hypokalemia (principal); I50.32 Chronic diastolic (congestive) heart failure; I11.0 Hypertensive heart disease with heart failure; D64.9 Anemia, unspecified; E78.00 Pure hypercholesterolemia, unspecified; G47.33 Obstructive sleep apnea (adult) (pediatric); I25.10 Atherosclerotic heart disease of native coronary artery without angina pectoris; E78.5 Hyperlipidemia, unspecified; J44.9 Chronic obstructive pulmonary disease, unspecified; K21.9 Gastro-esophageal reflux disease without esophagitis; M15.9 Polyosteoarthritis, unspecified; Z80.1 Family history of malignant neoplasm of trachea, bronchus and lung; Z87.891 Personal history of nicotine dependence; Z90.710 Acquired absence of both cervix and uterus; Z95.5 Presence of coronary angioplasty implant and graft; Z98.41 Cataract extraction status, right eye; Z98.42 Cataract extraction status, left eye; F32.9 Major depressive disorder, single episode, unspecified; F41.9 Anxiety disorder, unspecified; G43.909 Migraine, unspecified, not intractable, without status migrainosus
CPT/HCPCS: 36415; 71045; 80048; 80076; 80307; 81001; 82550; 83540; 83550; 83690; 83735; 83880; 84443; 84484; 85025; 85379; 85610; 85651; 85730; 86140; 87040; 87086; 93005; 96361; 96365; J0696; J1756; J2930; J7050; J7120; J8597; Q0163; 99285-25

== ENCOUNTER 2018-10-28 18:23 | Emergency (ER) | payer OTHER ==
[2018-10-28 18:30] VITALS: BP 107/83
[2018-10-28] MEDS ORDERED: MORPHINE SULFATE 10 MG/ML SYRINGE. IM ONE (19:00)
[2018-10-28] MEDS ORDERED: ONDANSETRON ODT 4 MG TAB.RAPDIS PO ONE (19:00)
[2018-10-28] MEDS ORDERED: IV NORMAL SALINE 1,000ML 1,000 ML IV SCH (19:03)
--- NOTE | 2018-10-28 19:21 | PHYS DOC ---
Past History Past Medical History: Angina, Arrhythmia, CAD, Constipation, COPD, High Cholesterol, Hypertension, UTI Past Surgical History: Angioplasty, , Hysterectomy, Other Smoking: Quit Greater Than 1 Year Alcohol Use: None Drug Use: None Adult General Chief Complaint Chief Complaint: LOWER EXT PAIN HPI HPI Patient is a 63 year old female who presents with complaint of severe right lower extremity pain. Patient states that she started having severe pain shooting down her right leg shortly prior to arrival. She states that she has history of chronic low back pain. Was seen by Dr. Benton, paint roller winder, at [facility] 1928[facility]1983 and was treated with an epidural injection. She states that this happened approximately 8 hours prior to arrival. States that her pain is severe and feels like nerve pain in her right lower extremity. Worsens with movement. Denies any weakness in her foot or toes. Due to her severe symptoms, she called her doctor and was told to come to the emergency department for further evaluation. States that she is not currently on any blood thinners. Review of Systems Review of Systems Constitutional: Denies fever or chills [] Eyes: Denies change in visual acuity, redness, or eye pain [] HENT: Denies nasal congestion or sore throat [] Respiratory: Denies cough or shortness of breath [] Cardiovascular: Denies chest pain or edema[] GI: Denies abdominal pain, nausea, vomiting, bloody stools or diarrhea [] : Denies dysuria or hematuria [] Musculoskeletal: Right lower extremity pain[] Integument: Denies rash or skin lesions [] Neurologic: Burning and numbness to the right lower extremity, denies headache or focal weakness [] All other systems were reviewed and found to be within normal limits, except as documented in this note. Current Medications Current Medications Current Medications Medications (Trade) Dose Ordered Sig/Kian Start Time Stop Time Status Last Admin Dose Admin Morphine Sulfate (Morphine 10mg Syringe) 5 mg 1X ONCE 10/28/18 19:00 10/28/18 19:01 DC Ondansetron HCl (Zofran Odt) 4 mg 1X ONCE 10/28/18 19:00 10/28/18 19:01 DC Sodium Chloride 1,000 ml @ 125 mls/hr Q8H 10/28/18 19:03 10/29/18 03:02 Allergies Allergies Allergies Coded Allergies Type Severity Reaction Last Updated Verified gluten Allergy Intermediate 10/28/18 Yes iron Allergy Unknown 10/28/18 Yes Physical Exam Physical Exam Constitutional: Alert, afebrile, appears in severe discomfort. [] HENT: Normocephalic, atraumatic, bilateral external ears normal, oropharynx moist, no oral exudates, nose normal. [] Eyes: PERRLA, EOMI, conjunctiva normal, no discharge. [] Neck: Normal range of motion, no tenderness, supple, no stridor. [] Cardiovascular:Heart rate regular rhythm, no murmur [] Lungs & Thorax: Bilateral breath sounds clear to auscultation [] Abdomen: Bowel sounds normal, soft, no tenderness, no masses, no pulsatile masses. [] Skin: Warm, dry, no erythema, no rash. [] Back: No midline tenderness, adhesive dressing present just right of midline above posterior right iliac crest, no expanding hematoma or flank ecchymosis noted. [] Extremities: No tenderness, no cyanosis, no clubbing, ROM intact, no edema. [] Neurologic: Alert and oriented X 3, normal dorsiflexion of right foot, normal sensory function, no focal deficits noted. [] Current Patient Data Vital Signs Vital Signs Date Time Temp Pulse Resp B/P (MAP) Pulse Ox O2 Delivery O2 Flow Rate FiO2 10/28/18 18:30 98.2 87 20 98 Lab Results Laboratory Tests Test 10/28/18 19:30 10/28/18 20:49 White Blood Count 5.2 x10^3/uL Red Blood Count 4.26 x10^6/uL Hemoglobin 11.8 g/dL Hematocrit 36.5 % Mean Corpuscular Volume 86 fL Mean Corpuscular Hemoglobin 28 pg Mean Corpuscular Hemoglobin Concent 32 g/dL Red Cell Distribution Width 24.7 % Platelet Count 432 x10^3/uL Neutrophils (%) (Auto) 60 % Lymphocytes (%) (Auto) 31 % Monocytes (%) (Auto) 7 % Eosinophils (%) (Auto) 2 % Basophils (%) (Auto) 0 % Neutrophils # (Auto) 3.1 x10^3uL Lymphocytes # (Auto) 1.6 x10^3/uL Monocytes # (Auto) 0.3 x10^3/uL Eosinophils # (Auto) 0.1 x10^3/uL Basophils # (Auto) 0.0 x10^3/uL Platelet Estimate Increased Large Platelets Occ Polychromasia Slight Hypochromasia Slight Anisocytosis Marked Microcytosis Mod Ovalocytes Occ Sodium Level 143 mmol/L Potassium Level 3.9 mmol/L Chloride Level 102 mmol/L Carbon Dioxide Level 28 mmol/L Anion Gap 13 Blood Urea Nitrogen 11 mg/dL Creatinine 1.2 mg/dL Estimated GFR (Cockcroft-Gault) 45.7 Glucose Level 116 mg/dL Calcium Level 9.1 mg/dL Magnesium Level 1.9 mg/dL Urine Collection Type Unknown Urine Color Straw Urine Clarity Clear Urine pH 7.0 Urine Specific [place] 1.015 Urine Protein Neg Urine Glucose (UA) Neg mg/dL Urine Ketones (Stick) Neg mg/dL Urine Blood Trace Urine Nitrite Neg Urine Bilirubin Neg Urine Urobilinogen Dipstick 0.2 mg/dL Urine Leukocyte Esterase Neg Urine RBC Occ /HPF Urine WBC Occ /HPF Urine Squamous Epithelial Cells Occ /LPF Urine Bacteria Few /HPF Current Medications Medications (Trade) Dose Ordered Sig/Kian Route PRN Reason Start Time Stop Time Status Last Admin Dose Admin Morphine Sulfate (Morphine 10mg Syringe) 5 mg 1X ONCE IM 10/28/18 19:00 10/28/18 19:01 DC 10/28/18 19:21 Ondansetron HCl (Zofran Odt) 4 mg 1X ONCE PO 10/28/18 19:00 10/28/18 19:01 DC 10/28/18 19:21 Sodium Chloride 1,000 ml @ 125 mls/hr Q8H IV 10/28/18 19:03 10/29/18 03:02 10/28/18 19:33 Iohexol (Omnipaque 300 Mg/ml) 75 ml 1X ONCE IV 10/28/18 19:30 10/28/18 19:34 DC 10/28/18 19:55 Morphine Sulfate (Morphine 4mg Syringe) 4 mg 1X ONCE IV 10/28/18 20:45 10/28/18 20:47 DC 10/28/18 21:04 Ketorolac Tromethamine (Toradol 30mg Vial) 15 mg 1X ONCE IV 10/28/18 21:45 10/28/18 21:46 DC 10/28/18 21:47 EKG EKG Not performed[] Radiology/Procedures Radiology/Procedures [place] [id number] IMAGING REPORT Signed PATIENT: SHIRA SARAVIA ACCOUNT: [id number] : 1955 LOCATION: ER AGE: 63 SEX: F EXAM STATUS: REG ER ORD. PHYSICIAN: RAIMUNDO BARRERA MD REASON: Chr low back pain, Rt lower ext sciatic pain, epidural inj today PROCEDURE: CT LUMBAR SPINE W/CONTRAST Exam: CT lumbar spine with contrast INDICATION: Chronic low back pain TECHNIQUE: Sequential axial images through the lumbar spine obtained following the administration of 60 mL of Omni 300 IV contrast. Sagittal and coronal reformatted images were reconstructed from the axial data and reviewed. Comparisons: None FINDINGS: There is straightening of the vertebral spine. Vertebral body heights are well-maintained. Fractures of the lumbar spine is not identified. L1-L2: Mild bilateral facet arthropathy without significant neural foraminal or spinal canal stenosis. L2-L3: Mild bilateral facet arthropathy without significant neural foraminal or spinal canal stenosis. L3-L4: Mild broad-based disc bulge, ligament flavum thickening and facet arthropathy causing mild spinal canal stenosis. Mild bilateral neural foraminal stenosis. L4-L5: Mild broad-based disc bulge, ligamentum flavum thickening and facet arthropathy causing mild spinal canal stenosis. Mild bilateral neural foraminal stenosis is noted. L5-S1: No significant neural foraminal or spinal canal stenosis. No abnormal fluid collection. Hepatic steatosis. IMPRESSION: 1. Degenerative changes in the lumbar spine as described above. 2. No fluid collection 3. Hepatosteatosis. Exposure: One or more of the following in the visualized dose reduction techniques were utilized for this examination: 1. Automated exposure control 2. Adjustment of the MA and/or KV according to patient size 3. Use of iterative of reconstructive technique Electronically signed by: Selwyn Mariscal MD (10/28/2018 8:25 PM) [facility] DICTATED AND SIGNED BY: SELWYN MARISCAL MD DATE: 10/28/182024 CC: RAIMUNDO BARRERA MD; ELTON PECK DO ~ [] Course & Med Decision Making Course & Med Decision Making Pertinent Labs and Imaging studies reviewed. (See chart for details) I spoke with Dr. Thayer, the on-call physician for the patient's paint roller winder. She confirm that the patient had a lower lumbar epidural injection for pain management earlier today. She stated that she referred the patient to the emergency department for evaluation as she wanted to have patient ruled out for expanding hematoma in the epidural space. She agreed that CT imaging would be appropriate. She stated that if patient was pain controlled and CT imaging was negative that it would be appropriate for follow-up tomorrow with the pain clinic. This was performed in the emergency department. CT imaging negative for expanding fluid collection in the epidural space. Patient received morphine and Toradol in the emergency department. She states that her pain has improved after administration of these medications. The patient will be prescribed Percocet to use as needed for pain and recommended follow-up with paint roller winder tomorrow for reevaluation. Advised return to emergency department for any worsening symptoms. Patient was understanding and in agreement with treatment plan.[] Dragon Disclaimer Dragon Disclaimer This electronic medical record was generated, in whole or in part, using a voice recognition dictation system. Departure Departure: Impression: Primary Impression: Right sciatic nerve pain Disposition: 01 HOME, SELF-CARE Condition: IMPROVED Referrals: ELTON PECK DO (PCP) Patient Instructions: Sciatica Additional Instructions: Follow-up with your paint roller winder tomorrow for reevaluation. Return to the emergency department for any worsening symptoms. Scripts Oxycodone Hcl/Acetaminophen (PERCOCET 5-325 MG TABLET ) 1 Each Tablet 1 TAB PO Q4-6HRS PRN for PAIN, #15 TAB Prov: RAIMUNDO BARRERA MD 10/28/18 RAIMUNDO BARRERA MD Oct 28, 2018 19:21
[2018-10-28] MEDS ORDERED: IOHEXOL 300 MG/ML 75 ML VIAL. IV ONE (19:30)
[2018-10-28 19:54] LABS: BASO % 0 % (0-3); EOS # 0.1 x10^3/uL (0.0-0.7); EOS % 2 % (0-3); HEMATOCRIT 36.5 % (36.0-47.0); HEMOGLOBIN 11.8 g/dL (12.0-15.5); LYMPH # 1.6 x10^3/uL (1.0-4.8); LYMPH % 31 % (24-48); MEAN CORPUSCULAR HEMOGLOBIN 28 pg (25-35); MEAN CORPUSCULAR HGB CONC 32 g/dL (31-37); MEAN CORPUSCULAR VOLUME 86 fL (79-100); MONO # 0.3 x10^3/uL (0.0-1.1); MONO % 7 % (0-9); NEUT # 3.1 x10^3uL (1.8-7.7); NEUT % 60 % (31-73); PLATELET COUNT 432 x10^3/uL (140-400); RED BLOOD COUNT 4.26 x10^6/uL (3.50-5.40); RED CELL DISTRIBUTION WIDTH 24.7 % (11.5-14.5); WHITE BLOOD COUNT 5.2 x10^3/uL (4.0-11.0)
[2018-10-28 19:56] LABS: CALCIUM 9.1 mg/dL (8.5-10.1); CREATININE 1.2 mg/dL (0.6-1.0); GFR 45.7; MAGNESIUM 1.9 mg/dL (1.8-2.4); POTASSIUM 3.9 mmol/L (3.5-5.1)
--- NOTE | 2018-10-28 20:27 | RAD ---
Exam: CT lumbar spine with contrast INDICATION: Chronic low back pain TECHNIQUE: Sequential axial images through the lumbar spine obtained following the administration of 60 mL of Omni 300 IV contrast. Sagittal and coronal reformatted images were reconstructed from the axial data and reviewed. Comparisons: None FINDINGS: There is straightening of the vertebral spine. Vertebral body heights are well-maintained. Fractures of the lumbar spine is not identified. L1-L2: Mild bilateral facet arthropathy without significant neural foraminal or spinal canal stenosis. L2-L3: Mild bilateral facet arthropathy without significant neural foraminal or spinal canal stenosis. L3-L4: Mild broad-based disc bulge, ligament flavum thickening and facet arthropathy causing mild spinal canal stenosis. Mild bilateral neural foraminal stenosis. L4-L5: Mild broad-based disc bulge, ligamentum flavum thickening and facet arthropathy causing mild spinal canal stenosis. Mild bilateral neural foraminal stenosis is noted. L5-S1: No significant neural foraminal or spinal canal stenosis. No abnormal fluid collection. Hepatic steatosis. IMPRESSION: 1. Degenerative changes in the lumbar spine as described above. 2. No fluid collection 3. Hepatosteatosis. Exposure: One or more of the following in the visualized dose reduction techniques were utilized for this examination: 1. Automated exposure control 2. Adjustment of the MA and/or KV according to patient size 3. Use of iterative of reconstructive technique Electronically signed by: Selwyn Lr MD (10/28/2018 8:25 PM) [facility]
[2018-10-28 20:33] LABS: ANISOCYTOSIS MARKED; HYPOCHROMIA SLIGHT; PLT ESTIMATE INCREASED (ADEQUATE)
[2018-10-28 20:34] LABS: MICROCYTOSIS MOD; OVALOCYTES OCC; POLYCHROMASIA SLIGHT
[2018-10-28] MEDS ORDERED: MORPHINE SULFATE 4 MG/ML DISP.SYRIN. IV ONE (20:45)
[2018-10-28 21:28] LABS: BACTERIA,URINE FEW /HPF (0-FEW); BILIRUBIN,URINE NEG (NEG); CLARITY,URINE CLEAR; COLOR,URINE STRAW; GLUCOSE,URINE NEG (NEG); NITRITE,URINE NEG (NEG); RBC,URINE OCC /HPF (0-2); SQUAMOUS EPITHELIAL CELL,UR OCC /LPF; UROBILINOGEN,URINE 0.2 mg/dL (0.2 mg/dL); WBC,URINE OCC /HPF (0-4)
[2018-10-28] MEDS ORDERED: KETOROLAC 30 MG/ML VIAL. IV ONE (21:45)
[2018-10-28] MEDS ORDERED: OXYC1TAB15 PO (22:06)
== END 2018-10-28 22:20 | disposition home or self-care (01) ==
LOC: ER 18:23
DX: M54.41 Lumbago with sciatica, right side (principal); G89.29 Other chronic pain; I25.10 Atherosclerotic heart disease of native coronary artery without angina pectoris; J44.9 Chronic obstructive pulmonary disease, unspecified; E78.00 Pure hypercholesterolemia, unspecified; I10 Essential (primary) hypertension; Z87.440 Personal history of urinary (tract) infections; Z98.61 Coronary angioplasty status; Z98.890 Other specified postprocedural states; Z90.710 Acquired absence of both cervix and uterus; Z87.891 Personal history of nicotine dependence; Z88.8 Allergy status to other drugs, medicaments and biological substances
CPT/HCPCS: 36415; 72132; 80048; 81001; 83735; 85025; 96372; 96374; 96375; 99285; J1885; J2270; Q0162; Q9967; J7030

== ENCOUNTER 2019-01-11 09:39 | Inpatient (IN) | payer OTHER ==
[~2019-01-11] VITALS: Ht 162.6 cm; Wt 91.8 kg
[~2019-01-11 09:39] MED LIST changes: +OXYC1TAB15 PO
[2019-01-11 10:06] LABS: BASO # 0.1 x10^3/uL (0.0-0.2); BASO % 1 % (0-3); EOS # 0.1 x10^3/uL (0.0-0.7); EOS % 1 % (0-3); HEMATOCRIT 40.5 % (36.0-47.0); HEMOGLOBIN 13.2 g/dL (12.0-15.5); LYMPH # 1.6 x10^3/uL (1.0-4.8); LYMPH % 26 % (24-48); MEAN CORPUSCULAR HEMOGLOBIN 29 pg (25-35); MEAN CORPUSCULAR HGB CONC 33 g/dL (31-37); MEAN CORPUSCULAR VOLUME 89 fL (79-100); MONO # 0.4 x10^3/uL (0.0-1.1); MONO % 7 % (0-9); NEUT % 65 % (31-73); PLATELET COUNT 328 x10^3/uL (140-400); RED BLOOD COUNT 4.56 x10^6/uL (3.50-5.40); RED CELL DISTRIBUTION WIDTH 21.1 % (11.5-14.5); WHITE BLOOD COUNT 6.2 x10^3/uL (4.0-11.0)
--- NOTE | 2019-01-11 10:16 | PHYS DOC ---
Past History Past Medical History: CAD, COPD, Depression, GERD, Hypertension, Other Additional Past Medical Histor: Gastroperesis Past Surgical History: , Other Additional Past Surgical Histo: breast reduction and "tummy tuck" Smoking: Quit Greater Than 1 Year Alcohol Use: None Drug Use: None Adult General Chief Complaint Chief Complaint: CHEST PAIN HPI HPI 63-year-old female presents with chest pain radiating to the right arm. She woke up around 3 AM with a shooting pain in the right arm accompanied by central chest tightness. She took 4 baby aspirin at that time. She went back to sleep, when she woke up she continues to have sharp arm pain that is a 9 out of 10. Her central chest pressure is 7 out of 10 and radiates through her shoulder blades. She is mildly short of breath, but denies diaphoresis. Patient has a history of COPD and coronary artery disease. She is on as needed albuterol and CPAP. No recent medication changes. No fever or chills. No recent stress test or cardiac catheter. Review of Systems Review of Systems Constitutional: Denies fever or chills [] Eyes: Denies change in visual acuity, redness, or eye pain [] HENT: Denies nasal congestion or sore throat [] Respiratory: Denies cough or shortness of breath [] Cardiovascular: No additional information not addressed in HPI [] GI: Denies abdominal pain, nausea, vomiting, bloody stools or diarrhea [] : Denies dysuria or hematuria [] Musculoskeletal: Right arm pain[] Integument: Denies rash or skin lesions [] Neurologic: Denies headache, focal weakness or sensory changes [] Endocrine: Denies polyuria or polydipsia [] All other systems were reviewed and found to be within normal limits, except as documented in this note. Current Medications Current Medications Current Medications Medications (Trade) Dose Ordered Sig/[facility] Start Time Stop Time Status Last Admin Dose Admin Aspirin (Children'S Aspirin) 324 mg 1X ONCE 01/11/19 10:30 01/11/19 10:31 Morphine Sulfate (Morphine 2mg Syringe) 2 mg 1X ONCE 01/11/19 10:15 01/11/19 10:16 UNV Ondansetron HCl (Zofran) 4 mg 1X ONCE 01/11/19 10:15 01/11/19 10:16 UNV Allergies Allergies Allergies Coded Allergies Type Severity Reaction Last Updated Verified gluten Allergy Intermediate 10/28/18 Yes iron Allergy Unknown 10/28/18 Yes Physical Exam Physical Exam Constitutional: Well developed, well nourished, no acute distress, non-toxic appearance. [] HENT: Normocephalic, atraumatic, bilateral external ears normal, oropharynx moist, no oral exudates, nose normal. [] Eyes: PERRLA, EOMI, conjunctiva normal, no discharge. [] Neck: Normal range of motion, no tenderness, supple, no stridor. [] Cardiovascular:Heart rate regular rhythm, no murmur [] Lungs & Thorax: Bilateral breath sounds diminished but clear to auscultation. On 1L nasal cannula.[] Abdomen: Bowel sounds normal, soft, no tenderness, no masses, no pulsatile masses. [] Skin: Warm, dry, no erythema, no rash. [] Back: No tenderness, no CVA tenderness. [] Extremities: No tenderness, no cyanosis, no clubbing, ROM intact, no edema. [] Neurologic: Alert and oriented X 3, normal motor function, normal sensory function, no focal deficits noted. [] Psychologic: Affect normal, judgement normal, mood normal. [] Current Patient Data Vital Signs Vital Signs Date Time Temp Pulse Resp B/P (MAP) Pulse Ox O2 Delivery O2 Flow Rate FiO2 01/11/19 09:40 97.9 97 16 96 Room Air EKG EKG Sinus rhythm, rate 97, normal axis, no ST elevations or depressions[] Radiology/Procedures Radiology/Procedures [] Impressions: EXAM: CHEST ONE VIEW. HISTORY: Chest pain. COMPARISON: 10/10/2018. FINDINGS: A frontal view of the chest is obtained. There are no confluent infiltrates. There is no pneumothorax or pleural effusion. The heart is not enlarged. IMPRESSION: 1. No confluent infiltrates. Electronically signed by: Shubham Humphrey MD (01/11/2019 10:52 AM) [facility] DICTATED AND SIGNED BY: FLAVIO HUMPHREY MD DATE: 01/11/19 1052 CC: TINO TUCKER DO; ELTON PECK DO ~ Course & Med Decision Making Course & Med Decision Making Pertinent Labs and Imaging studies reviewed. (See chart for details) The patient's chest x-rays negative for acute findings. Her labs are unremarkable. Her troponin is negative. Her score is a 5. Patient has been given 2 mg of morphine for her pain. Given her history, and heart score, I will admit the patient for chest pain rule out. I spoke with Dr. Mckenzie and he has accepted the patient for admission. The patient is in agreement with this plan. [] Dragon Disclaimer Dragon Disclaimer This electronic medical record was generated, in whole or in part, using a voice recognition dictation system. The HEART Score for CP Pts HEART Score for Chest Pain: HEART Score for Chest Pain Response (Comments) Value History Moderately Suspicious 1 ECG Nonspecific Repolarizatio 1 Age >45 - < 65 1 Risk Factors >3 Risk Factors or Hx CAD 2 Troponin < Normal Limit 0 Total 5 Risk Factors: Risk Factors: DM, Current or recent (<one month) smoker, HTN, HLP, family history of CAD, obesity. Risk Scores: Score 0 - 3: 2.5% MACE over next 6 weeks - Discharge Home Score 4 - 6: 20.3% MACE over next 6 weeks - Admit for Clinical Observation Score 7 - 10: 72.7% MACE over next 6 weeks - Early Invasive Strategies Departure Departure: Impression: Primary Impression: Chest pain Disposition: ADMITTED INPATIENT Admitting Physician: Shayne Mckenzie Condition: STABLE Referrals: ELTON PECK DO (PCP) Problem Qualifiers Primary Impression: Chest pain Chest pain type: precordial pain Qualified Codes: R07.2 - Precordial pain TINO TUCKER DO Jan 11, 2019 10:16
[2019-01-11 10:28] LABS: ALBUMIN/GLOBULIN RATIO 1.4 (1.0-1.7); CALCIUM 9.1 mg/dL (8.5-10.1); CREATININE 1.2 mg/dL (0.6-1.0); GFR 45.7; POTASSIUM 4.1 mmol/L (3.5-5.1); TOTAL BILIRUBIN 0.4 mg/dL (0.2-1.0); TOTAL PROTEIN 6.9 g/dL (6.4-8.2)
[2019-01-11] MEDS ORDERED: ASPIRIN 81 MG TAB.CHEW PO ONE (10:30)
[2019-01-11] MEDS ORDERED: MORPHINE SULFATE 2 MG/ML DISP.SYRIN. IV ONE (10:30)
[2019-01-11] MEDS ORDERED: ONDANSETRON PF 4 MG/2 ML VIAL. IVP ONE (10:30)
[2019-01-11 10:37] LABS: ANISOCYTOSIS SLIGHT; PLT ESTIMATE ADEQUATE (ADEQUATE)
--- NOTE | 2019-01-11 10:55 | RAD ---
EXAM: CHEST ONE VIEW. HISTORY: Chest pain. COMPARISON: 10/10/2018. FINDINGS: A frontal view of the chest is obtained. There are no confluent infiltrates. There is no pneumothorax or pleural effusion. The heart is not enlarged. IMPRESSION: 1. No confluent infiltrates. Electronically signed by: Shubham Humphrey MD (01/11/2019 10:52 AM) [facility]
[2019-01-11] MEDS ORDERED: NITROGLYCERIN SUBLINGUAL 0.4 MG BOTTLE OF 25. SL PRN (11:45)
[2019-01-11] MEDS ORDERED: ONDANSETRON PF 4 MG/2 ML VIAL. IV PRN (11:45)
[2019-01-11 13:38] VITALS: BP 115/77
[2019-01-11] MEDS ORDERED: NON FORMULARY ITEM (Levalbuterol Tartrate (Xopenex Hfa) 2 PUFF) IH SCH (14:30)
[2019-01-11] MEDS ORDERED: ALBUTEROL SULFATE 2.5 MG/3 ML NEBU. NEB PRN (14:45)
--- NOTE | 2019-01-11 14:51 | NUR ---
Admission Pt admitted to RM 115. VSS. NAD. Reports 6/10 pain to R arm and chest. Telemetry initiated. Pt oriented to room and unit routines. All belongings accounted for.
[2019-01-11] MEDS: ISOSORBIDE MONONITRATE ER 30 MG TAB.ER.24H PO SCH (15:00)
[2019-01-11] MEDS: METOPROLOL SUCC 24HR ER 50 MG TAB.ER.24H. PO SCH (15:00)
[2019-01-11] MEDS: ASPIRIN 81 MG TAB.CHEW PO SCH (15:00)
[2019-01-11] MEDS: PANTOPRAZOLE 40 MG TABLET. PO SCH (15:00)
[2019-01-11] MEDS: DESVENLAFAXINE 50 MG TAB.ER.24H. PO SCH (15:00)
[2019-01-11] MEDS: FUROSEMIDE 20 MG TABLET PO SCH (15:00)
--- NOTE | 2019-01-11 15:08 | HP ---
ADMIT DATE: 01/11/2019 HISTORY OF PRESENT ILLNESS: The patient is a 63-year-old female patient who presented to the Emergency Room of [facility] with a complaint of chest pain radiating to the right arm. She woke up around 3:00 a.m. with a shooting pain in her right arm, accompanied by central chest tightness. She took 4 baby aspirin at that time, she went back to sleep. When she woke up, she continues to have sharp pain, that she rated around 9/10. Her central chest pain was 7/10 and radiates to her shoulder blades. She is mildly short of breath, but denied any diaphoresis. She has some nausea, but no vomiting. She was evaluated in the Emergency Room and her EKG showed she was in sinus rhythm at a rate of 90 beats per minute with normal axis, no ST-segment elevation or depression. Her chest x-ray showed no confluent infiltrate. There is no pneumothorax, pleural effusion. The heart is not enlarged. Her first set of cardiac enzymes showed troponin to be less than 0.017 and the patient was admitted to rule out myocardial infarction, although the pain seems more consistent with some form of cervical spondylosis and cervical radiculopathy. She has pain mostly in the right side with tingling and numbness in her fingers. PAST MEDICAL HISTORY: Significant for coronary artery disease, status post PCI with stent deployment to left anterior descending artery in 2014. She is known to have hypertension, hyperlipidemia, chronic obstructive pulmonary disease, gastroesophageal reflux disease, migraine headache, obstructive sleep apnea, anxiety and depression. She is on CPAP. She also stated that she has generalized osteoarthritis. PAST SURGICAL HISTORY: Significant for bilateral cataract extraction, 2 C-sections. She has also tummy tuck, breast reduction surgery, and full hysterectomy. FAMILY HISTORY: Significant for sister dying at age of 53 because of lung cancer. Father at the age of 82 because of lymphoma, leukemia. Mother in her 70s because of end-stage renal disease. SOCIAL HISTORY: She is , has 4 daughters. Quit smoking 6 years ago. Drinks alcohol occasionally. Does not use any drugs. ALLERGIES: She is allergic to GLUTEN. MEDICATIONS: She is currently on following medications: She is on Xopenex 2 puffs every 4-6 hours. She is on Multaq 400 mg twice a day, isosorbide mononitrate 30 mg extended release once a day, metoprolol succinate 100 mg twice a day, aspirin 81 mg once a day, Pristiq extended release 50 mg daily, furosemide 20 mg daily, pantoprazole 40 mg daily and Reglan 10 mg twice a day. PHYSICAL EXAMINATION: GENERAL: On arrival to the Emergency Room, the patient looked well and was clearly in no apparent respiratory distress. No pallor, jaundice, cyanosis or thyromegaly. No jugular venous distention. No limb edema. VITAL SIGNS: Her heart rate was 97, blood pressure was 117/79, temperature was 97.9, respiratory rate was 16, and oxygen saturation was 96% on room air. HEAD, EYES, EARS, NOSE AND THROAT: Showed normocephalic, atraumatic. NECK: Supple. HEART: Showed normal first and second heart sounds. No gallop, rub or murmur. CHEST: Clear to auscultation. No crepitation or rhonchi. ABDOMEN: Distended, soft, nontender. No guarding or rigidity. No organomegaly. All hernial orifices were intact. Bowel sounds normal. NEUROLOGIC: She was awake, alert, responding appropriately. All cranial nerves intact. EXTREMITIES: She moves extremities without difficulty. She ambulates without assistance or assistive devices. LABORATORY DATA: Her white cell count was 6200, hemoglobin 13, hematocrit 40, MCV 89 and platelet count 328,000. Her chemistry showed a serum sodium 142, potassium 4.1, chloride 102, bicarbonate 27, anion gap of 13, BUN 16, creatinine 1.2, estimated GFR was 45 mL per minute. Her glucose was 98, calcium was 9.1. Total bilirubin, AST, ALT, alkaline phosphatase were normal. Total protein was 6.9, albumin was 4. Her chest x-ray showed that there are no confluent infiltrate. There is no pneumothorax or pleural effusion. The heart is not enlarged. ASSESSMENT AND PLAN: The patient came with somewhat atypical chest pain. In fact, her pain was more consistent with some form of cervical radiculopathy and cervical spondylosis. We will do 2 more sets of cardiac enzyme, just check her fasting lipid profile tomorrow morning and consult the cardiology. I will also arrange for a CT scan of the cervical spine and we will resume all her medication and perhaps some steroids and muscle relaxant. SOLO AGUIRRE MD DR: Yasmani JOB#: [id number] / [id number]
[2019-01-11] MEDS: MORPHINE SULFATE 2 MG/ML DISP.SYRIN. IV PRN ×3 (15:56→22:30)
[2019-01-11] MEDS: METOCLOPRAMIDE 10 MG TABLET PO SCH (15:56)
--- NOTE | 2019-01-11 16:52 | RAD ---
EXAM: Cervical spine CT without contrast. HISTORY: Cervical radiculopathy. TECHNIQUE: Computed tomographic images of the cervical spine were obtained without contrast. Multiplanar reformatting was performed.. *One or more of the following individualized dose reduction techniques were utilized for this examination: 1. Automated exposure control. 2. Adjustment of the mA and/or kV according to patient size. 3. Use of iterative reconstruction technique. COMPARISON: None. FINDINGS: There is straightening of cervical lordosis. There is minimal anterolisthesis of C4 on C5 and C7 on T1. There is degenerative endplate remodeling with disc space narrowing, osteophytosis and Schmorl's node formation at C5-C6 and C6-C7. There is multilevel facet arthropathy. There is no fracture. No suspicious lytic or sclerotic osseous lesion is seen. The visualized portions of the brain and skull base are unremarkable. The mastoid air cells are clear. The temporomandibular joints are intact. The airways midline and widely patent. The lung apices are unremarkable. At C2-C3, there is no stenosis. At C3-C4, there is a shallow broad-based posterior central disc protrusion. There is mild left facet arthropathy. There is minimal left foraminal stenosis. At C4-C5, there is severe left facet arthropathy. There is mild left foraminal stenosis. At C5-C6, there is a disc bulge and endplate osteophytosis. There is mild bilateral facet arthropathy. There is right uncovertebral arthropathy. There is moderate right and mild left foraminal stenosis. At C6-C7, there is a disc bulge and endplate osteophytosis. There is mild bilateral facet arthropathy. There is right greater than left uncovertebral arthropathy. There is a corticated ossicle possibly due to a chronic fragmented osteophyte within the left neural foramen and transverse foramen. The imaging appearance does not favor an acute fracture fragment. There is lucency within the left lateral aspect of this vertebral body, likely due to a hemangioma. There is severe left foraminal stenosis. IMPRESSION: 1. Multilevel degenerative change involving the cervical spine, described in detail above. This is associated with minimal left foraminal stenosis at C3-C4, mild left foraminal stenosis at C4-C5, moderate right and mild left foraminal stenosis at C5-C6 and severe left foraminal stenosis at C6-C7. 2. Note is made that the aforementioned severe left foraminal stenosis at C6-C7 is associated with a corticated ossific body within the neural foramen and transverse foramen. The imaging appearance favors a chronic fragmented osteophyte rather than an ossified mass, acute fracture or segmentation anomaly. Electronically signed by: Isis Cai MD (01/11/2019 4:49 PM) [facility]
[2019-01-11 19:43] VITALS: BP 109/74
[2019-01-11] MEDS: DRONEDARONE HCL 400 MG TABLET PO SCH (20:37)
[2019-01-11 21:29] LABS: BILIRUBIN,URINE NEG (NEG); CLARITY,URINE CLEAR; COLOR,URINE STRAW; GLUCOSE,URINE NEG (NEG); NITRITE,URINE NEG (NEG); RBC,URINE OCC /HPF (0-2); UROBILINOGEN,URINE 0.2 mg/dL (0.2 mg/dL); WBC,URINE OCC /HPF (0-4)
[2019-01-11 21:30] LABS: BACTERIA,URINE FEW /HPF (0-FEW); SQUAMOUS EPITHELIAL CELL,UR FEW /LPF
[2019-01-11 22:38] VITALS: BP 100/68
[2019-01-12] MEDS: MORPHINE SULFATE 2 MG/ML DISP.SYRIN. IV PRN ×2 (02:05→07:49)
--- NOTE | 2019-01-12 03:42 | EKG ---
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
[2019-01-12 05:43] VITALS: BP 105/72
[2019-01-12] MEDS: METOPROLOL SUCC 24HR ER 50 MG TAB.ER.24H. PO SCH (07:55)
[2019-01-12] MEDS: ASPIRIN 81 MG TAB.CHEW PO SCH (07:55)
[2019-01-12] MEDS: ISOSORBIDE MONONITRATE ER 30 MG TAB.ER.24H PO SCH (07:56)
[2019-01-12] MEDS: METOCLOPRAMIDE 10 MG TABLET PO SCH (07:56)
[2019-01-12] MEDS: PANTOPRAZOLE 40 MG TABLET. PO SCH (07:56)
[2019-01-12] MEDS: DRONEDARONE HCL 400 MG TABLET PO SCH (07:57)
[2019-01-12] MEDS: DESVENLAFAXINE 50 MG TAB.ER.24H. PO SCH (07:57)
[2019-01-12] MEDS: FUROSEMIDE 20 MG TABLET PO SCH (07:57)
--- NOTE | 2019-01-12 08:14 | PDOC2 ---
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 Mckenzie SOURCE Source: Chart review, Patient HPI History of Present Illness This is a 63 yo female who presented secondary to right chest and right arm pain, tingling, weakness. Patient reports pain began 3am Friday morning. Describes as tightness in her right chest/shoulder and shooting pain down her right arm. Feels "like a pinched nerve". Has weakness and tingling in her right FA and hand. Pain is so intense she felt nauseated and short of breath. Patient reports pain to be very similar to what she previously experienced with sciatica down her right arm. Does not feel like this pain is related to her heart. Do dizziness, diaphoresis, or palpitations. Reports compliance with her medications. Follows with Dr. Styles. PAST MEDICAL HISTORY Past Medical History Cardiovascular: CAD, HTN, hyperlipidemia Pulmonary: COPD, asthma, Other (ANI on CPAP) CENTRAL NERVOUS SYSTEM: Migraine (cluster headaches) GI: GERD Heme/Onc: Iron deficiency Anemia Psych: Anxiety, Depression Renal/: UTI PAST SURGICAL HISTORY Past Surgical History Cataract Removal, , Tubal Ligation, Hysterectomy, breast reduction FAMILY HISTORY Family History Other (kidney disease, lymphoma, leukemia, lung CA) SOCIAL HISTORY Social History Smoke: Quit (6 years ago. 30 pack year history) ALCOHOL: none Drugs: None Lives: with Family CURRENT MEDICATIONS Current Medications Current Medications Aspirin (Children'S Aspirin) 324 mg 1X ONCE PO ; Start 01/11/19 at 10:30; Stop 01/11/19 at 10:31; Status DC Ondansetron HCl (Zofran) 4 mg 1X ONCE IVP Last administered on 01/11/19at 10:15; Start 01/11/19 at 10:30; Stop 01/11/19 at 10:31; Status DC Morphine Sulfate (Morphine 2mg Syringe) 2 mg 1X ONCE IV Last administered on 01/11/19at 10:15; Start 01/11/19 at 10:30; Stop 01/11/19 at 10:31; Status DC Ondansetron HCl (Zofran) 4 mg PRN Q4HRS PRN IV NAUSEA/VOMITING; Start 01/11/19 at 11:45; Stop 01/12/19 at 11:44 Morphine Sulfate (Morphine 2mg Syringe) 2 mg PRN Q2HR PRN IV PAIN Last administered on 01/12/19at 07:49; Start 01/11/19 at 11:45; Stop 01/12/19 at 11:44 Nitroglycerin (Nitrostat) 0.4 mg PRN Q5MIN PRN SL CHEST PAIN; Start 01/11/19 at 11:45; Stop 01/12/19 at 11:44 Aspirin (Children'S Aspirin) 81 mg DAILY PO Last administered on 01/12/19 07:55; Start 01/11/19 at 15:00 Desvenlafaxine Succinate (Pristiq Er) 50 mg DAILY PO Last administered on 01/12/19 07:57; Start 01/11/19 at 15:00 Dronedarone (Multaq) 400 mg BID PO Last administered on 01/12/19at 07:57; Start 01/11/19 at 21:00 Furosemide (Lasix) 20 mg DAILY PO ; Start 01/11/19 at 15:00 Isosorbide Mononitrate (Imdur) 30 mg DAILY PO ; Start 01/11/19 at 15:00 Metoclopramide HCl (Reglan) 10 mg BIDBFRMEAL PO Last administered on 01/12/19at 07:56; Start 01/11/19 at 16:30 Metoprolol Succinate (Toprol Xl) 100 mg DAILY PO Last administered on 01/12/19at 07:55; Start 01/11/19 at 15:00 Pantoprazole Sodium (Protonix) 40 mg DAILYAC PO Last administered on 01/12/19at 07:56; Start 01/11/19 at 15:00 Non-Formulary Medication (Levalbuterol Tartrate (Xopenex Hfa)) 2 puff PRN Q4- 6HRS IH ; Start 01/11/19 at 14:30; Status UNV Albuterol Sulfate (Ventolin) 2.5 mg PRN Q4HRS PRN NEB SHORTNESS OF BREATH; Start 01/11/19 at 14:45 Active Scripts Active Multaq (Dronedarone Hcl) 400 Mg Tablet 1 Tab PO BID Reported Lasix (Furosemide) 20 Mg Tablet 20 Mg PO DAILY Xopenex Hfa (Levalbuterol Tartrate) 15 Gm Hfa.aer.ad 2 Puff IH PRN Q4-6HRS Isosorbide Mononitrate Er (Isosorbide Mononitrate) 30 Mg Tab.er.24h 1 Tab PO DAILY Pantoprazole Sodium 40 Mg Tablet.dr 1 Tab PO DAILY Aspirin 81 Mg Tab.chew 1 Tab PO DAILY Reglan (Metoclopramide Hcl) 10 Mg Tablet 1 Tab PO BID Metoprolol Succinate ( Xl ) (Metoprolol Succinate) 25 Mg Tab.er.24h 100 Mg PO BID Pristiq Er (Desvenlafaxine Succinate) 50 Mg Tab.er.24h 1 Tab PO DAILY ALLERGIES Allergies: Coded Allergies: gluten (Verified Allergy, Intermediate, 10/28/18) iron (Verified Allergy, Unknown, 10/28/18) ROS Review of Systems 14 point ROS conducted with pertinent positives noted above in HPI. PHYSICAL EXAM Physical Exam General: Alert, Oriented X3, Cooperative, No acute distress HEENT: Atraumatic, Mucous membr. moist/pink Lungs: Clear to auscultation, Normal air movement Heart: Regular rate, Normal S1, Normal S2, No murmurs Abdomen: Soft Extremities: No edema Skin: No rashes, No breakdown Neuro: Normal speech, Sensation intact Psych/Mental Status: Mental status NL, Mood NL MUSCULOSKELETAL: Osteoarthritic changes both hands VITALS Vital Signs Vital Signs Date Time Temp Pulse Resp B/P (MAP) Pulse Ox O2 Delivery O2 Flow Rate FiO2 01/12/19 07:57 98 109/72 01/12/19 07:49 15 01/12/19 05:43 97.7 93 Room Air 01/12/19 03:03 1.0 LABS LABS Laboratory Tests Test 01/11/19 09:52 01/11/19 14:45 01/11/19 17:50 01/11/19 19:10 White Blood Count 6.2 x10^3/uL (4.0-11.0) Red Blood Count 4.56 x10^6/uL (3.50-5.40) Hemoglobin 13.2 g/dL (12.0-15.5) Hematocrit 40.5 % (36.0-47.0) Mean Corpuscular Volume 89 fL (79-100) Mean Corpuscular Hemoglobin 29 pg (25-35) Mean Corpuscular Hemoglobin Concent 33 g/dL (31-37) Red Cell Distribution Width 21.1 % (11.5-14.5) Platelet Count 328 x10^3/uL (140-400) Neutrophils (%) (Auto) 65 % (31-73) Lymphocytes (%) (Auto) 26 % (24-48) Monocytes (%) (Auto) 7 % (0-9) Eosinophils (%) (Auto) 1 % (0-3) Basophils (%) (Auto) 1 % (0-3) Neutrophils # (Auto) 4.0 x10^3uL (1.8-7.7) Lymphocytes # (Auto) 1.6 x10^3/uL (1.0-4.8) Monocytes # (Auto) 0.4 x10^3/uL (0.0-1.1) Eosinophils # (Auto) 0.1 x10^3/uL (0.0-0.7) Basophils # (Auto) 0.1 x10^3/uL (0.0-0.2) Platelet Estimate Adequate (ADEQUATE) Anisocytosis Slight Sodium Level 142 mmol/L (136-145) Potassium Level 4.1 mmol/L (3.5-5.1) Chloride Level 102 mmol/L (98-107) Carbon Dioxide Level 27 mmol/L (21-32) Anion Gap 13 (6-14) Blood Urea Nitrogen 16 mg/dL (7-20) Creatinine 1.2 mg/dL (0.6-1.0) Estimated GFR (Cockcroft-Gault) 45.7 BUN/Creatinine Ratio 13 (6-20) Glucose Level 98 mg/dL (70-99) Calcium Level 9.1 mg/dL (8.5-10.1) Total Bilirubin 0.4 mg/dL (0.2-1.0) Aspartate Amino Transf (AST/SGOT) 25 U/L (15-37) Alanine Aminotransferase (ALT/SGPT) 47 U/L (14-59) Alkaline Phosphatase 82 U/L (46-116) Troponin I Quantitative < 0.017 ng/mL (0-0.055) < 0.017 ng/mL (0-0.055) < 0.017 ng/mL (0-0.055) IX-Wqv-A-Type Natriuretic Peptide 22 pg/mL (0-124) Total Protein 6.9 g/dL (6.4-8.2) Albumin 4.0 g/dL (3.4-5.0) Albumin/Globulin Ratio 1.4 (1.0-1.7) Urine Collection Type Unknown Urine Color Straw Urine Clarity Clear Urine pH 6.0 Urine Specific [place] 1.025 Urine Protein Neg (NEG-TRACE) Urine Glucose (UA) Neg mg/dL (NEG) Urine Ketones (Stick) Neg mg/dL (NEG) Urine Blood Trace (NEG) Urine Nitrite Neg (NEG) Urine Bilirubin Neg (NEG) Urine Urobilinogen Dipstick 0.2 mg/dL (0.2 mg/dL) Urine Leukocyte Esterase Trace (NEG) Urine RBC Occ /HPF (0-2) Urine WBC Occ /HPF (0-4) Urine Squamous Epithelial Cells Few /LPF Urine Bacteria Few /HPF (0-FEW) Urine Mucus Slight /LPF ECHOCARDIOGRAM Echocardiogram <Conclusion> The left ventricular systolic function is normal. The Ejection Fraction is 55-60%. There is normal LV segmental wall motion. Transmitral Doppler flow pattern is Grade I-abnormal relaxation pattern. No significant valvular abnormalities. There is no evidence of significant pericardial effusion. DATE: 04/08/18 1353 HEART CATH Heart Cath CORONARY ANGIOGRAPHY: LM is a large caliber vessel with normal angiographic appearance. LAD is a moderate caliber vessel with proximal 20% stenosis, a patent long mid stent. The distal vessel has no significant stenosis. D1 is a small caliber vessel with proximal 20% stenosis. LCx is a moderate caliber non-dominant vessel with a mid long 40-50% stenosis. OM1 is a small caliber vessel with normal angiographic appearance. OM2 is a small caliber vessel with normal angiographic appearance. RCA is a large caliber hyperdominant vessel with mild luminal irregularities of up to 30%. RPDA is a moderate caliber vessel with mild luminal irregularities of up to 20%. RPL is a moderate to large caliber vessel with a mid to distal 50% stenosis. Conclusion 1. Acute on chronic diastolic heart failure. (LVEDP 25 mm Hg) 2. Three vessel coronary disease, without any critical stenosis to account for symptoms. 3. Patent LAD stent. Recommendations Aggressive Medical Therapy DATE: 08/20/18 2365 ASSESSMENT/PLAN Assessment/Plan 1. Chest pain, atypical. AMI ruled out. Pain most probable secondary to nerve impingement 2. CAD s/p PCI/stent to LAD 2014. Cath earlier this year non-obstructive disease and patent LAD stent as noted above. 3. Hypertension; controlled 4. Hyperlipidemia; statin therapy 5. PVC's; BB and antiarrhythmic therapy 6. CKD Recommendations Continue secondary prevention measures Supportive care from a CV standpoint. No further cardiac testing at this time. F/u routinely with VADIM Wu MD 01/12/191928: CARDIAC CONSULT ASSESSMENT/PLAN Assessment/Plan Patient seen and examined. Agree with CARDIAC CARE NURSE's assessment and plan. CP with atypical features. DC ruled out. Recent cardiac cath results noted above without any lesions needing intervention No further cardiac workup is indicated at this time Follow up with our office as previously scheduled. Thank you for your consultation DIONICIO GARNER APRN Jan 12, 2019 08:14 VADIM KEYES MD Jan 12, 2019 19:29
[2019-01-12 10:35] VITALS: BP 114/70
[2019-01-12] MEDS ORDERED: MORPHINE SULFATE 2 MG/ML DISP.SYRIN. IV PRN (12:30)
--- NOTE | 2019-01-12 13:00 | NUR ---
New order for 2MG morphine IV q 2 hour PRN received from Dr. Mckenzie via telephone for severe pain.
--- NOTE | 2019-01-12 13:47 | NUR ---
Discharge Note: SHIRA SARAVIA [address] Discharge instructions and discharge home medications reviewed with Patient and a copy given. All questions have been answered and understanding verbalized. The following instructions and handouts were given: GABAPENTIN, NERVE PAIN Discontinued lines and drains: IV D/C TIP IN TACT, PRESSURE DRESSING APPLIED. Patient discharged to home accompanied by .
--- NOTE | 2019-01-12 18:34 | DS ---
DATE OF DISCHARGE: 01/12/2019 HOSPITAL COURSE: The patient is sitting on the edge of the bed comfortably in no apparent distress. On questioning her, she stated that she continued to have pain, tingling and numbness in right upper extremity and her chest pain has resolved. She did have 3 sets of cardiac enzyme that has ruled out acute myocardial infarction and therefore a decision was made to discharge her home with an order for an MRI of her cervical spine and an appointment to see Dr. Carbajal, the neurosurgeon at [facility]. PHYSICAL EXAMINATION: GENERAL: When I saw her this morning, she looked well and was clearly in no apparent respiratory distress. No pallor, jaundice, cyanosis or thyromegaly. No jugular venous distention. No limb edema. VITAL SIGNS: His heart rate was 76, blood pressure 114/70, temperature was 97.7, respiratory rate 20, and oxygen saturation was 95%. HEAD, EYES, EARS, NOSE AND THROAT: Showed normocephalic, atraumatic. NECK: Supple. HEART: Showed normal first and second heart sounds with no gallop, rub or murmur. CHEST: Clear to auscultation. No crepitation or rhonchi. ABDOMEN: Distended, soft, nontender. No guarding or rigidity. No organomegaly. All hernial orifice intact. Bowel sounds normal. NEUROLOGIC: She was awake, alert, responding appropriately. All cranial nerves intact. EXTREMITIES: She moves extremities without difficulty. LABORATORY DATA: Showed a white cell count 6200, hemoglobin 13, hematocrit 40, MCV 89 and platelet count 328,000 with normal manual differential. Her chemistry showed that creatinine is slightly elevated at 1.2 and estimated GFR of 45 mL per minute. She has 3 sets of cardiac enzymes that ruled out myocardial infarction. Her CT scan of the cervical spine showed that the patient has multilevel degenerative changes involving the cervical spine. This is associated with minimal left foraminal stenosis at C3-C4, mild left foraminal stenosis at C4-C5, moderate right and mild left foraminal stenosis at C5-C6 and severe left foraminal stenosis at C6-C7. DISCHARGE MEDICATIONS: She was discharged home to continue on following medications: She will continue aspirin 81 mg once a day, Pristiq 50 mg once a day, Multaq 400 mg twice a day, furosemide 20 mg once a day, isosorbide mononitrate 30 mg once a day, levalbuterol tartrate or Xopenex 2 puffs every 4-6 hours, metoclopramide for Reglan 10 mg twice a day, metoprolol succinate 100 mg twice a day, Protonix 40 mg once a day. She was also discharged on a Medrol Dosepak, baclofen 5 mg 3 times a day and gabapentin 300 mg once a day. We will also arrange for her to have an MRI of the cervical spine and made an arrangement for her to be seen by the neurosurgeon, Dr. Carbajal. FINAL DISCHARGE DIAGNOSES: Atypical chest pain with tingling and numbness and pain in her right upper extremity consistent with right-sided cervical radiculopathy. The CT scan of the cervical spine is consistent with that. Other medical problems include coronary artery disease, status post ____ stent deployment, left anterior descending artery, hypertension, hyperlipidemia and chronic kidney disease. SOLO AGUIRRE MD DR: FLAKO/viv JOB#: [id number] / [id number]
== END 2019-01-12 13:49 | disposition home or self-care (01) | DRG 74 ==
LOC: ER 09:39 → 1 SOUTH 12:46
PROVIDERS: ADMIT Internal Medicine; ATTEND Internal Medicine
DX: M54.12 Radiculopathy, cervical region (principal); R07.89 Other chest pain; E78.5 Hyperlipidemia, unspecified; E87.6 Hypokalemia; I12.9 Hypertensive chronic kidney disease with stage 1 through stage 4 chronic kidney disease, or unspecified chronic kidney disease; I25.10 Atherosclerotic heart disease of native coronary artery without angina pectoris; I49.3 Ventricular premature depolarization; J44.9 Chronic obstructive pulmonary disease, unspecified; M15.9 Polyosteoarthritis, unspecified; N18.9 Chronic kidney disease, unspecified; Z80.1 Family history of malignant neoplasm of trachea, bronchus and lung; Z80.6 Family history of leukemia; Z80.7 Family history of other malignant neoplasms of lymphoid, hematopoietic and related tissues; Z87.891 Personal history of nicotine dependence; Z90.710 Acquired absence of both cervix and uterus; Z95.5 Presence of coronary angioplasty implant and graft; Z98.41 Cataract extraction status, right eye; Z98.42 Cataract extraction status, left eye; F32.9 Major depressive disorder, single episode, unspecified; F41.9 Anxiety disorder, unspecified; G43.909 Migraine, unspecified, not intractable, without status migrainosus; K21.9 Gastro-esophageal reflux disease without esophagitis
CPT/HCPCS: 36415; 71045; 72125; 80053; 80061; 81001; 83880; 84484; 85025; 87086; 93005; 96374; 96375; J2270; J2405; J8597; 99285-25

== ENCOUNTER 2019-02-16 19:49 | Emergency (ER) | payer OTHER ==
[~2019-02-16] VITALS: Ht 162.6 cm; Wt 90.7 kg
[2019-02-16 20:32] LABS: BASO # 0.1 x10^3/uL (0.0-0.2); BASO % 1 % (0-3); EOS % 1 % (0-3); HEMATOCRIT 38.4 % (36.0-47.0); HEMOGLOBIN 12.6 g/dL (12.0-15.5); LYMPH # 1.2 x10^3/uL (1.0-4.8); LYMPH % 22 % (24-48); MEAN CORPUSCULAR HEMOGLOBIN 28 pg (25-35); MEAN CORPUSCULAR HGB CONC 33 g/dL (31-37); MEAN CORPUSCULAR VOLUME 87 fL (79-100); MONO # 0.3 x10^3/uL (0.0-1.1); MONO % 6 % (0-9); NEUT # 3.9 x10^3uL (1.8-7.7); NEUT % 70 % (31-73); PLATELET COUNT 388 x10^3/uL (140-400); RED BLOOD COUNT 4.43 x10^6/uL (3.50-5.40); RED CELL DISTRIBUTION WIDTH 17.7 % (11.5-14.5); WHITE BLOOD COUNT 5.6 x10^3/uL (4.0-11.0)
[2019-02-16 20:47] LABS: ALBUMIN 3.6 g/dL (3.4-5.0); CALCIUM 9.2 mg/dL (8.5-10.1); CREATININE 1.1 mg/dL (0.6-1.0); GFR 50.5; MAGNESIUM 1.9 mg/dL (1.8-2.4); POTASSIUM 3.9 mmol/L (3.5-5.1); TOTAL BILIRUBIN 0.3 mg/dL (0.2-1.0); TOTAL PROTEIN 7.1 g/dL (6.4-8.2)
[2019-02-16] MEDS ORDERED: LORazepam 1 MG TABLET PO ONE (21:15)
--- NOTE | 2019-02-16 21:16 | PHYS DOC ---
Past History Past Medical History: CAD, COPD, Depression, GERD, Hypertension, Other Additional Past Medical Histor: Gastroperesis Past Surgical History: Coronary Bypass Surgery, , Hysterectomy, Other Additional Past Surgical Histo: breast reduction and "tummy tuck" Smoking: Quit Greater Than 1 Year Alcohol Use: None Drug Use: None Adult General Chief Complaint Chief Complaint: SHORTNESS OF BREATH [facility] HPI 63-year-old female presents with shortness of breath, rapid heartbeat, and general anxiety. The patient started having this feeling around 7 PM. She describes it as feeling "amped up". She has had anxiety in the past, but only with flying. She states that this feels somewhat similar but it has persisted. She is feeling better now than she was when it first started. He is not feeling palpitations at this time. The patient does have a cardiac history. She denies chest pain or diaphoresis. She has not taken any medications for this. She denies fever or chills. Review of Systems Review of Systems Constitutional: Denies fever or chills [] Eyes: Denies change in visual acuity, redness, or eye pain [] HENT: Denies nasal congestion or sore throat [] Respiratory: shortness of breath [] Cardiovascular: No additional information not addressed in HPI [] GI: Denies abdominal pain, nausea, vomiting, bloody stools or diarrhea [] : Denies dysuria or hematuria [] Musculoskeletal: Denies back pain or joint pain [] Integument: Denies rash or skin lesions [] Neurologic: Denies headache, focal weakness or sensory changes [] Endocrine: Denies polyuria or polydipsia [] All other systems were reviewed and found to be within normal limits, except as documented in this note. Allergies Allergies Allergies Coded Allergies Type Severity Reaction Last Updated Verified gluten Allergy Intermediate 10/28/18 Yes iron Allergy Unknown 10/28/18 Yes Physical Exam Physical Exam Constitutional: Well developed, well nourished, no acute distress, non-toxic appearance. [] HENT: Normocephalic, atraumatic, bilateral external ears normal, oropharynx moist, no oral exudates, nose normal. [] Eyes: PERRLA, EOMI, conjunctiva normal, no discharge. [] Neck: Normal range of motion, no tenderness, supple, no stridor. [] Cardiovascular:Heart rate regular rhythm, no murmur [] Lungs & Thorax: Bilateral breath sounds clear to auscultation [] Abdomen: Bowel sounds normal, soft, no tenderness, no masses, no pulsatile masses. [] Skin: Warm, dry, no erythema, no rash. [] Back: No tenderness, no CVA tenderness. [] Extremities: No tenderness, no cyanosis, no clubbing, ROM intact, no edema. [] Neurologic: Alert and oriented X 3, normal motor function, normal sensory function, no focal deficits noted. [] Psychologic: Affect normal, judgement normal, mood anxious. [] Current Patient Data Vital Signs Vital Signs Date Time Temp Pulse Resp B/P (MAP) Pulse Ox O2 Delivery O2 Flow Rate FiO2 02/16/19 20:00 98.1 115 20 97 Room Air Lab Results Laboratory Tests Test 02/16/19 20:14 White Blood Count 5.6 x10^3/uL (4.0-11.0) Red Blood Count 4.43 x10^6/uL (3.50-5.40) Hemoglobin 12.6 g/dL (12.0-15.5) Hematocrit 38.4 % (36.0-47.0) Mean Corpuscular Volume 87 fL (79-100) Mean Corpuscular Hemoglobin 28 pg (25-35) Mean Corpuscular Hemoglobin Concent 33 g/dL (31-37) Red Cell Distribution Width 17.7 % (11.5-14.5) H Platelet Count 388 x10^3/uL (140-400) Neutrophils (%) (Auto) 70 % (31-73) Lymphocytes (%) (Auto) 22 % (24-48) L Monocytes (%) (Auto) 6 % (0-9) Eosinophils (%) (Auto) 1 % (0-3) Basophils (%) (Auto) 1 % (0-3) Neutrophils # (Auto) 3.9 x10^3uL (1.8-7.7) Lymphocytes # (Auto) 1.2 x10^3/uL (1.0-4.8) Monocytes # (Auto) 0.3 x10^3/uL (0.0-1.1) Eosinophils # (Auto) 0.0 x10^3/uL (0.0-0.7) Basophils # (Auto) 0.1 x10^3/uL (0.0-0.2) Sodium Level 139 mmol/L (136-145) Potassium Level 3.9 mmol/L (3.5-5.1) Chloride Level 102 mmol/L (98-107) Carbon Dioxide Level 24 mmol/L (21-32) Anion Gap 13 (6-14) Blood Urea Nitrogen 10 mg/dL (7-20) Creatinine 1.1 mg/dL (0.6-1.0) H Estimated GFR (Cockcroft-Gault) 50.5 BUN/Creatinine Ratio 9 (6-20) Glucose Level 130 mg/dL (70-99) H Calcium Level 9.2 mg/dL (8.5-10.1) Magnesium Level 1.9 mg/dL (1.8-2.4) Total Bilirubin 0.3 mg/dL (0.2-1.0) Aspartate Amino Transferase (AST) 27 U/L (15-37) Alanine Aminotransferase (ALT) 53 U/L (14-59) Alkaline Phosphatase 73 U/L (46-116) Troponin I Quantitative < 0.017 ng/mL (0-0.055) Total Protein 7.1 g/dL (6.4-8.2) Albumin 3.6 g/dL (3.4-5.0) Albumin/Globulin Ratio 1.0 (1.0-1.7) EKG EKG Sinus tachycardia, rate 104, normal axis, no ST elevations or depressions.[] Radiology/Procedures Radiology/Procedures [] Course & Med Decision Making Course & Med Decision Making Pertinent Labs and Imaging studies reviewed. (See chart for details) Patient's labs are unremarkable. Her troponin is negative. Her EKG is unremarkable. Her chest x-ray is unremarkable. This could be anxiety. I will attempt to give her 1 mg of Ativan by mouth. The patient is feeling better after her Ativan. She is stable for discharge at this time. [] Dragon Disclaimer Dragon Disclaimer This electronic medical record was generated, in whole or in part, using a voice recognition dictation system. Departure Departure: Impression: Primary Impression: Anxiety attack Disposition: 01 HOME, SELF-CARE Condition: IMPROVED Referrals: TRISTIN VERDUGO DO (PCP) Patient Instructions: Anxiety and Panic Attacks, [id number]-Axai TINO TUCKER DO Feb 16, 2019:16
[2019-02-16 22:00] VITALS: BP 156/93
--- NOTE | 2019-02-17 00:28 | RAD ---
Chest, PA and Lateral: Technique: PA and lateral views of the chest were obtained. History: Shortness of breath. Comparison: 01/11/2019. Findings: The heart and pulmonary vasculature appear within normal limits. The lungs are clear. The pleural margins are clear. Impression: No acute chest process is seen. Electronically signed by: Avelino Flores MD (02/17/2019 12:25 AM) [facility]
--- NOTE | 2019-02-18 01:48 | EKG ---
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
== END 2019-02-16 22:25 | disposition home or self-care (01) ==
LOC: ER 19:49
DX: F41.9 Anxiety disorder, unspecified (principal); J44.9 Chronic obstructive pulmonary disease, unspecified; I25.810 Atherosclerosis of coronary artery bypass graft(s) without angina pectoris; K21.9 Gastro-esophageal reflux disease without esophagitis; I10 Essential (primary) hypertension; Z87.891 Personal history of nicotine dependence; Z88.8 Allergy status to other drugs, medicaments and biological substances
CPT/HCPCS: 36415; 71046; 80053; 83735; 84484; 85025; 93005; 99285

== ENCOUNTER 2019-03-23 19:15 | Emergency (ER) | payer OTHER ==
[~2019-03-23] VITALS: Ht 162.6 cm; Wt 95.3 kg
--- NOTE | 2019-03-23 20:59 | PHYS DOC ---
Past History Past Medical History: CAD, COPD, Depression, GERD, Hypertension, Other Additional Past Medical Histor: Gastroperesis Past Surgical History: Coronary Bypass Surgery, , Hysterectomy, Other Additional Past Surgical Histo: breast reduction and "tummy tuck" Smoking: Quit Greater Than 1 Year Alcohol Use: None Drug Use: None Adult General Chief Complaint Chief Complaint: EARACHE/EAR PAIN HPI HPI Patient is a 63-year-old female that presents to the ED with complaint of right ear pain. Patient states that around 6 PM this evening she experienced loss of hearing in the right ear with right ear throbbing and fullness. Patient's rep orts that she has never experienced this before and has no prior history of her surgeries. Patient denies any drainage from the ear, fevers, headache, vision changes, or sore throat. Patient states that she was seen by her family physician today and diagnosed with bronchitis and UTI and given Bactrim and methylprednisone which she has not started these medications. Review of Systems Review of Systems Constitutional: Denies fever or chills Eyes: Denies redness or eye pain HENT: Denies nasal congestion or sore throat; reports right ear fullness and decreased hearing in right ear Respiratory: Denies cough or shortness of breath Cardiovascular: Denies chest pain or palpitations GI: Denies abdominal pain, nausea, or vomiting : Denies dysuria or hematuria Musculoskeletal: Denies back pain or joint pain Integument: Denies rash or skin lesions Neurologic: Denies headache, focal weakness or sensory changes Complete systems were reviewed and found to be within normal limits, except as documented in this note. Current Medications Current Medications Current Medications Medications (Trade) Dose Ordered Sig/Kian Start Time Stop Time Status Last Admin Dose Admin Dexamethasone (Decadron) 10 mg 1X ONCE 03/23/19 21:00 03/23/19 21:01 Allergies Allergies Allergies Coded Allergies Type Severity Reaction Last Updated Verified gluten Allergy Intermediate 10/28/18 Yes iron Allergy Unknown 10/28/18 Yes Physical Exam Physical Exam Constitutional: Well developed, well nourished, no acute distress, non-toxic appearance HENT: Normocephalic, atraumatic, oropharynx moist. Some fullness noted to the right TM is clear with some mild surrounding erythema. Left TM normal. Eyes: Conjunctiva normal, no discharge Neck: Normal range of motion, no tenderness, supple Cardiovascular: Heart rate normal, regular rhythm Lungs & Thorax: Bilateral breath sounds clear to auscultation, no wheezing Abdomen: Soft, no tenderness Skin: Warm, dry, no erythema, no rash Extremities: No tenderness, ROM intact, no edema Neurologic: Alert and oriented X 3, no focal deficits noted Psychologic: Affect normal, judgement normal EKG EKG [] Radiology/Procedures Radiology/Procedures [] Course & Med Decision Making Course & Med Decision Making Patient presents with right ear fullness and decreased hearing that started tonight. Physical exam benign except for some fullness of the right TM with mild surrounding erythema. Due to patient's recent diagnosis of bronchitis, explained likely etiology related to viral URI. Patient is to hold on methylprednisolone until tomorrow and will give a dose of steroids in the ED today. Patient stable for discharge with outpatient follow-up with PCP. Discussed findings and plan with patient, who acknowledges understanding and agreement. Dragon Disclaimer Dragon Disclaimer This electronic medical record was generated, in whole or in part, using a voice recognition dictation system. Departure Departure: Impression: Primary Impression: Otalgia of right ear Disposition: 01 HOME, SELF-CARE Condition: STABLE Referrals: TRISTIN VERDUGO DO (PCP) Patient Instructions: Otalgia-Brief Additional Instructions: Please continue previously prescribed steroids and Antibiotics and follow up closely with family physician. SWETA SPENCE DO Mar 23, 2019 20:59
[2019-03-23] MEDS ORDERED: DEXAMETHASONE 4 MG TABLET PO ONE (21:00)
[2019-03-23 21:20] VITALS: BP 130/86
== END 2019-03-23 21:21 | disposition home or self-care (01) ==
LOC: ER 19:15
DX: H92.01 Otalgia, right ear (principal); I25.810 Atherosclerosis of coronary artery bypass graft(s) without angina pectoris; J44.9 Chronic obstructive pulmonary disease, unspecified; F32.9 Major depressive disorder, single episode, unspecified; K21.9 Gastro-esophageal reflux disease without esophagitis; I10 Essential (primary) hypertension; Z87.891 Personal history of nicotine dependence; Z88.8 Allergy status to other drugs, medicaments and biological substances
CPT/HCPCS: 99282; J8540

== ENCOUNTER 2019-06-16 19:51 | Emergency (ER) | payer OTHER ==
[~2019-06-16] VITALS: Ht 162.6 cm; Wt 95.4 kg
[2019-06-16 20:17] VITALS: BP 137/91
--- NOTE | 2019-06-16 20:30 | PHYS DOC ---
Past History Past Medical History: CAD, COPD, Depression, GERD, Hypertension, Other Additional Past Medical Histor: Gastroperesis Past Surgical History: Coronary Bypass Surgery, , Hysterectomy, Other Additional Past Surgical Histo: breast reduction and "tummy tuck", CARDIAC STENT Smoking: Quit Greater Than 1 Year Alcohol Use: None Drug Use: None General Adult EDM: Chief Complaint: COUGH HPI: HPI: This is a 64-year-old female with past medical history significant for cardiac stent x1 who follows along with Dr. Styles and was last seen in clinic on Friday. Patient reports intermittent elevated heart rate for the past couple of days that has become more frequent since 2:00 this afternoon with some increasing shortness of breath. She complains of swelling to the left arm and left leg region. She states that her etiologist increased her water pill on Friday. She denies chest pain or cough or fever or chills. Review of Systems: Review of Systems: All other systems negative except as reported in HPI Heart Score: HEART Score for Chest Pain: HEART Score for Chest Pain Response (Comments) Value History Slighlty/Non-Suspicious 0 Age >45 - < 65 1 Risk Factors >3 Risk Factors or Hx CAD 2 Total 3 Risk Factors: Risk Factors: DM, Current or recent (<one month) smoker, HTN, HLP, family history of CAD, obesity. Risk Scores: Score 0 - 3: 2.5% MACE over next 6 weeks - Discharge Home Score 4 - 6: 20.3% MACE over next 6 weeks - Admit for Clinical Observation Score 7 - 10: 72.7% MACE over next 6 weeks - Early Invasive Strategies Current Medications: Current Meds: Current Medications Medications (Trade) Dose Ordered Sig/Kian Start Time Stop Time Status Last Admin Dose Admin Lorazepam (Ativan Inj) 0.5 mg 1X ONCE 06/16/19 20:30 06/16/19 20:31 UNV Sodium Chloride 1,000 ml @ 1,000 mls/hr Q1H 06/16/19 20:19 06/16/19 21:18 UNV Allergies: Allergies: Allergies Coded Allergies Type Severity Reaction Last Updated Verified gluten Allergy Intermediate 10/28/18 Yes iron Allergy Unknown 10/28/18 Yes Physical Exam: PE: Constitutional: Well developed, well nourished, no acute distress, non-toxic appearance. [] HENT: Normocephalic, atraumatic, bilateral external ears normal, oropharynx moist, no oral exudates, nose normal. [] Eyes: PERRLA, EOMI, conjunctiva normal, no discharge. [] Neck: Normal range of motion, no tenderness, supple, no stridor. [] Cardiovascular: Increased heart rate, regular rhythm Lungs & Thorax: Bilateral breath sounds clear to auscultation [] Abdomen: Bowel sounds normal, soft, no tenderness, no masses, no pulsatile masses. [] Skin: Warm, dry, no erythema, no rash. [] Back: No tenderness, no CVA tenderness. [] Extremities: No tenderness, no cyanosis, no clubbing, ROM intact, there is mild swelling to the left arm and leg. Neurologic: Alert and oriented X 3, normal motor function, normal sensory function, no focal deficits noted. [] Psychologic: Affect normal, judgement normal, mood normal. [] EKG: EKG: EKG showed a sinus tachycardia with a ventricular rate of [address] changes with normal intervals. [] Radiology/Procedures: Radiology/Procedures: Chest x-ray is unremarkable [] Course & Med Decision Making: Course & Med Decision Making 2028: This patient is seen for increased heart rate with a history of cardiac disease. Will obtain EKG, chest x-ray and labs. Patient will be given 500ml IV fluids, pain and 24 mg of aspirin, and 0.5 mg of Ativan. 2327: Patient's work-up is complete and her creatinine is slightly elevated today. She has been given 1 L of normal saline which has improved her heart rate from the 120s down to 100. She is feeling much better at this time. I suspect she was over diuresed given that her diuretic was increased 2 days ago. I have recommended the patient reach out to her cardiology clinic tomorrow to let them know what is going on and for further follow-up instructions. Patient stable for discharge at this time Osiel Disclaimer: Osiel Disclaimer: This electronic medical record was generated, in whole or in part, using a voice recognition dictation system. Departure Departure: Impression: Primary Impression: Hypovolemia associated with diuresis Disposition: HOME, SELF-CARE Condition: IMPROVED Referrals: TRISTIN VERDUGO DO (PCP) Additional Instructions: Please contact your cardiology clinic tomorrow and let them know you were in the ER and given IV fluids and your heart rate improved DEMETRA NAGY DO Jun 16, 2019 20:30
[2019-06-16] MEDS: ASPIRIN CHEWABLE 81 MG TABLET. PO ONE (21:00)
[2019-06-16 21:25] LABS: BASO # 0.1 x10^3/uL (0.0-0.2); BASO % 1 % (0-3); EOS # 0.1 x10^3/uL (0.0-0.7); EOS % 1 % (0-3); HEMATOCRIT 39.5 % (36.0-47.0); HEMOGLOBIN 12.9 g/dL (12.0-15.5); LYMPH # 2.8 x10^3/uL (1.0-4.8); LYMPH % 34 % (24-48); MEAN CORPUSCULAR HEMOGLOBIN 28 pg (25-35); MEAN CORPUSCULAR HGB CONC 33 g/dL (31-37); MEAN CORPUSCULAR VOLUME 86 fL (79-100); MONO # 0.9 x10^3/uL (0.0-1.1); MONO % 10 % (0-9); NEUT # 4.4 x10^3uL (1.8-7.7); NEUT % 54 % (31-73); PLATELET COUNT 329 x10^3/uL (140-400); RED BLOOD COUNT 4.57 x10^6/uL (3.50-5.40); RED CELL DISTRIBUTION WIDTH 21.3 % (11.5-14.5); WHITE BLOOD COUNT 8.3 x10^3/uL (4.0-11.0)
[2019-06-16] MEDS: IV NORMAL SALINE 1,000ML 1,000 ML IV SCH (21:30)
[2019-06-16] MEDS: ACETAMINOPHEN 325 MG TABLET PO ONE (21:30)
[2019-06-16 21:37] LABS: CALCIUM 9.6 mg/dL (8.5-10.1); CREATININE 1.5 mg/dL (0.6-1.0); GFR 35.2; POTASSIUM 3.4 mmol/L (3.5-5.1)
--- NOTE | 2019-06-16 21:37 | RAD ---
PORTABLE CHEST 1V 06/16/2019 8:19 PM INDICATION: Shortness of air, rapid heart rate COMPARISON: 02/16/2019 TECHNIQUE: Portable frontal view of the chest is provided. FINDINGS: The cardiomediastinal silhouette is similar in appearance. Lungs are clear. There are no significant pleural effusions. There is no pulmonary vascular congestion. No pneumothorax. IMPRESSION: There is no acute cardiopulmonary process. Electronically signed by: Risa Dias MD (06/16/2019 9:34 PM) [facility]
[2019-06-16 21:43] LABS: ANISOCYTOSIS MOD; HYPERSEGS PRESENT; PLT ESTIMATE ADEQUATE (ADEQUATE)
[2019-06-16 22:41] LABS: BARBITURATES NEG (NEG); BENZODIAZEPINES NEG (NEG); CANNABINOIDS NEG (NEG); COCAINE NEG (NEG); METHADONE NEG (NEG); OPIATES NEG (NEG); PHENCYCLIDINE NEG (NEG)
[2019-06-16 22:54] LABS: AMPHETAMINE/METHAMPHETAMINE NEG (NEG)
--- NOTE | 2019-06-16 23:17 | EKG ---
[address] [address] Test Date: 2019-06-16 Test Time: 20:35:59 Pat Name: SHIRA SARAVIA Department: Room: Gender: F Specialist Physicians: : [id number] Requested By: DEMETRA NAGY Order Number: [id number] Reading MD: Andrea Marti Measurements Intervals [place] Rate: 120 P: -148 ID: [id number] QRS: -3 QRSD: 76 T: 54 QT: 314 QTc: 449 Interpretive Statements SINUS TACHYCARDIA LEFTWARD AXIS Electronically Signed On 06-17-2019 9:26:31 CDT by Andrea Marti
--- NOTE | 2019-06-17 00:05 | RAD ---
EXAM: LEFT WRIST 3 VIEWS. HISTORY: Pain and swelling. COMPARISON: None. FINDINGS: No fractures are identified. Alignment is maintained. Sclerosis along the radial aspect of the lunate may represent a bone island. Another is noted at the base of the fifth proximal phalanx ulnarly. First carpometacarpal and triscaphe osteoarthritis is mild. Soft tissue swelling is noted dorsally. IMPRESSION: 1. Dorsal soft tissue swelling. No fracture. Mild osteoarthritis as above. Electronically signed by: Shubham Humphrey MD (06/17/2019 12:02 AM) [facility]
== END 2019-06-16 23:50 | disposition home or self-care (01) ==
LOC: ER 19:51
DX: E86.1 Hypovolemia (principal); R35.8 Other polyuria; R22.32 Localized swelling, mass and lump, left upper limb; R22.42 Localized swelling, mass and lump, left lower limb; I25.810 Atherosclerosis of coronary artery bypass graft(s) without angina pectoris; J44.9 Chronic obstructive pulmonary disease, unspecified; I10 Essential (primary) hypertension; Z87.891 Personal history of nicotine dependence; Z88.8 Allergy status to other drugs, medicaments and biological substances
CPT/HCPCS: 36415; 71045; 73110; 80048; 80307; 82553; 83690; 83735; 83880; 84443; 84484; 85025; 85379; 85610; 85730; 93005; 96361; 96374; 99285; J2060; J7030

== ENCOUNTER → 2019-09-23 | Outpatient (CLI) | payer OTHER ==
--- NOTE | 2019-09-23 14:25 | RAD ---
MR#: [id number] Date of Study: 09/23/2019 Ordering Physician: MARIA A STYLES, Referring Physician: MARIA A STYLES, Tech: Rhonda Raygoza RVT, [facility] APPROVED REPORT Patient Location : OUT-PATIENT Indications Lower Extremity Edema : Grayscale images of the saphenofemoral junctions are grossly unremarkable. On the right side there is reflux noted at the right saphenofemoral junction but no significant reflu x in the bilateral greater and lesser saphenous veins. The left greater saphenous vein is quite smal l at less than 2 mm. Greater Saphenous Veins (GSV) Significant venous relux noted in the RIGHT GSV at the following levels : Superficial Femoral Junctio n Critical Notification Critical Value: No <Conclusion> 1. No significant reflux noted in the bilateral greater and lesser saphenous veins Signed by : Maria A Styles, Electronically Approved : 09/23/2019 14:24:26
== END ==
LOC: US 08:37 → EDSTATUS 09:00
PROVIDERS: ATTEND Internal Medicine Cardiovascular Disease
DX: I87.2 Venous insufficiency (chronic) (peripheral) (principal)
CPT/HCPCS: 93970

== ENCOUNTER → 2019-09-29 | Outpatient (CLI) | payer OTHER ==
[2019-09-29 16:42] LABS: CALCIUM 9.2 mg/dL (8.5-10.1); CREATININE 1.3 mg/dL (0.6-1.0); GFR 41.5; POTASSIUM 3.6 mmol/L (3.5-5.1)
== END ==
LOC: LAB 15:50
PROVIDERS: ATTEND Internal Medicine Cardiovascular Disease
DX: I50.30 Unspecified diastolic (congestive) heart failure (principal)
CPT/HCPCS: 36415; 80048; 83880

== ENCOUNTER 2019-12-19 10:26 | Emergency (ER) | payer OTHER ==
[~2019-12-19] VITALS: Ht 162.6 cm; Wt 95.4 kg
[~2019-12-19 10:26] MED LIST changes: -PANT40TA5 PO; +PANT40TA6 PO
[2019-12-19 10:46] VITALS: BP 137/84
[2019-12-19 11:19] LABS: BILIRUBIN,URINE NEG (NEG); CLARITY,URINE HAZY; COLOR,URINE YELLOW; GLUCOSE,URINE NEG (NEG); NITRITE,URINE NEG (NEG); UROBILINOGEN,URINE 0.2 mg/dL (0.2 mg/dL)
[2019-12-19 11:20] LABS: BACTERIA,URINE FEW /HPF (0-FEW); SQUAMOUS EPITHELIAL CELL,UR MANY /LPF
[2019-12-19] MEDS ORDERED: NITR100C62 PO (11:48)
--- NOTE | 2019-12-19 11:48 | PHYS DOC ---
Past History Past Medical History: Asthma, CHF, COPD Additional Past Medical Histor: Gastroperesis Past Surgical History: No Surgical History Additional Past Surgical Histo: breast reduction and "tummy tuck", CARDIAC STENT Smoking: Quit Greater Than 1 Year Alcohol Use: Rarely Drug Use: None General Adult EDM: Chief Complaint: BACK PAIN OR INJURY HPI: HPI: 64-year-old female presents with low back pain. It is a deep cramping pain. She denies trauma or falls. The patient states that she gets pain like this when she gets urinary tract infections. This pain started 2 days ago and is worse today. It feels exactly like her previous infections. She also noticed some blood in her urine this morning so she came to the emergency room. She has not had a fever or chills. She is never had a resistant UTI as far she recalls. No medication allergies. She has no other complaints at this time. Review of Systems: Review of Systems: Constitutional: Denies fever or chills Eyes: Denies change in visual acuity HENT: Denies nasal congestion or sore throat Respiratory: Denies cough or shortness of breath Cardiovascular: Denies chest pain or edema GI: Denies abdominal pain, nausea, vomiting, bloody stools or diarrhea : Dysuria Musculoskeletal: Low back pain Integument: Denies rash Neurologic: Denies headache, focal weakness or sensory changes Endocrine: Denies polyuria or polydipsia Lymphatic: Denies swollen glands Psychiatric: Denies depression or anxiety Heart Score: Risk Factors: Risk Factors: DM, Current or recent (<one month) smoker, HTN, HLP, family history of CAD, obesity. Risk Scores: Score 0 - 3: 2.5% MACE over next 6 weeks - Discharge Home Score 4 - 6: 20.3% MACE over next 6 weeks - Admit for Clinical Observation Score 7 - 10: 72.7% MACE over next 6 weeks - Early Invasive Strategies Allergies: Allergies: Allergies Coded Allergies Type Severity Reaction Last Updated Verified gluten Allergy Intermediate 10/28/18 Yes iron Allergy Unknown 10/28/18 Yes Physical Exam: PE: Constitutional: Well developed, well nourished, no acute distress, non-toxic appearance. [] HENT: Normocephalic, atraumatic, bilateral external ears normal, oropharynx moist, no oral exudates, nose normal. [] Eyes: PERRLA, EOMI, conjunctiva normal, no discharge. [] Neck: Normal range of motion, no tenderness, supple, no stridor. [] Cardiovascular: Heart rate regular rhythm, no murmur [] Lungs & Thorax: Bilateral breath sounds clear to auscultation [] Abdomen: Bowel sounds normal, soft, mild suprapubic tenderness, no masses, no pulsatile masses. [] Skin: Warm, dry, no erythema, no rash. [] Back: No tenderness, no CVA tenderness. [] Extremities: No tenderness, no cyanosis, no clubbing, ROM intact, no edema. [] Neurologic: Alert and oriented X 3, normal motor function, normal sensory function, no focal deficits noted. [] Psychologic: Affect normal, judgement normal, mood normal. [] Current Patient Data: Labs: Laboratory Tests Test 12/19/19 10:46 Urine Collection Type Unknown Urine Color Yellow Urine Clarity Hazy Urine pH 6.0 Urine Specific [place] >=1.030 Urine Protein Neg (NEG-TRACE) Urine Glucose (UA) Neg mg/dL (NEG) Urine Ketones (Stick) Neg mg/dL (NEG) Urine Blood Trace (NEG) Urine Nitrite Neg (NEG) Urine Bilirubin Neg (NEG) Urine Urobilinogen Dipstick 0.2 mg/dL (0.2 mg/dL) Urine Leukocyte Esterase Small (NEG) Urine RBC 3-5 /HPF (0-2) Urine WBC 5-10 /HPF (0-4) Urine Squamous Epithelial Cells Many /LPF Urine Bacteria Few /HPF (0-FEW) Urine Mucus Slight /LPF Vital Signs: Vital Signs Date Time Temp Pulse Resp B/P (MAP) Pulse Ox O2 Delivery O2 Flow Rate FiO2 12/19/19 10:46 80 16 137/84 (101) 95 Room Air 12/19/19 10:41 98.2 EKG: EKG: [] Radiology/Procedures: Radiology/Procedures: [] Course & Med Decision Making: Course & Med Decision Making Pertinent Labs and Imaging studies reviewed. (See chart for details) [] Dragon Disclaimer: Dragon Disclaimer: This electronic medical record was generated, in whole or in part, using a voice recognition dictation system. Departure Departure: Impression: Primary Impression: UTI (urinary tract infection) Qualified Codes: N30.01 - Acute cystitis with hematuria Disposition: HOME SELF CARE/HOMELESS Condition: STABLE Referrals: TRISTIN VERDUGO DO (PCP) Patient Instructions: Urinary Tract Infection, Zodv-yw-[id number] Scripts Nitrofurantoin Monohyd/M-Cryst (MACROBID 100 MG CAPSULE) 100 Mg Capsule 1 CAP PO BID for UTI for 5 Days, #10 CAP 0 Refills Prov: TINO TUCKER DO 12/19/19 TINO TUCKER DO Dec 19, 2019 11:48
== END 2019-12-19 11:53 | disposition home or self-care (01) ==
LOC: ER 10:26
DX: N30.01 Acute cystitis with hematuria (principal); J44.9 Chronic obstructive pulmonary disease, unspecified; Z87.891 Personal history of nicotine dependence; Z95.5 Presence of coronary angioplasty implant and graft; Z86.79 Personal history of other diseases of the circulatory system; Z88.8 Allergy status to other drugs, medicaments and biological substances
CPT/HCPCS: 81001; 87086; 99283

== ENCOUNTER 2020-01-18 14:03 | Emergency (ER) | payer OTHER ==
[~2020-01-18] VITALS: Ht 162.6 cm; Wt 97.2 kg
--- NOTE | 2020-01-18 14:43 | PHYS DOC ---
Past History Past Medical History: Asthma, CHF, COPD Additional Past Medical Histor: Gastroperesis Past Surgical History: No Surgical History Additional Past Surgical Histo: breast reduction and "tummy tuck", CARDIAC STENT Smoking: Quit Greater Than 1 Year Alcohol Use: Rarely Drug Use: None Adult General Chief Complaint Chief Complaint: CHEST WALL PAIN HPI HPI Patient is a 64-year-old female complaining of chest pain. This occurred approximately 1 hour prior to arrival while at rest driving. Reports coughing several times in a row and subsequently developing substernal chest pressure whilst coughing. This episode of pressure resolved immediately after coughing. Pressure was tight and focal to substernal area without any radiation, reported it was difficult to take a deep breath in and out during the episode. Patient has not had any symptoms since. Patient concerned as she has a history of CAD, is established with Dr. Caldernó at [facility], she admits having cardiac stent placed approximately 5 years ago. She is not on any anticoagulants at this time. States she received comprehensive cardiovascular work-up including stress test in outpatient setting approximately 6 months ago and was grossly benign, no intervention required. No COVID-19 contact, no fever, no other concerning findings and/or risk factors for pulmonary embolism. Admits she has been grossly asymptomatic prior to ER visit today. Does admit to dysuria for the past 24 hours, went and saw a local urgent care earlier this morning and was diagnosed with a UTI and subsequently prescribed Bactrim. She has taken this medication before without difficulties, she reports taking 1 dose this morning Review of Systems Review of Systems Fourteen body systems of review of systems have been reviewed. See HPI for pertinent positives and negative responses, other muro all other systems are ne gative, non-pertinent or non-contributory Allergies Allergies Allergies Coded Allergies Type Severity Reaction Last Updated Verified gluten Allergy Intermediate 10/28/18 Yes iron Allergy Unknown 10/28/18 Yes Physical Exam Physical Exam Constitutional: Well developed, well nourished, no acute distress, non-toxic appearance. HENT: Normocephalic, atraumatic, bilateral external ears normal, oropharynx moist, no oral exudates, nose normal. Eyes: PERRLA, EOMI, conjunctiva normal, no discharge. Neck: Normal range of motion, no tenderness, supple, no stridor. Cardiovascular: Heart rate regular, sinus rhythm, no murmurs rubs or gallops Lungs & Thorax: Bilateral breath sounds clear to auscultation Abdomen: Bowel sounds normal, soft, no tenderness, no masses, no pulsatile masses. Nonsurgical abdomen, no peritoneal signs Skin: Warm, dry, no erythema, no rash. Back: No tenderness, no CVA tenderness. Extremities: No tenderness, no cyanosis, no clubbing, ROM intact, no edema. Neurologic: Alert and oriented X 3, grossly normal motor & sensory function, no focal deficits noted. Psychologic: Affect normal, judgement normal, mood normal. Current Patient Data Vital Signs Vital Signs Date Time Temp Pulse Resp B/P (MAP) Pulse Ox O2 Delivery O2 Flow Rate FiO2 01/18/20 17:07 85 125/86 (99) 96 Room Air 01/18/20 14:15 18 Lab Results Laboratory Tests Test 01/18/20 14:15 White Blood Count 6.9 x10^3/uL (4.0-11.0) Red Blood Count 4.04 x10^6/uL (3.50-5.40) Hemoglobin 11.6 g/dL (12.0-15.5) Hematocrit 36.1 % (36.0-47.0) Mean Corpuscular Volume 89 fL (79-100) Mean Corpuscular Hemoglobin 29 pg (25-35) Mean Corpuscular Hemoglobin Concent 32 g/dL (31-37) Red Cell Distribution Width 16.0 % (11.5-14.5) Platelet Count 446 x10^3/uL (140-400) Neutrophils (%) (Auto) 44 % (31-73) Lymphocytes (%) (Auto) 46 % (24-48) Monocytes (%) (Auto) 9 % (0-9) Eosinophils (%) (Auto) 1 % (0-3) Basophils (%) (Auto) 0 % (0-3) Neutrophils # (Auto) 3.0 x10^3uL (1.8-7.7) Lymphocytes # (Auto) 3.1 x10^3/uL (1.0-4.8) Monocytes # (Auto) 0.6 x10^3/uL (0.0-1.1) Eosinophils # (Auto) 0.1 x10^3/uL (0.0-0.7) Basophils # (Auto) 0.0 x10^3/uL (0.0-0.2) Sodium Level 140 mmol/L (136-145) Potassium Level 3.3 mmol/L (3.5-5.1) Chloride Level 104 mmol/L (98-107) Carbon Dioxide Level 25 mmol/L (21-32) Anion Gap 11 (6-14) Blood Urea Nitrogen 11 mg/dL (7-20) Creatinine 1.2 mg/dL (0.6-1.0) Estimated GFR (Cockcroft-Gault) 45.5 Glucose Level 94 mg/dL (70-99) Calcium Level 9.3 mg/dL (8.5-10.1) Troponin I Quantitative < 0.017 ng/mL (0-0.055) QA-Lib-K-Type Natriuretic Peptide 120 pg/mL (0-124) Lipase 105 U/L (73-393) EKG EKG EKG ordered and interpreted by myself at 1410 hrs. as sinus rhythm at 86 bpm, unremarkable intervals except prolonged QTC at 472, no axis deviation, no acute ischemic findings, no STEMI Radiology/Procedures Radiology/Procedures PROCEDURE: PORTABLE CHEST 1V EXAM: PORTABLE CHEST 1V 01/18/2020 2:42 PM CLINICAL INDICATION: Chest pain COMPARISON: Chest radiograph 06/16/2019 TECHNIQUE: AP upright view the chest FINDINGS: The heart is at the upper limit of normal in size. Mediastinum is normal. Lungs are well-expanded and clear. No consolidation, pleural effusion, or pneumothorax. Pulmonary vascularity is normal. The thoracic skeleton is intact. IMPRESSION: Upper limit of normal heart size. No acute abnormality. Electronically signed by: Deann Solis MD (01/18/2020 3:32 PM) [id number] Heart Score HEART Score for Chest Pain: HEART Score for Chest Pain Response (Comments) Value History Slighlty/Non-Suspicious 0 ECG Normal 0 Age >45 - < 65 1 Risk Factors >3 Risk Factors or Hx CAD 2 Troponin < Normal Limit 0 Total 3 Risk Factors: Risk Factors: DM, Current or recent (<one month) smoker, HTN, HLP, family history of CAD, obesity. Risk Scores: Risk Factors: DM, Current or recent (<one month) smoker, HTN, HLP, family hist ory of CAD, obesity. Course & Med Decision Making Course & Med Decision Making Pertinent Labs and Imaging studies reviewed. (See chart for details) Discussed most likely diagnosis of noncardiac chest pain. I feel patient's episode of chest pain was likely musculoskeletal in nature during coughing event Comprehensive history, physical examination, and work-up nonconcerning for any obvious emergent and/or surgical pathology I did disclose this might be an acute presentation of more concerning pathology but it is comforting to know she had recent cardiovascular work-up that was grossly benign I discussed potential for admission for cardiac observation but patient reports good outpatient follow-up with PCP and access to [employer]. I feel this is appropriate Ultimately, patient to be discharged home in stable condition. Strict return precautions discussed with good understanding, all questions and concerns addressed prior to ER departure in stable condition Dragon Disclaimer Dragon Disclaimer This electronic medical record was generated, in whole or in part, using a voice recognition dictation system. Departure Departure: Impression: Primary Impression: Chest pain, unspecified Disposition: 01 DC HOME SELF CARE/HOMELESS Condition: STABLE Referrals: TRISTIN VERDUGO DO (PCP) Patient Instructions: Chest Pain (Nonspecific) Additional Instructions: As discussed prior to ER departure, please call your primary care physician and your [employer] to schedule outpatient follow-ups within upcoming 14 days after ER departure You have been evaluated in the Emergency Department today for chest pain. Your evaluation was not suggestive of any emergent condition requiring medical intervention at this time. However, some problems make take more time to appear. Therefore, it is important for you to watch for any new symptoms or worsening of your current condition. Return to the Emergency Department if you experience worsening pain, persistent fevers greater than 100.4, recurrent vomiting, blood in vomit, blood in stool, dark tarry stool, chest pain, difficulty breathing, or any other concerning symptoms. It was a pleasure to take care of you today and I wish you a speedy recovery JOLEEN SANTOS DO Jan 18, 2020 14:43
[2020-01-18] MEDS ORDERED: ASPIRIN CHEWABLE 81 MG TABLET. PO ONE (14:45)
[2020-01-18 15:04] LABS: BASO % 0 % (0-3); EOS # 0.1 x10^3/uL (0.0-0.7); EOS % 1 % (0-3); HEMATOCRIT 36.1 % (36.0-47.0); HEMOGLOBIN 11.6 g/dL (12.0-15.5); LYMPH # 3.1 x10^3/uL (1.0-4.8); LYMPH % 46 % (24-48); MEAN CORPUSCULAR HEMOGLOBIN 29 pg (25-35); MEAN CORPUSCULAR HGB CONC 32 g/dL (31-37); MEAN CORPUSCULAR VOLUME 89 fL (79-100); MONO # 0.6 x10^3/uL (0.0-1.1); MONO % 9 % (0-9); NEUT % 44 % (31-73); PLATELET COUNT 446 x10^3/uL (140-400); RED BLOOD COUNT 4.04 x10^6/uL (3.50-5.40); WHITE BLOOD COUNT 6.9 x10^3/uL (4.0-11.0)
[2020-01-18 15:11] LABS: CALCIUM 9.3 mg/dL (8.5-10.1); CREATININE 1.2 mg/dL (0.6-1.0); GFR 45.5; POTASSIUM 3.3 mmol/L (3.5-5.1)
[2020-01-18] MEDS ORDERED: NITROGLYCERIN SUBLINGUAL 0.4 MG BOTTLE OF 25. SL PRN (15:30)
--- NOTE | 2020-01-18 15:35 | RAD ---
EXAM: PORTABLE CHEST 1V 01/18/2020 2:42 PM CLINICAL INDICATION: Chest pain COMPARISON: Chest radiograph 06/16/2019 TECHNIQUE: AP upright view the chest FINDINGS: The heart is at the upper limit of normal in size. Mediastinum is normal. Lungs are well-expanded and clear. No consolidation, pleural effusion, or pneumothorax. Pulmonary vascularity is normal. The thoracic skeleton is intact. IMPRESSION: Upper limit of normal heart size. No acute abnormality. Electronically signed by: Deann Solis MD (01/18/2020 3:32 PM) [id number]
--- NOTE | 2020-01-18 15:39 | EKG ---
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
[2020-01-18 17:07] VITALS: BP 125/86
== END 2020-01-18 17:15 | disposition home or self-care (01) ==
LOC: ER 14:03
DX: R07.2 Precordial pain (principal); J44.9 Chronic obstructive pulmonary disease, unspecified; I50.9 Heart failure, unspecified; Z87.891 Personal history of nicotine dependence; Z88.8 Allergy status to other drugs, medicaments and biological substances
CPT/HCPCS: 36415; 71045; 80048; 83690; 83880; 84484; 85025; 93005; 99285

== ENCOUNTER 2020-01-23 16:44 | Emergency (ER) | payer OTHER ==
[~2020-01-23] VITALS: Ht 162.6 cm; Wt 97.2 kg
[2020-01-23 16:55] VITALS: BP 108/88
[2020-01-23] MEDS ORDERED: IV NORMAL SALINE 1,000ML 1,000 ML IV ONE (17:00)
--- NOTE | 2020-01-23 17:19 | PHYS DOC ---
Past History Past Medical History: Asthma, COPD, Hypertension Additional Past Medical Histor: Gastroperesis Past Surgical History: Other Additional Past Surgical Histo: breast reduction, cardiac stents placed Smoking: Quit Greater Than 1 Year Alcohol Use: None Drug Use: None Adult General Chief Complaint Chief Complaint: DEHYDRATION HPI HPI Patient is a 64 year old female who presents with complaints of generalized body cramping. Patient states she is concerned that maybe her potassium is low or her iron is low. Patient states that she sometimes gets generalized muscle cramps when her potassium gets low. Patient states she is currently being treated for a urinary tract infection and is on day 3 of Bactrim DS twice daily. Patient denies recent fever or chills, denies visual changes, denies nasal congestion, sore throat, denies cough denies shortness of breath. Patient denies chest pain or swelling of her extremities. Patient denies abdominal pain, nausea, vomiting, diarrhea, or constipation. Patient states that she had some urinary problems earlier in the week but that has resolved since she has been taking her antibiotic Bactrim DS. Patient denies any pain in her back, or joint pains. She denies current skin rashes. Patient states she gets on and off headaches but denies any headache at this time. Patient denies any swelling of her glands, depressions, anxieties, homicidal suicidal ideations. Patient denies COVID-19 symptoms, patient states she does not wish to be tested for the COVID-19 virus today. Review of Systems Review of Systems Constitutional: Denies fever or chills Eyes: Denies change in visual acuity, redness, or eye pain HENT: Denies nasal congestion or sore throat Respiratory: Denies cough or shortness of breath Cardiovascular: No additional information not addressed in HPI GI: Denies abdominal pain, nausea, vomiting, bloody stools or diarrhea : Denies dysuria or hematuria Musculoskeletal: Denies back pain or joint pain, complains of generalized muscle cramping that she associates with being treated for a UTI which she states she usually gets low potassium from. Integument: Denies rash or skin lesions Neurologic: Denies headache, focal weakness or sensory changes Psychiatric: Patient denies recent anxieties or depressions, denies homicidal or suicidal ideation. All other systems were reviewed and found to be within normal limits, except as documented in this note. Current Medications Current Medications Current Medications Medications (Trade) Dose Ordered Sig/Kian Start Time Stop Time Status Last Admin Dose Admin Sodium Chloride 1,000 ml @ 1,000 mls/hr 1X ONCE 01/23/20 17:00 01/23/20 17:59 Allergies Allergies Allergies Coded Allergies Type Severity Reaction Last Updated Verified gluten Allergy Intermediate 10/28/18 Yes iron Allergy Unknown 10/28/18 Yes Physical Exam Physical Exam Constitutional: Well developed, well nourished, no acute distress, non-toxic appearance. HENT: Normocephalic, atraumatic, bilateral external ears normal, oropharynx moist, no oral exudates, nose normal. Eyes: PERRLA, EOMI, conjunctiva normal, no discharge. Neck: Normal range of motion, no tenderness, supple, no stridor. Cardiovascular:Heart rate regular rhythm, no murmur Lungs & Thorax: Bilateral breath sounds clear to auscultation Abdomen: Bowel sounds normal, soft, no tenderness, no masses, no pulsatile masses. Skin: Warm, dry, no erythema, no rash. Back: No tenderness, no CVA tenderness. Extremities: No tenderness, no cyanosis, no clubbing, ROM intact, no edema. Neurologic: Alert and oriented X 3, normal motor function, normal sensory function, no focal deficits noted. Psychologic: Affect normal, judgement normal, mood normal. Current Patient Data Vital Signs Vital Signs Date Time Temp Pulse Resp B/P (MAP) Pulse Ox O2 Delivery O2 Flow Rate FiO2 01/23/20 16:55 91 18 108/88 (95) 96 Lab Results Laboratory Tests Test 01/23/20 17:09 White Blood Count 8.8 x10^3/uL Red Blood Count 4.73 x10^6/uL Hemoglobin 13.3 g/dL Hematocrit 41.2 % Mean Corpuscular Volume 87 fL Mean Corpuscular Hemoglobin 28 pg Mean Corpuscular Hemoglobin Concent 32 g/dL Red Cell Distribution Width 16.9 % Platelet Count 501 x10^3/uL Neutrophils (%) (Auto) 51 % Lymphocytes (%) (Auto) 36 % Monocytes (%) (Auto) 10 % Eosinophils (%) (Auto) 1 % Basophils (%) (Auto) 2 % Neutrophils # (Auto) 4.5 x10^3uL Lymphocytes # (Auto) 3.2 x10^3/uL Monocytes # (Auto) 0.9 x10^3/uL Eosinophils # (Auto) 0.1 x10^3/uL Basophils # (Auto) 0.1 x10^3/uL Sodium Level 133 mmol/L Potassium Level 3.2 mmol/L Chloride Level 92 mmol/L Carbon Dioxide Level 26 mmol/L Anion Gap 15 Blood Urea Nitrogen 27 mg/dL Creatinine 2.1 mg/dL Estimated GFR (Cockcroft-Gault) 23.9 BUN/Creatinine Ratio 13 Glucose Level 114 mg/dL Calcium Level 9.8 mg/dL Total Bilirubin 0.2 mg/dL Aspartate Amino Transf (AST/SGOT) 50 U/L Alanine Aminotransferase (ALT/SGPT) 63 U/L Alkaline Phosphatase 107 U/L Total Protein 8.3 g/dL Albumin 4.5 g/dL Albumin/Globulin Ratio 1.2 Current Medications Medications (Trade) Dose Ordered Sig/Kian Route PRN Reason Start Time Stop Time Status Last Admin Dose Admin Sodium Chloride 1,000 ml @ 1,000 mls/hr 1X ONCE IV 01/23/20 17:00 01/23/20 17:59 DC 01/23/20 17:00 Potassium Chloride (Klor-Con) 40 meq 1X ONCE PO 01/23/20 18:15 01/23/20 18:17 DC 01/23/20 18:33 EKG EKG [] Radiology/Procedures Radiology/Procedures [] Heart Score Risk Factors: Risk Factors: DM, Current or recent (<one month) smoker, HTN, HLP, family history of CAD, obesity. Risk Scores: Risk Factors: DM, Current or recent (<one month) smoker, HTN, HLP, family history of CAD, obesity. Course & Med Decision Making Course & Med Decision Making Pertinent Labs and Imaging studies reviewed. (See chart for details) 64-year-old patient, vital signs stable, arrives to emergency department with concerns that her potassium might be off which is causing some muscle cramping. Patient states that when she takes antibiotics that she usually has some either potassium problems or low iron. Patient's physical examination was not concerning for acute infectious process or acute injury. An IV was established a liter of saline was was given and labs were ordered. Lab results concerning for dehydration and also hypokalemia with a potassium of 3.2. The patient's BUN and creatinine were slightly elevated, most likely to patient's dehydration, patient does not show signs and symptoms of acute kidney failure or acute kidney disease, patient's vital signs remained stable and within normal limits during emergency department stay, patient's generalized muscle cramps most likely related to hypokalemia, patient was given 40 mEq of potassium, patient states that she has not been drinking fluids like she should. Discussed with patient possible admission for her dehydration, patient feels that since her liter of fluid she feels much better and denied wanting to follow through with admission process and wishes to go home at this time. Discussed with patient strict follow-up with primary care physician this week for a reevaluation of her lab values. Discussed with patient increasing fluids and taking her potassium supplement every day. Patient gave verbal understanding of home care instructions, follow-up care instructions, return to ER concerns, patient had no further questions or concerns, patient discharged home without incident. Dragon Disclaimer Dragon Disclaimer This electronic medical record was generated, in whole or in part, using a voice recognition dictation system. Departure Departure: Impression: Primary Impression: Dehydration Additional Impression: Low serum potassium level Disposition: 01 DC HOME SELF CARE/HOMELESS Condition: IMPROVED Referrals: TRISTIN VERDUGO DO (PCP) Patient Instructions: Dehydration, Adult Additional Instructions: Increase fluids at home, continue taking your potassium medication at home, follow-up with your doctor soon, return to the emergency department for worsening symptoms or other concerns. Problem Qualifiers SWETA RETANA APRN Jan 23, 2020 17:19
[2020-01-23 17:30] LABS: BASO # 0.1 x10^3/uL (0.0-0.2); BASO % 2 % (0-3); EOS # 0.1 x10^3/uL (0.0-0.7); EOS % 1 % (0-3); HEMATOCRIT 41.2 % (36.0-47.0); HEMOGLOBIN 13.3 g/dL (12.0-15.5); LYMPH # 3.2 x10^3/uL (1.0-4.8); LYMPH % 36 % (24-48); MEAN CORPUSCULAR HEMOGLOBIN 28 pg (25-35); MEAN CORPUSCULAR HGB CONC 32 g/dL (31-37); MEAN CORPUSCULAR VOLUME 87 fL (79-100); MONO # 0.9 x10^3/uL (0.0-1.1); MONO % 10 % (0-9); NEUT # 4.5 x10^3uL (1.8-7.7); NEUT % 51 % (31-73); PLATELET COUNT 501 x10^3/uL (140-400); RED BLOOD COUNT 4.73 x10^6/uL (3.50-5.40); RED CELL DISTRIBUTION WIDTH 16.9 % (11.5-14.5); WHITE BLOOD COUNT 8.8 x10^3/uL (4.0-11.0)
[2020-01-23 17:40] LABS: CALCIUM 9.8 mg/dL (8.5-10.1); CREATININE 2.1 mg/dL (0.6-1.0); GFR 23.9; POTASSIUM 3.2 mmol/L (3.5-5.1)
[2020-01-23 17:46] LABS: ALBUMIN 4.5 g/dL (3.4-5.0); ALBUMIN/GLOBULIN RATIO 1.2 (1.0-1.7); TOTAL BILIRUBIN 0.2 mg/dL (0.2-1.0); TOTAL PROTEIN 8.3 g/dL (6.4-8.2)
[2020-01-23] MEDS ORDERED: POTASSIUM CHLORIDE 20 MEQ TABLET.ER. PO ONE (18:15)
== END 2020-01-23 19:02 | disposition home or self-care (01) ==
LOC: ER 16:44
DX: E86.0 Dehydration (principal); R25.2 Cramp and spasm; J44.9 Chronic obstructive pulmonary disease, unspecified; I10 Essential (primary) hypertension; Z98.890 Other specified postprocedural states; Z88.8 Allergy status to other drugs, medicaments and biological substances
CPT/HCPCS: 36415; 80053; 85025; 96360; 99283; J7030

== ENCOUNTER 2020-01-25 15:22 | Emergency (ER) | payer OTHER ==
[~2020-01-25] VITALS: Ht 162.6 cm; Wt 97.0 kg
[2020-01-25 16:54] LABS: BACTERIA,URINE 0 /HPF (0-FEW); BILIRUBIN,URINE NEG (NEG); CLARITY,URINE CLEAR; COLOR,URINE AMBER; GLUCOSE,URINE NEG (NEG); NITRITE,URINE NEG (NEG); RBC,URINE RARE /HPF (0-2); SQUAMOUS EPITHELIAL CELL,UR FEW /LPF; UROBILINOGEN,URINE 0.2 mg/dL (0.2 mg/dL); WBC,URINE OCC /HPF (0-4)
[2020-01-25 16:59] LABS: BASO # 0.1 x10^3/uL (0.0-0.2); BASO % 1 % (0-3); EOS # 0.1 x10^3/uL (0.0-0.7); EOS % 1 % (0-3); HEMATOCRIT 36.7 % (36.0-47.0); HEMOGLOBIN 11.7 g/dL (12.0-15.5); LYMPH # 2.7 x10^3/uL (1.0-4.8); LYMPH % 39 % (24-48); MEAN CORPUSCULAR HEMOGLOBIN 28 pg (25-35); MEAN CORPUSCULAR HGB CONC 32 g/dL (31-37); MEAN CORPUSCULAR VOLUME 89 fL (79-100); MONO # 0.7 x10^3/uL (0.0-1.1); MONO % 10 % (0-9); NEUT # 3.4 x10^3uL (1.8-7.7); NEUT % 49 % (31-73); PLATELET COUNT 446 x10^3/uL (140-400); RED BLOOD COUNT 4.14 x10^6/uL (3.50-5.40); RED CELL DISTRIBUTION WIDTH 16.5 % (11.5-14.5)
[2020-01-25 17:02] LABS: CALCIUM 9.8 mg/dL (8.5-10.1); CREATININE 1.4 mg/dL (0.6-1.0); GFR 38.1
[2020-01-25 17:07] LABS: ALBUMIN 4.1 g/dL (3.4-5.0)
--- NOTE | 2020-01-25 17:12 | EKG ---
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
[2020-01-25 17:19] LABS: ALBUMIN 4.2 g/dL (3.4-5.0); ALBUMIN/GLOBULIN RATIO 1.4 (1.0-1.7); TOTAL BILIRUBIN 0.1 mg/dL (0.2-1.0); TOTAL PROTEIN 7.2 g/dL (6.4-8.2)
--- NOTE | 2020-01-25 17:45 | PHYS DOC ---
Past History Past Medical History: Anxiety, Asthma, CAD, COPD, Depression, Hypertension Additional Past Medical Histor: Gastroperesis (SWETA RETANA APRN) Past Surgical History: Additional Past Surgical Histo: breast reduction, cardiac stents placed (SWETA RETANA APRN) Smoking: Quit Greater Than 1 Year Alcohol Use: None Drug Use: None (SWETA RETANA APRN) Adult General Chief Complaint Chief Complaint: FATIGUE HPI HPI Patient is a 64 year old female who presents with ongoing muscle cramping, generalized weakness and malaise, worries that her potassium is still low and that if she is still dehydrated. Patient states she was here just 2 days ago and was worked up for the same complaints, patient states she does feel a little better but has not resolved. Patient states she does not wish to be admitted as she does have a history of low iron deficiency anemia of unknown cause in which she requires iron infusions at the infusion clinic once a week for the next 5 weeks. Patient states she sees a industrial pharmacist for this at [facility]. Patient denies chest pain, shortness of breath, abdominal discomfort, urinary problems, however patient is being treated for a UTI with Bactrim DS she has 3 days left of medication per her statement. Patient denies back pains, skin rashes, headaches, swollen glands, depressions, anxieties, sher icidal or suicidal ideations. Patient denies any COVID-19 symptoms, patient does not wish to be tested today for the COVID-19 virus. (SWETA RETANA APRN) Review of Systems Review of Systems Constitutional: Denies fever or chills, complains of generalized weakness and malaise Eyes: Denies change in visual acuity, redness, or eye pain HENT: Denies nasal congestion or sore throat Respiratory: Denies cough or shortness of breath Cardiovascular: No additional information not addressed in HPI GI: Denies abdominal pain, nausea, vomiting, bloody stools or diarrhea : Denies dysuria or hematuria Musculoskeletal: Denies back pain or joint pain, complains of generalized muscle cramping. Integument: Denies rash or skin lesions Neurologic: Denies headache, focal weakness or sensory changes Endocrine: Denies polyuria or polydipsia All other systems were reviewed and found to be within normal limits, except as documented in this note. (SWETA RETANA APRN) Current Medications Current Medications Reviewed patient's medication with medication listed on electronic medical record, no changes. (SWETA RETANA APRN) Allergies Allergies Allergies Coded Allergies Type Severity Reaction Last Updated Verified gluten Allergy Intermediate 10/28/18 Yes iron Allergy Unknown 10/28/18 Yes (SWETA RETANA APRN) Physical Exam Physical Exam Constitutional: Well developed, well nourished, no acute distress, non-toxic appearance. HENT: Normocephalic, atraumatic, bilateral external ears normal, oropharynx moist, no oral exudates, nose normal. Eyes: PERRLA, EOMI, conjunctiva normal, no discharge. Neck: Normal range of motion, no tenderness, supple, no stridor. Cardiovascular:Heart rate regular rhythm, no murmur Lungs & Thorax: Bilateral breath sounds clear to auscultation Abdomen: Bowel sounds normal, soft, no tenderness, no masses, no pulsatile masses. Skin: Warm, dry, no erythema, no rash. Back: No tenderness, no CVA tenderness. Extremities: No tenderness, no cyanosis, no clubbing, ROM intact, no edema. Neurologic: Alert and oriented X 3, normal motor function, normal sensory function, no focal deficits noted. Psychologic: Affect normal, judgement normal, mood normal. (SWETA RETANA APRN) Current Patient Data Vital Signs Vital Signs Date Time Temp Pulse Resp B/P (MAP) Pulse Ox O2 Delivery O2 Flow Rate FiO2 01/25/20 16:12 98.1 79 12 133/77 (95) 93 Room Air Lab Results Laboratory Tests Test 01/25/20 16:22 01/25/20 16:35 Urine Collection Type Unknown Urine Color Altagracia Urine Clarity Clear Urine pH 5.5 Urine Specific [place] >=1.030 Urine Protein Neg Urine Glucose (UA) Neg mg/dL Urine Ketones (Stick) Trace mg/dL Urine Blood Trace Urine Nitrite Neg Urine Bilirubin Neg Urine Urobilinogen Dipstick 0.2 mg/dL Urine Leukocyte Esterase Neg Urine RBC Rare /HPF Urine WBC Occ /HPF Urine Squamous Epithelial Cells Few /LPF Urine Bacteria 0 /HPF White Blood Count 7.0 x10^3/uL Red Blood Count 4.14 x10^6/uL Hemoglobin 11.7 g/dL Hematocrit 36.7 % Mean Corpuscular Volume 89 fL Mean Corpuscular Hemoglobin 28 pg Mean Corpuscular Hemoglobin Concent 32 g/dL Red Cell Distribution Width 16.5 % Platelet Count 446 x10^3/uL Neutrophils (%) (Auto) 49 % Lymphocytes (%) (Auto) 39 % Monocytes (%) (Auto) 10 % Eosinophils (%) (Auto) 1 % Basophils (%) (Auto) 1 % Neutrophils # (Auto) 3.4 x10^3uL Lymphocytes # (Auto) 2.7 x10^3/uL Monocytes # (Auto) 0.7 x10^3/uL Eosinophils # (Auto) 0.1 x10^3/uL Basophils # (Auto) 0.1 x10^3/uL Sodium Level 137 mmol/L Potassium Level 4.0 mmol/L Chloride Level 99 mmol/L Carbon Dioxide Level 26 mmol/L Anion Gap 12 Blood Urea Nitrogen 14 mg/dL Creatinine 1.4 mg/dL Estimated GFR (Cockcroft-Gault) 38.1 BUN/Creatinine Ratio 10 Glucose Level 96 mg/dL Calcium Level 9.8 mg/dL Total Bilirubin 0.1 mg/dL Aspartate Amino Transf (AST/SGOT) 36 U/L Alanine Aminotransferase (ALT/SGPT) 55 U/L Alkaline Phosphatase 117 U/L Lactate Dehydrogenase 198 U/L Creatine Kinase 214 U/L Creatine Kinase MB (Mass) 1.3 ng/mL Creatine Kinase MB Relative Index 0.6 % Troponin I Quantitative < 0.017 ng/mL BI-Cvo-V-Type Natriuretic Peptide 52 pg/mL Total Protein 7.2 g/dL Albumin 4.1 g/dL Albumin/Globulin Ratio 1.4 Laboratory Tests Test 01/25/20 16:22 01/25/20 16:35 Urine Collection Type Unknown Urine Color Altag[place]ia Urine Clarity Clear Urine pH 5.5 Urine Specific [place] >=1.030 Urine Protein Neg (NEG-TRACE) Urine Glucose (UA) Neg mg/dL (NEG) Urine Ketones (Stick) Trace mg/dL (NEG) Urine Blood Trace (NEG) Urine Nitrite Neg (NEG) Urine Bilirubin Neg (NEG) Urine Urobilinogen Dipstick 0.2 mg/dL (0.2 mg/dL) Urine Leukocyte Esterase Neg (NEG) Urine RBC Rare /HPF (0-2) Urine WBC Occ /HPF (0-4) Urine Squamous Epithelial Cells Few /LPF Urine Bacteria 0 /HPF (0-FEW) White Blood Count 7.0 x10^3/uL (4.0-11.0) Red Blood Count 4.14 x10^6/uL (3.50-5.40) Hemoglobin 11.7 g/dL (12.0-15.5) L Hematocrit 36.7 % (36.0-47.0) Mean Corpuscular Volume 89 fL (79-100) Mean Corpuscular Hemoglobin 28 pg (25-35) Mean Corpuscular Hemoglobin Concent 32 g/dL (31-37) Red Cell Distribution Width 16.5 % (11.5-14.5) H Platelet Count 446 x10^3/uL (140-400) H Neutrophils (%) (Auto) 49 % (31-73) Lymphocytes (%) (Auto) 39 % (24-48) Monocytes (%) (Auto) 10 % (0-9) H Eosinophils (%) (Auto) 1 % (0-3) Basophils (%) (Auto) 1 % (0-3) Neutrophils # (Auto) 3.4 x10^3uL (1.8-7.7) Lymphocytes # (Auto) 2.7 x10^3/uL (1.0-4.8) Monocytes # (Auto) 0.7 x10^3/uL (0.0-1.1) Eosinophils # (Auto) 0.1 x10^3/uL (0.0-0.7) Basophils # (Auto) 0.1 x10^3/uL (0.0-0.2) Sodium Level 137 mmol/L (136-145) Potassium Level 4.0 mmol/L (3.5-5.1) Chloride Level 99 mmol/L (98-107) Carbon Dioxide Level 26 mmol/L (21-32) Anion Gap 12 (6-14) Blood Urea Nitrogen 14 mg/dL (7-20) Creatinine 1.4 mg/dL (0.6-1.0) H Estimated GFR (Cockcroft-Gault) 38.1 BUN/Creatinine Ratio 10 (6-20) Glucose Level 96 mg/dL (70-99) Calcium Level 9.8 mg/dL (8.5-10.1) Total Bilirubin 0.1 mg/dL (0.2-1.0) L Aspartate Amino Transferase (AST) 36 U/L (15-37) Alanine Aminotransferase (ALT) 55 U/L (14-59) Alkaline Phosphatase 117 U/L (46-116) H Lactate Dehydrogenase 198 U/L (81-234) Creatine Kinase 214 U/L (26-192) H Creatine Kinase MB (Mass) 1.3 ng/mL (0.0-3.6) Creatine Kinase MB Relative Index 0.6 % (0-4) Troponin I Quantitative < 0.017 ng/mL (0-0.055) JU-Djb-C-Type Natriuretic Peptide 52 pg/mL (0-124) Total Protein 7.2 g/dL (6.4-8.2) Albumin 4.1 g/dL (3.4-5.0) Albumin/Globulin Ratio 1.4 (1.0-1.7) (SWETA RETANA APRN) EKG EKG EKG performed at 1646 by ED nursing staff, heart rate 73 bpm normal sinus rhythm without ectopy, [place] interval 0.17, QTc interval 0.464, no STEMI, no coronary syndrome, no ischemia noted EKG interpreted by ED attending Dr. Colin (SWETA RETANA APRN) Radiology/Procedures Radiology/Procedures [] (SWETA RETANA APRN) Heart Score Risk Factors: Risk Factors: DM, Current or recent (<one month) smoker, HTN, HLP, family history of CAD, obesity. Risk Scores: Risk Factors: DM, Current or recent (<one month) smoker, HTN, HLP, family history of CAD, obesity. (SWETA RETANA APRN) Course & Med Decision Making Course & Med Decision Making Pertinent Labs and Imaging studies reviewed. (See chart for details) Patient presents emergency department today complaining of ongoing weakness and muscle cramping. I had seen this patient 2 days ago and worked her up then discharged her home with a diagnosis of dehydration and hypokalemia. She was treated with a liter of saline and 40 of p.o. potassium and was given strict instructions to increase her fluids and continue taking her potassium. During this visit a EKG was performed did not show acute process was interpreted by ED attending physician Dr. Colin, patient labs were redrawn and a urine was drawn as well. The urine was unremarkable, her urine was not infected. Patient's chemistries that were concerning 2 days ago had normalized during this visit. Discussed with patient findings of labs and EKG. patient symptoms are most likely related to her chronic iron deficiency anemia which she is being closely monitored and treated for by industrial pharmacist. patient states she was relieved and states she was worried that her potassium was still low, patient states that she did not want to be admitted 2 days ago and still would not want to be admitted today related to her wanting to get her iron infusion done tomorrow at [facility] infusion lab for her chronic iron deficiency anemia of unknown etiology. Patient states that she sees a industrial pharmacist for this frequently. Discussed findings with patient, discharge instructions, patient gave verbal understanding of discharge home instructions, return to ER concerns, patient had no further questions or concerns, patient discharged home without incident. (SWETA RETANA APRN) Dragon Disclaimer Dragon Disclaimer This electronic medical record was generated, in whole or in part, using a voice recognition dictation system. (SWETA RETANA APRN) Attending Co-Sign The patient was seen and interviewed as well as examined at the bedside. The chart was reviewed. The case was discussed. Agree with the plan of care. (TINO TUCKER DO) Departure Departure: Impression: Primary Impression: Generalized weakness Additional Impressions: Muscle ache Anemia UTI (urinary tract infection) Disposition: 01 DC HOME SELF CARE/HOMELESS Condition: IMPROVED Referrals: TRISTIN VERDUGO DO (PCP) Patient Instructions: Weakness Additional Instructions: You were seen today for continued muscle aches, muscle cramps, and generalized weakness, we redrew your labs which have improved from your ER admission 2 days ago, I encourage you to keep your appointment with the infusion lab for your weekly iron infusions, continue to take your potassium as directed, increase your fluid intake, continue to take your prescribed antibiotics for your diagnosed urinary tract infection, see your doctor soon. Problem Qualifiers Additional Impressions: Anemia Anemia type: iron deficiency Iron deficiency anemia type: unspecified iron deficiency Qualified Codes: D50.9 - Iron deficiency anemia, unspecified UTI (urinary tract infection) Urinary tract infection type: acute cystitis Hematuria presence: without hematuria Qualified Codes: N30.00 - Acute cystitis without hematuria SWETA RETANA APRN Jan 25, 2020 17:45 TINO TUCKER DO Jan 26, 2020 05:47
[2020-01-25 17:52] VITALS: BP 120/84
== END 2020-01-25 17:57 | disposition home or self-care (01) ==
LOC: ER 15:22
DX: D50.9 Iron deficiency anemia, unspecified (principal); N30.00 Acute cystitis without hematuria; R53.1 Weakness; M79.10 Myalgia, unspecified site; F41.9 Anxiety disorder, unspecified; J44.9 Chronic obstructive pulmonary disease, unspecified; I10 Essential (primary) hypertension; F32.9 Major depressive disorder, single episode, unspecified; I25.10 Atherosclerotic heart disease of native coronary artery without angina pectoris; Z87.891 Personal history of nicotine dependence; Z88.8 Allergy status to other drugs, medicaments and biological substances
CPT/HCPCS: 36415; 80053; 81001; 82040; 82550; 82553; 83615; 83880; 84484; 85025; 93005; 99284

== ENCOUNTER 2020-03-28 10:10 | Inpatient (IN) | payer OTHER ==
[~2020-03-28] VITALS: Ht 162.6 cm; Wt 97.9 kg
[2020-03-28 10:48] LABS: BASO # 0.1 x10^3/uL (0.0-0.2); BASO % 1 % (0-3); EOS # 0.1 x10^3/uL (0.0-0.7); EOS % 2 % (0-3); HEMATOCRIT 38.9 % (36.0-47.0); HEMOGLOBIN 12.6 g/dL (12.0-15.5); LYMPH # 1.9 x10^3/uL (1.0-4.8); LYMPH % 31 % (24-48); MEAN CORPUSCULAR HEMOGLOBIN 29 pg (25-35); MEAN CORPUSCULAR HGB CONC 32 g/dL (31-37); MEAN CORPUSCULAR VOLUME 90 fL (79-100); MONO # 0.5 x10^3/uL (0.0-1.1); MONO % 8 % (0-9); NEUT # 3.5 x10^3uL (1.8-7.7); NEUT % 59 % (31-73); PLATELET COUNT 377 x10^3/uL (140-400); RED BLOOD COUNT 4.31 x10^6/uL (3.50-5.40); RED CELL DISTRIBUTION WIDTH 19.8 % (11.5-14.5)
[2020-03-28 10:57] LABS: CALCIUM 8.9 mg/dL (8.5-10.1); CREATININE 1.1 mg/dL (0.6-1.0); GFR 50.3
--- NOTE | 2020-03-28 11:08 | RAD ---
EXAM: XR CHEST 1V INDICATION: Reason: CHEST PAIN / Spl. Instructions: / History: . TECHNIQUE: Single view COMPARISON: 01/18/2020 chest x-ray FINDINGS: The heart size is normal. The great vessels appear unremarkable. There is no hilar or mediastinal mass. The lungs are clear. There is no pleural effusion or pneumothorax. There are no significant osseous abnormalities. IMPRESSION: No active cardiopulmonary disease. Electronically signed by: Dwayne Cadena MD (03/28/2020 11:05 AM) [id number]
[2020-03-28 11:09] LABS: ALBUMIN 3.8 g/dL (3.4-5.0); ALBUMIN/GLOBULIN RATIO 1.1 (1.0-1.7); MAGNESIUM 1.9 mg/dL (1.8-2.4); TOTAL BILIRUBIN 0.3 mg/dL (0.2-1.0); TOTAL PROTEIN 7.2 g/dL (6.4-8.2)
--- NOTE | 2020-03-28 11:31 | PHYS DOC ---
Past History Past Medical History: Anxiety, Asthma, CAD, COPD, Depression, Hypertension, Other Additional Past Medical Histor: Gastroperesis Past Surgical History: , Hysterectomy Additional Past Surgical Histo: breast reduction, cardiac stents placed Smoking: Quit Greater Than 1 Year Alcohol Use: None Drug Use: None General Adult EDM: Chief Complaint: CHEST PAIN HPI: HPI: Patient is a 64-year-old female who was sent here from her family physician clinic due to chest pain. Patient had a history of iron deficiency anemia, she had iron injection on Friday. Due to previous allergic reaction to iron injection patient was premedicated with Tylenol, Benadryl, steroids before the injection. Patient said when she got home from her doctor clinic she started having headache and chest pain intermittently. She went to her doctor today because of the chest pain they did an EKG in the clinic and it was not normal. Patient was given a dose of nitroglycerin in the clinic. Patient said the chest pain improved with the nitroglycerin by the time she got here. Patient has history of coronary disease, had [address] Styles. Patient den ies any cough or fever. Review of Systems: Review of Systems: Constitutional: Denies fever or chills Eyes: Denies change in visual acuity HENT: Denies nasal congestion or sore throat Respiratory: Denies cough or shortness of breath Cardiovascular: Positive for chest pain, no edema GI: Denies abdominal pain, nausea, vomiting, bloody stools or diarrhea : Denies dysuria Musculoskeletal: Denies back pain or joint pain Integument: Denies rash Neurologic: Denies headache, focal weakness or sensory changes Endocrine: Denies polyuria or polydipsia Lymphatic: Denies swollen glands Psychiatric: Denies depression or anxiety Allergies: Allergies: Allergies Coded Allergies Type Severity Reaction Last Updated Verified gluten Allergy Intermediate 03/28/20 Yes insect venom Allergy Unknown 03/28/20 Yes iron Allergy Unknown 03/28/20 Yes Physical Exam: PE: Constitutional: Well developed, well nourished, no acute distress, non-toxic appearance. [] HENT: Normocephalic, atraumatic, bilateral external ears normal, oropharynx moist, no oral exudates, nose normal. [] Eyes: PERRLA, EOMI, conjunctiva normal, no discharge. [] Neck: Normal range of motion, no tenderness, supple, no stridor. [] Cardiovascular:Heart rate regular rhythm, no murmur [] Lungs & Thorax: Bilateral breath sounds clear to auscultation [] Abdomen: Bowel sounds normal, soft, no tenderness, no masses, no pulsatile masses. [] Skin: Warm, dry, no erythema, no rash. [] Back: No tenderness, no CVA tenderness. [] Extremities: No tenderness, no cyanosis, no clubbing, ROM intact, no edema. [] Neurologic: Alert and oriented X 3, normal motor function, normal sensory function, no focal deficits noted. [] Psychologic: Affect normal, judgement normal, mood normal. [] Current Patient Data: Labs: Laboratory Tests Test 03/28/20 10:35 White Blood Count 6.0 x10^3/uL (4.0-11.0) Red Blood Count 4.31 x10^6/uL (3.50-5.40) Hemoglobin 12.6 g/dL (12.0-15.5) Hematocrit 38.9 % (36.0-47.0) Mean Corpuscular Volume 90 fL (79-100) Mean Corpuscular Hemoglobin 29 pg (25-35) Mean Corpuscular Hemoglobin Concent 32 g/dL (31-37) Red Cell Distribution Width 19.8 % (11.5-14.5) H Platelet Count 377 x10^3/uL (140-400) Neutrophils (%) (Auto) 59 % (31-73) Lymphocytes (%) (Auto) 31 % (24-48) Monocytes (%) (Auto) 8 % (0-9) Eosinophils (%) (Auto) 2 % (0-3) Basophils (%) (Auto) 1 % (0-3) Neutrophils # (Auto) 3.5 x10^3uL (1.8-7.7) Lymphocytes # (Auto) 1.9 x10^3/uL (1.0-4.8) Monocytes # (Auto) 0.5 x10^3/uL (0.0-1.1) Eosinophils # (Auto) 0.1 x10^3/uL (0.0-0.7) Basophils # (Auto) 0.1 x10^3/uL (0.0-0.2) Sodium Level 140 mmol/L (136-145) Potassium Level 4.0 mmol/L (3.5-5.1) Chloride Level 103 mmol/L (98-107) Carbon Dioxide Level 26 mmol/L (21-32) Anion Gap 11 (6-14) Blood Urea Nitrogen 14 mg/dL (7-20) Creatinine 1.1 mg/dL (0.6-1.0) H Estimated GFR (Cockcroft-Gault) 50.3 BUN/Creatinine Ratio 13 (6-20) Glucose Level 101 mg/dL (70-99) H Calcium Level 8.9 mg/dL (8.5-10.1) Magnesium Level 1.9 mg/dL (1.8-2.4) Total Bilirubin 0.3 mg/dL (0.2-1.0) Aspartate Amino Transferase (AST) 38 U/L (15-37) H Alanine Aminotransferase (ALT) 60 U/L (14-59) H Alkaline Phosphatase 99 U/L (46-116) Troponin I Quantitative < 0.017 ng/mL (0-0.055) WB-Gqc-Q-Type Natriuretic Peptide 56 pg/mL (0-124) Total Protein 7.2 g/dL (6.4-8.2) Albumin 3.8 g/dL (3.4-5.0) Albumin/Globulin Ratio 1.1 (1.0-1.7) Lipase 112 U/L (73-393) Vital Signs: Vital Signs Date Time Temp Pulse Resp B/P (MAP) Pulse Ox O2 Delivery O2 Flow Rate FiO2 03/28/20 10:13 97.5 96 26 130/88 (102) 96 Room Air EKG: EKG: EKG was done at 1021, heart rate 84 beats per minute, normal sinus rhythm, no ST segment elevation, normal axis, Radiology/Procedures: Radiology/Procedures: [][address] [address] IMAGING REPORT Signed PATIENT: SHIRA SARAVIA ACCOUNT: [id number] : 1955 LOCATION: ER AGE: 64 SEX: F EXAM STATUS: REG ER ORD. PHYSICIAN: WILLIAMS FRASER DO REASON: CHEST PAIN PROCEDURE: PORTABLE CHEST 1V EXAM: XR CHEST 1V INDICATION: Reason: CHEST PAIN / Spl. Instructions: / History: . TECHNIQUE: Single view COMPARISON: 01/18/2020 chest x-ray FINDINGS: The heart size is normal. The great vessels appear unremarkable. There is no hilar or mediastinal mass. The lungs are clear. There is no pleural effusion or pneumothorax. There are no significant osseous abnormalities. IMPRESSION: No active cardiopulmonary disease. Electronically signed by: Geronimo Cadena MD (03/28/2020 11:05 AM) [id number] DICTATED AND SIGNED BY: GERONIMO CADENA MD DATE: 03/28/20 1105 CC: TRISTIN VERDUGO DO; WILLIAMS FRASER DO ~MTH0 0 Heart Score: HEART Score for Chest Pain: HEART Score for Chest Pain Response (Comments) Value History Moderately Suspicious 1 ECG Nonspecific Repolarizatio 1 Age >45 - < 65 1 Risk Factors >3 Risk Factors or Hx CAD 2 Troponin < Normal Limit 0 Total 5 Risk Factors: Risk Factors: DM, Current or recent (<one month) smoker, HTN, HLP, family history of CAD, obesity. Risk Scores: Score 0 - 3: 2.5% MACE over next 6 weeks - Discharge Home Score 4 - 6: 20.3% MACE over next 6 weeks - Admit for Clinical Observation Score 7 - 10: 72.7% MACE over next 6 weeks - Early Invasive Strategies Course & Med Decision Making: Course & Med Decision Making Pertinent Labs and Imaging studies reviewed. (See chart for details) Patient is a 64-year-old female who presented to ER due to chest pain, EKG and cardiac enzyme are normal so far. Because of her risk factor patient will be admitted for observation. Discussed with her family physician Dr. Meeks who agrees to admit the patient [place] Disclaimer: Osiel Disclaimer: This electronic medical record was generated, in whole or in part, using a voice recognition dictation system. Departure Departure: Impression: Primary Impression: Chest pain Disposition: ADMITTED INPT THIS HOSP Admitting Physician: Williams Meeks Condition: STABLE Referrals: TRISTIN VERDUGO DO (PCP) WILLIAMS FRASER DO Mar 28, 2020 11:31
--- NOTE | 2020-03-28 12:05 | EKG ---
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
[2020-03-28] MEDS ORDERED: ASPIRIN CHEWABLE 81 MG TABLET. PO ONE (12:30)
[2020-03-28 12:53] LABS: BACTERIA,URINE 0 /HPF (0-FEW); BILIRUBIN,URINE NEG (NEG); CLARITY,URINE CLEAR; COLOR,URINE YELLOW; GLUCOSE,URINE NEG (NEG); NITRITE,URINE NEG (NEG); UROBILINOGEN,URINE 0.2 mg/dL (0.2 mg/dL)
[2020-03-28 13:02] LABS: SQUAMOUS EPITHELIAL CELL,UR MANY /LPF
[2020-03-28] MEDS ORDERED: NON FORMULARY ITEM (Levalbuterol Tartrate (Xopenex Hfa) 2 PUFF) IH SCH (15:45)
[2020-03-28 15:51] VITALS: BP 140/102
[2020-03-28] MEDS ORDERED: ALBUTEROL SULFATE 2.5 MG/3 ML NEBU. NEB PRN (16:00)
--- NOTE | 2020-03-28 17:00 | NUR ---
PATIENT ARRIVED TO THE UNIT VIA EMS. PATIENT IS ALERT AND ORIENTED. PATIENT STATES CHEST PAIN IS NO LONGER PRESENT. PATIENT STATES SOB IS NORMAL FOR HER DUE TO HER COPD. PATIENT WAS ORIENTED TO UNIT ROUTINES, VITALS OBTAINED, PATIENT IS IN BED WITH SIDE RAILS UP X 2, CALL LIGHT IS WITHIN REACH. [facility].
[2020-03-28] MEDS ORDERED: METOPROLOL SUCC 24HR ER 25 MG TAB.ER.24H. PO ONE (17:45)
[2020-03-28] MEDS ORDERED: ENOXAPARIN 40 MG/0.4 ML SYRINGE. SQ SCH (18:00)
[2020-03-28 18:02] LABS: ALBUMIN 3.6 g/dL (3.4-5.0); ALBUMIN/GLOBULIN RATIO 1.2 (1.0-1.7); CALCIUM 8.5 mg/dL (8.5-10.1); CREATININE 1.1 mg/dL (0.6-1.0); GFR 50.3; POTASSIUM 3.6 mmol/L (3.5-5.1); TOTAL BILIRUBIN 0.2 mg/dL (0.2-1.0); TOTAL PROTEIN 6.7 g/dL (6.4-8.2)
[2020-03-28] MEDS: ACETAMINOPHEN 500 MG TABLET PO PRN (18:10)
[2020-03-28] MEDS: METOCLOPRAMIDE 10 MG TABLET PO SCH (18:10)
[2020-03-28] MEDS ORDERED: BUSP10TA PO (19:30)
[2020-03-28 19:41] VITALS: BP 116/84
[2020-03-28] MEDS: DRONEDARONE HCL 400 MG TABLET PO SCH (20:21)
[2020-03-28] MEDS: busPIRone 10 MG TABLET. PO SCH (20:21)
[2020-03-28] MEDS: ENOXAPARIN 40 MG/0.4 ML SYRINGE. SQ SCH (20:21)
[2020-03-28 22:40] VITALS: BP 138/90
[2020-03-29] MEDS: ACETAMINOPHEN 500 MG TABLET PO PRN (05:25)
[2020-03-29 05:33] VITALS: BP 158/98
--- NOTE | 2020-03-29 05:43 | NUR ---
Shift Note: Pt a/o x4, VSS (pt did use oxygen at 2.[address] HS in place of her normal cpap machine from home), pt did c/o headache this am (tylenol given), pt had no further c/o chest pain, pt anticipating going home today
[2020-03-29 06:20] LABS: BASO % 1 % (0-3); EOS # 0.1 x10^3/uL (0.0-0.7); EOS % 3 % (0-3); HEMATOCRIT 36.8 % (36.0-47.0); HEMOGLOBIN 11.9 g/dL (12.0-15.5); LYMPH % 35 % (24-48); MEAN CORPUSCULAR HEMOGLOBIN 29 pg (25-35); MEAN CORPUSCULAR HGB CONC 32 g/dL (31-37); MEAN CORPUSCULAR VOLUME 90 fL (79-100); MONO # 0.5 x10^3/uL (0.0-1.1); MONO % 9 % (0-9); NEUT # 2.9 x10^3uL (1.8-7.7); NEUT % 53 % (31-73); PLATELET COUNT 357 x10^3/uL (140-400); RED BLOOD COUNT 4.07 x10^6/uL (3.50-5.40); WHITE BLOOD COUNT 5.6 x10^3/uL (4.0-11.0)
[2020-03-29] MEDS: busPIRone 10 MG TABLET. PO SCH ×2 (08:28→19:54)
[2020-03-29] MEDS: METOPROLOL SUCC 24HR ER 50 MG TAB.ER.24H. PO SCH (08:29)
[2020-03-29] MEDS: ASPIRIN CHEWABLE 81 MG TABLET. PO SCH (08:30)
[2020-03-29] MEDS: DESVENLAFAXINE 50 MG TAB.ER.24H. PO SCH (08:30)
[2020-03-29] MEDS: DRONEDARONE HCL 400 MG TABLET PO SCH ×2 (08:30→19:54)
[2020-03-29] MEDS: PANTOPRAZOLE 40 MG TABLET. PO SCH (08:30)
[2020-03-29] MEDS: FUROSEMIDE 20 MG TABLET PO SCH (08:30)
[2020-03-29] MEDS: METOCLOPRAMIDE 10 MG TABLET PO SCH ×2 (08:30→16:46)
[2020-03-29] MEDS ORDERED: METOPROLOL SUCC 24HR ER 25 MG TAB.ER.24H. PO SCH (09:00)
[2020-03-29] MEDS ORDERED: ISOSORBIDE MONONITRATE ER 30 MG TAB.ER.24H PO SCH (09:00)
[2020-03-29 10:52] VITALS: BP 118/84
[2020-03-29] MEDS ORDERED: ONDANSETRON ODT 4 MG TAB.RAPDIS PO PRN (11:15)
[2020-03-29] MEDS ORDERED: ZOLPIDEM 5 MG TABLET. PO PRN (11:15)
[2020-03-29] MEDS: BUTALB/APAP/CAFEIN 50/325/40MG TABLET. PO PRN ×2 (11:51→16:57)
--- NOTE | 2020-03-29 12:06 | PN ---
DATE: SUBJECTIVE: A 64-year-old female was admitted with a multiplicity of medical issues. The patient did have chest pain and did have iron deficiency anemia, infusion of iron on Friday, may have had an allergic reaction possibly to it. However, more importantly, the patient this morning had severe nausea, vomiting, severe headache and is having problems keeping things down. OBJECTIVE: GENERAL: The patient says she just does not feel good. She does not look good. She looks very pale and in pain. VITAL SIGNS: Blood pressure 160/98, respiratory rate 18, pulse 92, afebrile. HEENT: The patient's head was atraumatic and normocephalic. Eyes: PERRLA without jaundice. The mouth and throat were normal. NECK: Supple. LUNGS: Diminished. ABDOMEN: Soft. There was diffuse tenderness in the epigastric area, but no rebounding, no guarding. Positive bowel sounds. No hepatosplenomegaly. EXTREMITIES: No clubbing, cyanosis or edema in this ill-appearing white female. LABORATORY DATA: The patient's liver enzymes were elevated. AST is 38, ALT 60. Creatinine slightly elevated at 1.1. We will continue to monitor the patient accordingly. We will get an abdominal series. May need a possible CT of her abdomen and pelvis. If her headache does not clear, may continue to be monitored carefully, make further evaluation on her as indicated and see how she goes here in the next few hours before going ahead with any further testing. IMPRESSION: Chest pain, nausea, vomiting, abdominal discomfort, and generalized illness. WILLIAMS CAMARILLO MD DR: MARY/viv JOB#: [id number] / [id number]
--- NOTE | 2020-03-29 12:35 | RAD ---
XR CHEST 1V 03/29/2020 9:16 AM INDICATION: Chest pain COMPARISON: 03/28/2020 TECHNIQUE: Portable frontal view of the chest is provided. FINDINGS: The cardiomediastinal silhouette is within normal limits. Lungs are clear. There are no significant pleural effusions. There is no pulmonary vascular congestion. No pneumothora x. No suspicious osseous abnormality. IMPRESSION: There is no acute cardiopulmonary process. Electronically signed by: Risa Dias MD (03/29/2020 12:32 PM) [id number]
[2020-03-29 13:43] VITALS: BP 116/67
--- NOTE | 2020-03-29 17:02 | RAD ---
PROCEDURE: XR ABDOMEN 2V STUDY DATE: 03/29/2020 CLINICAL INDICATION / HISTORY: Reason: nausea abd pain / Spl. Instructions: / History: . TECHNIQUE: Single AP image of the abdomen was obtained. COMPARISON: 03/29/2020 chest x-ray FINDINGS: The lung bases are clear. A nonobstructive bowel gas pattern is present. No organomegaly or pathologic calcifications are identified. No acute osseous abnormality. IMPRESSION: No acute abdominal process. Electronically signed by: Dwayne Cadena MD (03/29/2020 4:59 PM) [id number]
--- NOTE | 2020-03-29 17:54 | NUR ---
Patient A&Ox4, VSS throughout shift. Patient has c/o headache that felt like pressure at her temples bilaterally. Tried Fioricet and seemed to work better than Tylenol per patient. Otherwise, pt had 1 complaint of n/v this morning after breakfast but none since. Pt has stated she feels better other than headache that has been coming back every 3-4 hours. WCM.
[2020-03-29 19:46] VITALS: BP 96/61
[2020-03-29] MEDS: ENOXAPARIN 40 MG/0.4 ML SYRINGE. SQ SCH (19:54)
[2020-03-29 23:05] VITALS: BP 111/83
--- NOTE | 2020-03-30 04:10 | NUR ---
PT HAS DENIED ANY C/O N/V OR COELLO THIS SHIFT. COVID SWAB RESULTED NEGATIVE. PT TAKEN OUT OF ISOLATION. NPO SINCE VT FOR ABDOMINAL US THIS AM.
[2020-03-30 05:24] VITALS: BP 113/80
[2020-03-30] MEDS: DESVENLAFAXINE 50 MG TAB.ER.24H. PO SCH (09:00)
[2020-03-30] MEDS: BUTALB/APAP/CAFEIN 50/325/40MG TABLET. PO PRN (09:10)
[2020-03-30] MEDS: METOCLOPRAMIDE 10 MG TABLET PO SCH (09:12)
[2020-03-30] MEDS: ASPIRIN CHEWABLE 81 MG TABLET. PO SCH (09:56)
[2020-03-30] MEDS: FUROSEMIDE 20 MG TABLET PO SCH (09:57)
[2020-03-30] MEDS: METOPROLOL SUCC 24HR ER 50 MG TAB.ER.24H. PO SCH (09:57)
[2020-03-30] MEDS: DRONEDARONE HCL 400 MG TABLET PO SCH (09:57)
[2020-03-30] MEDS: busPIRone 10 MG TABLET. PO SCH (09:57)
[2020-03-30] MEDS: PANTOPRAZOLE 40 MG TABLET. PO SCH (09:57)
[2020-03-30] MEDS: ACETAMINOPHEN 500 MG TABLET PO PRN (09:58)
--- NOTE | 2020-03-30 10:38 | RAD ---
EXAM: Abdomen sonogram. HISTORY: Elevated liver enzyme laboratory values. TECHNIQUE: Significant imaging of the abdomen was performed. COMPARISON: None. FINDINGS: The liver is normal in size. There is hepatic steatosis. No focal hepatic lesion is seen. T he gallbladder and right kidney are unremarkable. The pancreas, aorta and vena cava are obscured due to bowel gas and body habitus. IMPRESSION: 1. Hepatic steatosis. 2. Obscured midline structures due to body habitus and bowel gas. Electronically signed by: Isis Cai MD (03/30/2020 10:35 AM) [id number]
[2020-03-30 10:40] VITALS: BP 120/85
--- NOTE | 2020-03-30 10:58 | RAD ---
CT HEAD INDICATION: Reason: severe unrelenting headache / Spl. Instructions: / History: COMPARISON: None Available. Exposure: One or more of the following individualized dose reduction techniques were utilized for thi s examination: 1. Automated exposure control 2. Adjustment of the mA and/or kV according to patient size 3. Use of iterative reconstruction technique TECHNIQUE: 5 mm contiguous axial images were obtained from the skull base to the vertex in both bone and soft tissue algorithm. FINDINGS: No abnormal attenuation within the brain parenchyma. No evidence of acute intracranial hemorrhage. No extra-axial fluid collections. No mass effect or midline shift. Ventricular size is appropriate. Basal cisterns are patent. No fractures identified.Ramos-white differentiation is preserved.Globes and orbits are within normal l imits. Paranasal sinuses and mastoid air cells are clear. IMPRESSION: No acute intracranial findings. Electronically signed by: Avelino Flores MD (03/30/2020 10:56 AM) [id number]
[2020-03-30] MEDS ORDERED: ONDA4TAB12 PO (13:24)
--- NOTE | 2020-03-30 15:00 | NUR ---
PATIENT WAS DISCHARGED TO HOME. DISCHARGE PAPERWORK WAS REVIEWED WITH PATIENT. PATIENT VERBALIZED UNDERSTANDING. ALL PERIPHERAL IV'S WERE REMOVED. PATIENT LEFT THE UNIT VIA AMBULATION. PATIENT WAS TRANSPORTED HOME BY HER .
== END 2020-03-30 15:00 | disposition home or self-care (01) | DRG 313 ==
LOC: ER 10:10 → OBSVTOIN 12:15 → 1 SOUTH 12:15
PROVIDERS: ADMIT Family Medicine; ATTEND Family Medicine
DX: R07.89 Other chest pain (principal); D50.9 Iron deficiency anemia, unspecified; I10 Essential (primary) hypertension; I25.10 Atherosclerotic heart disease of native coronary artery without angina pectoris; J44.9 Chronic obstructive pulmonary disease, unspecified; Z87.891 Personal history of nicotine dependence; Z90.710 Acquired absence of both cervix and uterus; Z95.5 Presence of coronary angioplasty implant and graft; F32.9 Major depressive disorder, single episode, unspecified; F41.9 Anxiety disorder, unspecified; Z88.8 Allergy status to other drugs, medicaments and biological substances; Z20.822 Contact with and (suspected) exposure to COVID-19; Z90.49 Acquired absence of other specified parts of digestive tract; Z79.899 Other long term (current) drug therapy
CPT/HCPCS: 36415; 70450; 71045; 74019; 76705; 80053; 80061; 81001; 83690; 83735; 83880; 84484; 85025; 85379; 87086; 93005; J1650; U0003; 99285-25

== ENCOUNTER → 2020-07-26 | Outpatient (CLI) | payer OTHER ==
[~2020-07-26] MED LIST changes: +BUSP10TA PO; -DRON400T PO; +DRON400T6 PO; -ISOS30TA4 PO; +ISOS30TA68 PO; +ONDA4TAB12 PO
--- NOTE | 2020-07-26 09:53 | RAD ---
EXAM: Abdomen sonogram. HISTORY: Epigastric pain. TECHNIQUE: Sonographic imaging of the abdomen was performed. COMPARISON: 01/11/2016. FINDINGS: The liver is upper normal in size. There is hepatic steatosis. There is a 2.6 x 1.1 cm hypo echoic lesion within the anterior left hepatic lobe. There is suggestion posterior through transmissi on associated with this lesion. This lesion demonstrates no internal blood flow. The common bile duct is normal in caliber for patient age, measuring 5.9 mm. The gallbladder is unremarkable. The kidneys and spleen are unremarkable. The pancreas, aorta and inferior vena cava are predominantly obscured d ue to bowel gas. IMPRESSION: 1. Upper normal liver size and hepatic steatosis. 2. Partially obscured midline structures due to bowel gas. 3. 2.6 cm hypoechoic lesion within the ventral left hepatic lobe. The sonographic appearance favors a complicated cystic etiology. There is no correlate for this finding on the prior CT dated 01/11/2016. A liver protocol CT or MRI can be performed to confirm benignity. Electronically signed by: Isis Cai MD (07/26/2020 9:51 AM) [id number]
== END ==
LOC: US 07:39
PROVIDERS: ATTEND Internal Medicine Gastroenterology
DX: K76.0 Fatty (change of) liver, not elsewhere classified (principal); R10.13 Epigastric pain; R10.816 Epigastric abdominal tenderness
CPT/HCPCS: 76700

== ENCOUNTER 2020-08-17 21:42 | Emergency (ER) | payer OTHER ==
[~2020-08-17] VITALS: Ht 162.6 cm; Wt 98.6 kg
[2020-08-17] MEDS ORDERED: NITROGLYCERIN SUBLINGUAL 0.4 MG BOTTLE OF 25. SL PRN (22:15)
[2020-08-17] MEDS ORDERED: ASPIRIN CHEWABLE 81 MG TABLET. PO ONE (22:15)
[2020-08-17] MEDS ORDERED: IV NORMAL SALINE 1,000ML 1,000 ML IV ONE (22:15)
--- NOTE | 2020-08-17 22:32 | EKG ---
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
--- NOTE | 2020-08-17 22:47 | PHYS DOC ---
Past History Past Medical History: Anxiety, Asthma, CAD, COPD, Depression, Hypertension, Other Additional Past Medical Histor: Gastroperesis Past Surgical History: , Hysterectomy Additional Past Surgical Histo: breast reduction, cardiac stents placed Smoking: Quit Greater Than 1 Year Alcohol Use: None Drug Use: None General Adult EDM: Chief Complaint: CHEST PAIN HPI: HPI: 65-year-old female presents with left-sided chest pain. This started 2 and half hours prior to arrival. She was just sitting on the couch starting to stand up when it began to hurt. It is worse with deep breathing. She denies diaphoresis. Patient does have a stent that she had about 6 years ago. She is due for a cardiac cath in the next few months. Her last stress test a year ago was negative. She describes the chest pain as a squeezing sensation in the front and back. Is an 8 out of 10. She has not taken an aspirin. The pain is reproducible with palpation. Patient denies any rash. Review of Systems: Review of Systems: Constitutional: Denies fever or chills Eyes: Denies change in visual acuity HENT: Denies nasal congestion or sore throat Respiratory: shortness of breath Cardiovascular: Chest pain GI: Denies abdominal pain, nausea, vomiting, bloody stools or diarrhea : Denies dysuria Musculoskeletal: Denies back pain or joint pain Integument: Denies rash Neurologic: Denies headache, focal weakness or sensory changes Endocrine: Denies polyuria or polydipsia Lymphatic: Denies swollen glands Psychiatric: Denies depression or anxiety Current Medications: Current Meds: Current Medications Medications (Trade) Dose Ordered Sig/[facility] Start Time Stop Time Status Last Admin Dose Admin Aspirin (Aspirin Chewable) 324 mg 1X ONCE 08/17/20 22:15 08/17/20 22:16 UNV Nitroglycerin (Nitrostat) 0.4 mg PRN Q5MIN PRN 08/17/20 22:15 UNV Sodium Chloride 1,000 ml @ 1,000 mls/hr 1X ONCE 08/17/20 22:15 08/17/20 23:14 UNV Allergies: Allergies: Allergies Coded Allergies Type Severity Reaction Last Updated Verified gluten Allergy Intermediate 03/28/20 Yes insect venom Allergy Unknown 03/28/20 Yes iron Allergy Unknown 03/28/20 Yes Physical Exam: PE: Constitutional: Well developed, well nourished, obese, mild acute distress, non- toxic appearance. [] HENT: Normocephalic, atraumatic, bilateral external ears normal, oropharynx moist, no oral exudates, nose normal. [] Eyes: PERRLA, EOMI, conjunctiva normal, no discharge. [] Neck: Normal range of motion, no tenderness, supple, no stridor. [] Cardiovascular: Heart rate 90, regular rhythm, no murmur [] Lungs & Thorax: Bilateral breath sounds clear to auscultation. Pain with palpation of left anterior and lateral chest [] Abdomen: Bowel sounds normal, soft, no tenderness, no masses, no pulsatile masses. [] Skin: Warm, dry, no erythema, no rash. [] Back: No tenderness, no CVA tenderness. [] Extremities: No tenderness, no cyanosis, no clubbing, ROM intact, no edema. [] Neurologic: Alert and oriented X 3, normal motor function, normal sensory function, no focal deficits noted. [] Psychologic: Affect normal, judgement normal, mood normal. [] EKG: EKG: Sinus rhythm, rate 90, leftward axis, no ST elevation or depression although flat T waves 3, V2 through V5.[] Radiology/Procedures: Radiology/Procedures: [] Heart Score: C/O Chest Pain: Yes HEART Score for Chest Pain: HEART Score for Chest Pain Response (Comments) Value History Slighlty/Non-Suspicious 0 ECG Nonspecific Repolarizatio 1 Age >45 - < 65 1 Risk Factors >3 Risk Factors or Hx CAD 2 Total 4 Risk Factors: Risk Factors: DM, Current or recent (<one month) smoker, HTN, HLP, family history of CAD, obesity. Risk Scores: Score 0 - 3: 2.5% MACE over next 6 weeks - Discharge Home Score 4 - 6: 20.3% MACE over next 6 weeks - Admit for Clinical Observation Score 7 - 10: 72.7% MACE over next 6 weeks - Early Invasive Strategies Course & Med Decision Making: Course & Med Decision Making Pertinent Labs and Imaging studies reviewed. (See chart for details) The patient's EKG has some flattened T waves but is otherwise unremarkable. Patient's labs are unremarkable. Her troponin is negative. Her chest x-ray is negative for acute findings. I spoke with patient about her results. She is reassured. She is feeling a lot better. I offered the patient admission for further trending versus going home. She would prefer to go home. We discussed going ahead and doing a second troponin prior to discharge. The repeat troponin is negative. The patient is stable for discharge at this time. [] Dragon Disclaimer: Dragon Disclaimer: This electronic medical record was generated, in whole or in part, using a voice recognition dictation system. Departure Departure: Impression: Primary Impression: Atypical chest pain Disposition: HOME / SELF CARE / HOMELESS Condition: STABLE Referrals: TRISTIN VERDUGO DO (PCP) Patient Instructions: Chest Pain (Nonspecific), [id number] TINO TUCKER DO Aug 17, 2020 22:47
[2020-08-17 23:00] VITALS: BP 110/75
[2020-08-17 23:11] LABS: BASO # 0.1 x10^3/uL (0.0-0.2); BASO % 1 % (0-3); EOS # 0.1 x10^3/uL (0.0-0.7); EOS % 2 % (0-3); HEMOGLOBIN 11.8 g/dL (12.0-15.5); LYMPH # 2.4 x10^3/uL (1.0-4.8); LYMPH % 35 % (24-48); MEAN CORPUSCULAR HEMOGLOBIN 31 pg (25-35); MEAN CORPUSCULAR HGB CONC 33 g/dL (31-37); MEAN CORPUSCULAR VOLUME 94 fL (79-100); MONO # 0.6 x10^3/uL (0.0-1.1); MONO % 9 % (0-9); NEUT # 3.7 x10^3uL (1.8-7.7); NEUT % 54 % (31-73); PLATELET COUNT 289 x10^3/uL (140-400); RED BLOOD COUNT 3.82 x10^6/uL (3.50-5.40); RED CELL DISTRIBUTION WIDTH 21.1 % (11.5-14.5); WHITE BLOOD COUNT 6.9 x10^3/uL (4.0-11.0)
--- NOTE | 2020-08-17 23:12 | RAD ---
EXAM: AP View of the chest DATE: 08/17/2020 10:15 PM INDICATION: Chest pain COMPARISON: 03/28/2020 03/29/2020 FINDINGS: The heart is not enlarged. Mediastinal and hilar contours are normal. No focal parenchymal airspace opacity. No pleural effusion or pneumothorax. IMPRESSION: 1. No radiographic evidence for acute cardiopulmonary process. Electronically signed by: Shun Parikh MD (08/17/2020 11:09 PM) AIDEN
[2020-08-17 23:25] LABS: CALCIUM 9.4 mg/dL (8.5-10.1); CREATININE 1.2 mg/dL (0.6-1.0); GFR 45.4; POTASSIUM 4.7 mmol/L (3.5-5.1)
[2020-08-17 23:30] LABS: ALBUMIN 3.7 g/dL (3.4-5.0); ALBUMIN/GLOBULIN RATIO 1.3 (1.0-1.7); TOTAL BILIRUBIN 0.2 mg/dL (0.2-1.0); TOTAL PROTEIN 6.5 g/dL (6.4-8.2)
[2020-08-17 23:42] LABS: ANISOCYTOSIS MOD; PLT ESTIMATE ADEQUATE (ADEQUATE)
== END 2020-08-18 01:12 | disposition home or self-care (01) ==
LOC: ER 21:42
DX: R07.89 Other chest pain (principal); J44.9 Chronic obstructive pulmonary disease, unspecified; I10 Essential (primary) hypertension; Z90.710 Acquired absence of both cervix and uterus; Z88.6 Allergy status to analgesic agent; Z87.891 Personal history of nicotine dependence
CPT/HCPCS: 36415; 71045; 80053; 84484; 85025; 93005; 96360; 99285; J7030

== ENCOUNTER → 2020-08-18 | Outpatient (CLI) | payer OTHER ==
[2020-08-17 23:00] VITALS: BP 110/75
[~2020-08-18] MED LIST changes: +IOHEXOL 240 MG/ML 50ML VIAL. ONE; +IOHEXOL 300 MG/ML 75 ML VIAL. IV ONE
--- NOTE | 2020-08-18 14:48 | RAD ---
EXAM: CT ABDOMEN/PELVIS WITH CONTRAST. HISTORY: Liver lesion. TECHNIQUE: Computed tomography of the abdomen and pelvis was performed after the intravenous administ ration of iodinated contrast. One or more of the following individualized dose reduction techniques w ere utilized for this examination: 1. Automated exposure control. 2. Adjustment of the mA and/or kV according to patient size. 3. Use of iterative reconstruction technique. COMPARISON: 07/26/2020, 01/11/2016. FINDINGS: Lung windows through the visualized portions of the bases reveal mild atelectasis. Bone win dows reveal no suspicious lesions. A subcutaneous nodule along the right lower back measures 10 mm. Hypoattenuation of the hepatic parenchyma indicates moderate to severe diffuse hepatic steatosis. The liver appears moderately enlarged. A region of relative hyperattenuation in segment IVb most likely represents fatty sparing. This extends to a lesser degree superiorly along the falciform ligament. Ot her regions a fatty sparing are noted in a subcapsular distribution. No additional hepatic lesions ar e identified. Specifically, there is no correlate for the suggested cystic lesion within the left hep atic lobe. The spleen is not enlarged. The pancreas, gallbladder, adrenal glands and kidneys are unremarkable. T here are no pathologically enlarged lymph nodes. The uterus is surgically absent. Sigmoid diverticulosis is mild. The appendix is not inflamed. There is no small bowel obstruction. IMPRESSION: 1. No clear CT correlate for the finding of ultrasound. There is moderate to severe diffuse hepatic s teatosis with multiple regions of focal fatty sparing. It is possible that fatty sparing simulated th e ultrasound finding. There are no suspicious hepatic lesions by CT. 2. Moderate hepatomegaly. 3. 10 mm subcutaneous nodule along the right lower back. Correlate for a cutaneous lesion. Electronically signed by: Shubham Humphrey MD (08/18/2020 2:45 PM) [id number]
== END ==
LOC: CT 08:14
PROVIDERS: ATTEND Internal Medicine Gastroenterology
DX: K76.0 Fatty (change of) liver, not elsewhere classified (principal); R16.0 Hepatomegaly, not elsewhere classified; Z90.49 Acquired absence of other specified parts of digestive tract
CPT/HCPCS: 74177; Q9967

== ENCOUNTER → 2021-05-09 | Outpatient (CLI) | payer OTHER ==
[~2021-05-09] MED LIST changes: +ALPR0.254 PO; +BUPR150T21 PO; -IOHEXOL 240 MG/ML 50ML VIAL. ONE; -IOHEXOL 300 MG/ML 75 ML VIAL. IV ONE; +TRIA1TAB3 PO
--- NOTE | 2021-05-09 14:16 | RAD ---
Examination: CT of the abdomen pelvis without IV contrast HISTORY: History of sigmoid diverticulosis COMPARISON: 08/18/2020 TECHNIQUE: Axial CT images of the abdomen pelvis were performed without contrast. Coronal and sagitta l reformats are performed Exposure: One or more of the following individualized dose reduction techniques were utilized for thi s examination: 1. Automated exposure control 2. Adjustment of the mA and/or kV according to patient size 3. Use of iterative reconstruction technique FINDINGS: The bibasilar lungs are clear. No evidence of free air identified in the abdomen. The evaluation of t he solid organs is limited due to lack of IV contrast. The evaluation of bowel is limited due to lack of oral contrast. Diffuse decreased attenuation noted in the liver likely hepatic steatosis. The spl een, adrenals grossly appears unremarkable. The gallbladder is mildly distended. The stomach is mildl y distended. The visualized pancreas grossly appears unremarkable. Small bowel is nondilated. Feces a nd gas identified in the colon. Multiple sigmoid colon diverticulosis. Mild fat stranding identified about the sigmoid colon likely mild diverticulitis. Urinary bladder is mildly distended. No evidence of intrarenal collecting system calculi or hydronephrosis. Moderate degenerative changes lumbar spine. IMPRESSION: 1. Multiple sigmoid colon diverticulosis with mild fat stranding identified about the sigmoid colon likely mild diverticulitis. 2. Hepatic steatosis. Electronically signed by: Avelino Flores MD (05/09/2021 2:14 PM) [id number]
== END ==
LOC: CT 13:29
PROVIDERS: ATTEND Family Medicine
DX: K57.30 Diverticulosis of large intestine without perforation or abscess without bleeding (principal); K76.0 Fatty (change of) liver, not elsewhere classified; K82.8 Other specified diseases of gallbladder; K31.89 Other diseases of stomach and duodenum; M47.816 Spondylosis without myelopathy or radiculopathy, lumbar region
CPT/HCPCS: 74176

== ENCOUNTER 2021-06-05 10:30 | Emergency (ER) | payer OTHER ==
[~2021-06-05] VITALS: Ht 162.6 cm; Wt 93.0 kg
[~2021-06-05 10:30] MED LIST changes: +CIPR500T94 PO; +METR-34 PO
[2021-06-05] MEDS ORDERED: IV NORMAL SALINE 1,000ML 1,000 ML IV SCH (10:45)
--- NOTE | 2021-06-05 11:02 | PHYS DOC ---
Past History Past Medical History: Anxiety, Asthma, Depression Additional Past Medical Histor: Gastroperesis Past Surgical History: Tubal ligation Additional Past Surgical Histo: breast reduction, cardiac stents placed Smoking: Quit Greater Than 1 Year Alcohol Use: None Drug Use: None General Adult EDM: Chief Complaint: Palpitations HPI: HPI: Patient is a 66-year-old female who presents to the emergency department for palpitations that started while in Dr. Cenra's office this afternoon. Patient states she can feel her heart pumping. Karishma Dr. Cerna's office she states that she felt a head adam and felt lightheaded so was sent to the emergency department. She states that they checked her vital signs and they were normal and did not EKG which showed a right bundle branch block. Patient is reporting palpitations, shortness of breath and she feels a pulsing in her head. She reports it is not necessarily a headache but she can just feel her pulse in her head. She also reports tingling to her lips. Patient reports that she has a history of some type of mass in her head but has never followed up with repeat imaging. Patient has a history of hypertension and reports taking her medications today. She reports that she failed a stress test and had a stent placed. 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 She denies chest pain, nausea, vomiting, lightheadedness. Review of Systems: Review of Systems: HENT: See HPI Respiratory: See HPI Cardiovascular: See HPI GI: See HPI Neurologic: See HPI Psychiatric: See HPI, reports anxiety Current Medications: Current Meds: Current Medications Medications (Trade) Dose Ordered Sig/[facility] Start Time Stop Time Status Last Admin Dose Admin Sodium Chloride 1,000 ml @ 1,000 mls/hr Q1H 06/05/21 10:45 06/05/21 11:44 Allergies: Allergies: Allergies Coded Allergies Type Severity Reaction Last Updated Verified iron Allergy Severe Anaphylaxis 05/12/21 Yes gluten Allergy Intermediate 03/28/20 Yes insect venom Allergy Unknown 03/28/20 Yes Physical Exam: PE: Constitutional: Well developed, well nourished, no acute distress, non-toxic appearance. [] HENT: Normocephalic, atraumatic, bilateral external ears normal, oropharynx moist, no oral exudates, nose normal. [] Eyes: PERRL, 4 mm bilaterally, EOMI, conjunctiva normal, no discharge. [] Neck: Normal range of motion, no stridor Cardiovascular:Heart rate regular rhythm, no murmur [] Lungs & Thorax: Bilateral breath sounds clear to auscultation [] Abdomen: Bowel sounds normal, soft, no tenderness, no masses, no pulsatile masses. [] Skin: Warm, dry, no erythema, no rash. [] Back: Normal range of motion Extremities: No tenderness, no cyanosis, no clubbing, ROM intact, no edema. [] Neurologic: Alert and oriented X 3, normal motor function, normal sensory function, no focal deficits noted. [] Psychologic: Anxious appearing Current Patient Data: Labs: Laboratory Tests Test 06/05/21 10:55 White Blood Count 4.9 x10^3/uL Red Blood Count 4.09 x10^6/uL Hemoglobin 12.8 g/dL Hematocrit 37.9 % Mean Corpuscular Volume 93 fL Mean Corpuscular Hemoglobin 31 pg Mean Corpuscular Hemoglobin Concent 34 g/dL Red Cell Distribution Width 15.8 % Platelet Count 291 x10^3/uL Neutrophils (%) (Auto) 54 % Lymphocytes (%) (Auto) 36 % Monocytes (%) (Auto) 7 % Eosinophils (%) (Auto) 1 % Basophils (%) (Auto) 1 % Neutrophils # (Auto) 2.6 x10^3uL Lymphocytes # (Auto) 1.8 x10^3/uL Monocytes # (Auto) 0.3 x10^3/uL Eosinophils # (Auto) 0.1 x10^3/uL Basophils # (Auto) 0.1 x10^3/uL Sodium Level 137 mmol/L Potassium Level 3.3 mmol/L Chloride Level 102 mmol/L Carbon Dioxide Level 24 mmol/L Anion Gap 11 Blood Urea Nitrogen 14 mg/dL Creatinine 1.0 mg/dL Estimated GFR (Cockcroft-Gault) 55.8 BUN/Creatinine Ratio 14 Glucose Level 120 mg/dL Calcium Level 8.9 mg/dL Total Bilirubin 0.4 mg/dL Aspartate Amino Transf (AST/SGOT) 23 U/L Alanine Aminotransferase (ALT/SGPT) 35 U/L Alkaline Phosphatase 86 U/L Troponin I High Sensitivity 7 ng/L Total Protein 6.5 g/dL Albumin 3.4 g/dL Albumin/Globulin Ratio 1.1 Current Medications Medications (Trade) Dose Ordered Sig/Kian Route PRN Reason Start Time Stop Time Status Last Admin Dose Admin Sodium Chloride 1,000 ml @ 1,000 mls/hr Q1H IV 06/05/21 10:45 06/05/21 11:44 DC 06/05/21 10:45 Lorazepam (Ativan Inj) 1 mg 1X ONCE IVP 06/05/21 12:00 06/05/21 12:01 DC 06/05/21 11:57 Potassium Chloride (Klor-Con) 20 meq 1X ONCE PO 06/05/21 12:00 06/05/21 12:01 DC 06/05/21 11:57 Morphine Sulfate (Morphine 2mg Syringe) 2 mg 1X ONCE IV 06/05/21 12:30 06/05/21 12:31 UNV Vital Signs: Vital Signs Date Time Temp Pulse Resp B/P (MAP) Pulse Ox O2 Delivery O2 Flow Rate FiO2 06/05/21 10:37 98.2 69 16 118/70 (86) 99 Room Air EKG: EKG: EKG performed by ER staff at 1048 shows sinus rhythm with a rate of 70, QTC is 496, no STEMI read by Dr. Simmons at 1050 [] Radiology/Procedures: Radiology/Procedures: []PROCEDURE: CT HEAD WO CONTRAST CT HEAD/BRAIN WO History: Mass in head. Headache. Comparison: CT head 03/30/2020 Technique: Noncontrast CT imaging was performed of the head. Findings: No intracranial hemorrhage. No mass effect. No hydrocephalus. No evidence of acute territorial infarction. Imaged orbits are unremarkable. Imaged paranasal sinuses and mastoid air cells are clear. The scalp and calvarium are unremarkable. Impression: 1. No acute intracranial abnormality. 2. No intracranial mass identified. For further evaluation of known or suspected intracranial mass, recommend brain MRI. ----- Exposure: One or more of the following individualized dose reduction techniques were utilized for this examination: 1. Automated exposure control 2. Adjustment of the mA and/or kV according to patient size 3. Use of iterative reconstruction technique. Electronically signed by: Minh Sloan MD (06/05/2021 11:29 AM) [id number] DICTATED AND SIGNED BY: MINH SLOAN MD DATE: 06/05/21 1127 CC: MARY ANN SIMMONS DO; TRISTIN VERDUGO DO; ANAT CHOI APRN ~ ROCEDURE: PORTABLE CHEST 1V XR CHEST 1V History: Palpitations. Comparison: 08/17/2020 Technique: AP radiograph of the chest. Findings: The lungs are adequately and symmetrically inflated. No airspace consolidation, pleural effusion or pneumothorax. The cardiomediastinal silhouette and pulmonary vasculature are within normal limits. No acute osseous abnormality. Soft tissues are unremarkable. Impression: 1. No acute cardiopulmonary process. Electronically signed by: Minh Sloan MD (06/05/2021 11:48 AM) [id number] DICTATED AND SIGNED BY: MINH SLOAN MD DATE: 06/05/21 1148 CC: MARY ANN SIMMONS DO; TRISTIN VERDUGO DO; ANAT CHOI APRN ~ Heart Score: C/O Chest Pain: No Risk Factors: Risk Factors: DM, Current or recent (<one month) smoker, HTN, HLP, family history of CAD, obesity. Risk Scores: Score 0 - 3: 2.5% MACE over next 6 weeks - Discharge Home Score 4 - 6: 20.3% MACE over next 6 weeks - Admit for Clinical Observation Score 7 - 10: 72.7% MACE over next 6 weeks - Early Invasive Strategies Course & Med Decision Making: Course & Med Decision Making Pertinent Labs and Imaging studies reviewed. (See chart for details) [] Patient presents to the emergency department for complaints of palpitations with shortness of breath, and feeling a pulsing sensation in her head. Patient has a history of hypertension and stent placement. She also reports a history of a mass in her head that she has not had repeat imaging performed. Patient is very anxious appearing. Work-up in the emergency department today consisted of blood work including troponin, TSH, EKG, chest x-ray. Due to patient's reported mass in her head and the pulsing sensation in her head, CT of her head was performed. EKG looks similar when compared to previous ekg Patient CBC was unremarkable. Patient's potassium was 3.3 and this was replaced in the emergency department with oral supplementation. Negative troponin. Chest x-ray shows no acute findings. CT head negative for acute findings. UDS was negative. Urinalysis shows an infection, patient treated for antibiotic. Patient's anxiety was treated as she is experiencing tingling around her lips and appears anxious. Patient's pain in her head is also treated. Following treatment in the emergency department, she reports that her symptoms have improved. Patient's vital signs are stable. Patient is advised to follow-up with her primary care provider regarding her palpitations. I discussed with patient all findings and diagnostic testing as well as the need to follow-up with PCP for further evaluation and treatment or return to the ER if any new or worsening symptoms. Strict return precautions were also discussed at length. Patient voiced understanding and agreement with the plan. Patient is hemodynamically stable at the time of disposition. Dragon Disclaimer: Dragon Disclaimer: This electronic medical record was generated, in whole or in part, using a voice recognition dictation system. Departure Departure: Impression: Primary Impression: Intermittent palpitations Additional Impression: UTI (urinary tract infection) Qualified Codes: N30.01 - Acute cystitis with hematuria Disposition: HOME / SELF CARE / HOMELESS Condition: GOOD Referrals: TRISTIN VERDUGO DO (PCP) Patient Instructions: Anxiety and Panic Attacks, [id number], Palpitations, Urinary Tract Infection, [id number] Additional Instructions: You are seen in the emergency department for palpitations. It is possible that your palpitations that you are experiencing are anxiety related. Please follow- up with your primary care provider regarding maintenance of your anxiety. Your potassium was mildly decreased in the emergency department today and this was replaced in the emergency department with supplementation. Please make sure that you are eating potassium rich foods like green leafy vegetables and bananas. You were noted to have a urinary tract infection which will be treated with antibiotic. Please start and finish the antibiotic completely. Increase your fluids. Avoid bladder irritants like caffeine, sugary beverages or alcohol. Follow-up with your primary care provider tomorrow regarding your ER visit. Return to the emergency department if you develop chest pain, palpitations, shortness of breath, intractable nausea or vomiting, high fevers refractory to treatment, lightheadedness, syncope or any new or worsening concerns. Scripts Cephalexin (KEFLEX) 500 Mg Capsule 1 CAP PO BID for uti for 7 Days, #14 CAP 0 Refills Prov: ANAT CHOI APRN 06/05/21 ANAT CHOI APRN Jun 05, 2021 11:02
[2021-06-05 11:09] LABS: BASO # 0.1 x10^3/uL (0.0-0.2); BASO % 1 % (0-3); EOS # 0.1 x10^3/uL (0.0-0.7); EOS % 1 % (0-3); HEMATOCRIT 37.9 % (36.0-47.0); HEMOGLOBIN 12.8 g/dL (12.0-15.5); LYMPH # 1.8 x10^3/uL (1.0-4.8); LYMPH % 36 % (24-48); MEAN CORPUSCULAR HEMOGLOBIN 31 pg (25-35); MEAN CORPUSCULAR HGB CONC 34 g/dL (31-37); MEAN CORPUSCULAR VOLUME 93 fL (79-100); MONO # 0.3 x10^3/uL (0.0-1.1); MONO % 7 % (0-9); NEUT # 2.6 x10^3uL (1.8-7.7); NEUT % 54 % (31-73); PLATELET COUNT 291 x10^3/uL (140-400); RED BLOOD COUNT 4.09 x10^6/uL (3.50-5.40); RED CELL DISTRIBUTION WIDTH 15.8 % (11.5-14.5); WHITE BLOOD COUNT 4.9 x10^3/uL (4.0-11.0)
[2021-06-05 11:18] LABS: CALCIUM 8.9 mg/dL (8.5-10.1); GFR 55.8; POTASSIUM 3.3 mmol/L (3.5-5.1)
[2021-06-05 11:24] LABS: ALBUMIN 3.4 g/dL (3.4-5.0); ALBUMIN/GLOBULIN RATIO 1.1 (1.0-1.7); TOTAL BILIRUBIN 0.4 mg/dL (0.2-1.0); TOTAL PROTEIN 6.5 g/dL (6.4-8.2)
--- NOTE | 2021-06-05 11:31 | RAD ---
CT HEAD/BRAIN WO History: Mass in head. Headache. Comparison: CT head 03/30/2020 Technique: Noncontrast CT imaging was performed of the head. Findings: No intracranial hemorrhage. No mass effect. No hydrocephalus. No evidence of acute territorial infar ction. Imaged orbits are unremarkable. Imaged paranasal sinuses and mastoid air cells are clear. The scalp a nd calvarium are unremarkable. Impression: 1. No acute intracranial abnormality. 2. No intracranial mass identified. For further evaluation of known or suspected intracranial mass, recommend brain MRI. ----- Exposure: One or more of the following individualized dose reduction techniques were utilized for thi s examination: 1. Automated exposure control 2. Adjustment of the mA and/or kV according to patient size 3. Use of iterative reconstruction technique. Electronically signed by: Minh Bailey MD (06/05/2021 11:29 AM) [id number]
--- NOTE | 2021-06-05 11:51 | RAD ---
XR CHEST 1V History: Palpitations. Comparison: 08/17/2020 Technique: AP radiograph of the chest. Findings: The lungs are adequately and symmetrically inflated. No airspace consolidation, pleural effusion or p neumothorax. The cardiomediastinal silhouette and pulmonary vasculature are within normal limits. No acute osseous abnormality. Soft tissues are unremarkable. Impression: 1. No acute cardiopulmonary process. Electronically signed by: Minh Bailey MD (06/05/2021 11:48 AM) [id number]
[2021-06-05] MEDS ORDERED: POTASSIUM CHLORIDE 20 MEQ TABLET.ER. PO ONE (12:00)
[2021-06-05] MEDS ORDERED: MORPHINE SULFATE 2 MG/ML DISP.SYRIN. IV ONE (12:30)
[2021-06-05] MEDS ORDERED: ACETAMINOPHEN 325 MG TABLET PO ONE (12:30)
[2021-06-05 12:57] LABS: AMPHETAMINE/METHAMPHETAMINE NEG (NEG); BARBITURATES NEG (NEG); BENZODIAZEPINES NEG (NEG); CANNABINOIDS NEG (NEG); COCAINE NEG (NEG); METHADONE NEG (NEG); OPIATES NEG (NEG); PHENCYCLIDINE NEG (NEG)
[2021-06-05 13:10] LABS: CLARITY,URINE HAZY; COLOR,URINE YELLOW; GLUCOSE,URINE NEG (NEG); NITRITE,URINE NEG (NEG); UROBILINOGEN,URINE 0.2 mg/dL (0.2 mg/dL)
[2021-06-05 13:11] LABS: BACTERIA,URINE MOD /HPF (0-FEW); SQUAMOUS EPITHELIAL CELL,UR MANY /LPF
[2021-06-05 13:16] VITALS: BP 112/71
[2021-06-05] MEDS ORDERED: CEPH500C PO (13:22)
--- NOTE | 2021-06-05 20:15 | EKG ---
[address] [address] Test Date: 2021-06-05 Test Time: 10:48:21 Pat Name: SHIRA SARAVIA Department: Room: Gender: F [employer]: : 1955 Requested By: MARY ANN SIMMONS Order Number: [id number] Reading MD: Measurements Intervals Stanley Rate: 70 P: 0 MD: 150 QRS: 4 QRSD: 78 T: 30 QT: 456 QTc: 496 Interpretive Statements SINUS RHYTHM PROLONGED QT NO SPECIFIC ECG ABNORMALITIES RI6.02 No previous ECG available for comparison
== END 2021-06-05 13:30 | disposition home or self-care (01) ==
LOC: ER 10:30
DX: N30.01 Acute cystitis with hematuria (principal); R00.2 Palpitations; R42 Dizziness and giddiness; F41.9 Anxiety disorder, unspecified; J45.909 Unspecified asthma, uncomplicated; Z87.891 Personal history of nicotine dependence; Z88.8 Allergy status to other drugs, medicaments and biological substances
CPT/HCPCS: 36415; 70450; 71045; 80053; 80307; 81001; 84443; 84484; 85025; 87086; 93005; 96361; 96374; 96375; 99285; J2060; J2270; J7030